=== PATIENT | female | born 1950 | race Caucasian/White ===

== ENCOUNTER → 2021-01-05 10:48 | Outpatient (CLI) | payer MEDICARE, OTHER, SELFPAY ==
--- NOTE | 2021-01-05 10:50 | CT_ITS ---
STUDY: LOW DOSE CT LUNG CANCER SCREENING REASON FOR EXAM: Female, 70 years old. LUNG CANCER SCREENING, NON-SMOKER X 10 YRS, 1PPD X 42 YRS RADIATION DOSAGE (If Supplied By Facility): CTDIvol = ( 4.02 ) mGy, DLP = ( 133.41 ) mGycm TECHNIQUE: No contrast was administered. Low dose technique was utilized (average mAS-38 and kVp 120). 1.25 mm axial source images with a slice interval of 1.25-mm were reconstructed in lung windows. 2.5 mm axial source images with a slice interval of 2.5-mm were reconstructed in lung windows. 5.0 mm axial source images with a slice interval of 5.0-mm were reconstructed in soft tissue windows. Nodule measured using lung windows on PACS and/or independent workstation with automated measurement of minimum and maximum diameter. Nodule measurement reported as average diameter rounded to the nearest whole number. Growth is defined as an increase ins size of greater than 1.5 mm. COMPARISON: None. NODULES: No suspicious nodules are seen. Emphysema: Minimal degree of increased markings in the posterior aspect of the left upper lobe adjacent to the left major fissure. This may represent focal area of scarring. Minimal scarring at the lung bases. Endobronchial lesion: None Aorta: Mild degree of atherosclerotic plaque formation of the aortic arch. Coronary arteries: Coronary artery calcification. Mediastinal nodes: Small benign appearing mediastinal lymph nodes. Other chest and abdominal findings: Degenerative changes of the thoracic spine. CT/Low Dose CT Lung Screening IMPRESSION: Lung-RADS category 2 - Continue annual screening with LDCT in 12 months. IMPORTANT NOTES FOR USE: ACR Lung-RADS Version 1.0 Assessment Categories Release Date: March 23, 2014 Category: Coded 0-4 bases on nodule(s) with highest degree of suspicion. Negative screen is defined as categories 1 and 2; a positive screen is defined as categories 3 and 4. Category 3 and 4A nodules that are unchanged on interval CT should be coded as category 2, and individuals returned to screening in 12 months. Category 4X: Category 3 or 4 nodules with additional imaging findings that increase the suspicion of lung cancer, such as spiculation, GGN that doubles in size in 1 year, enlarged lymph notes, etc. Category Modifiers: S (significant finding unrelated to lung cancer) and C (prior history of treated lung cancer) may be added to the 0-4 Lung-RADS Electronically Signed: Alec Moreira MD at 12:48 EST , Service support ,
== END ==
PROVIDERS: PCP Family Medicine; Referring Provider Family Medicine; Visit Provider Family Medicine
DX: Z00.00 Encounter for general adult medical examination without abnormal findings (principal); Z12.2 Encounter for screening for malignant neoplasm of respiratory organs; Z12.11 Encounter for screening for malignant neoplasm of colon; Z87.891 Personal history of nicotine dependence
CPT/HCPCS: 71271

== ENCOUNTER 2021-01-27 13:51 | Outpatient (RCR) | payer MEDICARE, OTHER, SELFPAY ==
[2021-01-27] MEDS: COVID-19 VACC, MRNA(PFIZER)/PF 30 MCG/0.3 ML SYRINGE IM (09:33)
[2021-02-17] MEDS: COVID-19 VACC, MRNA(PFIZER)/PF 30 MCG/0.3 ML SYRINGE IM (09:27)
== END 2021-01-27 23:59 ==
LOC: IMMUN 13:51
PROVIDERS: PCP Family Medicine; Referring Provider Family Medicine; Visit Provider Family Medicine
DX: Z23 Encounter for immunization (principal)
CPT/HCPCS: 0001A; 0002A

== ENCOUNTER 2024-04-25 03:10 | Inpatient (IN) | payer MEDICARE, OTHER, SELFPAY ==
[2024-04-25] VITALS (16 sets, daily range): BP systolic 107–165; BP diastolic 48–92; PULSE 59–89; RESP 13–16; TEMP 36.4–37.9; O2SAT 91–100; BMI 34.0
--- NOTE | 2024-04-25 03:45 | PCM.HP.STD ---
HPI - General General Date of Admission: 04/25/24 Date of Service: 04/25/24 Chief Complaint: Abdominal pain, N/V. HPI Narrative The patient is a 74 y/o F w/ PMHx: RLS, HTN, HLD, Anxiety and Depression, Allergic Rhinitis, Absences seizures, Hx Cholelithiasis with chronic cholecystitis status post previous cholecystectomy 2021, Former tobacco use, Ulcerative colitis who presents to the [facility] on 04/25/2024 as a direct admit from outside facility [facility] ED with history of presentation to their facility on 04/24/2024 with history of normal day of activity with no complaints until following dinner at 5 PM when she had sudden onset of epigastric and right upper quadrant pain which was noted to be severe and sharp 10 out of 10 in severity with nausea and bouts of emesis prompting EMS call and transition to the outside facility ED for evaluation. Following interventions in ED including pain medication she did note significant improvement. Upon [facility] arrival she notes pain is resolved at this time and reports that 0 out of 10. She does reports over the years she has had intermittent similar epigastric and right upper quadrant pain but is resolved. In the ED VS included HR 68, BP 132/69, HR 67, RR 13, T 36.9, 96% on RA, CBC with WBC 8.3, hemoglobin 13, platelet 189 with left shift, troponin 8, lipase 67, CMP with sodium 137, potassium 3.8, chloride 101, CO2 27, BUN/creatinine 16/0.91, total bilirubin 1.4, AST/ALT 308/189, alk phos 95, glucose 158, GFR 60, CT chest, abdomen, pelvis with IV contrast with choledocholithiasis with moderate biliary and pancreatic ductal dilatation, colonic diverticulosis without signs of diverticulitis, slight enlargement of cyst at the upper pole of the right kidney measuring 4.5 cm which was noted previously however has increased in size from 3.7 cm 10/25/2021 but appearance remains benign as well as small benign cyst in the left kidney, UA with positive gravity 1.020, nitrite positive, leukocyte estrace and trace with WBCs 5-10 and 3+ urine bacteria, UCx pending from outside facility. In the ED patient was administered IV zosyn, 1L NS, zofran 4 mg IV x 1, morphine 4 mg IV x 1. [facility] Medical History RLS (restless legs syndrome) History of chronic cholecystitis Absence seizure disorder Ulcerative colitis Allergic rhinitis Anxiety and depression Former tobacco use HLD (hyperlipidemia) HTN (hypertension) Home Medications ?Medication ?Instructions ?Recorded ?Last Taken ?Type Ca 600 mg-D3 20 mcg-mag oxide 50 1 ea PO DAILY 08/18/14 Unknown History op-Xo-pnqfku-manganese-boron tablet (Calcium 600-D3 Plus (mag-zinc)) Losartan/Hydrochlorothiazide 1 tab PO DAILY 08/18/14 Unknown History [Hyzaar 100-12.5 Tablet] ascorbate calcium (vitamin C) 500 500 mg PO DAILY 08/18/14 Unknown History mg tablet gabapentin 300 mg capsule 300 mg PO TID 08/18/14 Unknown History loperamide 2 mg capsule 2 mg PO DAILY 08/18/14 Unknown History multivitamin with folic acid 400 1 tab PO DAILY 08/18/14 Unknown History mcg tablet (Thera) omeprazole 20 mg capsule,delayed 20 mg PO DAILY 08/18/14 Unknown History release pravastatin 40 mg tablet 40 mg PO DAILY 08/18/14 Unknown History (Pravachol) gabapentin 100 mg capsule PO 04/25/24 Unknown History levetiracetam 500 mg tablet 500 mg PO BID 04/25/24 Unknown History losartan 100 1 tab PO DAILY 04/25/24 Unknown History mg-hydrochlorothiazide 12.5 mg tablet oxybutynin chloride 15 mg 15 mg PO DAILY 04/25/24 Unknown History tablet,extended release 24 hr ropinirole 0.5 mg tablet 0.5 mg PO DAILY 04/25/24 Unknown History Allergy/AdvReac Type Severity Reaction Status Date / Time acetaminophen (From Vicodin) AdvReac Nausea/Vom/ Verified 08/31/14 10:09 Diarrhea hydrocodone bitartrate (From AdvReac Nausea/Vom/ Verified 08/31/14 10:09 Vicodin) Diarrhea propoxyphene napsylate (From AdvReac Nausea/Vom/ Verified 08/31/14 10:09 Darvocet-N) Diarrhea Family History (Updated 04/25/24 @ 04:[address] Marianela Garcia MD) Mother Diabetes Bipolar disorder Father Liver cancer Prostate cancer Surgical History S/P cataract extraction History of knee replacement History of arthroscopic knee surgery History of section History of total hip replacement S/P cholecystectomy Social History (Updated 04/25/24 @ 04:[address] Marianela Garcia MD) household members: children Smoking Status: Former smoker how long ago did patient quit smoking: Smoked 40 yrs 1 ppd until quit age 50. alcohol intake: current alcohol intake frequency: holidays/special occasions only substance use type: does not use ROS ROS Narrative Admission Review of Systems: CONSTITUTIONAL: No weight loss, fever, chills, + weakness or fatigue. HEENT: Eyes: No visual loss, blurred vision, double vision or yellow sclerae. Ears, Nose, Throat: No hearing loss, sneezing, congestion, runny nose or sore throat. SKIN: No rash or itching, lesions, wounds. CARDIOVASCULAR: No chest pain, chest pressure or chest discomfort, palpitations, edema, orthopnea, syncopal events. RESPIRATORY: No shortness of breath, cough or sputum, wheezing, hemoptysis. GASTROINTESTINAL: + anorexia, nausea, vomiting, abdominal pain. No diarrhea, melena, BRBPR. GENITOURINARY: No dysuria, frequency, urgency or retention. NEUROLOGICAL: No headache, dizziness, syncope, paralysis, ataxia, numbness or tingling in the extremities, focal weakness, change in bowel or bladder control, seizure. MUSCULOSKELETAL: + muscle, back pain, joint pain or stiffness. HEMATOLOGIC: No anemia, bleeding or bruising. LYMPHATICS: No enlarged nodes. No history of splenectomy. PSYCHIATRIC: + History of anxiety and depression. ENDOCRINOLOGIC: No reports of sweating, cold or heat intolerance. No polyuria or polydipsia. ALLERGIES: No history of asthma, hives, eczema or rhinitis. Physical Exam Narrative Physical Examination: General: Awake, alert, oriented x 3 and cooperative, seated upright in the MS bed, fatigued appearing, notes pain currently resolved. Skin: Normal color, normal turgor, no icterus, no cyanosis. HEENT: AT/NC, EOMI, PERRLA, mildly dry MM, no carotid bruits or JVD noted. Lungs: CTA bilaterally, moderate effort, mild decrease BL bases, no rales, ronchi or wheezing. Heart: Regular rate and rhythm; no gallop, rub audible. Abdomen: Soft, obese, mild discomfort elicited with right upper quadrant epigastric palpation but no rebound or guarding, ND, mildly hyperactive BS, no appreciated HSM. Extremities: No cyanosis, clubbing, or edema. Neurological: Patient awake, alert, oriented as noted, cognitive function intact; pupils equally reactive to light and accommodation, cranial nerves grossly normal, moving all 4 extremities, no focal deficits, strength moderately globally decreased. Psychiatric: Affect appears fatigued otherwise normal, no acute evidence of depressive or anxiety feelings but does have underlying history. Assessment & Plan Assessment/Plan (1) Choledocholithiasis: PLAN: Plan The patient is a 74 y/o F w/ PMHx: RLS, HTN, HLD, Anxiety and Depression, Allergic Rhinitis, Absences seizures, Hx Cholelithiasis with chronic cholecystitis status post previous cholecystectomy 2021, Former tobacco use, Ulcerative colitis who presents to the [facility] on 04/25/2024 as a direct admit from outside facility [facility] ED with history of presentation to their facility on 04/24/2024 with history of normal day of activity with no complaints until following dinner at 5 PM when she had sudden onset of epigastric and right upper quadrant pain which was noted to be severe and sharp 10 out of 10 in severity with nausea and bouts of emesis prompting EMS call and transition to the outside facility ED for evaluation. #1. Acute abdominal pain, nausea and emesis secondary to choledocholithiasis with hyperbilirubinemia, elevated LFTs with previous history of cholelithiasis with chronic cholecystitis status post cholecystectomy 2021: Will admit to MS, maintain on IVFs, NPO status, PPI, IV/po pain control, trend lipase, CMP, CBC. Will continue IV Zosyn to be cautious given left shift although likely will be able to be de-escalated pending also evaluation of #2. Will consult gastroenterology for ERCP consideration. #2. Questionable Acute Urinary Tract Infection: UA upon ED evaluation remarkable, pending UCx, continue IVFs, monitor I/Os, continue IV Zosyn given number 1, de-escalate antibiotic therapy pending [facility] urine culture. #3. Hypertension: Continue home regimen including hydrochlorothiazide, losartan, PRN hydralazine. #4. Anxiety and depression: We will continue patient home escitalopram regimen. #5. Hyperlipidemia: Given mildly elevated LFTs in the setting of #1 will temporarily hold statin therapy But resume once clinically appropriate. #6. Allergic rhinitis: We will continue patient on Zyrtec regimen. #7. Chronic neuropathy: Will continue patient home gabapentin regimen. #8. Absence seizure: We will continue patient home Keppra regimen. Encourage continued outpatient follow-up with neurology as previously arranged. #9. Former tobacco use: Encourage continued tobacco cessation. #10. Chart reported history ulcerative colitis: Per current list not on any chronic type of medications, encourage continued outpatient follow-up with gastroenterology as previously arranged. #11. Restless leg syndrome: We will continue patient on Requip regimen. #12. DVT prophylaxis: SCDs, hold chemoprophylaxis given planned likely ERCP. #13. CODE status: Patient BHARAT is her daughter and living will is currently in place. Discussed CODE status at length including difference between FULL code, DNR-CCA and DNR-CC status. Following discussions about the differences in these status, requested Full Code status. Charges/Coding Visit Charges Inpatient E&M: 44889 Init Hosp L3
[2024-04-25] MEDS: 0.9% Normal Saline (1000mL) 1,000 ML 100 ML IV ×2 (04:54→21:23)
[2024-04-25] MEDS: Pantoprazole Sodium 40 MG in 0.9% Normal Saline (100mL MB+) 100 ML 330 MG IV ×2 (04:55→21:22)
[2024-04-25] MEDS: Piperacil/Tazobactam 3.375 GM in 0.9% Normal Saline (50mL MB+) 50 ML IV ×3 (04:56→21:20)
[2024-04-25 06:48] LABS: Absolute Lymphocyte Count 0.25 X10^3/uL (0.83-4.51); Absolute Neutrophil Count 8.2 X10^3/uL (2.0-7.7); Basophil# 0.01 X10^3/uL; Basophil% 0.1 % (0-1); Hematocrit 35.6 % (37-47); Hemoglobin 12.1 g/dL (12.0-15.0); Lymphocyte # 0.25 X10^3/ul (0.83-4.51); Lymphocyte % 2.8 % (19-41); Mean Corpuscular Hgb 30.6 pg (27.0-32.0); Mean Corpuscular Volume 89.9 fL (81-99); Mean Platelet Vol. 10.6 fl (6.2-12.0); Monocyte# 0.53 X10^3/uL; Monocyte% 5.9 % (0-10); NRBC Flagged by Analyzer 0 % (0-5); Neutrophil # 8.16 X10^3/uL (2.7-7.7); Neutrophil % 90.8 % (47-70); POSITIVE DIFFERENTIAL YES; Platelet Count 155 K/mm3 (150-450); RBC Distribution Width CV 12.8 % (11.6-14.6); RBC Distribution Width SD 42.1 fl (35.1-43.9); Red Blood Count 3.96 M/mm3 (4.2-5.4)
[2024-04-25 07:21] LABS: ALB/GLOB Ratio 0.8 RATIO (0.9-2.4); AST(SGOT) 591 U/L (15-37); Alanine Aminotransfer ALT/SGPT 460 U/L (13-56); Albumin, Serum 3.1 g/dL (3.2-5.0); Alkaline Phosphatase 87 U/L (45-117); Anion Gap 4 (5-15); BUN 14 mg/dL (7-18); Calcium,Total 8.5 mg/dL (8.5-10.1); Chloride 107 mmol/L (98-107); Creatinine, Serum 0.74 mg/dL (0.55-1.02); EST Glomerular Filtration Rate 82 mL/min (>60); Est Glom Filt Rate - Afr Amer 99 mL/min (>60); Estimated Creatinine Clearance 60.27 ml/min; Globulin 3.9 g/dL (2.2-4.2); Glucose 134 mg/dL (74-106); Potassium 3.7 mmol/L (3.5-5.1); Sodium Level 136 mmol/L (136-145)
--- NOTE | 2024-04-25 07:40 | PCM.HOSP.N ---
Hospitalist Note 74-year-old female who presented to the ED at [facility] on 04/25/2024 with abdominal pain, nausea, and vomiting. Symptoms started at about 5 PM following dinner when she had acute onset epigastric and right upper quadrant pain. She had several bouts of emesis with nausea. Vital signs were unremarkable but chemistry panel showed an elevated bilirubin at 1.4 AST of 308 and an ALT of 189. Alk phos was 95. CT of the chest abdomen pelvis was performed and she was found of choledocholithiasis with moderate biliary and pancreatic duct dilation. UA was suggestive of infection so urine culture was sent and in the emergency department she was given Zosyn, IV fluids, Zofran and morphine for pain. She was transferred here for further care. Gastroenterology was consulted and plan is for ERCP on 04/25/2024. Patient has had previous cholecystectomy. Plan is for ERCP later today.
[2024-04-25] MEDS: Gabapentin 100 MG Capsule PO ×2 (07:41→17:13)
[2024-04-25] MEDS: Ferrous Sulfate 325 MG Tablet PO (07:41)
[2024-04-25] MEDS: Escitalopram Oxalate 20 MG Tablet PO (07:41)
[2024-04-25] MEDS: Pramipexole Di-HCl 0.25 MG Tablet PO (07:42)
[2024-04-25] MEDS: Tolterodine Tartrate 4 MG CAP.SA PO (07:42)
[2024-04-25] MEDS: hydroCHLOROthiazide 12.5mg 12.5 MG PO (07:42)
[2024-04-25] MEDS: levETIRAcetam 500 MG Tablet PO ×2 (07:42→21:19)
[2024-04-25] MEDS: Losartan Potassium 100 MG Tablet PO (07:43)
--- NOTE | 2024-04-25 08:12 | CASEMGMT ---
Social Work- SW found that pt does have a HCPOA naming Kaylee Lobo in chart. WILFRIDO Foster
--- NOTE | 2024-04-25 08:51 | PCA ---
Patient has General Power of Simulation Tech on file here at [facility], no Health Care Power of Simulation Tech or Living will on file
--- NOTE | 2024-04-25 09:19 | CASEMGMT ---
Pt has HCPOA naming Kaylee Lobo in chart. WILFRIDO Foster
--- NOTE | 2024-04-25 09:55 | CASEMGMT ---
SEUN MYERS Assessment: Face to Face with pt for initial transition planning/care coordination assessment. RN LUCIA introduced self and role at [facility], pt voices understanding and consents to assessment. Pt lying in bed in no distress. Pt is A&O x4 and answers all questions appropriately at this time. Care providers, pharmacy, and demographics verified/updated. Admitting Dx: Choledocolithiasis PCP: Naa Specialists: Maynor - Neurologist; Franklin Villanueva - Urologist Preferred Pharmacy: [facility] Insurance: Medicare, [employer] Prescription Benefit: yes LNOK: Heather - daughter Living Arrangements: Pt lives alone in a 2 story home with 1 step to enter. Pt states I with ADLs and IADLs. Transportation: Pt drives self and denies concerns with transportation. DME: Walker, cane, crutches HHC/SNF: Denies Hx of. Pt states no concerns with going home at time of dc. Pt states no further concerns/needs. CM to follow. Advised pt to ask CM if any further question/concerns/needs arise, voices understanding. Pt Goal: Home Plan: Home no needs Antolin KOHLI CM
[2024-04-25] MEDS: Lactated Ringers 1,000 ML 15 ML IV (12:24)
--- NOTE | 2024-04-25 13:08 | NURSING ---
1150-pt off unit via bed for procedure
--- NOTE | 2024-04-25 13:23 | RAD_ITS ---
INDICATION: PAIN EXAMINATION/TECHNIQUE: ERCP Total Fluoroscopic Time: 148 seconds AND number of Fluoroscopic Images: 18 Radiation dosage index: 47.64 mGy COMPARISON: No relevant prior comparison study available FINDINGS: Endoscopy and cannulation were carried out by the referring physician. Images of ERCP were submitted. Common bile duct is dilated. Multiple filling defects are seen in the common bile duct which could represent retained stones. Air bubbles are possible. A balloon is seen distracted aorta appears to be stones The last image demonstrates common bile duct stent. Examination was performed for documentation and not for diagnostic purposes. RAD/ERCP Biliary/Pancreas IMPRESSION: ERCP as described above. Electronically Signed: Burak Milner MD at 9:36 EDT ,
--- NOTE | 2024-04-25 13:45 | CHAPLAIN ---
Type of Pastoral Visit _x__ Initial Visit ___ Follow-up Visit ___ On-call Visit ___ General Patient Visit ___ Spiritual Assessment ___ Family Conference ___ Bereavement ___ Rapid Response ___ Code Blue ___ Other (describe below) Pastoral Care Referral From _x__ Patient ___ Family ___ Nurse ___ Physician ___ Wrecking Mechanic ___ Gluer ___ Other (describe below) Sacrament/Intervention _x__ Active listening ___ Anointing ___ Restorationism ___ Bereavement ___ Communion ___ Roxanne exploration ___ ___ Life review _x__ Prayer ___ Reconciliation ___ Sacrament of Sick _x__ Supportive presence ___ Wedding ___ Other (describe below) Pastoral Comments patient is waiting for a surgery time; sat with patient as she was welcoming and talkative about herself and life journey; staff came to take pt to surgery and pt welcomed a prayer for support; pt expresses thanks for the time given
--- NOTE | 2024-04-25 14:06 | OP.ERCP_ITS ---
Patient Name: Pati Lobo Procedure Date: 04/25/2024 12:47 PM Date of : 1950 Age: 74 Procedure: ERCP Indications: Bile duct stone(s) Providers: Ric Lara DO Medicines: Monitored Anesthesia Care Patient Profile: This is a 74 year old female. Refer to note in patient chart for documentation of history and physical. Patient has symptoms of acute right upper quadrant abdominal pain and acute jaundice. Complications: No immediate complications. Procedure: Pre-Anesthesia Assessment: - Prior to the procedure, a History and Physical was performed, and patient medications and allergies were reviewed. The patient is competent. The risks and benefits of the procedure and the sedation options and risks were discussed with the patient. All questions were answered and informed consent was obtained. Patient identification and proposed procedure were verified by the physician. Mental Status Examination: normal. Respiratory Examination: clear to auscultation. Prophylactic Antibiotics: The patient does not require prophylactic antibiotics. Prior Anticoagulants: The patient has taken no anticoagulant or antiplatelet agents. ASA Grade Assessment: II - A patient with mild systemic disease. After reviewing the risks and benefits, the patient was deemed in satisfactory condition to undergo the procedure. The anesthesia plan was to use general anesthesia. Immediately prior to administration of medications, the patient was re-assessed for adequacy to receive sedatives. The heart rate, respiratory rate, oxygen saturations, blood pressure, adequacy of pulmonary ventilation, and response to care were monitored throughout the procedure. The physical status of the patient was re-assessed after the procedure. After obtaining informed consent, the scope was passed under direct vision. Throughout the procedure, the patient's blood pressure, pulse, and oxygen saturations were monitored continuously. The Duodenoscope was introduced through the mouth, and advanced to the duodenum and used to inject contrast into the bile duct and ventral pancreatic duct. The ERCP was accomplished without difficulty. The patient tolerated the procedure well. Scope In: 1:24:13 PM Scope Out: 1:54:21 PM Total Procedure Duration Time 0 hours 30 minutes 8 seconds Findings: The cloth printing inspector film was normal. The esophagus was successfully intubated under direct vision. The scope was advanced to a normal major papilla in the descending duodenum without detailed examination of the pharynx, larynx and associated structures, and upper GI tract. The upper GI tract was grossly normal. The bile duct was deeply cannulated with the short-nosed traction sphincterotome. Contrast was injected. I personally interpreted the bile duct and pancreatic duct images. There was brisk flow of contrast through the ducts. Image quality was excellent. Contrast extended to the entire biliary tree. Opacification of the entire biliary tree except for the cystic duct and gallbladder was successful. The maximum diameter of the ducts was 12 mm. The lower third of the main bile duct contained two stones, the largest of which was 6 mm in diameter. The main bile duct was diffusely dilated, with a stone causing an obstruction. The largest diameter was 13 mm. A cholecystectomy had been performed. A straight Roadrunner wire was passed into the biliary tree. A 5 mm biliary sphincterotomy was made with a traction (standard) sphincterotome using ERBE electrocautery. The sphincterotomy oozed blood. To discover objects, the biliary tree was swept with a 12 mm balloon starting at the bifurcation. Sludge was swept from the duct. All stones were removed. The ventral pancreatic duct was deeply cannulated with the short-nosed traction sphincterotome. Contrast was injected. Opacification of the entire pancreatic ductal system was successful. The maximum diameter of the ducts was 3 mm. The entire opacified area was normal. A long 0.025 inch Jagwire was passed into the ventral pancreatic duct. A 2 mm ventral pancreatic sphincterotomy was made with a traction (standard) sphincterotome using ERBE electrocautery. There was no post-sphincterotomy bleeding. To find object(s) the ventral pancreatic duct was swept with a 6 mm balloon starting at the pancreatic duct in the body of the pancreas. Nothing was found. Dilation of the left main hepatic duct with 5-7-10 Fr catheter dilator was successful. One 10 Fr by 7 cm temporary stent was placed 5 cm into the common bile duct. Bile flowed through the stent. The stent was in good position. Impression: - The entire main bile duct was dilated, with a stone causing an obstruction. - The patient has had a cholecystectomy. - Choledocholithiasis was found. Complete removal was accomplished by biliary sphincterotomy and balloon extraction. - A biliary sphincterotomy was performed. - The biliary tree was swept. - A pancreatic sphincterotomy was performed. - The ventral pancreatic duct was swept and nothing was found. - The left main hepatic duct was successfully dilated. - One temporary stent was placed into the common bile duct. Procedure Code(s): --- Professional --- 95795, Endoscopic retrograde cholangiopancreatography (ERCP); with placement of endoscopic stent into biliary or pancreatic duct, including pre- and post-dilation and guide wire passage, when performed, including sphincterotomy, when performed, each stent 62136, 51, Endoscopic retrograde cholangiopancreatography (ERCP); with removal of calculi/debris from biliary/pancreatic duct(s) 48359, 59, Endoscopic retrograde cholangiopancreatography (ERCP); with sphincterotomy/papillotomy 20014, 26, Combined endoscopic catheterization of the biliary and pancreatic ductal systems, radiological supervision and interpretation 41562, Unlisted procedure, biliary tract CPT copyright 2021 [employer]. All rights reserved. The codes documented in this report are preliminary and upon microfilm camera operator review may be revised to meet current compliance requirements. Ric Lara DO 04/25/2024 2:05:48 PM This report has been signed electronically. Number of Addenda: 0 Note Initiated On: 04/25/2024 12:47 PM
--- NOTE | 2024-04-25 14:06 | OP.CCLET_ITS ---
04/25/2024 Katja Hurtado Do Re : ERCP procedure for Pati Lobo Dear Genesis This procedure was performed on Thursday, April 25, 2024. My impressions and recommendations are as follows: Impressions : - The entire main bile duct was dilated, with a stone causing an obstruction. - The patient has had a cholecystectomy. - Choledocholithiasis was found. Complete removal was accomplished by biliary sphincterotomy and balloon extraction. - A biliary sphincterotomy was performed. - The biliary tree was swept. - A pancreatic sphincterotomy was performed. - The ventral pancreatic duct was swept and nothing was found. - The left main hepatic duct was successfully dilated. - One temporary stent was placed into the common bile duct. Recommendations : My findings are described in the full procedure note, which is enclosed. If I can be of further assistance, please feel free to contact me at . Sincerely, Ric Lara, 04/25/2024 2:05:48 PM This report has been signed electronically.
[2024-04-25] MEDS: 0.9% Saline Lock 10 ML Syringe IV (15:53)
[2024-04-25] MEDS: Acetaminophen 325 MG Tablet 650 MG PO (21:19)
[2024-04-25] MEDS: MELATONIN 10 MG TABLET PO (21:19)
[2024-04-26 04:28] VITALS: BMI 35.9
[2024-04-26 05:12] VITALS: BP 119/55; PULSE 72; RESP 16; TEMP 36.7; O2SAT 98
[2024-04-26] MEDS: Piperacil/Tazobactam 3.375 GM in 0.9% Normal Saline (50mL MB+) 50 ML IV (05:15)
[2024-04-26 05:41] LABS: Absolute Lymphocyte Count 0.55 X10^3/uL (0.83-4.51); Absolute Neutrophil Count 6.3 X10^3/uL (2.0-7.7); Basophil# 0.01 X10^3/uL; Basophil% 0.1 % (0-1); Hematocrit 31.4 % (37-47); Hemoglobin 10.7 g/dL (12.0-15.0); Lymphocyte # 0.55 X10^3/ul (0.83-4.51); Lymphocyte % 7.7 % (19-41); Mean Corp Hgb Conc 34.1 g/dL (32-36); Mean Corpuscular Hgb 30.7 pg (27.0-32.0); Mean Platelet Vol. 10.7 fl (6.2-12.0); Monocyte# 0.25 X10^3/uL; Monocyte% 3.5 % (0-10); NRBC Flagged by Analyzer 0 % (0-5); Neutrophil # 6.31 X10^3/uL (2.7-7.7); Neutrophil % 88.4 % (47-70); POSITIVE DIFFERENTIAL YES; Platelet Count 123 K/mm3 (150-450); RBC Distribution Width CV 13.1 % (11.6-14.6); RBC Distribution Width SD 43.1 fl (35.1-43.9); Red Blood Count 3.49 M/mm3 (4.2-5.4); White Blood Count 7.1 K/mm3 (4.4-11.0)
[2024-04-26 06:02] LABS: ALB/GLOB Ratio 0.7 RATIO (0.9-2.4); AST(SGOT) 176 U/L (15-37); Alanine Aminotransfer ALT/SGPT 299 U/L (13-56); Albumin, Serum 2.5 g/dL (3.2-5.0); Alkaline Phosphatase 75 U/L (45-117); Anion Gap 5 (5-15); BUN 12 mg/dL (7-18); BUN/Creat Ratio 17.7 RATIO (10-20); Calcium,Total 8.3 mg/dL (8.5-10.1); Chloride 108 mmol/L (98-107); Creatinine, Serum 0.68 mg/dL (0.55-1.02); EST Glomerular Filtration Rate 90 mL/min (>60); Est Glom Filt Rate - Afr Amer 108 mL/min (>60); Estimated Creatinine Clearance 62.01 ml/min; Globulin 3.6 g/dL (2.2-4.2); Glucose 127 mg/dL (74-106); Magnesium 1.9 mg/dL (1.6-2.6); Phosphorus 2.6 mg/dL (2.5-4.9); Potassium 3.6 mmol/L (3.5-5.1); Protein, Total 6.1 g/dL (6.4-8.2); Sodium Level 136 mmol/L (136-145)
[2024-04-26 08:08] VITALS: BP 151/76; PULSE 68; RESP 16; TEMP 36.9; O2SAT 98
[2024-04-26] MEDS: Ferrous Sulfate 325 MG Tablet PO (08:20)
[2024-04-26] MEDS: Gabapentin 100 MG Capsule PO (08:22)
[2024-04-26] MEDS: hydroCHLOROthiazide 12.5mg 12.5 MG PO (08:23)
[2024-04-26] MEDS: Tolterodine Tartrate 4 MG CAP.SA PO (08:23)
[2024-04-26] MEDS: Losartan Potassium 100 MG Tablet PO (08:23)
[2024-04-26] MEDS: Escitalopram Oxalate 20 MG Tablet PO (08:24)
[2024-04-26] MEDS: levETIRAcetam 500 MG Tablet PO (08:24)
[2024-04-26] MEDS: Pramipexole Di-HCl 0.25 MG Tablet PO (08:24)
--- NOTE | 2024-04-26 08:38 | PCM.DC ---
Discharge Instructions Diet Discharge Diet: No restrictions Activity Discharge Activity: Return to Normal Activity Dressing / Incision Call your doctor if you observe: Fever of 101 or Higher, Shortness of breath, Dizziness, Fainting spells, Swelling in the ankles, Chest pain and Increased palpitations (irregular heartbeat) Follow Up Care Test Results: Test results from this visit will be discussed in further detail at your follow-up appointment, if applicable. Discharge Plan Admission Admit Date/Time: 04/25/24 03:10 Attending Provider: Yao Hammer Primary Care Provider: Katja Jacome Consulting Providers: Marianela Garcia; Leena Cunningham Instructions Patient Instructions: Biliary Stent Dc, ED Gallstones with Biliary Colic Discharge Orders/Prescriptions Prescriptions: Continued loperamide 2 MG capsule 2 mg PO DAILY Patient Comments: DIARRHEA pravastatin [Pravachol] 40 MG tablet 40 mg PO DAILY Patient Comments: CHOLESTEROL ascorbate calcium (vitamin C) 500 MG tablet 500 mg PO DAILY Patient Comments: SUPPLEMET gabapentin 300 MG capsule 300 mg PO TID Patient Comments: NERVE PAIN omeprazole 20 MG capsule 20 mg PO DAILY Patient Comments: STOMACH multivitamin with folic acid [Thera] 1 TABLET tablet 1 tab PO DAILY Patient Comments: SUPPLEMET Ca-D3-mag ss-vauf-xzf-jose-bor [Calcium 600-D3 Plus (mag-zinc)] 1 EACH tablet 1 ea PO DAILY Patient Comments: SUPPLEMET Losartan/Hydrochlorothiazide [Hyzaar 100-12.5 Tablet] 1 TAB tablet 1 tab PO DAILY Patient Comments: BLOOD PRESSURE oxybutynin chloride 15 mg tablet extended release 24hr 15 mg PO DAILY levetiracetam 500 mg tablet 500 mg PO BID ropinirole 0.5 mg tablet 0.5 mg PO DAILY gabapentin 100 mg capsule 100 mg PO DAILY losartan-hydrochlorothiazide 100-12.5 mg tablet 1 tab PO DAILY alendronate 70 mg tablet 70 mg PO .sunday escitalopram oxalate 20 mg tablet 20 mg PO DAILY melatonin 10 mg capsule 10 mg PO QHS ferrous sulfate [iron] 325 mg (65 mg iron) tablet 325 mg PO DAILY cetirizine [Zyrtec] 10 mg tablet 10 mg PO DAILY PRN (Reason: allergy symptoms) omega 1-pat-nvw-fish oil 360-1,200 mg capsule,delayed release(DR/EC) 1 cap PO DAILY magnesium 250 mg tablet 250 mg PO BID vitamin B complex [B-Complex] Tablet 1 tab PO DAILY Referrals / Follow Up: Katja Jacome DO [Primary Care Provider] - Within 1 Week FriendRic DO [Med Staff - Active Staff] - Within 3 Months Disposition Disposition (needs filled in before D/C Order can be placed): Home, Self Care
[2024-04-26] MEDS: Pantoprazole Sodium 40 MG in 0.9% Normal Saline (100mL MB+) 100 ML 330 MG IV (10:01)
--- NOTE | 2024-04-26 12:25 | PCM.DC.SUM ---
Providers Date of Admission: 04/25/24 Primary Care Physician: Dr. Katja Jacome, DO Consultations 04/25/24 03:08 Consult: Gastroenterology Routine Consulting Provider: [facility] Reason for Consult: Choledocholithasis, ERCP evaluation EMERGENT Consult: No MD Notified: Yes Date Notified: 04/25/24 Time Notified: 03:09 Method of Notification: Text Reason For Visit: CHOLEDOCOLITHIASIS Diagnosis Discharge Diagnosis (1) Choledocholithiasis: Status: Acute Code(s): K80.50 - Calculus of bile duct without cholangitis or cholecystitis without obstruction Medications at Discharge Home Medications Ca 600 mg-D3 20 mcg-mag oxide 50 xq-Pt-qngxyi-manganese-boron tablet (Calcium 600-D3 Plus (mag-zinc)) 1 ea PO DAILY supplement 08/18/14 Losartan/Hydrochlorothiazide [Hyzaar 100-12.5 Tablet] 1 tab PO DAILY 08/18/14 ascorbate calcium (vitamin C) 500 mg tablet 500 mg PO DAILY supplement 08/18/14 gabapentin 300 mg capsule 300 mg PO TID restless legs 08/18/14 loperamide 2 mg capsule 2 mg PO DAILY diarrhea 08/18/14 multivitamin with folic acid 400 mcg tablet (Thera) 1 tab PO DAILY supplement 08/18/14 omeprazole 20 mg capsule,delayed release 20 mg PO DAILY Gerd 08/18/14 pravastatin 40 mg tablet (Pravachol) 40 mg PO DAILY cholesterol 08/18/14 alendronate 70 mg tablet 70 mg PO .sunday OA 04/25/24 cetirizine 10 mg tablet (Zyrtec) 10 mg PO DAILY PRN allergy symptoms 04/25/24 escitalopram oxalate 20 mg tablet 20 mg PO DAILY depression 04/25/24 ferrous sulfate 325 mg (65 mg iron) tablet (iron) 325 mg PO DAILY supplement 04/25/24 gabapentin 100 mg capsule 100 mg PO DAILY restless leg 04/25/24 levetiracetam 500 mg tablet 500 mg PO BID seizure 04/25/24 losartan 100 mg-hydrochlorothiazide 12.5 mg tablet 1 tab PO DAILY blood pressure 04/25/24 magnesium 250 mg tablet 250 mg PO BID supplement 04/25/24 melatonin 10 mg capsule 10 mg PO QHS sleep 04/25/24 omega-3 360 bs-pwi-xbc-fish oil 1,200 mg capsule,delayed release 1 cap PO DAILY supplement 04/25/24 oxybutynin chloride 15 mg tablet,extended release 24 hr 15 mg PO DAILY bladder 04/25/24 ropinirole 0.5 mg tablet 0.5 mg PO DAILY restless legs 04/25/24 vitamin B complex (B-Complex tablet) 1 tab PO DAILY supplement 04/25/24 Hospital Course Operations ERCP Procedures None Summary of Care Provided Minutes Spent on Discharge: 33 Hospital Course: Per HPI: The patient is a 74 y/o F w/ PMHx: RLS, HTN, HLD, Anxiety and Depression, Allergic Rhinitis, Absences seizures, Hx Cholelithiasis with chronic cholecystitis status post previous cholecystectomy 2021, Former tobacco use, Ulcerative colitis who presents to the [facility] on 04/25/2024 as a direct admit from outside facility [facility] ED with history of presentation to their facility on 04/24/2024 with history of normal day of activity with no complaints until following dinner at 5 PM when she had sudden onset of epigastric and right upper quadrant pain which was noted to be severe and sharp 10 out of 10 in severity with nausea and bouts of emesis prompting EMS call and transition to the outside facility ED for evaluation. Following interventions in ED including pain medication she did note significant improvement. Upon [facility] arrival she notes pain is resolved at this time and reports that 0 out of 10. She does reports over the years she has had intermittent similar epigastric and right upper quadrant pain but is resolved. In the ED VS included HR 68, BP 132/69, HR 67, RR 13, T 36.9, 96% on RA, CBC with WBC 8.3, hemoglobin 13, platelet 189 with left shift, troponin 8, lipase 67, CMP with sodium 137, potassium 3.8, chloride 101, CO2 27, BUN/creatinine 16/0.91, total bilirubin 1.4, AST/ALT 308/189, alk phos 95, glucose 158, GFR 60, CT chest, abdomen, pelvis with IV contrast with choledocholithiasis with moderate biliary and pancreatic ductal dilatation, colonic diverticulosis without signs of diverticulitis, slight enlargement of cyst at the upper pole of the right kidney measuring 4.5 cm which was noted previously however has increased in size from 3.7 cm 10/25/2021 but appearance remains benign as well as small benign cyst in the left kidney, UA with positive gravity 1.020, nitrite positive, leukocyte estrace and trace with WBCs 5-10 and 3+ urine bacteria, UCx pending from outside facility. In the ED patient was administered IV zosyn, 1L NS, zofran 4 mg IV x 1, morphine 4 mg IV x 1. Hospital Course: 1. Choledocholithiasis with hyperbilirubinemia?74-year-old female presented to the hospital with abdominal pain and nausea with emesis. It was found that she had choledocholithiasis, she had had a cholecystectomy about a year ago. Gastroenterology was consulted and was able to perform an ERCP on the day of admission. They were able to clear his stone and place a temporary stent and on the day of discharge her lab work was all improving. She did request to be discharged if possible as she was not having any abdominal pain anymore and was able to tolerate a diet, she did improve faster than anticipated secondary to being able to receive an ERCP on the same day of admission. I discussed with her the possibility of discharge today she expressed understanding of the risk benefits of going home and would still like to go home today. Of note there is some concern at the outside hospital for a urinary tract infection however urine cultures here have been negative and I do not have access to the outside hospital urine culture so I did do recommend that she call her PCP on Sunday to obtain any results from the culture and to be initiated on antibiotics at that time if necessary. Of note she has not had a leukocytosis or fevers since she has been admitted to the hospital 1-1/2 days antibiotics. At this time she not complaining of any dysuria or any signs of UTI so I do think it is safe to continue with a discharge home. She will need to follow-up with gastroenterology in 6 to 8 weeks for removal of her biliary stent. 2. Anxiety, depression, hyperlipidemia, essential hypertension, osteoporosis, iron deficiency anemia, seizure disorder, restless leg syndrome are all chronic medical conditions which complicate her care. Her home medications were continued where appropriate Physical Exam Narrative General: Alert, Oriented x3, Cooperative, No apparent distress HEENT: Atraumatic, PERRLA, EOMI, Normocephalic Oral: Moist Mucosa Neck: Supple, No JVD Lungs: Diminished, Normal air movement, No rhonchi, No wheeze, No rales Cardiovascular: Regular rate, Regular Rhythm, Normal S1, Normal S2, No murmurs Abdomen: Soft, Non Tender, Non-Distended, No Hepato-splenomegaly Extremities: No edema, Capillary Refill Less than 3 Seconds Skin: No rashes, No breakdown Musculoskeletal: No Tenderness to Palpation of Joints or Extremities Neurological: No focal neurological deficits, Motor Exam 5/5 strength throughout, Sensory exam intact to light touch and pain Psych/Mental Status: Normal Affect, Appropriate Weight / BMI Weight Weight: 196 lb 3.382 oz Body Mass Index (BMI) 35.9 ABG / Lab / Microbiology Data 04/26/24 04:56 04/26/24 04:56 Laboratory: Laboratory Results - last 24 hr 04/26/24 04:56: WBC 7.1, RBC 3.49 L, Hgb 10.7 L, Hct 31.4 L, MCV 90.0, MCH 30.7, MCHC 34.1, RDW Std Deviation 43.1, RDW Coeff of Ruth 13.1, Plt Count 123 L, MPV 10.7, Immature Gran % (Auto) 0.300, Neut % (Auto) 88.4 H, Lymph % (Auto) 7.7 L, [place] % (Auto) 3.5, Eos % (Auto) 0.0, Baso % (Auto) 0.1, Absolute Neuts (auto) 6.3, Absolute Lymphs (auto) 0.55 L, Nucleated RBC % 0, Sodium 136, Potassium 3.6, Chloride 108 H, Carbon Dioxide 23.0, Anion Gap 5, BUN 12, Creatinine 0.68, Estim Creat Clear Calc 62.01, Est GFR (MDRD) Af Amer 108, Est GFR (MDRD) Non-Af 90, BUN/Creatinine Ratio 17.7, Glucose 127 H, Calcium 8.3 L, Phosphorus 2.6, Magnesium 1.9, Total Bilirubin 2.50 H, AST 176 H, ALT 299 H, Alkaline Phosphatase 75, Total Protein 6.1 L, Albumin 2.5 L, Globulin 3.6, Albumin/Globulin Ratio 0.7 L Microbiology: Microbiology 04/25/24 06:25 Urine, Clean Catch Urine Culture - Preliminary Culture exhibits no growth. Radiography Diagnostic Testing: Radiology Impression Endo Retro Cholangiopancreatogram 04/25/24 13:23 IMPRESSION: ERCP as described above. Electronically Signed: Burak Milner MD at 9:36 EDT , D/C Instructions Discharge Diet: No restrictions Call your doctor if you observe: Fever of 101 or Higher, Shortness of breath, Dizziness, Fainting spells, Swelling in the ankles, Chest pain and Increased palpitations (irregular heartbeat) Meaningful Use Info Meaningful Use Meaningful Use Diagnoses (Choose all that apply): None applicable Ischemic Stroke Statin Dosing Therapy Reference: STATIN DOSE THERAPY REFERENCE: * Patients > 75 years receive moderate or high dose statin therapy. * Patients 75 years or YOUNGER should receive HIGH intensity statin dose unless contraindicated. You will be required to document reason for non-treatment if statin daily dose does not meet guidelines. HIGH DOSE STATIN THERAPY DAILY Atorvastatin > than or = to 40 mg Rosuvastatin > than or = to 20 mg Amlodipine + Atorvastatin > than or = to 2.5/40 mg Ezetimibe + Simvastatin 10/80 mg Simvastatin 80mg Discharge Plan Admission Admit Date/Time: 04/25/24 03:10 Attending Provider: Yao Hammer Primary Care Provider: Katja Jacome Consulting Providers: Marianela Garcia; Leena Cunningham Instructions Patient Instructions: Biliary Stent Dc, ED Gallstones with Biliary Colic Discharge Orders/Prescriptions Prescriptions: Continued loperamide 2 MG capsule 2 mg PO DAILY Patient Comments: DIARRHEA pravastatin [Pravachol] 40 MG tablet 40 mg PO DAILY Patient Comments: CHOLESTEROL ascorbate calcium (vitamin C) 500 MG tablet 500 mg PO DAILY Patient Comments: SUPPLEMET gabapentin 300 MG capsule 300 mg PO TID Patient Comments: NERVE PAIN omeprazole 20 MG capsule 20 mg PO DAILY Patient Comments: STOMACH multivitamin with folic acid [Thera] 1 TABLET tablet 1 tab PO DAILY Patient Comments: SUPPLEMET Ca-D3-mag fm-lkix-men-jose-bor [Calcium 600-D3 Plus (mag-zinc)] 1 EACH tablet 1 ea PO DAILY Patient Comments: SUPPLEMET Losartan/Hydrochlorothiazide [Hyzaar 100-12.5 Tablet] 1 TAB tablet 1 tab PO DAILY Patient Comments: BLOOD PRESSURE oxybutynin chloride 15 mg tablet extended release 24hr 15 mg PO DAILY levetiracetam 500 mg tablet 500 mg PO BID ropinirole 0.5 mg tablet 0.5 mg PO DAILY gabapentin 100 mg capsule 100 mg PO DAILY losartan-hydrochlorothiazide 100-12.5 mg tablet 1 tab PO DAILY alendronate 70 mg tablet 70 mg PO .sunday escitalopram oxalate 20 mg tablet 20 mg PO DAILY melatonin 10 mg capsule 10 mg PO QHS ferrous sulfate [iron] 325 mg (65 mg iron) tablet 325 mg PO DAILY cetirizine [Zyrtec] 10 mg tablet 10 mg PO DAILY PRN (Reason: allergy symptoms) omega 1-zif-rme-fish oil 360-1,200 mg capsule,delayed release(DR/EC) 1 cap PO DAILY magnesium 250 mg tablet 250 mg PO BID vitamin B complex [B-Complex] Tablet 1 tab PO DAILY Referrals / Follow Up: Katja Jacome DO [Primary Care Provider] - Within 1 Week FriendRic DO [Med Staff - Active Staff] - Within 3 Months Disposition Disposition (needs filled in before D/C Order can be placed): Home, Self Care Charges/Coding Visit Charges Inpatient E&M: 85762 Disch Hosp >30min
== END 2024-04-26 11:48 | disposition home or self-care (01) | DRG 446 ==
PROVIDERS: Internal Medicine; Internal Medicine Gastroenterology; Admitting Provider Family Medicine; PCP Family Medicine; Visit Provider Family Medicine
PROC: 0F768ZZ Dilation of Left Hepatic Duct, Via Natural or Artificial Opening Endoscopic (ICD-10-PCS; CPT 43260; principal; 2024-04-25 12:10)
DX: K80.51 Calculus of bile duct without cholangitis or cholecystitis with obstruction (principal); D50.9 Iron deficiency anemia, unspecified; G40.A09 Absence epileptic syndrome, not intractable, without status epilepticus; I10 Essential (primary) hypertension; G25.81 Restless legs syndrome; F32.A Depression, unspecified; E78.5 Hyperlipidemia, unspecified; F41.9 Anxiety disorder, unspecified; G62.9 Polyneuropathy, unspecified; J30.9 Allergic rhinitis, unspecified; M81.0 Age-related osteoporosis without current pathological fracture; Z90.49 Acquired absence of other specified parts of digestive tract; Z79.899 Other long term (current) drug therapy; Z87.891 Personal history of nicotine dependence
CPT/HCPCS: 36415; 74330; 76000; 80053; 83735; 84100; 85025; 87086; 93005; 94668; J7030; J7120; A4216; C1726; J2405

== ENCOUNTER 2024-07-01 13:24 | Day surgery (SDC) | payer MEDICARE, OTHER, SELFPAY ==
[2024-07-01] VITALS (8 sets, daily range): BP systolic 127–148; BP diastolic 69–78; PULSE 55–61; RESP 16–18; TEMP 36.2–36.6; O2SAT 96–99; BMI 33.2
[2024-07-01] MEDS: Lactated Ringers 1,000 ML 15 ML IV (13:57)
--- NOTE | 2024-07-01 14:26 | PRE.ANES_ITS ---
ASA Classification* ASA Classification ASA Classification: 3 Assessment & Plan Anesthesia* Anesthesia Assessment Anesthesia Assessment: Discussed sedation and/or anesthesia options, risks, benefits, and alternatives with patient/parents/legal guardian/POA. Questions invited. The patient/parents/legal guardian/POA seems to understand and agrees to proceed with anesthesia plan. Reviewed the physical assessment, medical history, allergy history and patient home medications list prior to surgery/procedure/anesthetic and documented any changes. Performed airway and anesthesia risk assessments. Anesthesia Type Anesthesia Type: General Anesthesia Focused Assessment* Temperature: 98 F Pulse Rate: 61 Blood Pressure: 139/69 Respiratory Rate: 18 Pulse Ox: 99 Oxygen Delivery Method: Room Air Airway Assessment Mouth opens: >3 cm Mallampati Score: II Teeth Condition: Dentures (Patient has a full upper denture. And a partial lower denture. Both are currently out. ) Neck Range of motion (ROM): Full ROM Focused Labs Anesthesia Preop lab: CBC WBC 7.1 K/mm3 (4.4-11.0) 04/26/24 04:56 RBC 3.49 M/mm3 (4.2-5.4) L 04/26/24 04:56 Hgb 10.7 g/dL (12.0-15.0) L 04/26/24 04:56 Hct 31.4 % (37-47) L 04/26/24 04:56 Plt Count 123 K/mm3 (150-450) L 04/26/24 04:56 CHEMISTRY Potassium 3.6 mmol/L (3.5-5.1) 04/26/24 04:56 Sodium 136 mmol/L (136-145) 04/26/24 04:56 Magnesium 1.9 mg/dL (1.6-2.6) 04/26/24 04:56 Phosphorus 2.6 mg/dL (2.5-4.9) 04/26/24 04:56 BUN 12 mg/dL (7-18) 04/26/24 04:56 Creatinine 0.68 mg/dL (0.55-1.02) 04/26/24 04:56 Glucose 127 mg/dL (74-106) H 04/26/24 04:56 COAG Pre-Assessment Diagnosis/Proposed Procedure Planned Operative Procedure(s): ERCP Anesthesia History 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 When Was Last Pacemaker Check QUESTION #4 FULL TEXT: You/Your Family Experience fever (hyperthermia) with Anesthesia Last Oral Intake Last Oral intake: Last Oral Intake NPO since 00:00 07/01/24 13:59 Meds taken in AM with sips of Yes 07/01/24 13:59 water? Meds patient instructed to ZYRTEC, LOSARTAN, KEPPRA, 07/01/24 13:59 take am of surgery OMEPRAZOLE Any additional information?: Yes NPO since: 12:00 (Patient had apple juice at noon.) PONV PONV - lock tender chief operator: PONV - lock tender chief operator Female Yes 06/26/24 08:40 HX of Motion Sickness No 06/26/24 08:40 HX of N/V After Surgery No 06/26/24 08:40 Non-Smoker Yes 06/26/24 08:40 Duration of Surgery greater No 06/26/24 08:40 than 60 minutes Number of Risk Factors 2 06/26/24 08:40 PONV Score Moderate Risk 06/26/24 08:40 Height & Weight Height & Weight: Anesthesia: Height & Weight Height 5 ft 2 in 07/01/24 13:59 Weight: 82.463 kg 07/01/24 13:59 Body Mass Index (BMI) 33.2 07/01/24 13:59 Respiratory Assessment Respiratory Assessment - lock tender chief operator: Respiratory Tract Infection Hx - lock tender chief operator Hx Respiratory Tract Infection No 06/26/24 08:40 STOP Sleep Apnea STOP Sleep Apnea - lock tender chief operator: STOP Sleep Apnea - lock tender chief operator Hx Hypertension Yes: CONTROLLED WITH MEDS 06/26/24 08:40 Hx Sleep Apnea No 06/26/24 08:40 CPAP BIPAP Do you snore loudly (louder No 06/26/24 08:40 than talking or can be heard Do you often feel tired/ No 06/26/24 08:40 fatigued/ sleepy during daytime? Has anyone observed you stop No 06/26/24 08:40 breathing during sleep? STOP Results Negative 06/26/24 08:40 QUESTION #5 FULL TEXT : Do you snore loudly (louder than talking or can be heard through closed doors)? Tobacco Use History Tobacco Use History - lock tender chief operator: Tobacco Use History - lock tender chief operator Tobacco Use Smoking Status Former smoker 06/26/24 08:40 Hx Tobacco Use No 06/26/24 08:40 Years Smoking Packs Smoked per Day Smoking Cessation Date was No - quit smoking greater 06/26/24 08:40 within the last 15 years than 15 years ago Hx Smoking Cessation Date Hx Smoking Cessation Counseling Hematologic Medial History Hematologic Hx - lock tender chief operator: Hematologic Medical Hx - tableau lead Hx of Blood Transfusion No 06/26/24 08:40 Hx of Transfusion in last 3 No 06/26/24 08:40 Months Date of Last Transfusion (if within last 3 months) Ever experience any problems No 06/26/24 08:40 with transfusion(s)? Specify any problems Hx of Preganancy in last 3 No 06/26/24 08:40 Months Nurse Filling Out Transfusion [email or web address] 06/26/24 08:40 & Questions: Date: 06/26/24 06/26/24 08:40 Time: 08:45 06/26/24 08:40 Patient unable to answer at this time (ie. confused, unrespo /Reproduction History /Reproductive History - lock tender chief operator: /Reproductive Hx- lock tender chief operator Hx Now Gestational Age (in weeks): EDC: Hx Hx Para Hx Section SAB Active Medications Active Medications: Current Medications Generic Name Dose Route Start Last Admin Trade Name Freq PRN Reason Stop Dose Admin Lactated Ringer's 1,000 mls @ 15 mls/hr 07/01/24 13:45 07/01/24 13:57 IV 15 mls/hr .Q48H PACHECO Administration PFSH Medical History Wears glasses Wears dentures Ambulates with cane Gastric reflux Former smoker History of biliary stent insertion RLS (restless legs syndrome) History of chronic cholecystitis Absence seizure disorder Ulcerative colitis Allergic rhinitis Anxiety and depression Former tobacco use HLD (hyperlipidemia) HTN (hypertension) Home Medications ?Medication ?Instructions ?Recorded ?Last Taken ?Type loperamide 2 mg capsule 2 mg PO DAILY diarrhea 08/18/14 06/30/24 History multivitamin with folic acid 400 1 tab PO DAILY supplement 08/18/14 06/27/24 History mcg tablet (Thera) omeprazole 20 mg capsule,delayed 20 mg PO DAILY Gerd 08/18/14 07/01/24 History release pravastatin 40 mg tablet 40 mg PO DAILY cholesterol 08/18/14 06/30/24 History (Pravachol) alendronate 70 mg tablet 70 mg PO PAYNE OA 04/25/24 06/29/24 History cetirizine 10 mg tablet (Zyrtec) 10 mg PO DAILY PRN allergy symptoms 04/25/24 06/30/24 History escitalopram oxalate 20 mg tablet 20 mg PO DAILY depression 04/25/24 06/30/24 History ferrous sulfate 325 mg (65 mg 325 mg PO DAILY supplement 04/25/24 06/27/24 History iron) tablet (iron) levetiracetam 500 mg tablet 500 mg PO BID seizure 04/25/24 07/01/24 History losartan 100 1 tab PO DAILY blood pressure 04/25/24 07/01/24 History mg-hydrochlorothiazide 12.5 mg tablet magnesium 250 mg tablet 250 mg PO DAILY supplement 04/25/24 06/30/24 History melatonin 10 mg capsule 10 mg PO QHS sleep 04/25/24 06/30/24 History omega-3 360 lx-sym-tzk-fish oil 1 cap PO DAILY supplement 04/25/24 06/27/24 History 1,200 mg capsule,delayed release ropinirole 0.5 mg tablet 0.5 mg PO DAILY restless legs 04/25/24 06/30/24 History vitamin B complex (B-Complex 1 tab PO DAILY supplement 04/25/24 06/27/24 History tablet) vibegron 75 mg tablet (Gemtesa) 75 mg PO DAILY 06/26/24 06/30/24 History Allergy/AdvReac Type Severity Reaction Status Date / Time codeine Allergy Intermediate Vomiting Verified 07/01/24 14:05 hydrocodone bitartrate (From AdvReac Nausea/Vom/ Verified 07/01/24 14:05 Vicodin) Diarrhea propoxyphene napsylate (From AdvReac Nausea/Vom/ Verified 07/01/24 14:05 Darvocet-N) Diarrhea Family History Mother Diabetes Bipolar disorder Father Liver cancer Prostate cancer Surgical History S/P cataract extraction History of knee replacement History of arthroscopic knee surgery History of section History of total hip replacement S/P cholecystectomy Social History household members: children Smoking Status: Former smoker how long ago did patient quit smoking: Smoked 40 yrs 1 ppd until quit age 50. alcohol intake: current alcohol intake frequency: holidays/special occasions only substance use type: does not use Review of Systems (Anesthesia) ROS Narrative System reviewed and no additional complaints, except as documented.
--- NOTE | 2024-07-01 14:45 | FLU_PTH ---
PATIENT: FANTA ARGUELLES LOC: EN U#:[id number] AGE/SX: 74/F ROOM: RE07/01/[address]: Dr. Ric Lara DO : 1950 BED: DIS: 07/01/2024 SPEC #: [id number] RECD: 07/01/24 16:13 STATUS: GALILEO ALVARADO #: [id number] COURTNEY: 07/01/24 14:[address]: Ric Lara DEPT: CYTOLOGY RECD BY: Debby Jules ENTERED: 07/02/24 09:11 SP TYPE: Fluid OTHR DR: MD Dr. Carolina Parker MD Dr. Kristin McClay, DO Tissues: Bile duct, NOS Procedures: Special Stain Group II Surgery Specimen Level IV Cytospin Fluid HEADER OPERATION: Stent removal PRE-OP DIAGNOSIS: Biliary stricture and stent removal TISSUE SUBMITTED: Biliary stent for cytology DIAGNOSIS CYTOLOGY Biliary stent fluid for cytology (cytospin and cellblock): Negative for malignant cells. AM/mr 07/03/2024 CYTOLOGY STUDY Slides are reviewed. CYTOLOGY GROSS Received is one black stent with 0.2 ml of yellow thick material labeled with the patient's name and and designated per the requisition as Biliary stent. Submitted for cytology preparation including cell block. Mr 07/02/2024 TC:5 CPT: 43015,37205
--- NOTE | 2024-07-01 15:00 | RAD_ITS ---
HISTORY: PAIN COMPARISON: April 25, 2024 ERCP TECHNIQUE: A total of 10 fluoroscopic images were saved without a radiologist present. FINDINGS: Images demonstrate fluoroscopic support for ERCP Total fluoroscopy time: 203.1 seconds Cumulative air kerma: 85.39 mGy RAD/ERCP Biliary/Pancreas IMPRESSION: Fluoroscopic assistance for ERCP. Please see operative report for additional information. Electronically Signed: Law Hendrix MD at 8:25 EDT ,
--- NOTE | 2024-07-01 15:05 | PCM.HP.STD ---
HPI - General General Date of Admission: 07/01/24 Date of Service: 07/01/24 Chief Complaint: Biliary stricture and stent removal HPI Narrative FANTA ARGUELLES, is a 74 F who presented to the ED worsening abdominal pain. She has a PMHx: RLS, HTN, HLD, Anxiety and Depression, Allergic Rhinitis, Absences seizures, Hx Cholelithiasis with chronic cholecystitis status post previous cholecystectomy 2021, Former tobacco use, Ulcerative colitis who presents to the [facility] on 04/25/2024 as a direct admit from outside facility [facility] ED with history of presentation to their facility on 04/24/2024 with history of normal day of activity with no complaints until following dinner at 5 PM when she had sudden onset of epigastric and right upper quadrant pain which was noted to be severe and sharp 10 out of 10 in severity with nausea and bouts of emesis prompting EMS call and transition to the outside facility ED for evaluation. Following interventions in ED including pain medication she did note significant improvement. Upon [facility] arrival she notes pain is resolved at this time and reports that 0 out of 10. She does reports over the years she has had intermittent similar epigastric and right upper quadrant pain but is resolved. In the ED VS included HR 68, BP 132/69, HR 67, RR 13, T 36.9, 96% on RA, CBC with WBC 8.3, hemoglobin 13, platelet 189 with left shift, troponin 8, lipase 67, CMP with sodium 137, potassium 3.8, chloride 101, CO2 27, BUN/creatinine 16/0.91, total bilirubin 1.4, AST/ALT 308/189, alk phos 95, glucose 158, GFR 60, CT chest, abdomen, pelvis with IV contrast with choledocholithiasis with moderate biliary and pancreatic ductal dilatation. She underwent ERCP by myself and was discovered to have choledocholithiasis and a biliary stricture of the distal common bile duct. She had a temporary stent placed that she comes back in today for stent removal. [facility] Medical History Wears glasses Wears dentures Ambulates with cane Gastric reflux Former smoker History of biliary stent insertion RLS (restless legs syndrome) History of chronic cholecystitis Absence seizure disorder Ulcerative colitis Allergic rhinitis Anxiety and depression Former tobacco use HLD (hyperlipidemia) HTN (hypertension) Home Medications ?Medication ?Instructions ?Recorded ?Last Taken ?Type loperamide 2 mg capsule 2 mg PO DAILY diarrhea 08/18/14 06/30/24 History multivitamin with folic acid 400 1 tab PO DAILY supplement 08/18/14 06/27/24 History mcg tablet (Thera) omeprazole 20 mg capsule,delayed 20 mg PO DAILY Gerd 08/18/14 07/01/24 History release pravastatin 40 mg tablet 40 mg PO DAILY cholesterol 08/18/14 06/30/24 History (Pravachol) alendronate 70 mg tablet 70 mg PO PAYNE OA 04/25/24 06/29/24 History cetirizine 10 mg tablet (Zyrtec) 10 mg PO DAILY PRN allergy symptoms 04/25/24 06/30/24 History escitalopram oxalate 20 mg tablet 20 mg PO DAILY depression 04/25/24 06/30/24 History ferrous sulfate 325 mg (65 mg 325 mg PO DAILY supplement 04/25/24 06/27/24 History iron) tablet (iron) levetiracetam 500 mg tablet 500 mg PO BID seizure 04/25/24 07/01/24 History losartan 100 1 tab PO DAILY blood pressure 04/25/24 07/01/24 History mg-hydrochlorothiazide 12.5 mg tablet magnesium 250 mg tablet 250 mg PO DAILY supplement 04/25/24 06/30/24 History melatonin 10 mg capsule 10 mg PO QHS sleep 04/25/24 06/30/24 History omega-3 360 ee-teq-klq-fish oil 1 cap PO DAILY supplement 04/25/24 06/27/24 History 1,200 mg capsule,delayed release ropinirole 0.5 mg tablet 0.5 mg PO DAILY restless legs 04/25/24 06/30/24 History vitamin B complex (B-Complex 1 tab PO DAILY supplement 04/25/24 06/27/24 History tablet) vibegron 75 mg tablet (Gemtesa) 75 mg PO DAILY 06/26/24 06/30/24 History Allergy/AdvReac Type Severity Reaction Status Date / Time codeine Allergy Intermediate Vomiting Verified 07/01/24 14:05 hydrocodone bitartrate (From AdvReac Nausea/Vom/ Verified 07/01/24 14:05 Vicodin) Diarrhea propoxyphene napsylate (From AdvReac Nausea/Vom/ Verified 07/01/24 14:05 Darvocet-N) Diarrhea Family History Mother Diabetes Bipolar disorder Father Liver cancer Prostate cancer Surgical History S/P cataract extraction History of knee replacement History of arthroscopic knee surgery History of section History of total hip replacement S/P cholecystectomy Social History household members: children Smoking Status: Former smoker how long ago did patient quit smoking: Smoked 40 yrs 1 ppd until quit age 50. alcohol intake: current alcohol intake frequency: holidays/special occasions only substance use type: does not use ROS Review of Systems ROS Unobtainable: other Constitutional Constitutional: Denies fatigue, fever(s), poor appetite, weight gain or weight loss ENT HEENT: Denies mouth lesions Cardiovascular Cardiovascular: Denies abdominal bloating, abdominal edema or abdominal pain Respiratory/Chest Respiratory/Chest: Denies change in mental status, change in phlegm color, chest congestion or chest tightness Gastrointestinal Gastrointestinal: Denies belching, bloating, change in bowel habits, change in stool character, chewing difficulty, coffee ground emesis, constipation, cramping, diarrhea, dyspepsia, dysphagia, early satiety, excessive flatus, fecal incontinence, heartburn, hematemesis, hematochezia, hemorrhoids, loose stools, melena, nausea, odynophagia, rectal bleeding, tenesmus, vomiting or weight changes Genitourinary Genitourinary: Denies abdominal discomfort, burning urination or itching Musculoskeletal Musculoskeletal: Reports as per HPI; Denies muscle weakness or myalgias Integumentary Integumentary: Denies jaundice Neurologic Neurologic: Denies lack of coordination or weakness Psychiatric Psychiatric: Denies confusion, depression, memory loss, mood swings, paranoia or suicidal ideation Endocrine Endocrinology: Denies systems reviewed and no addt'l complaints, except as documented Hematologic/Lymphatic Hematologic/Lymphatic: Denies anemia, easy bleeding, easy bruising or lymphadenopathy Allergic/Immunologic Allergic/Immunologic: Denies systems reviewed and no addt'l complaints, except as documented Vital Signs Vital Signs Vital Signs: 07/01/24 13:59 07/01/24 13:59 07/01/24 14:40 Temperature 98 F 98 F Temperature Source Temporal Pulse Rate 61 61 Respiratory Rate 18 18 Respiratory Pattern Normal Blood Pressure 139/69 H 139/69 H Blood Pressure Mean 92 Blood Pressure Source Monitor Blood Pressure Position Semi-Fowlers Blood Pressure Location Right Arm Pulse Ox 99 99 Oxygen Delivery Method Room Air Room Air Weight Weight: 181 lb 12.8 oz Body Mass Index (BMI) 33.2 Physical Exam Const alert, oriented x3, no apparent distress, healthy appearing and well nourished General Appearance: cooperative, comfortable, well kempt and well developed Orientation / Consciousness: awake and oriented to person HEENT Head and Scalp: normocephalic and atraumatic Face and Sinus: normal facial exam Mouth: oral and palatal mucosa normal Eyes General Eye: normal appearance of both eyes Neck full ROM Lymph Lymphatic: no lymphadenopathy noted Chest inspection of chest normal Resp normal respiratory effort and no use of accessory muscles Cardio regular rate and regular rhythm GI normal to inspection, nondistended, normoactive bowel sounds, soft to palpation, non-tender, non-distended and no masses Auscultation: normoactive bowel sounds Palpation: soft Percussion: normal to percussion Rectal Exam: visual inspection normal and normal sphincter tone no CVA tenderness Back/Spine no CVA tenderness and normal ROM Extremity normal to inspection Peripheral Pulses: Yes pulses 2+ throughout Skin no rashes or lesions noted General Skin Exam: no breakdown, elasticity normal and turgor normal Neuro oriented x3 Motor Exam: strength 5/5 throughout Psych mental status grossly normal Appearance: grossly normal Attitude: calm Activity / Motor Behavior: appropriate eye contact Speech: normal speech Thought Process: normal thought process Thought Content: normal thought content Attention / Concentration: attention grossly intact Memory / Cognition: memory grossly intact Insight: insight good Judgement: judgement good Assessment & Plan Assessment/Plan (1) History of biliary stent insertion: PLAN: She will undergo ERCP with stent removal. She was explained alternatives, risk, benefits including outstanding bleeding, infection, sepsis, perforation, need for emergent . She will have an ASA of 3.
--- NOTE | 2024-07-01 16:05 | OP.CCLET_ITS ---
07/01/2024 Katja Hurtado Do Re : ERCP procedure for Pati Lobo Dear Genesis This procedure was performed on Monday, July 01, 2024. My impressions and recommendations are as follows: Impressions : - A single localized biliary stricture was found in the lower third of the main bile duct. The stricture was benign appearing. - The biliary system were dilated, with a stone causing an obstruction. - The patient has had a cholecystectomy. - Choledocholithiasis was found. Complete removal was accomplished by biliary sphincterotomy and balloon extraction. - A pancreatic sphincterotomy was performed. - The ventral pancreatic duct was swept and debris was found. - One stent was removed from the biliary tree. - A biliary sphincterotomy was performed. - The biliary tree was swept. Recommendations : My findings are described in the full procedure note, which is enclosed. If I can be of further assistance, please feel free to contact me at . Sincerely, Ric Lara DO 07/01/2024 4:04:54 PM This report has been signed electronically.
--- NOTE | 2024-07-01 16:05 | OP.ERCP_ITS ---
Patient Name: Pati Lobo Procedure Date: 07/01/2024 2:58 PM Date of : 1950 Age: 74 Procedure: ERCP Indications: Bile duct stone(s), Stent removal Providers: Ric Lara DO Referring MD: Ric Lara DO Medicines: Monitored Anesthesia Care Patient Profile: This is a 74 year old female. Refer to note in patient chart for documentation of history and physical. Patient has symptoms. She is status post laparoscopic cholecystectomy. Complications: No immediate complications. Procedure: Pre-Anesthesia Assessment: - Prior to the procedure, a History and Physical was performed, and patient medications and allergies were reviewed. The patient is competent. The risks and benefits of the procedure and the sedation options and risks were discussed with the patient. All questions were answered and informed consent was obtained. Patient identification and proposed procedure were verified by the physician in the pre-procedure area. Mental Status Examination: alert and oriented. Airway Examination: normal oropharyngeal airway and neck mobility. Respiratory Examination: clear to auscultation. CV Examination: normal. Prophylactic Antibiotics: The patient does not require prophylactic antibiotics. Prior Anticoagulants: The patient has taken no anticoagulant or antiplatelet agents except for NSAID medication. ASA Grade Assessment: II - A patient with mild systemic disease. After reviewing the risks and benefits, the patient was deemed in satisfactory condition to undergo the procedure. The anesthesia plan was to use monitored anesthesia care (MAC). Immediately prior to administration of medications, the patient was re-assessed for adequacy to receive sedatives. The heart rate, respiratory rate, oxygen saturations, blood pressure, adequacy of pulmonary ventilation, and response to care were monitored throughout the procedure. The physical status of the patient was re-assessed after the procedure. After obtaining informed consent, the scope was passed under direct vision. Throughout the procedure, the patient's blood pressure, pulse, and oxygen saturations were monitored continuously. The was introduced through the mouth, and advanced to the duodenum and used to inject contrast into the bile duct and ventral pancreatic duct. The ERCP was accomplished without difficulty. The patient tolerated the procedure well. Scope In: 3:30:55 PM Scope Out: 3:52:37 PM Total Procedure Duration Time 0 hours 21 minutes 42 seconds Findings: The testing analyst film was normal. The esophagus was successfully intubated under direct vision. The scope was advanced to a normal major papilla in the descending duodenum without detailed examination of the pharynx, larynx and associated structures, and upper GI tract. The upper GI tract was grossly normal. The ventral pancreatic duct was deeply cannulated with the short-nosed traction sphincterotome. Contrast was injected. I personally interpreted the bile duct and pancreatic duct images. There was brisk flow of contrast through the ducts. Image quality was adequate. Contrast extended to the entire biliary tree. Opacification of the pancreatic duct in the body of the pancreas was successful. The maximum diameter of the ducts was 2 mm. The entire opacified area was normal. A long 0.025 inch Jagwire was passed into the ventral pancreatic duct. A 5 mm ventral pancreatic sphincterotomy was made with a monofilament traction (standard) sphincterotome using ERBE electrocautery. There was no post-sphincterotomy bleeding. To find object(s) the ventral pancreatic duct was swept with a 6 mm balloon starting at the pancreatic duct in the body of the pancreas. Debris was swept from the duct. One stent was removed from the biliary tree using a snare and sent for cytology. The stent was found to be partially occluded via the water column test. The bile duct was deeply cannulated with the short-nosed traction sphincterotome. Contrast was injected. Opacification of the entire opacified area was successful. The maximum diameter of the ducts was 14 mm. The lower third of the main bile duct contained a single localized stenosis 6 mm in length. The entire biliary tree except for the cystic duct and gallbladder were diffusely dilated, with a stone causing an obstruction. The largest diameter was 13 mm. A cholecystectomy had been performed. A long 0.025 inch Jagwire was passed into the biliary tree. A 5 mm biliary sphincterotomy was made with a traction (standard) sphincterotome using ERBE electrocautery. There was no post-sphincterotomy bleeding. The biliary tree was swept with a 12 mm balloon starting at the left intrahepatic duct(s) and right intrahepatic duct(s). Sludge was swept from the duct. All stones were removed. Impression: - A single localized biliary stricture was found in the lower third of the main bile duct. The stricture was benign appearing. - The biliary system were dilated, with a stone causing an obstruction. - The patient has had a cholecystectomy. - Choledocholithiasis was found. Complete removal was accomplished by biliary sphincterotomy and balloon extraction. - A pancreatic sphincterotomy was performed. - The ventral pancreatic duct was swept and debris was found. - One stent was removed from the biliary tree. - A biliary sphincterotomy was performed. - The biliary tree was swept. Procedure Code(s): --- Professional --- 80696, Endoscopic retrograde cholangiopancreatography (ERCP); with removal of foreign body(s) or stent(s) from biliary/pancreatic duct(s) 15597, Endoscopic retrograde cholangiopancreatography (ERCP); with removal of calculi/debris from biliary/pancreatic duct(s) 65126, Endoscopic retrograde cholangiopancreatography (ERCP); with sphincterotomy/papillotomy 26119, Endoscopic retrograde cholangiopancreatography (ERCP); with sphincterotomy/papillotomy 92319, 26, Combined endoscopic catheterization of the biliary and pancreatic ductal systems, radiological supervision and interpretation CPT copyright 2021 [employer]. All rights reserved. The codes documented in this report are preliminary and upon motors assembler review may be revised to meet current compliance requirements. Ric Lara DO 07/01/2024 4:04:54 PM This report has been signed electronically. Number of Addenda: 0 Note Initiated On: 07/01/2024 2:58 PM
--- NOTE | 2024-07-01 16:06 | PCM.POST.ANE ---
Anesthesia: Postop Eval I Current Vital Signs Temperature: 97.1 F Pulse Rate: 56 Blood Pressure: 138/78 Respiratory Rate: 16 Pulse Ox: 99 Oxygen Delivery Method: Room Air Assessment Airway patent: Yes Spontaneous unlabored respirations: Yes Mental status: Asleep nausea: No Vomiting: No Anesthesia Complication: No Fluid Hydration Crystalloid volume administer (ml): 600 Total IV fluid infused: 600 Progress Note Anesthesia document: Postop Eval 1 completed: Yes
--- NOTE | 2024-07-01 17:14 | PCM.POSTANE2 ---
Anesthesia Postop Eval I Sum Postop Eval Completion status Anesthesia document: Postop Eval 1 completed: Yes Anesthesia Postop Eval I Summary Anesthesia Postop Eval I Summary: Anesthesia Postop Eval I: Assessment Summary Airway patent Yes 07/01/24 16:19 [email or web address] Spontaneous unlabored Yes 07/01/24 16:19 [email or web address] respirations Mental status Asleep 07/01/24 16:19 [email or web address] nausea No 07/01/24 16:19 [email or web address] Vomiting No 07/01/24 16:19 [email or web address] Anesthesia Postop Eval I: Fluid Summary Crystalloid volume administer 600 07/01/24 16:19 [email or web address] (ml) Colloids volume administered ( ml) Blood Product volume administered (ml) Total IV fluid infused 600 07/01/24 16:19 [email or web address] Anesthesia Postop Eval I: Summary Notes Anesthesia Complication No 07/01/24 16:19 [email or web address] Anesthesia Complication Comment: Post-operative progress note Anesthesia: Postop Eval II Evaluation Mental status: Awake and Calm Pain Level: 0 nausea: No Vomiting: No Complications Anesthesia Complication: No
== END 2024-07-01 16:57 | disposition home or self-care (01) ==
LOC: EN 13:25 → AC 13:26
PROVIDERS: PCP Family Medicine; Referring Provider Internal Medicine Gastroenterology; Visit Provider Internal Medicine Gastroenterology
PROC: (CPT 43260; principal; 2024-07-01 14:25)
DX: K80.51 Calculus of bile duct without cholangitis or cholecystitis with obstruction (principal); E78.5 Hyperlipidemia, unspecified; Z87.891 Personal history of nicotine dependence; I10 Essential (primary) hypertension; Z90.49 Acquired absence of other specified parts of digestive tract; K21.9 Gastro-esophageal reflux disease without esophagitis; Z79.899 Other long term (current) drug therapy; G25.81 Restless legs syndrome; F41.8 Other specified anxiety disorders; Z98.49 Cataract extraction status, unspecified eye; Z96.659 Presence of unspecified artificial knee joint; Z96.649 Presence of unspecified artificial hip joint
CPT/HCPCS: 43275; 43264; 43262; 74330; 76000; 88108; 88305; 88313; J7120; J2405

== ENCOUNTER 2024-07-26 17:22 | Inpatient (IN) | payer MEDICARE, OTHER, SELFPAY ==
[2024-07-26 17:23] VITALS: BP 145/73; PULSE 70; RESP 16; TEMP 36.4; O2SAT 99; BMI 32.1
--- NOTE | 2024-07-26 17:53 | EX.ED.DYSGE1 ---
HPI History of Present Illness Chief Complaint: Abd Pain Informant: patient and family Narrative Narrative: 74-year-old female presenting to the emergency room with abdominal pain and vomiting. Patient states that 2 to 3 hours after eating she develops severe upper abdominal pain nausea and dry heaves. She states symptoms have been present for little more than a month. She states she was diagnosed with ulcerative colitis in the past. She states as a result of a past ERCP she was hospitalized with pancreatitis and this occurred at the time of the diagnosis of ulcerative colitis. She underwent cholecystectomy a few years ago was recently found to have choledocholithiasis and underwent biliary stent placement with removal earlier this month ([facility]-Dr. Lara). Since stent removal her symptoms have persisted. Family states that she is losing weight and that they saw their primary care doctor yesterday and they cannot wait for referral process to occur they need to get answers and treatment for this immediately. No reported fevers. She notes constipation. Last bowel movement earlier this afternoon. No rashes. Started stool softener yesterday. [facility] Medical History Wears glasses Wears dentures Ambulates with cane Gastric reflux Former smoker History of biliary stent insertion RLS (restless legs syndrome) History of chronic cholecystitis Absence seizure disorder Ulcerative colitis Allergic rhinitis Anxiety and depression Former tobacco use HLD (hyperlipidemia) HTN (hypertension) Home Medications ?Medication ?Instructions ?Recorded ?Last Taken ?Type loperamide 2 mg capsule 2 mg PO DAILY diarrhea 08/18/14 06/30/24 History multivitamin with folic acid 400 1 tab PO DAILY supplement 08/18/14 06/27/24 History mcg tablet (Thera) omeprazole 20 mg capsule,delayed 20 mg PO DAILY Gerd 08/18/14 07/01/24 History release pravastatin 40 mg tablet 40 mg PO DAILY cholesterol 08/18/14 06/30/24 History (Pravachol) alendronate 70 mg tablet 70 mg PO PAYNE OA 04/25/24 06/29/24 History cetirizine 10 mg tablet (Zyrtec) 10 mg PO DAILY PRN allergy symptoms 04/25/24 06/30/24 History escitalopram oxalate 20 mg tablet 20 mg PO DAILY depression 04/25/24 06/30/24 History ferrous sulfate 325 mg (65 mg 325 mg PO DAILY supplement 04/25/24 06/27/24 History iron) tablet (iron) levetiracetam 500 mg tablet 500 mg PO BID seizure 04/25/24 07/01/24 History losartan 100 1 tab PO DAILY blood pressure 04/25/24 07/01/24 History mg-hydrochlorothiazide 12.5 mg tablet magnesium 250 mg tablet 250 mg PO DAILY supplement 04/25/24 06/30/24 History melatonin 10 mg capsule 10 mg PO QHS sleep 04/25/24 06/30/24 History omega-3 360 ne-hjj-agj-fish oil 1 cap PO DAILY supplement 04/25/24 06/27/24 History 1,200 mg capsule,delayed release ropinirole 0.5 mg tablet 0.5 mg PO DAILY restless legs 04/25/24 06/30/24 History vitamin B complex (B-Complex 1 tab PO DAILY supplement 04/25/24 06/27/24 History tablet) vibegron 75 mg tablet (Gemtesa) 75 mg PO DAILY 06/26/24 06/30/24 History Allergy/AdvReac Type Severity Reaction Status Date / Time codeine Allergy Intermediate Vomiting Verified 07/26/24 17:23 hydrocodone bitartrate (From AdvReac Nausea/Vom/ Verified 07/26/24 17:23 Vicodin) Diarrhea propoxyphene napsylate (From AdvReac Nausea/Vom/ Verified 07/26/24 17:23 Darvocet-N) Diarrhea Family History Mother Diabetes Bipolar disorder Father Liver cancer Prostate cancer Surgical History S/P cataract extraction History of knee replacement History of arthroscopic knee surgery History of section History of total hip replacement S/P cholecystectomy Social History household members: children Smoking Status: Former smoker how long ago did patient quit smoking: Smoked 40 yrs 1 ppd until quit age 50. alcohol intake: current alcohol intake frequency: holidays/special occasions only substance use type: does not use ROS ROS ED Constitutional Constitutional ED: Reports sweats and weight loss; Denies chills or fever(s) Eyes Eyes: Denies change in vision or diplopia ENT ENT ED: Denies ear pain, rhinorrhea or sore throat Cardiovascular Cardiovascular: Denies chest pain, orthopnea, palpitations or racing heartbeat Respiratory/Chest Respiratory/Chest: Denies cough, dyspnea or orthopnea Gastrointestinal Gastrointestinal: Reports abdominal pain, constipation, nausea and vomiting; Denies diarrhea Genitourinary Genitourinary ED: Denies dysuria, hematuria or urinary frequency Musculoskeletal Musculoskeletal: Reports back pain; Denies arthralgias or myalgias Integumentary Denies abscess or rash Neurologic Neurologic: Denies headache(s) or weakness Psychiatric Psychiatric: Denies anxiety, depression, suicidal ideation or suicidal thoughts Endocrine Endocrinology: Denies polydipsia, polyphagia or polyuria Allergic/Immunologic Allergic/Immunologic ED: Denies mouth swelling, tongue swelling or urticaria EXAM Physical Exam Const Vital Signs: 07/26/24 17:23 07/26/24 19:45 Temperature 97.5 F L Temperature Source Temporal Pulse Rate 70 Respiratory Rate 16 Blood Pressure 145/73 H 147/70 H Blood Pressure Mean 97 95 Pulse Ox 99 Oxygen Delivery Method Room Air Positive well nourished and well developed General Appearance ED: well developed HEENT Reports normocephalic, head/scalp atraumatic and moist mucous membranes Eyes PERRL and EOMs intact bilaterally Neck no lymphadenopathy, supple and no JVD Resp normal respiratory effort and clear to auscultation bilaterally Cardio regular rate, regular rhythm and no murmurs GI Inspection: Negative for abdominal distention Auscultation: normoactive bowel sounds Palpation: soft and tender epigastric, LUQ and RUQ; Negative for guarding or rebound tenderness present Back/Spine no CVA tenderness and normal ROM Extremity normal to inspection General Extremety ED: Negative for edema General Extremity: Negative for edema Neuro oriented x3 and CN's II-XII intact bilaterally Sensorium / Orientation: alert Motor Exam: strength 5/5 throughout Psych mental status grossly normal Mood & Affect: Negative for depressed or tearful Skin no rashes or lesions noted and no wounds MDM MDM MDM Narrative Medical decision making narrative: Differential diagnosis includes but not limited to acute pancreatitis choledocholithiasis obstructive jaundice malignancy dehydration electrolyte abnormalities mesenteric ischemia gastritis gastric outlet obstruction small bowel obstruction White count 9.4 hemoglobin is 12 platelet count is 240. Lactic acid is normal at 1.1. Total bilirubin 3.4 direct bilirubin 2.73 AST 158 ALT of 200 alkaline phosphatase at 501. Lipase elevated at 2429. Patient's creatinine 0.76 BUN of 14 sodium 132 potassium 3.5. CTA of the abdomen pelvis was obtained. This demonstrates changes consistent with choledocholithiasis and biliary duct dilatation. Please see radiology read for full details including findings regarding the kidney. Patient received IV fluids and Zofran. Patient is resting comfortably. I reviewed the case with gastroenterology DrDevan Lara. Plan is admission into the hospital bowel rest/n.p.o. Continued IV fluids. Patient and her family were updated with results. History & Record Review Discussion w/independent historian: Patient and Family Additional record(s) reviewed:: Prior inpatient record, Prior ED visit and Prior labs Lab Data Attestation: I reviewed the patient's lab results. Labs: Laboratory Results - last 24 hr 07/26/24 18:10 WBC 9.4 RBC 3.93 L Hgb 12.0 Hct 35.7 L MCV 90.8 MCH 30.5 MCHC 33.6 RDW Std Deviation 44.2 H RDW Coeff of Ruth 13.2 Plt Count 240 MPV 9.9 Immature Gran % (Auto) 0.500 Neut % (Auto) 84.3 H Lymph % (Auto) 8.4 L Weber % (Auto) 6.1 Eos % (Auto) 0.5 Baso % (Auto) 0.2 Absolute Neuts (auto) 8.0 H Absolute Lymphs (auto) 0.79 L Nucleated RBC % 0 Sodium 132 L Potassium 3.5 Chloride 98 Carbon Dioxide 27.0 Anion Gap 7 BUN 14 Creatinine 0.76 Estim Creat Clear Calc 58.43 Est GFR (MDRD) Af Amer 95 Est GFR (MDRD) Non-Af 79 BUN/Creatinine Ratio 18.4 Glucose 117 H Lactic Acid 1.1 Calcium 9.6 Total Bilirubin 3.40 H Direct Bilirubin 2.73 H AST 158 H ALT 200 H Alkaline Phosphatase 501 H Total Protein 8.0 Albumin 3.1 L Globulin 4.9 H Lipase 2429 H Radiography Diagnostic Testing: Clinical Impression(s) from Imaging Studies Chest/Abdomen/Pelvis CTA 07/26/24 17:54 IMPRESSION: No aortic aneurysm or dissection. No specific findings to suggest mesenteric ischemia. Choledocholithiasis with at least one, probably 2 stones within the CBD. Biliary dilatation. Cholecystectomy. Dilated pancreatic duct. Colonic diverticulosis without evidence of acute diverticulitis. Right renal lesion 4.5 cm complex cyst vs cystic neoplasm. Further imaging needed for characterization, consider MRI. Electronically Signed: Lyly Elizabeth MD at 20:43 EDT , Management Discussion w/another healthcare provider: Hospitalist (Dr Blakely) and Sociology Teacher (Dr Lara) Discharge Plan Dx/Rx/DC Orders Clinical Impression: Choledocholithiasis, Abdominal pain, Vomiting, Acute pancreatitis Disposition Disposition: Acute Care Hospital [facility]
--- NOTE | 2024-07-26 17:54 | CT_ITS ---
INDICATION: mesenteric ischemia EXAMINATION: CTA CHEST, ABDOMEN AND PELVIS WITH CONTRAST - TECHNIQUE: CTA of the chest, abdomen, and pelvis is obtained with sagittal and coronal reconstructed MIP views. Three-dimensional surface rendered sequence of the thoracic and abdominal aorta was obtained. The protocol utilizes one or more of the following dose reduction techniques: automated exposure control, adjustment of mA and/or kV according to patient size,and/or use of iterative reconstruction technique. IV Contrast: IV 100mL Isovue-370 . Oral contrast: None. RADIATION DOSAGE (If Supplied By Facility): CTDIvol = ( 13.16 ) mGy, DLP = ( 897.24 ) mGycm COMPARISON: No relevant prior comparison study available FINDINGS: ---CTA CHEST: LUNGS: No consolidation. PLEURA: No pleural effusion. No pneumothorax. PULMONARY VESSELS: No pulmonary emboli identified. MEDIASTINUM: Unremarkable. HEART: Not enlarged. Coronary artery calcifications are noted. CORONARY ARTERIES: Coronary artery calcifications are not seen. AORTA/GREAT VESSELS: Thoracic aorta is normal caliber. No aneurysm or dissection. BONES/SOFT TISSUES: No acute findings. OTHER: None. ---CTA ABDOMEN AND PELVIS: AORTA: Normal caliber. No dissection. Atherosclerotic calcifications. CELIAC ARTERY: Unremarkable. SMA: Unremarkable. Mild calcifications at the origin. RENAL ARTERIES: Unremarkable. FLORY: Unremarkable. ILIAC ARTERIES: Unremarkable. RETROPERITONEUM: Unremarkable. LIVER: Unremarkable. GALLBLADDER/BILE DUCTS: Gallbladder not identified presumed surgically absent. Common bile duct is dilated 12 mm, intrahepatic ducts are dilated. There is a 9 mm rounded slightly hyperattenuating structure consistent with a stone within the common bile duct, with a similar object more distally in the CBD versus volume averaging with the duodenal wall. PANCREAS: Pancreatic duct is dilated. No adjacent stranding or collection.. SPLEEN: Unremarkable. ADRENAL GLANDS: Unremarkable. KIDNEYS/URETERS: 4.5 cm rounded hypoattenuating lesion at the upper pole right kidney, hyperdense cyst versus cystic mass. Smaller cyst in the left kidney. No hydronephrosis. BOWEL/MESENTERY: Diverticula throughout the colon. No bowel obstruction. APPENDIX: Not identified. PERITONEUM: No free air. No free fluid. REPRODUCTIVE ORGANS: Small calcified uterine fibroids. BLADDER: Minimally distended. Not well visualized due to the artifact. BONES/SOFT TISSUES: No acute abnormality. Surgical hardware in both hips. Degenerative changes lumbar spine and scoliosis OTHER: None. CT/CTA Chst, Abd, Pel W and/or WO IMPRESSION: No aortic aneurysm or dissection. No specific findings to suggest mesenteric ischemia. Choledocholithiasis with at least one, probably 2 stones within the CBD. Biliary dilatation. Cholecystectomy. Dilated pancreatic duct. Colonic diverticulosis without evidence of acute diverticulitis. Right renal lesion 4.5 cm complex cyst vs cystic neoplasm. Further imaging needed for characterization, consider MRI. Electronically Signed: Lyly Elizabeth MD at 20:43 EDT ,
[2024-07-26 18:23] LABS: Absolute Lymphocyte Count 0.79 X10^3/uL (0.83-4.51); Basophil# 0.02 X10^3/uL; Basophil% 0.2 % (0-1); Eosinophil# 0.05 X10^3/uL; Eosinophils% 0.5 % (0-5); Hematocrit 35.7 % (37-47); Lymphocyte # 0.79 X10^3/ul (0.83-4.51); Lymphocyte % 8.4 % (19-41); Mean Corp Hgb Conc 33.6 g/dL (32-36); Mean Corpuscular Hgb 30.5 pg (27.0-32.0); Mean Corpuscular Volume 90.8 fL (81-99); Mean Platelet Vol. 9.9 fl (6.2-12.0); Monocyte# 0.58 X10^3/uL; Monocyte% 6.1 % (0-10); NRBC Flagged by Analyzer 0 % (0-5); Neutrophil # 7.95 X10^3/uL (2.7-7.7); Neutrophil % 84.3 % (47-70); Platelet Count 240 K/mm3 (150-450); RBC Distribution Width CV 13.2 % (11.6-14.6); RBC Distribution Width SD 44.2 fl (35.1-43.9); Red Blood Count 3.93 M/mm3 (4.2-5.4); White Blood Count 9.4 K/mm3 (4.4-11.0)
[2024-07-26] MEDS: Ondansetron 4 MG/2 ML Vial IV (18:34)
[2024-07-26] MEDS: 0.9% Normal Saline (1000mL) 1,000 ML 1000 ML IV (18:35)
[2024-07-26 18:55] LABS: Lactic Acid 1.1 mmol/L (0.4-1.9)
[2024-07-26 19:38] LABS: AST(SGOT) 158 U/L (15-37); Alanine Aminotransfer ALT/SGPT 200 U/L (13-56); Albumin, Serum 3.1 g/dL (3.2-5.0); Alkaline Phosphatase 501 U/L (45-117); Anion Gap 7 (5-15); BUN 14 mg/dL (7-18); BUN/Creat Ratio 18.4 RATIO (10-20); Bilirubin, Direct 2.73 mg/dL (0.00-0.30); Calcium,Total 9.6 mg/dL (8.5-10.1); Chloride 98 mmol/L (98-107); Creatinine, Serum 0.76 mg/dL (0.55-1.02); EST Glomerular Filtration Rate 79 mL/min (>60); Est Glom Filt Rate - Afr Amer 95 mL/min (>60); Estimated Creatinine Clearance 58.43 ml/min; Globulin 4.9 g/dL (2.2-4.2); Glucose 117 mg/dL (74-106); Lipase 2429 U/L (13-75); Potassium 3.5 mmol/L (3.5-5.1); Sodium Level 132 mmol/L (136-145)
[2024-07-26] MEDS: 0.9% Normal Saline (1000mL) 1,000 ML 150 ML IV (19:42)
[2024-07-26 19:45] VITALS: BP 147/70
[2024-07-26 21:00] VITALS: BP 138/73; PULSE 83; RESP 18; TEMP 37.2; O2SAT 98
[2024-07-26 21:26] VITALS: BP 138/73; PULSE 83; RESP 18; TEMP 37.2; O2SAT 98
--- NOTE | 2024-07-26 21:30 | HP.PCM.HOS_ITS ---
[facility] - General General Date of Admission: 07/26/24 Date of Service: 07/26/24 Chief Complaint: Abdominal Pain, Nausea, Vomiting and Constipation. HPI Narrative FANTA LOBO, is a 74 F with a past medical history of essential hypertension, hyperlipidemia, obesity; with BMI of 32.1 this admission, history of tobacco abuse (quit ~2006), history of absence seizure disorder; on Keppra, RLS, depression with anxiety, GERD, history of ulcerative colitis, history of pancreatitis; s/p ERCP, history of cataract; s/p extraction, osteoporosis, OA; s/p bilateral THR's & Right TKR, history of chronic cholecystitis with choledocholithiasis; s/p laparoscopic cholecystectomy (~2021) with recent history of ERCP done by Dr. Lara of gastroenterology on July 01, 2024 to treat recurrent choledocholithiasis with biliary stent placement followed by subsequent biliary stent removal earlier this month who re-presents to [facility] ER complaining of abdominal pain, nausea, vomiting and constipation. Ms. Lobo reports her symptoms began ~2-3 hours after eating dinner with the abrupt-onset of severe abdominal pain focused in the upper abdomen with pain that was moderate to severe, nonradiating and was made better or worse by nothing. Her family also noticed she is losing weight involuntarily and they went to see her primary care physician yesterday resulting in them opting to come to the ER immediately because of anticipated delay and the referral process. She admits to constipation with her last bowel movement earlier this afternoon. She also admits to related back pain, involuntary weight loss with intermittent sweats and nausea with bilious emesis. She denies associated fever, chest pain or SOB and she also denies any history of knowing that she had any abnormal cyst or mass on her kidneys. In the ER she was noted to have CT evidence of choledocholithiasis with 2 stones suspected within the common bile duct with associated biliary dilatation, dilated pancreatic duct and evidence of previous cholecystectomy in addition to colonic diverticulosis and an incidentally noted Right renal lesion ~4.5 cm consistent with complex cyst versus cystic neoplasm with further imaging needed for characterization and MRI recommended by radiologist. She was then noted to have an elevated serum lipase of 2,249 U/L consistent with Acute Pancreatitis with hyperbilirubinemia of 3.4 mg/dL with direct bilirubin of 2.73 mg/dL, AST 158 U/L, ALT of 200 U/L and an alkaline phosphatase of 501 U/L due to suspected Acute Pancreatitis with Recurrent Choledocholithiasis in spite of recent ERCP with biliary stent placement and removal earlier this month complicated by Obstructive Jaundice and she was then admitted to the general medical floor for ongoing care for a stay that is expected to extend beyond 2 midnights. [facility] Medical History Wears glasses Wears dentures Ambulates with cane Gastric reflux Former smoker History of biliary stent insertion RLS (restless legs syndrome) History of chronic cholecystitis Absence seizure disorder Ulcerative colitis Allergic rhinitis Anxiety and depression Former tobacco use HLD (hyperlipidemia) HTN (hypertension) Home Medications ?Medication ?Instructions ?Recorded ?Last Taken ?Type multivitamin with folic acid 400 1 tab PO DAILY supplement 08/18/14 06/27/24 History mcg tablet (Thera) omeprazole 20 mg capsule,delayed 20 mg PO DAILY Gerd 08/18/14 07/01/24 History release pravastatin 40 mg tablet 40 mg PO DAILY cholesterol 08/18/14 06/30/24 History (Pravachol) alendronate 70 mg tablet 70 mg PO PAYNE OA 04/25/24 06/29/24 History cetirizine 10 mg tablet (Zyrtec) 10 mg PO DAILY PRN allergy symptoms 04/25/24 06/30/24 History escitalopram oxalate 20 mg tablet 20 mg PO DAILY depression 04/25/24 06/30/24 History ferrous sulfate 325 mg (65 mg 325 mg PO DAILY supplement 04/25/24 06/27/24 History iron) tablet (iron) levetiracetam 500 mg tablet 500 mg PO BID seizure 04/25/24 07/01/24 History losartan 100 1 tab PO DAILY blood pressure 04/25/24 07/01/24 History mg-hydrochlorothiazide 12.5 mg tablet magnesium 250 mg tablet 250 mg PO DAILY supplement 04/25/24 06/30/24 History melatonin 10 mg capsule 10 mg PO QHS sleep 04/25/24 06/30/24 History omega-3 360 go-azm-bfn-fish oil 1 cap PO DAILY supplement 04/25/24 06/27/24 History 1,200 mg capsule,delayed release ropinirole 0.5 mg tablet 0.5 mg PO QHS restless legs 04/25/24 06/30/24 History vitamin B complex (B-Complex 1 tab PO DAILY supplement 04/25/24 06/27/24 History tablet) vibegron 75 mg tablet (Gemtesa) 75 mg PO DAILY 06/26/24 06/30/24 History cholecalciferol (vitamin D3) 25 25 mcg PO DAILY supplement 07/26/24 Unknown History mcg (1,000 unit) capsule Allergy/AdvReac Type Severity Reaction Status Date / Time codeine Allergy Intermediate Vomiting Verified 07/26/24 17:23 hydrocodone bitartrate (From AdvReac Nausea/Vom/ Verified 07/26/24 17:23 Vicodin) Diarrhea propoxyphene napsylate (From AdvReac Nausea/Vom/ Verified 07/26/24 17:23 Darvocet-N) Diarrhea Family History Mother Diabetes Bipolar disorder Father Liver cancer Prostate cancer Surgical History S/P cataract extraction History of knee replacement History of arthroscopic knee surgery History of section History of total hip replacement S/P cholecystectomy Social History household members: children Smoking Status: Former smoker how long ago did patient quit smoking: Smoked 40 yrs 1 ppd until quit age 50. alcohol intake: current alcohol intake frequency: holidays/special occasions only substance use type: does not use ROS ROS Narrative Review of systems: Constitutional: Patient admits to unintentional ~7 pound weight loss over the past month with intermittent sweats. She denies fever or chills. Eyes: Patient denies changes in vision or discharge from eyes. ENT: Patient denies runny nose, sore throat or ear pain. CV: Patient denies chest pain, palpitations, heart racing or orthopnea. Resp: Patient denies shortness of breath or cough. GI: Patient admits to abdominal pain primarily focused in the epigastrium with corresponding nausea and bilious emesis and constipation. She denies diarrhea. : Patient denies dysuria, hematuria or urinary frequency/hesitancy. MSK. Patient admits to back pain but denies arthralgias or myalgias. Skin: Patient denies rash, abscess or jaundice. Psych: Patient denies symptoms of uncontrolled depression or anxiety. Neuro: Patient denies headache, paresthesias or focal neurologic deficits. Allergy: Patient denies lip swelling, tongue swelling or urticaria. Hematology: Patient denies easy bleeding or easy bruisability. Endocrinology: Patient denies polyuria, polydipsia or polyphagia. 14 point review of systems otherwise negative except for positives noted above in HPI. Vital Signs Vital Signs Vital Signs: 07/26/24 17:23 07/26/24 19:45 07/26/24 21:00 Temperature 97.5 F L 99 F Temperature Source Temporal Oral Pulse Rate 70 83 Respiratory Rate 16 18 Blood Pressure 145/73 H 147/70 H 138/73 H Blood Pressure Mean 97 95 94 Pulse Ox 99 98 Oxygen Delivery Method Room Air Room Air 07/26/24 21:26 Temperature 99 F Temperature Source Pulse Rate 83 Respiratory Rate 18 Blood Pressure 138/73 H Blood Pressure Mean 94 Pulse Ox 98 Oxygen Delivery Method Weight Weight: 175 lb 4.8 oz Body Mass Index (BMI) 32.1 Physical Exam Const alert, oriented x3 and average body habitus Constitutional Narrative: Mild discomfort noted. General Appearance: cooperative HEENT normocephalic, head/scalp atraumatic, hearing grossly normal bilaterally and moist oral mucous membranes Eyes PERRL and EOMs intact bilaterally Neck no lymphadenopathy and supple Resp normal respiratory effort, no retractions, no use of accessory muscles and clear to auscultation bilaterally Cardio regular rate and regular rhythm GI normal to inspection, nondistended, normoactive bowel sounds and soft to palpation GI Narrative: Positive TTP over the epigastrium and lower quadrants. Extremity normal to inspection, full ROM and no clubbing, cyanosis or edema Skin Skin Narrative: Patient has no evidence of jaundice, abscess or rash. Neuro oriented x3, CN's II-XII intact bilaterally, moves all extremities and no focal motor deficits Sensorium / Orientation: awake, alert, oriented to person, oriented to place and oriented to time Speech: speech normal Psych affect normal Results Medical Records Data Attestation: I reviewed the patient's medical records Lab / Micro Data Attestation: I reviewed the patient's lab results. 07/26/24 18:10 07/26/24 18:10 Labs: Laboratory Results - last 24 hr 07/26/24 18:10: WBC 9.4, RBC 3.93 L, Hgb 12.0, Hct 35.7 L, MCV 90.8, MCH 30.5, MCHC 33.6, RDW Std Deviation 44.2 H, RDW Coeff of Ruth 13.2, Plt Count 240, MPV 9.9, Immature Gran % (Auto) 0.500, Neut % (Auto) 84.3 H, Lymph % (Auto) 8.4 L, [place] % (Auto) 6.1, Eos % (Auto) 0.5, Baso % (Auto) 0.2, Absolute Neuts (auto) 8.0 H, Absolute Lymphs (auto) 0.79 L, Nucleated RBC % 0, Sodium 132 L, Potassium 3.5, Chloride 98, Carbon Dioxide 27.0, Anion Gap 7, BUN 14, Creatinine 0.76, Estim Creat Clear Calc 58.43, Est GFR (MDRD) Af Amer 95, Est GFR (MDRD) Non-Af 79, BUN/Creatinine Ratio 18.4, Glucose 117 H, Lactic Acid 1.1, Calcium 9.6, T otal Bilirubin 3.40 H, Direct Bilirubin 2.73 H, AST 158 H, ALT 200 H, Alkaline Phosphatase 501 H, Total Protein 8.0, Albumin 3.1 L, Globulin 4.9 H, Lipase 2429 H Imaging Radiology Impression Chest/Abdomen/Pelvis CTA 07/26/24 17:54 IMPRESSION: No aortic aneurysm or dissection. No specific findings to suggest mesenteric ischemia. Choledocholithiasis with at least one, probably 2 stones within the CBD. Biliary dilatation. Cholecystectomy. Dilated pancreatic duct. Colonic diverticulosis without evidence of acute diverticulitis. Right renal lesion 4.5 cm complex cyst vs cystic neoplasm. Further imaging needed for characterization, consider MRI. Electronically Signed: Lyly Elizabeth MD at 20:43 EDT , Assessment & Plan Assessment/Plan (1) Acute pancreatitis: QUALIFIERS: Pancreatitis type: biliary Acute pancreatitis complication: no infection or necrosis Qualified Code(s): K85.10 - Biliary acute pancreatitis without necrosis or infection (2) Choledocholithiasis: (3) Abdominal pain: QUALIFIERS: Abdominal location: epigastric Qualified Code(s): R 10.13 - Epigastric pain (4) Vomiting: QUALIFIERS: Vomiting type: unspecified Nausea presence: with nausea Qualified Code(s): R11.2 - Nausea with vomiting, unspecified (5) Weight loss: (6) History of biliary stent insertion: (7) History of laparoscopic cholecystectomy: (8) Right renal mass: PLAN: Plan 1. Elevated serum lipase of 2,249 U/L consistent with Acute Pancreatitis - Admit to general medical floor. Maintain strict NPO status. Aggressively volume resuscitate and serialize lipase to follow trend. Give Protonix 40 mg IV daily. Give Zofran IV prn to control nausea and vomiting. Give Morphine IV prn for severe (level 6-10/10) pain. Finally, we will consult Dr. Lara of gastroenterology to see this patient on-rounds in the AM for further recommendations regarding repeat ERCP with help appreciated in advance. 2. Recurrent Choledocholithiasis with 2 stones suspected to be in the CBD in spite of recent ERCP on July 01, 2024 with biliary stent placement and removal earlier this month done by Dr. Lara of gastroenterology complicating #1 - Start empiric IV Zosyn to minimize risk of potential infection. 3. Hyperbilirubinemia of 3.4 mg/dL with direct bili of 2.73 mg/dL, AST 158 U/L, ALT of 200 U/L and an alkaline phosphatase of 501 U/L with Obstructive Jaundice compounding #1 & #2 - Check CMP daily to follow trend. Minimize potentially hepatotoxic agents. 4. Incidentally noted Right renal lesion ~4.5 cm consistent with complex cyst versus cystic neoplasm with further imaging needed for characterization and MRI recommended by radiologist adding to the complexity of #1 - #3 - Check MRI as recommended and consider biopsy this admission if lesion looks suspicious for potential malignancy. 5. Involuntary ~7 pound weight loss over the past month deriving from #1 - #4 - Check TSH and consult clinical dietitian to screen for possible malnutrition. The patient's daughter is very concerned about this issue. 6. History of chronic cholecystitis with choledocholithiasis; s/p laparoscopic cholecystectomy (~2021) - Noted. 7. History of Ulcerative Colitis - Noted with no clinical or radiographic evidence of acute flare at this time. 8. Colonic Diverticulosis - Stable. 9. GERD - Patient on IV Protonix for #1. 10. Obesity; with BMI of 32.1 this admission - Weight loss will be recommended. This complicates her case and may hamper recovery. 11. Essential hypertension - Give Hydralazine IV prn for systolic blood pressure > 160 mmHg. 12. Hyperlipidemia - Resume statin when patient is safely able to tolerate oral intake. 13. History of tobacco abuse (quit ~2006) - Noted. 14. History of absence seizure disorder; on Keppra - Convert Keppra to IV dosing while she is NPO. 15. RLS - Stable. Restart Ropinirole when GI approves. 16. Depression with anxiety - Stable. 17. Osteoporosis - Stable. 18. OA; s/p bilateral THR's & Right TKR - Noted. 19. DVT prophylaxis - SCD's only with impending ERCP. Total time: Approximately 75 minutes. Charges/Coding Visit Charges Inpatient E&M: 32517 Init Hosp L3
[2024-07-26 23:11] VITALS: BMI 32.0
[2024-07-26 23:22] VITALS: BP 94/59; PULSE 77; RESP 17; TEMP 37.6; O2SAT 98
[2024-07-26] MEDS: levETIRAcetam IV 500 MG in 0.9% Normal Saline (100mL Bag) 100 ML 420 MG IV (23:33)
[2024-07-27] VITALS (12 sets, daily range): BP systolic 94–148; BP diastolic 47–80; PULSE 52–79; RESP 15–18; TEMP 36.4–37.4; O2SAT 93–100; BMI 32.0
[2024-07-27] MEDS: Piperacil/Tazobactam 3.375 GM in 0.9% Normal Saline (50mL MB+) 50 ML IV ×4 (00:16→22:11)
[2024-07-27] MEDS: Morphine 2 MG/ML Syringe IV (02:14)
[2024-07-27] MEDS: Ondansetron 4 MG/2 ML Vial IV (02:14)
[2024-07-27] MEDS: 0.9% Normal Saline (1000mL) 1,000 ML 150 ML IV ×4 (05:10→23:48)
--- NOTE | 2024-07-27 06:00 | EKG12_ITS ---
Test Reason : PRE OP Blood Pressure : / mmHG Vent. Rate : 069 BPM Atrial Rate : 069 BPM P-R Int : 190 ms QRS Dur : 090 ms QT Int : 418 ms P-R-T Axes : 025 -02 003 degrees QTc Int : 447 ms Normal sinus rhythm Normal ECG When compared with ECG of 25-APR-2024 12:52, Aberrant conduction is no longer Present Confirmed by LAKEISHA FLOOD, YZA ([id number]), online content editor GISELLE LEE ([id number]) on 07/29/2024 10:33:05 AM Referred By: Juanita Confirmed By:YAZ SUAZO MD
[2024-07-27 06:10] LABS: Absolute Lymphocyte Count 0.99 X10^3/uL (0.83-4.51); Absolute Neutrophil Count 4.8 X10^3/uL (2.0-7.7); Basophil# 0.04 X10^3/uL; Basophil% 0.6 % (0-1); Eosinophil# 0.04 X10^3/uL; Eosinophils% 0.6 % (0-5); Hemoglobin 11.5 g/dL (12.0-15.0); Lymphocyte # 0.99 X10^3/ul (0.83-4.51); Lymphocyte % 15.1 % (19-41); Mean Corp Hgb Conc 33.8 g/dL (32-36); Mean Corpuscular Hgb 30.3 pg (27.0-32.0); Mean Corpuscular Volume 89.7 fL (81-99); Mean Platelet Vol. 10.3 fl (6.2-12.0); Monocyte# 0.63 X10^3/uL; Monocyte% 9.6 % (0-10); NRBC Flagged by Analyzer 0 % (0-5); Neutrophil # 4.84 X10^3/uL (2.7-7.7); Neutrophil % 73.8 % (47-70); Platelet Count 256 K/mm3 (150-450); RBC Distribution Width CV 13.2 % (11.6-14.6); RBC Distribution Width SD 43.6 fl (35.1-43.9); Red Blood Count 3.79 M/mm3 (4.2-5.4); White Blood Count 6.6 K/mm3 (4.4-11.0)
[2024-07-27 07:05] LABS: ALB/GLOB Ratio 0.6 RATIO (0.9-2.4); AST(SGOT) 177 U/L (15-37); Alanine Aminotransfer ALT/SGPT 202 U/L (13-56); Albumin, Serum 2.7 g/dL (3.2-5.0); Alkaline Phosphatase 468 U/L (45-117); Anion Gap 6 (5-15); BUN 11 mg/dL (7-18); BUN/Creat Ratio 16.3 RATIO (10-20); Chloride 105 mmol/L (98-107); Creatinine, Serum 0.67 mg/dL (0.55-1.02); EST Glomerular Filtration Rate 90 mL/min (>60); Est Glom Filt Rate - Afr Amer 109 mL/min (>60); Estimated Creatinine Clearance 58.42 ml/min; Globulin 4.5 g/dL (2.2-4.2); Glucose 94 mg/dL (74-106); Phosphorus 2.5 mg/dL (2.5-4.9); Potassium 3.7 mmol/L (3.5-5.1); Protein, Total 7.2 g/dL (6.4-8.2); Sodium Level 135 mmol/L (136-145)
--- NOTE | 2024-07-27 07:45 | PCM.PN.HOSP ---
Reason for Visit Reason for Visit: Diagnoses Calculus of bile duct without cholangitis or cholecystitis without obstruction (07/26/24) Biliary acute pancreatitis without necrosis or infection (07/26/24) Acute pancreatitis without necrosis or infection, unspecified (07/26/24) Other specified disorders of kidney and ureter (07/26/24) Epigastric pain (07/26/24) Unspecified abdominal pain (07/26/24) Vomiting, unspecified (07/26/24) Nausea with vomiting, unspecified (07/26/24) Abnormal weight loss (07/26/24) Acquired absence of other specified parts of digestive tract (07/26/24) Other specified postprocedural states (07/26/24) Subjective Subjective Feeling better. No abdominal pain. Objective Data Objective Data Vital Signs: Vital Signs Temp Pulse Resp BP Pulse Ox O2 Del Method 37.4 C H 79 18 107/47 L 95 Room Air 07/27/24 05:17 07/27/24 05:17 07/27/24 05:17 07/27/24 05:17 07/27/24 05:17 07/27/24 05:17 Oxygen Delivery Method Room Air Weight: 79.5 kg Body Mass Index (BMI) 32.0 Intake & Output: Intake and Output for Last 24 Hours 07/25/24 07/26/24 07/27/24 23:59 23:59 23:59 Intake Total 1105 / 1105 1050 / 1050 Balance 1105 / 1105 1050 / 1050 Lab / Micro Data 07/27/24 05:02 07/27/24 05:02 Labs: Laboratory Results - last 24 hr 07/26/24 18:10: WBC 9.4, RBC 3.93 L, Hgb 12.0, Hct 35.7 L, MCV 90.8, MCH 30.5, MCHC 33.6, RDW Std Deviation 44.2 H, RDW Coeff of Ruth 13.2, Plt Count 240, MPV 9.9, Immature Gran % (Auto) 0.500, Neut % (Auto) 84.3 H, Lymph % (Auto) 8.4 L, [place] % (Auto) 6.1, Eos % (Auto) 0.5, Baso % (Auto) 0.2, Absolute Neuts (auto) 8.0 H, Absolute Lymphs (auto) 0.79 L, Nucleated RBC % 0, Sodium 132 L, Potassium 3.5, Chloride 98, Carbon Dioxide 27.0, Anion Gap 7, BUN 14, Creatinine 0.76, Estim Creat Clear Calc 58.43, Est GFR (MDRD) Af Amer 95, Est GFR (MDRD) Non-Af 79, BUN/Creatinine Ratio 18.4, Glucose 117 H, Lactic Acid 1.1, Calcium 9.6, Total Bilirubin 3.40 H, Direct Bilirubin 2.73 H, AST 158 H, ALT 200 H, Alkaline Phosphatase 501 H, Total Protein 8.0, Albumin 3.1 L, Globulin 4.9 H, Lipase 2429 H, Folate 41.00, TSH 3.200 07/27/24 05:02: WBC 6.6, RBC 3.79 L, Hgb 11.5 L, Hct 34.0 L, MCV 89.7, MCH 30.3, MCHC 33.8, RDW Std Deviation 43.6, RDW Coeff of Ruth 13.2, Plt Count 256, MPV 10.3, Immature Gran % (Auto) 0.300, Neut % (Auto) 73.8 H, Lymph % (Auto) 15.1 L, [place] % (Auto) 9.6, Eos % (Auto) 0.6, Baso % (Auto) 0.6, Absolute Neuts (auto) 4.8, Absolute Lymphs (auto) 0.99, Nucleated RBC % 0, Sodium 135 L, Potassium 3.7, Chloride 105, Carbon Dioxide 24.0, Anion Gap 6, BUN 11, Creatinine 0.67, Estim Creat Clear Calc 58.42, Est GFR (MDRD) Af Amer 109, Est GFR (MDRD) Non-Af 90, BUN/Creatinine Ratio 16.3, Glucose 94, Calcium 9.0, Phosphorus 2.5, Magnesium 2.0, Total Bilirubin 4.70 H, AST 177 H, ALT 202 H, Alkaline Phosphatase 468 H, Total Protein 7.2, Albumin 2.7 L, Globulin 4.5 H, Albumin/Globulin Ratio 0.6 L Radiography Diagnostic Testing: Radiology Impression Chest/Abdomen/Pelvis CTA 07/26/24 17:54 IMPRESSION: No aortic aneurysm or dissection. No specific findings to suggest mesenteric ischemia. Choledocholithiasis with at least one, probably 2 stones within the CBD. Biliary dilatation. Cholecystectomy. Dilated pancreatic duct. Colonic diverticulosis without evidence of acute diverticulitis. Right renal lesion 4.5 cm complex cyst vs cystic neoplasm. Further imaging needed for characterization, consider MRI. Electronically Signed: Lyly Elizabeth MD at 20:43 EDT , Physical Exam Const alert and no apparent distress HEENT head/scalp atraumatic Resp normal respiratory effort, no retractions, no use of accessory muscles and clear to auscultation bilaterally Cardio regular rate, regular rhythm, S1 normal heart sound and S2 normal heart sound GI normal to inspection, nondistended, normoactive bowel sounds, soft to palpation, non-tender and non-distended Extremity normal to inspection and full ROM Neuro Sensorium / Orientation: awake Assessment & Plan Assessment/Plan (1) Acute pancreatitis: QUALIFIERS: Acute pancreatitis complication: no infection or necrosis Pancreatitis type: biliary Qualified Code(s): K85.10 - Biliary acute pancreatitis without necrosis or infection (2) Choledocholithiasis: (3) Abdominal pain: QUALIFIERS: Abdominal location: epigastric Qualified Code(s): R10.13 - Epigastric pain (4) Vomiting: QUALIFIERS: Nausea presence: with nausea Vomiting type: unspecified Qualified Code(s): R11.2 - Nausea with vomiting, unspecified (5) Weight loss: (6) History of biliary stent insertion: (7) History of laparoscopic cholecystectomy: (8) Right renal mass: PLAN: Plan Acute pancreatitis, gallstone associated. Recurrent choledocholithiasis in patient status post cholecystectomy. CT confirms choledocholithiasis with 1 to 2 stones in the common bile duct. On 01 July, patient underwent a an ERCP where patient was noted to have a biliary stricture, choledocholithiasis causing obstruction that was removed, sphincterotomy, and a stent removed GI consult. ERCP performed and showed choledocholithiasis. Partial removal was accomplished with biliary sphincterotomy. Stent inserted. Sphincterotomy performed. Incidental right renal lesion 4.5cm on CT cyst v cystic neoplasm MRI ordered to further characterize this. No prior imaging available in [facility] to compare. However, in [facility] patient had a CT on 04/25/24 that showed a 4.5cm hemorrhagic or proteinaceous cyst Weight loss lost 7 pounds recently. TSH WNL nutrition consult Chronic conditions: Ulcerative Colitis: stable. No flare-up at this time. Colonic Diverticulosis - Stable. GERD: PPI. Change from IV to PO when able to take oral Szr d/o: continue levetiracetam. Change from IV to PO when able to take oral. Obesity class I: complicates care and recovery. VTE prophylaxis: SCD's Disposition: Will monitor the patient overnight. If patient tolerates diet and MRI is fairly unremarkable would anticipate the patient being able to be discharged on the second. Charges/Coding Visit Charges Inpatient E&M: 24299 Subs Hosp L2
--- NOTE | 2024-07-27 08:11 | RAD_ITS ---
EXAM: FL FLUOROSCOPY < 1 HOUR CLINICAL INDICATION: ABD PAIN TECHNIQUE: Fluoroscopic images performed in multiple projections. Fluoroscopic guidance was provided by a physician. 7 spot images. Total dose is 67.67 mGy with a fluoroscopic time of 4 minutes and 14 seconds. COMPARISON: No relevant prior studies available. FINDINGS AND RAD/ERCP Biliary/Pancreas IMPRESSION: 7 fluoroscopic images obtained intraprocedurally. Refer to the procedure note for complete details. Electronically Signed: Paul Yu DO at 10:22 EDT ,
--- NOTE | 2024-07-27 09:02 | PCM.PRE.AN2 ---
ASA Classification* ASA Classification ASA Classification: 2 and E Assessment & Plan Anesthesia* Anesthesia Assessment Anesthesia Assessment: Discussed sedation and/or anesthesia options, risks, benefits, and alternatives with patient/parents/legal guardian/POA. Questions invited. The patient/parents/legal guardian/POA seems to understand and agrees to proceed with anesthesia plan. Reviewed the physical assessment, medical history, allergy history and patient home medications list prior to surgery/procedure/anesthetic and documented any changes. Performed airway and anesthesia risk assessments. Anesthesia Type Anesthesia Type: General History Source History Obtained from:: Patient and Chart Anesthesia Focused Assessment* Temperature: 99.3 F Pulse Rate: 79 Blood Pressure: 107/47 Respiratory Rate: 18 Pulse Ox: 96 Oxygen Delivery Method: Room Air Airway Assessment Mouth opens: >3 cm Mallampati Score: III Teeth Condition: Full (Full upper denture is out) and Partial (Partial lower denture is out) Neck Range of motion (ROM): Full ROM Focused Labs Anesthesia Preop lab: CBC WBC 6.6 K/mm3 (4.4-11.0) 07/27/24 05:02 RBC 3.79 M/mm3 (4.2-5.4) L 07/27/24 05:02 Hgb 11.5 g/dL (12.0-15.0) L 07/27/24 05:02 Hct 34.0 % (37-47) L 07/27/24 05:02 Plt Count 256 K/mm3 (150-450) 07/27/24 05:02 CHEMISTRY Potassium 3.7 mmol/L (3.5-5.1) 07/27/24 05:02 Sodium 135 mmol/L (136-145) L 07/27/24 05:02 Magnesium 2.0 mg/dL (1.6-2.6) 07/27/24 05:02 Phosphorus 2.5 mg/dL (2.5-4.9) 07/27/24 05:02 BUN 11 mg/dL (7-18) 07/27/24 05:02 Creatinine 0.67 mg/dL (0.55-1.02) 07/27/24 05:02 Glucose 94 mg/dL (74-106) 07/27/24 05:02 TSH 3.200 uIU/mL (0.358-3.740) 07/26/24 18:10 COAG Pre-Assessment Diagnosis/Proposed Procedure Planned Operative Procedure(s): ERCP Anesthesia History 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 When Was Last Pacemaker Check QUESTION #4 FULL TEXT: You/Your Family Experience fever (hyperthermia) with Anesthesia Last Oral Intake Last Oral intake: Last Oral Intake NPO since Meds taken in AM with sips of water? Meds patient instructed to take am of surgery Any additional information?: Yes NPO since: 00:00 PONV PONV - painter foreman: PONV - painter foreman Female HX of Motion Sickness HX of N/V After Surgery Non-Smoker Duration of Surgery greater than 60 minutes Number of Risk Factors PONV Score Height & Weight Height & Weight: Anesthesia: Height & Weight Height 5 ft 2 in 07/26/24 23:11 Weight: 79.5 kg 07/27/24 03:30 Body Mass Index (BMI) 32.0 07/27/24 03:30 Respiratory Assessment Respiratory Assessment - painter foreman: Respiratory Tract Infection Hx - painter foreman Hx Respiratory Tract Infection No 07/26/24 23:25 STOP Sleep Apnea STOP Sleep Apnea - painter foreman: STOP Sleep Apnea - painter foreman Hx Hypertension Yes: CONTROLLED WITH MEDS 07/26/24 23:16 Hx Sleep Apnea No 07/26/24 23:16 CPAP No 07/26/24 23:16 BIPAP No 07/26/24 23:16 Do you snore loudly (louder Yes 07/26/24 23:16 than talking or can be heard Do you often feel tired/ No 07/26/24 23:16 fatigued/ sleepy during daytime? Has anyone observed you stop No 07/26/24 23:16 breathing during sleep? STOP Results Positive 07/26/24 23:16 QUESTION #5 FULL TEXT : Do you snore loudly (louder than talking or can be heard through closed doors)? 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 Specify any problems Hx of Preganancy in last 3 No 07/26/24 23:16 Months Nurse Filling Out Transfusion DREDICK 07/26/24 23:16 & Questions: Date: 07/26/24 07/26/24 23:16 Time: 23:17 07/26/24 23:16 Patient unable to answer at this time (ie. confused, unrespo /Reproduction History /Reproductive History - painter foreman: /Reproductive Hx- painter foreman Hx Now No 07/26/24 23:25 Gestational Age (in weeks): EDC: Hx Hx Para Hx Section SAB No 07/26/24 23:25 Active Medications Active Medications: Current Medications Generic Name Dose Route Start Last Admin Trade Name Freq PRN Reason Stop Dose Admin Hydralazine HCl 10 mg 07/26/24 23:08 Hydralazine 20 Mg/Ml Vial IV Q6H PRN PRN SBP GREATER THAN 160 Protocol Sodium Chloride 1,000 mls @ 150 mls/hr 07/26/24 17:55 07/27/24 05:10 IV 150 mls/hr .[id number] PACHECO Administration Pantoprazole Sodium 40 mg/ 110 mls @ 330 mls/hr 07/27/24 10:00 Sodium Chloride IV Q24 PACHECO Piperacillin Sod/Tazobactam 50 mls @ 12.5 mls/hr 07/26/24 22:31 07/27/24 05:11 Sod 3.375 gm/ Sodium Chloride IV 12.5 mls/hr Q8 PACHECO Administration Levetiracetam 500 mg/ Sodium 105 mls @ 420 mls/hr 07/26/24 23:08 07/26/24 23:48 Chloride IV Infused Q12 PACHECO Infusion Sodium Chloride 250 mls @ 15 mls/hr 07/26/24 23:09 IV .[id number] PRN Additional IVPB Infusion Sodium Chloride 250 mls @ 15 mls/hr 07/26/24 23:09 IV .[id number] PRN Saline Flush Morphine Sulfate 2 mg 07/26/24 23:08 07/27/24 02:14 Morphine 2 Mg/Ml Syringe IV 2 mg Q4H PRN PRN Administration Pain Score 6-10 Ondansetron HCl 4 mg 07/26/24 23:08 07/27/24 02:14 Ondansetron 4 Mg/2 Ml Vial IV 4 mg Q6H PRN PRN Administration NAUSEA/VOMITING Promethazine HCl 25 mg 07/26/24 23:08 Promethazine 25 Mg/Ml Syringe IM Q6H PRN PRN Breakthrough nausea/vomiting Sodium Chloride 10 - 40 ml 07/26/24 23:09 0.9% Saline Lock 10 Ml Syringe IV UD PRN SALINE FLUSH PFSH Medical History Wears glasses Wears dentures Ambulates with cane Gastric reflux Former smoker History of biliary stent insertion RLS (restless legs syndrome) History of chronic cholecystitis Absence seizure disorder Ulcerative colitis Allergic rhinitis Anxiety and depression Former tobacco use HLD (hyperlipidemia) HTN (hypertension) Home Medications ?Medication ?Instructions ?Recorded ?Last Taken ?Type multivitamin with folic acid 400 1 tab PO DAILY supplement 08/18/14 06/27/24 History mcg tablet (Thera) omeprazole 20 mg capsule,delayed 20 mg PO DAILY Gerd 08/18/14 07/01/24 History release pravastatin 40 mg tablet 40 mg PO DAILY cholesterol 08/18/14 06/30/24 History (Pravachol) alendronate 70 mg tablet 70 mg PO PAYNE OA 04/25/24 06/29/24 History cetirizine 10 mg tablet (Zyrtec) 10 mg PO DAILY PRN allergy symptoms 04/25/24 06/30/24 History escitalopram oxalate 20 mg tablet 20 mg PO DAILY depression 04/25/24 06/30/24 History ferrous sulfate 325 mg (65 mg 325 mg PO DAILY supplement 04/25/24 06/27/24 History iron) tablet (iron) levetiracetam 500 mg tablet 500 mg PO BID seizure 04/25/24 07/01/24 History losartan 100 1 tab PO DAILY blood pressure 04/25/24 07/01/24 History mg-hydrochlorothiazide 12.5 mg tablet magnesium 250 mg tablet 250 mg PO DAILY supplement 04/25/24 06/30/24 History melatonin 10 mg capsule 10 mg PO QHS sleep 04/25/24 06/30/24 History omega-3 360 me-vyn-fnl-fish oil 1 cap PO DAILY supplement 04/25/24 06/27/24 History 1,200 mg capsule,delayed release ropinirole 0.5 mg tablet 0.5 mg PO QHS restless legs 04/25/24 06/30/24 History vitamin B complex (B-Complex 1 tab PO DAILY supplement 04/25/24 06/27/24 History tablet) vibegron 75 mg tablet (Gemtesa) 75 mg PO DAILY 06/26/24 06/30/24 History cholecalciferol (vitamin D3) 25 25 mcg PO DAILY supplement 07/26/24 Unknown History mcg (1,000 unit) capsule Allergy/AdvReac Type Severity Reaction Status Date / Time codeine Allergy Intermediate Vomiting Verified 07/26/24 17:23 hydrocodone bitartrate (From AdvReac Nausea/Vom/ Verified 07/26/24 17:23 Vicodin) Diarrhea propoxyphene napsylate (From AdvReac Nausea/Vom/ Verified 07/26/24 17:23 Darvocet-N) Diarrhea Family History Mother Diabetes Bipolar disorder Father Liver cancer Prostate cancer Surgical History S/P cataract extraction History of knee replacement History of arthroscopic knee surgery History of section History of total hip replacement S/P cholecystectomy Social History household members: children Smoking Status: Former smoker how long ago did patient quit smoking: Smoked 40 yrs 1 ppd until quit age 50. alcohol intake: current alcohol intake frequency: holidays/special occasions only substance use type: does not use Review of Systems (Anesthesia) ROS Narrative System reviewed and no additional complaints, except as documented.
--- NOTE | 2024-07-27 10:10 | EX.PCM.CON.G ---
HPI Consult Data Date of Consult: 07/27/24 HPI Narrative Reason for Consultation: Choledocholithiasis HPI Narrative: FANTA LOBO, is a 74 F who presents worsening abdominal pain. She has a history of chronic cholecystitis with choledocholithiasis; s/p laparoscopic cholecystectomy (~2021) with recent history of ERCP on July 01, 2024 to treat recurrent choledocholithiasis with biliary stent placement followed by subsequent biliary stent removal earlier this month. She presents back a month later after getting her stent removed with ]abdominal pain, nausea, vomiting and constipation. Ms. Lobo reports her symptoms began ~2-3 hours after eating dinner with the abrupt-onset of severe abdominal pain focused in the upper abdomen with pain that was moderate to severe, nonradiating and was made better or worse by nothing. She denies associated fever, chest pain or SOB and she also denies any history of knowing that she had any abnormal cyst or mass on her kidneys. In the ER she was noted to have CT evidence. She was then noted to have an elevated serum lipase of 2,249 U/L consistent with Acute Pancreatitis with hyperbilirubinemia of 3.4 mg/dL with direct bilirubin of 2.73 mg/dL, AST 158 U/L, ALT of 200 U/L and an alkaline phosphatase of 501 U/L. At this time she is not any abdominal pain. She denies any nausea, vomiting or diarrhea since being in the hospital. She was started on Zosyn by hospitalist for possible ascending cholangitis. [facility] Medical History Wears glasses Wears dentures Ambulates with cane Gastric reflux Former smoker History of biliary stent insertion RLS (restless legs syndrome) History of chronic cholecystitis Absence seizure disorder Ulcerative colitis Allergic rhinitis Anxiety and depression Former tobacco use HLD (hyperlipidemia) HTN (hypertension) Home Medications ?Medication ?Instructions ?Recorded ?Last Taken ?Type multivitamin with folic acid 400 1 tab PO DAILY supplement 08/18/14 06/27/24 History mcg tablet (Thera) omeprazole 20 mg capsule,delayed 20 mg PO DAILY Gerd 08/18/14 07/01/24 History release pravastatin 40 mg tablet 40 mg PO DAILY cholesterol 08/18/14 06/30/24 History (Pravachol) alendronate 70 mg tablet 70 mg PO PAYNE OA 04/25/24 06/29/24 History cetirizine 10 mg tablet (Zyrtec) 10 mg PO DAILY PRN allergy symptoms 04/25/24 06/30/24 History escitalopram oxalate 20 mg tablet 20 mg PO DAILY depression 04/25/24 06/30/24 History ferrous sulfate 325 mg (65 mg 325 mg PO DAILY supplement 04/25/24 06/27/24 History iron) tablet (iron) levetiracetam 500 mg tablet 500 mg PO BID seizure 04/25/24 07/01/24 History losartan 100 1 tab PO DAILY blood pressure 04/25/24 07/01/24 History mg-hydrochlorothiazide 12.5 mg tablet magnesium 250 mg tablet 250 mg PO DAILY supplement 04/25/24 06/30/24 History melatonin 10 mg capsule 10 mg PO QHS sleep 04/25/24 06/30/24 History omega-3 360 ku-awj-wlw-fish oil 1 cap PO DAILY supplement 04/25/24 06/27/24 History 1,200 mg capsule,delayed release ropinirole 0.5 mg tablet 0.5 mg PO QHS restless legs 04/25/24 06/30/24 History vitamin B complex (B-Complex 1 tab PO DAILY supplement 04/25/24 06/27/24 History tablet) vibegron 75 mg tablet (Gemtesa) 75 mg PO DAILY 06/26/24 06/30/24 History cholecalciferol (vitamin D3) 25 25 mcg PO DAILY supplement 07/26/24 Unknown History mcg (1,000 unit) capsule Allergy/AdvReac Type Severity Reaction Status Date / Time codeine Allergy Intermediate Vomiting Verified 07/26/24 17:23 hydrocodone bitartrate (From AdvReac Nausea/Vom/ Verified 07/26/24 17:23 Vicodin) Diarrhea propoxyphene napsylate (From AdvReac Nausea/Vom/ Verified 07/26/24 17:23 Darvocet-N) Diarrhea Family History Mother Diabetes Bipolar disorder Father Liver cancer Prostate cancer Surgical History S/P cataract extraction History of knee replacement History of arthroscopic knee surgery History of section History of total hip replacement S/P cholecystectomy Social History household members: children Smoking Status: Former smoker how long ago did patient quit smoking: Smoked 40 yrs 1 ppd until quit age 50. alcohol intake: current alcohol intake frequency: holidays/special occasions only substance use type: does not use ROS ROS Narrative Review of systems: Constitutional: Patient admits to unintentional ~7 pound weight loss over the past month with intermittent sweats. She denies fever or chills. Eyes: Patient denies changes in vision or discharge from eyes. ENT: Patient denies runny nose, sore throat or ear pain. CV: Patient denies chest pain, palpitations, heart racing or orthopnea. Resp: Patient denies shortness of breath or cough. GI: Patient admits to abdominal pain primarily focused in the epigastrium with corresponding nausea and bilious emesis and constipation. She denies diarrhea. : Patient denies dysuria, hematuria or urinary frequency/hesitancy. MSK. Patient admits to back pain but denies arthralgias or myalgias. Skin: Patient denies rash, abscess or jaundice. Psych: Patient denies symptoms of uncontrolled depression or anxiety. Neuro: Patient denies headache, paresthesias or focal neurologic deficits. Allergy: Patient denies lip swelling, tongue swelling or urticaria. Hematology: Patient denies easy bleeding or easy bruisability. Endocrinology: Patient denies polyuria, polydipsia or polyphagia. 14 point review of systems otherwise negative except for positives noted above in HPI. Physical Exam Const alert, oriented x3 and average body habitus Constitutional Narrative: Mild discomfort noted. General Appearance: cooperative HEENT normocephalic, head/scalp atraumatic, hearing grossly normal bilaterally and moist oral mucous membranes Eyes PERRL and EOMs intact bilaterally Neck no lymphadenopathy and supple Resp normal respiratory effort, no retractions, no use of accessory muscles and clear to auscultation bilaterally Cardio regular rate and regular rhythm GI normal to inspection, nondistended, normoactive bowel sounds and soft to palpation GI Narrative: Positive TTP over the epigastrium and lower quadrants. Extremity normal to inspection, full ROM and no clubbing, cyanosis or edema Skin Skin Narrative: Patient has no evidence of jaundice, abscess or rash. Neuro oriented x3, CN's II-XII intact bilaterally, moves all extremities and no focal motor deficits Sensorium / Orientation: awake, alert, oriented to person, oriented to place and oriented to time Speech: speech normal Psych affect normal Lab / Micro Data 07/27/24 05:02 07/27/24 05:02 Labs: Laboratory Results - last 24 hr 07/26/24 18:10: WBC 9.4, RBC 3.93 L, Hgb 12.0, Hct 35.7 L, MCV 90.8, MCH 30.5, MCHC 33.6, RDW Std Deviation 44.2 H, RDW Coeff of Ruth 13.2, Plt Count 240, MPV 9.9, Immature Gran % (Auto) 0.500, Neut % (Auto) 84.3 H, Lymph % (Auto) 8.4 L, [place] % (Auto) 6.1, Eos % (Auto) 0.5, Baso % (Auto) 0.2, Absolute Neuts (auto) 8.0 H, Absolute Lymphs (auto) 0.79 L, Nucleated RBC % 0, Sodium 132 L, Potassium 3.5, Chloride 98, Carbon Dioxide 27.0, Anion Gap 7, BUN 14, Creatinine 0.76, Estim Creat Clear Calc 58.43, Est GFR (MDRD) Af Amer 95, Est GFR (MDRD) Non-Af 79, BUN/Creatinine Ratio 18.4, Glucose 117 H, Lactic Acid 1.1, Calcium 9.6, Total Bilirubin 3.40 H, Direct Bilirubin 2.73 H, AST 158 H, ALT 200 H, Alkaline Phosphatase 501 H, Total Protein 8.0, Albumin 3.1 L, Globulin 4.9 H, Lipase 2429 H, Folate 41.00, TSH 3.200 07/27/24 05:02: WBC 6.6, RBC 3.79 L, Hgb 11.5 L, Hct 34.0 L, MCV 89.7, MCH 30.3, MCHC 33.8, RDW Std Deviation 43.6, RDW Coeff of Ruth 13.2, Plt Count 256, MPV 10.3, Immature Gran % (Auto) 0.300, Neut % (Auto) 73.8 H, Lymph % (Auto) 15.1 L, [place] % (Auto) 9.6, Eos % (Auto) 0.6, Baso % (Auto) 0.6, Absolute Neuts (auto) 4.8, Absolute Lymphs (auto) 0.99, Nucleated RBC % 0, Sodium 135 L, Potassium 3.7, Chloride 105, Carbon Dioxide 24.0, Anion Gap 6, BUN 11, Creatinine 0.67, Estim Creat Clear Calc 58.42, Est GFR (MDRD) Af Amer 109, Est GFR (MDRD) Non-Af 90, BUN/Creatinine Ratio 16.3, Glucose 94, Calcium 9.0, Phosphorus 2.5, Magnesium 2.0, Total Bilirubin 4.70 H, AST 177 H, ALT 202 H, Alkaline Phosphatase 468 H, Total Protein 7.2, Albumin 2.7 L, Globulin 4.5 H, Albumin/Globulin Ratio 0.6 L Imaging Radiology Impression Chest/Abdomen/Pelvis CTA 07/26/24 17:54 IMPRESSION: No aortic aneurysm or dissection. No specific findings to suggest mesenteric ischemia. Choledocholithiasis with at least one, probably 2 stones within the CBD. Biliary dilatation. Cholecystectomy. Dilated pancreatic duct. Colonic diverticulosis without evidence of acute diverticulitis. Right renal lesion 4.5 cm complex cyst vs cystic neoplasm. Further imaging needed for characterization, consider MRI. Electronically Signed: Lyly Elizabeth MD at 20:43 EDT , Assessment & Plan Assessment/Plan (1) Acute pancreatitis: QUALIFIERS: Pancreatitis type: biliary Acute pancreatitis complication: no infection or necrosis Qualified Code(s): K85.10 - Biliary acute pancreatitis without necrosis or infection (2) Choledocholithiasis: (3) Abdominal pain: QUALIFIERS: Abdominal location: epigastric Qualified Code(s): R10.13 - Epigastric pain (4) Vomiting: QUALIFIERS: Vomiting type: unspecified Nausea presence: with nausea Qualified Code(s): R11.2 - Nausea with vomiting, unspecified (5) Weight loss: (6) History of biliary stent insertion: (7) History of laparoscopic cholecystectomy: (8) Right renal mass: PLAN: Plan 74-year-old with history of recurrent acute pancreatitis and recurrent acute choledocholithiasis secondary to very lithogenic bile presents with obstructive jaundice likely secondary to recurrent choledocholithiasis. With recurrent choledocholithiasis and to touch sure. He have to wonder if there is underlying stricture or malignancy contributing to poor flow along with lithogenic bile. She will likely need a CA 19-9 drawn along with CEA and spyglass to look inside the duct for diseases such as cholangiocarcinoma. Being that she does have a history of ulcerative colitis she would be higher risk of developing bile duct cancer that might be missed on imaging. Recurrent choledocholithiasis in patient status post cholecystectomy. CT confirms choledocholithiasis with 1 to 2 stones in the common bile duct. On 01 July, patient underwent a an ERCP where patient was noted to have a biliary stricture, choledocholithiasis causing obstruction that was removed, sphincterotomy, and a stent removed ERCP planned. She was explained alternatives, risk, benefits including not withstanding bleeding, infection, sepsis, perforation, need for emergent surgery . She will have an ASA of 3. Charges/Coding Visit Charges Inpatient E&M: 33615 Init Hosp L3
--- NOTE | 2024-07-27 10:24 | OP.ERCP_ITS ---
Patient Name: Pati Lobo Procedure Date: 07/27/2024 7:47 AM Date of : 1950 Age: 74 Procedure: ERCP Indications: Bile duct stone(s), Jaundice, Elevated liver enzymes, Acute recurrent pancreatitis Providers: Ric Lara DO Medicines: Monitored Anesthesia Care Patient Profile: This is a 74 year old female. Refer to note in patient chart for documentation of history and physical. Patient has symptoms of acute right upper quadrant abdominal pain, acute epigastric abdominal pain, acute jaundice and acute vomiting. Complications: No immediate complications. Procedure: Pre-Anesthesia Assessment: - Prior to the procedure, a History and Physical was performed, and patient medications and allergies were reviewed. The patient is competent. The risks and benefits of the procedure and the sedation options and risks were discussed with the patient. All questions were answered and informed consent was obtained. Patient identification and proposed procedure were verified by the physician in the pre-procedure area. Mental Status Examination: alert and oriented. Airway Examination: normal oropharyngeal airway and neck mobility. Respiratory Examination: clear to auscultation. CV Examination: normal. Prophylactic Antibiotics: The patient does not require prophylactic antibiotics. Prior Anticoagulants: The patient has taken no anticoagulant or antiplatelet agents. ASA Grade Assessment: II - A patient with mild systemic disease. After reviewing the risks and benefits, the patient was deemed in satisfactory condition to undergo the procedure. The anesthesia plan was to use general anesthesia. Immediately prior to administration of medications, the patient was re-assessed for adequacy to receive sedatives. The heart rate, respiratory rate, oxygen saturations, blood pressure, adequacy of pulmonary ventilation, and response to care were monitored throughout the procedure. The physical status of the patient was re-assessed after the procedure. After obtaining informed consent, the scope was passed under direct vision. Throughout the procedure, the patient's blood pressure, pulse, and oxygen saturations were monitored continuously. The Duodenoscope was introduced through the mouth, and advanced to the duodenum and used to inject contrast into the bile duct and ventral pancreatic duct. The ERCP was accomplished without difficulty. The patient tolerated the procedure well. Scope In: 9:41:51 AM Scope Out: 10:06:54 AM Total Procedure Duration Time 0 hours 25 minutes 3 seconds Findings: The waste cotton cleaner film was normal. The esophagus was successfully intubated under direct vision. The scope was advanced to a normal major papilla in the descending duodenum without detailed examination of the pharynx, larynx and associated structures, and upper GI tract. The upper GI tract was grossly normal. The bile duct was deeply cannulated with the short-nosed traction sphincterotome. Contrast was injected. I personally interpreted the bile duct and pancreatic duct images. There was brisk flow of contrast through the ducts. Image quality was adequate. Contrast extended to the entire biliary tree. Opacification of the entire opacified area and entire biliary tree was successful. The maximum diameter of the ducts was 14 mm. The main bile duct and left main hepatic duct contained multiple stones, the largest of which was 6 mm in diameter. A long 0.025 inch Jagwire was passed into the biliary tree. A 5 mm biliary sphincterotomy was made with a braided traction (standard) sphincterotome using ERBE electrocautery. The sphincterotomy oozed blood. To discover objects, the biliary tree was swept with a 12 mm balloon starting at the left main hepatic duct. Sludge was swept from the duct. Many stones were removed. One stone remained. Dilation of the lower third of the main bile duct and the left main hepatic duct with a 10-11-12 mm balloon (to a maximum balloon size of 12 mm) dilator was successful. The ventral pancreatic duct was deeply cannulated with the short-nosed traction sphincterotome. Contrast was injected. Opacification of the entire pancreatic ductal system was successful. The maximum diameter of the ducts was 5 mm. The entire opacified area was normal. A long 0.025 inch Jagwire was passed into the ventral pancreatic duct. A 1 mm ventral pancreatic sphincterotomy was made with a monofilament traction (standard) sphincterotome using ERBE electrocautery. There was no post-sphincterotomy bleeding. To find object(s) the ventral pancreatic duct was swept with a 6 mm balloon starting at the pancreatic duct in the body of the pancreas. Debris was swept from the duct. One 10 Fr by 9 cm temporary stent with two external flaps and a single internal flap was placed 5 cm into the common bile duct. Bile flowed through the stent. The stent was in good position. Impression: - Choledocholithiasis was found. Partial removal was accomplished with biliary sphincterotomy; a stent was inserted. - A biliary sphincterotomy was performed. - The biliary tree was swept. - The lower third of the main bile duct and the left main hepatic duct were successfully dilated. - A pancreatic sphincterotomy was performed. - The ventral pancreatic duct was swept and debris was found. - One temporary stent was placed into the common bile duct. Procedure Code(s): --- Professional --- 41145, Endoscopic retrograde cholangiopancreatography (ERCP); with placement of endoscopic stent into biliary or pancreatic duct, including pre- and post-dilation and guide wire passage, when performed, including sphincterotomy, when performed, each stent 44741, 59, Endoscopic retrograde cholangiopancreatography (ERCP); with trans-endoscopic balloon dilation of biliary/pancreatic duct(s) or of ampulla (sphincteroplasty), including sphincterotomy, when performed, each duct 55034, 51, Endoscopic retrograde cholangiopancreatography (ERCP); with removal of calculi/debris from biliary/pancreatic duct(s) 90339, 59, Endoscopic retrograde cholangiopancreatography (ERCP); with sphincterotomy/papillotomy 69894, 26, Combined endoscopic catheterization of the biliary and pancreatic ductal systems, radiological supervision and interpretation CPT copyright 2021 [employer]. All rights reserved. The codes documented in this report are preliminary and upon physician coder review may be revised to meet current compliance requirements. Ric Lara DO 07/27/2024 10:23:40 AM This report has been signed electronically. Number of Addenda: 0 Note Initiated On: 07/27/2024 7:47 AM
--- NOTE | 2024-07-27 10:25 | OP.CCLET_ITS ---
07/27/2024 Katja Hurtado Do Re : ERCP procedure for Pati Lobo Dear Genesis This procedure was performed on Saturday, July 27, 2024. My impressions and recommendations are as follows: Impressions : - Choledocholithiasis was found. Partial removal was accomplished with biliary sphincterotomy; a stent was inserted. - A biliary sphincterotomy was performed. - The biliary tree was swept. - The lower third of the main bile duct and the left main hepatic duct were successfully dilated. - A pancreatic sphincterotomy was performed. - The ventral pancreatic duct was swept and debris was found. - One temporary stent was placed into the common bile duct. Recommendations : My findings are described in the full procedure note, which is enclosed. If I can be of further assistance, please feel free to contact me at . Sincerely, Ric Lara DO 07/27/2024 10:23:40 AM This report has been signed electronically.
--- NOTE | 2024-07-27 10:28 | PCM.POST.ANE ---
Anesthesia: Postop Eval I Current Vital Signs Temperature: 98.6 F Pulse Rate: 60 Blood Pressure: 148/80 Respiratory Rate: 16 Pulse Ox: 95 Oxygen Delivery Method: Room Air Assessment Airway patent: Yes Spontaneous unlabored respirations: Yes Mental status: Asleep nausea: No Vomiting: No Anesthesia Complication: No Fluid Hydration Crystalloid volume administer (ml): 500 Total IV fluid infused: 500 Progress Note Anesthesia document: Postop Eval 1 completed: Yes
--- NOTE | 2024-07-27 10:51 | PCM.POSTANE2 ---
Anesthesia Postop Eval I Sum Postop Eval Completion status Anesthesia document: Postop Eval 1 completed: Yes Anesthesia Postop Eval I Summary Anesthesia Postop Eval I Summary: Anesthesia Postop Eval I: Assessment Summary Airway patent Yes 07/27/24 10:29 Spontaneous unlabored Yes 07/27/24 10:29 respirations Mental status Asleep 07/27/24 10:29 nausea No 07/27/24 10:29 Vomiting No 07/27/24 10:29 Anesthesia Postop Eval I: Fluid Summary Crystalloid volume administer 500 07/27/24 10:29 (ml) Colloids volume administered ( ml) Blood Product volume administered (ml) Total IV fluid infused 500 07/27/24 10:29 Anesthesia Postop Eval I: Summary Notes Anesthesia Complication No 07/27/24 10:29 Anesthesia Complication Comment: Post-operative progress note Anesthesia: Postop Eval II Evaluation Mental status: Awake and Calm Pain Level: 0 nausea: No Vomiting: No Progress Note Post-operative progress note: Sleepy Complications Anesthesia Complication: No
[2024-07-27] MEDS: Pantoprazole Sodium 40 MG in 0.9% Normal Saline (100mL MB+) 100 ML 330 MG IV (11:43)
[2024-07-27] MEDS: levETIRAcetam IV 500 MG in 0.9% Normal Saline (100mL Bag) 100 ML 420 MG IV ×2 (12:28→21:28)
[2024-07-28] MEDS: Ondansetron 4 MG/2 ML Vial IV ×2 (01:59→20:32)
[2024-07-28 02:00] VITALS: BP 215/89; PULSE 75; RESP 15; TEMP 37.1; O2SAT 98
[2024-07-28] MEDS: Morphine 2 MG/ML Syringe IV (02:06)
[2024-07-28 03:25] VITALS: BMI 32.2
[2024-07-28 05:00] VITALS: RESP 15
[2024-07-28 06:00] VITALS: BMI 35.7
[2024-07-28 06:07] LABS: Absolute Lymphocyte Count 0.99 X10^3/uL (0.83-4.51); Absolute Neutrophil Count 2.9 X10^3/uL (2.0-7.7); Basophil# 0.04 X10^3/uL; Basophil% 0.9 % (0-1); Eosinophil# 0.12 X10^3/uL; Eosinophils% 2.7 % (0-5); Hematocrit 30.9 % (37-47); Hemoglobin 10.3 g/dL (12.0-15.0); Lymphocyte # 0.99 X10^3/ul (0.83-4.51); Lymphocyte % 22.6 % (19-41); Mean Corp Hgb Conc 33.3 g/dL (32-36); Mean Corpuscular Volume 93.1 fL (81-99); Mean Platelet Vol. 9.8 fl (6.2-12.0); Monocyte# 0.34 X10^3/uL; Monocyte% 7.7 % (0-10); NRBC Flagged by Analyzer 0 % (0-5); Neutrophil # 2.88 X10^3/uL (2.7-7.7); Neutrophil % 65.6 % (47-70); Platelet Count 206 K/mm3 (150-450); RBC Distribution Width CV 13.4 % (11.6-14.6); RBC Distribution Width SD 45.5 fl (35.1-43.9); Red Blood Count 3.32 M/mm3 (4.2-5.4); White Blood Count 4.4 K/mm3 (4.4-11.0)
[2024-07-28] MEDS: 0.9% Normal Saline (1000mL) 1,000 ML 150 ML IV (06:35)
[2024-07-28] MEDS: Piperacil/Tazobactam 3.375 GM in 0.9% Normal Saline (50mL MB+) 50 ML IV ×2 (06:35→13:52)
[2024-07-28 06:36] LABS: ALB/GLOB Ratio 0.6 RATIO (0.9-2.4); AST(SGOT) 91 U/L (15-37); Alanine Aminotransfer ALT/SGPT 151 U/L (13-56); Albumin, Serum 2.5 g/dL (3.2-5.0); Alkaline Phosphatase 376 U/L (45-117); Anion Gap 5 (5-15); BUN 8 mg/dL (7-18); BUN/Creat Ratio 12.9 RATIO (10-20); Calcium,Total 8.5 mg/dL (8.5-10.1); Chloride 111 mmol/L (98-107); Creatinine, Serum 0.62 mg/dL (0.55-1.02); EST Glomerular Filtration Rate 100 mL/min (>60); Est Glom Filt Rate - Afr Amer 120 mL/min (>60); Estimated Creatinine Clearance 61.71 ml/min; Globulin 4.1 g/dL (2.2-4.2); Glucose 100 mg/dL (74-106); Magnesium 1.8 mg/dL (1.6-2.6); Phosphorus 2.5 mg/dL (2.5-4.9); Protein, Total 6.6 g/dL (6.4-8.2); Sodium Level 138 mmol/L (136-145)
[2024-07-28 07:55] VITALS: BP 143/79; PULSE 64; RESP 18; TEMP 36.9; O2SAT 99
[2024-07-28] MEDS: levETIRAcetam IV 500 MG in 0.9% Normal Saline (100mL Bag) 100 ML 420 MG IV (10:23)
[2024-07-28] MEDS: Pantoprazole Sodium 40 MG in 0.9% Normal Saline (100mL MB+) 100 ML 330 MG IV (10:48)
[2024-07-28] MEDS: 0.9% Normal Saline (250mL Bag) 250 ML 15 ML IV (13:53)
[2024-07-28 13:57] VITALS: BP 146/59; PULSE 61; RESP 18; TEMP 36.5; O2SAT 100
--- NOTE | 2024-07-28 14:54 | PN.HOSP_ITS ---
Reason for Visit Reason for Visit: Abdominal pain/nausea/vomiting Subjective Subjective Mrs. Lobo is a 74-year-old white female who presented to the emergency department at [facility] on 07/26/2024 with a chief complaint of abdominal pain, nausea, and vomiting. Patient has a history of gallstone induced pancreatitis status post ERCP on 04/25/2024. At that time ERCP revealed dilation of the entire main bile duct with a stone causing obstruction and previous cholecystectomy with removal of choledocholithiasis via biliary sphincterotomy and balloon extraction. Nothing was found in the ventral pancreatic duct and 1 temporary stent was placed in the common bile duct. She was able to be discharged home on 04/26/2024. 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 Stone with obstruction was noted and complete removal via biliary sphincterotomy and balloon extraction was performed with previous stent placement being removed. Subsequently, she developed epigastric pain, nausea and vomiting about 2 to 3 hours after eating dinner with the abrupt onset of severe abdominal pain in the right to mid upper abdomen that had no more leading or relieving factors. Her family also noted that she had been losing weight involuntarily. Vital signs on presentation showed temperature of 97.5, heart rate 70, respiratory rate 16, blood pressure 145/73 and pulse ox 99% on room air. Her CBC was overtly unremarkable. Chemistry panel showed mild hyponatremia that has since resolved. Renal function was normal. Total bilirubin however was found to be elevated to 3.4 with a direct bilirubin of 2.73, AST of 158, ALT of 200 and an alk phos of 500. Lipase was elevated at 2429. CT of the chest abdomen and pelvis showed no aortic aneurysm or dissection, no signs of mesenteric ischemia, choledocholithiasis with at least 1 but probably 2 stones in the CBD, biliary dilation, previous cholecystectomy, dilated pancreatic duct, colonic diverticulosis without evidence of diverticulitis and a right renal lesion that was 4.5 cm noted to be a complex cyst versus cystic neoplasm. CT [facility] and she was noted to have the same lesion there at that time which was characterized as a hemorrhagic versus proteinaceous cyst with no size change since that point in time. She was taken for ERCP on 07/27/2024 at which time she was found to have choledocholithiasis with partial removal accomplished via biliary sphincterotomy and a stent was inserted, stenosis of the common bile duct was noted and a bile duct stent was placed. Pancreatic sphincterotomy was performed in the ventral pancreatic duct was swept and only debris was found. Her bilirubin has subsequently dropped and liver enzymes are normalizing. Per discussion with Dr. Lara, he is concerned about potential malignancy and needs to perform spyglass but we will plan on doing this as an outpatient. CEA and CA 19-9 are both pending. His plan is to discharge with outpatient follow-up in the next month for follow-up on her testing and repeat ERCP with spyglass at that time. Patient reports she had an episode of intense pain in the epigastrium last night. This subsequently resolved and she has had no further issues. She is eating some orally but not taking in a whole lot. She denied any increased pain with oral intake today. She states she just does not have much of an appetite as she is only been on clear liquids lately. Objective Data Objective Data Vital Signs: Vital Signs Temp Pulse Resp BP Pulse Ox O2 Del Method 97.7 F L 61 18 146/59 H 100 Room Air 07/28/24 13:57 07/28/24 13:57 07/28/24 13:57 07/28/24 13:57 07/28/24 13:57 07/28/24 13:57 Oxygen Delivery Method Room Air Weight: 88.2 kg Body Mass Index (BMI) 35.7 Intake & Output: Intake and Output for Last 24 Hours 07/26/24 07/27/24 07/28/24 23:59 23:59 23:59 Intake Total 1105 / 1105 4447.5 / 4447.5 2435.25 / 2435.25 Balance 1105 / 1105 4447.5 / 4447.5 2435.25 / 2435.25 Lab / Micro Data 07/28/24 05:42 07/28/24 05:42 Labs: Laboratory Results - last 24 hr 07/28/24 05:42: WBC 4.4, RBC 3.32 L, Hgb 10.3 L, Hct 30.9 L, MCV 93.1, MCH 31.0, MCHC 33.3, RDW Std Deviation 45.5 H, RDW Coeff of Ruth 13.4, Plt Count 206, MPV 9.8, Immature Gran % (Auto) 0.500, Neut % (Auto) 65.6, Lymph % (Auto) 22.6, Bucks % (Auto) 7.7, Eos % (Auto) 2.7, Baso % (Auto) 0.9, Absolute Neuts (auto) 2.9, Absolute Lymphs (auto) 0.99, Nucleated RBC % 0, Sodium 138, Potassium 4.0, C hloride 111 H, Carbon Dioxide 22.0, Anion Gap 5, BUN 8, Creatinine 0.62, Estim Creat Clear Calc 61.71, Est GFR (MDRD) Af Amer 120, Est GFR (MDRD) Non-Af 100, BUN/Creatinine Ratio 12.9, Glucose 100, Calcium 8.5, Phosphorus 2.5, Magnesium 1.8, Total Bilirubin 2.10 H, AST 91 H, ALT 151 H, Alkaline Phosphatase 376 H, Total Protein 6.6, Albumin 2.5 L, Globulin 4.1, Albumin/Globulin Ratio 0.6 L Physical Exam Const alert, oriented x3, no apparent distress and well nourished; Negative for average body habitus Constitutional Narrative: Obese, older, white female, sitting up in bed, appears comfortable, nontoxic HEENT head/scalp atraumatic, moist oral mucous membranes and oropharynx normal Head and Scalp: normocephalic Eyes PERRL, EOMs intact bilaterally and conjunctivae normal Eyes Narrative: No scleral icterus Neck no lymphadenopathy and supple Neck Narrative: Trachea midline, no thyroid enlargement Resp normal respiratory effort, no retractions, no use of accessory muscles and clear to auscultation bilaterally Auscultation: Negative for rales, rhonchi or wheezes Cardio regular rate, regular rhythm, S1 normal heart sound, S2 normal heart sound, no murmurs, no rub, no gallops and no clicks GI normal to inspection, nondistended, normoactive bowel sounds and soft to palpation GI Narrative: Mild tenderness to the epigastric region Extremity no clubbing, cyanosis or edema Extremity Narrative: Pedal and radial pulses are 2+ Skin no rashes or lesions noted, no wounds, skin turgor normal, no jaundice, no petechiae and no mottling Neuro oriented x3, moves all extremities and no focal motor deficits Speech: speech normal Psych Psych Narrative: Affect is slightly flattened patient seems mildly anxious Assessment & Plan Assessment/Plan (1) Weight loss: (2) Right renal mass: (3) Acute pancreatitis: QUALIFIERS: Pancreatitis type: biliary Acute pancreatitis complication: no infection or necrosis Qualified Code(s): K85.10 - Biliary acute pancreatitis without necrosis or infection (4) Choledocholithiasis: PLAN: Plan Abdominal pain/nausea/vomiting secondary to choledocholithiasis-recurrent -Patient with recurrent disease and per discussion with Dr. Lara he is unclear the etiology of this currently as she no longer has a gallbladder -Workup is in progress and patient will need to undergo spyglass per discussion with GI as an outpatient -ERCP performed on 07/27/2024 at which time she had biliary sphincterotomy and stone removal with stent placement, narrowing was noted and dilated -CEA and CA 19-9 are pending -Spyglass will need to be performed -LFTs are trending down and normalizing -Repeat in a.m. -Discussed with Dr. Lara and he states there is no reason to repeat ERCP as long as her liver functions continue to improve -If remains stable we will plan on discharge tomorrow with outpatient follow-up in Dr. Lara's office in the next month Acute pancreatitis -Resolving -Patient is tolerating p.o. liquids and food without any increased pain however diet is not great at this point -Add supplements -As needed pain medication Constipation -Start scheduled MiraLAX Right renal cyst -4.5 cm and appears to be complex -Stable in size when compared to imaging on 04/25/2024--> at that time was reported to be a hemorrhagic versus proteinaceous cyst -Discussed with Dr. Villanueva and she will follow-up as an outpatient with MRI as there are no acute issues related to this and her hospitalization Weight loss -Etiology unclear but workup in progress per discussion with Dr. Lara -Supplements added -TSH within normal limit -Dietitian is consulted History of UC -Stable with no acute flare at this time Urinary incontinence -Continue home Gemtesa -Follows as an outpatient with Dr. Villanueva GERD -Continue PPI and transition to oral Colonic diverticulosis -No acute diverticulitis -Stable Seizure disorder -Transition Keppra to oral from IV Restless leg syndrome -Restart home ropinirole Osteoporosis -Restart alendronate at discharge -Restart home vitamin D at discharge Essential hypertension/hyperlipidemia -Continue home antihypertensives -Restart home pravastatin Seasonal allergies -Restart Zyrtec at discharge Obesity -BMI 31.6 -Complicates treatment, prognosis, outcomes DVT prophylaxis -Start subcu Lovenox Charges/Coding Visit Charges Inpatient E&M: 92473 Subs Hosp L3
[2024-07-28] MEDS: Dicyclomine 10 MG Capsule PO (16:33)
[2024-07-28] MEDS: Polyethylene Glycol 3350 17 GM PACKET PO (16:34)
[2024-07-28] MEDS: Ensure Plus High Protein 120 ML LIQUID PO ×2 (18:08→20:30)
[2024-07-28 20:11] VITALS: BP 110/87; PULSE 62; RESP 16; TEMP 36.6; O2SAT 99
[2024-07-28] MEDS: Enoxaparin 40 MG/0.4 ML Syringe SC (20:31)
[2024-07-28] MEDS: levETIRAcetam 500 MG Tablet PO (20:32)
[2024-07-28] MEDS: Pravastatin 40 MG Tablet PO (20:32)
[2024-07-28] MEDS: MELATONIN 10 MG TABLET PO (20:32)
[2024-07-28] MEDS: Pramipexole Di-HCl 0.25 MG Tablet PO (20:32)
[2024-07-29] MEDS: proMETHazine 25 MG/ML Syringe IM (00:40)
[2024-07-29 02:11] VITALS: BP 133/81; PULSE 62; RESP 14; TEMP 36.6; O2SAT 97
[2024-07-29] MEDS: Dicyclomine 10 MG Capsule PO ×2 (04:10→13:24)
[2024-07-29 06:40] LABS: Hematocrit 31.2 % (37-47); Hemoglobin 10.2 g/dL (12.0-15.0); Mean Corp Hgb Conc 32.7 g/dL (32-36); Mean Corpuscular Hgb 30.4 pg (27.0-32.0); Mean Corpuscular Volume 92.9 fL (81-99); Mean Platelet Vol. 10.2 fl (6.2-12.0); Platelet Count 214 K/mm3 (150-450); RBC Distribution Width CV 13.3 % (11.6-14.6); RBC Distribution Width SD 45.8 fl (35.1-43.9); Red Blood Count 3.36 M/mm3 (4.2-5.4); White Blood Count 4.5 K/mm3 (4.4-11.0)
[2024-07-29 06:59] LABS: ALB/GLOB Ratio 0.6 RATIO (0.9-2.4); AST(SGOT) 49 U/L (15-37); Alanine Aminotransfer ALT/SGPT 113 U/L (13-56); Albumin, Serum 2.4 g/dL (3.2-5.0); Alkaline Phosphatase 349 U/L (45-117); Anion Gap 4 (5-15); BUN 8 mg/dL (7-18); BUN/Creat Ratio 14.6 RATIO (10-20); Calcium,Total 8.7 mg/dL (8.5-10.1); Chloride 110 mmol/L (98-107); Creatinine, Serum 0.55 mg/dL (0.55-1.02); EST Glomerular Filtration Rate 115 mL/min (>60); Est Glom Filt Rate - Afr Amer 139 mL/min (>60); Estimated Creatinine Clearance 61.71 ml/min; Globulin 4.1 g/dL (2.2-4.2); Glucose 94 mg/dL (74-106); Phosphorus 2.8 mg/dL (2.5-4.9); Potassium 3.9 mmol/L (3.5-5.1); Protein, Total 6.5 g/dL (6.4-8.2); Sodium Level 140 mmol/L (136-145)
[2024-07-29 07:20] VITALS: O2SAT 96
[2024-07-29 08:02] LABS: Vitamin B12 765 pg/mL (211-911)
[2024-07-29 08:15] VITALS: BP 145/83; PULSE 76; RESP 14; TEMP 36.6; O2SAT 96
[2024-07-29] MEDS: Losartan Potassium 100 MG Tablet PO (09:41)
[2024-07-29] MEDS: Pantoprazole Sodium 20 MG Tablet PO (09:41)
[2024-07-29] MEDS: hydroCHLOROthiazide 12.5mg 12.5 MG PO (09:41)
[2024-07-29] MEDS: Ensure Plus High Protein 120 ML LIQUID PO ×2 (09:41→13:24)
[2024-07-29] MEDS: levETIRAcetam 500 MG Tablet PO (09:41)
[2024-07-29] MEDS: Vibegron 75 MG TABLET PO (09:42)
[2024-07-29] MEDS: Escitalopram Oxalate 20 MG Tablet PO (09:42)
[2024-07-29] MEDS: Polyethylene Glycol 3350 17 GM PACKET PO (09:43)
--- NOTE | 2024-07-29 10:00 | CASEMGMT ---
SEUN MYERS Assessment: Face to Face with pt for initial transition planning/care coordination assessment. SEUN MYERS introduced self and role at [facility], pt voices understanding and consents to assessment. Pt is A&O x4 and answers all questions appropriately at this time. Pt sitting up in bed in no distress. Care providers, pharmacy, and demographics verified/updated. Strata: 2 Admitting Dx: Acute pancreatitis recurrent choledocholithiasis PCP: Naa Specialists: Marco, gastrologist; Kay, Urologist; Maynor, neurologist. Preferred Pharmacy: [facility] Insurance: [email or web address] Prescription Benefit: yes LNOK: DaughterHeather Living Arrangements: Pt lives with daughter in a 2 story home with 1 step to enter. ADLs: Pt reports I with ADLs and IADLs. Transportation: Pt drives self and denies concerns with transportation. DME: Cane, walker, grab bars. HHC/SNF: Denies Hx of. Pt states no concerns with going home at time of dc. Pt states no further concerns/needs. CM to follow. Advised pt to ask CM if any further question/concerns/needs arise, voices understanding. Pt Goal: Home Plan: Home with family support and follow up with Dr. Lara for OP procedure. Antolin KOHLI CM
--- NOTE | 2024-07-29 11:11 | DS.PCM_ITS ---
Providers Date of Admission: 07/26/24 Primary Care Physician: Dr. Katja Jacome, DO Consultations 07/26/24 23:08 Consult: Gastroenterology Routine Consulting Provider: [facility] Reason for Consult: Acute pancreatitis with recurrent choledocholithiasis hyperbilirubinemia. EMERGENT Consult: No MD Notified: Yes Date Notified: 07/26/24 Time Notified: 23:28 Method of Notification: ED Physician Initiated Reason For Visit: ACUTE PANCREATITIS RECURRENT CHOLEDOCHOLITHIASIS Diagnosis Discharge Diagnosis (1) Weight loss: Status: Acute Code(s): R63.4 - Abnormal weight loss (2) Right renal mass: Status: Acute Code(s): N28.89 - Other specified disorders of kidney and ureter (3) Acute pancreatitis: Status: Acute Code(s): K85.90 - Acute pancreatitis without necrosis or infection, unspecified Qualifiers: Pancreatitis type: biliary Acute pancreatitis complication: no infection or necrosis Qualified Code(s): K85.10 - Biliary acute pancreatitis without necrosis or infection (4) Choledocholithiasis: Status: Acute Code(s): K80.50 - Calculus of bile duct without cholangitis or cholecystitis without obstruction Medications at Discharge Home Medications multivitamin with folic acid 400 mcg tablet (Thera) 1 tab PO DAILY supplement 08/18/14 omeprazole 20 mg capsule,delayed release 20 mg PO DAILY Gerd 08/18/14 pravastatin 40 mg tablet (Pravachol) 40 mg PO DAILY cholesterol 08/18/14 alendronate 70 mg tablet 70 mg PO PAYNE OA 04/25/24 cetirizine 10 mg tablet (Zyrtec) 10 mg PO DAILY PRN allergy symptoms 04/25/24 escitalopram oxalate 20 mg tablet 20 mg PO DAILY depression 04/25/24 ferrous sulfate 325 mg (65 mg iron) tablet (iron) 325 mg PO DAILY supplement 04/25/24 levetiracetam 500 mg tablet 500 mg PO BID seizure 04/25/24 losartan 100 mg-hydrochlorothiazide 12.5 mg tablet 1 tab PO DAILY blood pressure 04/25/24 magnesium 250 mg tablet 250 mg PO DAILY supplement 04/25/24 melatonin 10 mg capsule 10 mg PO QHS sleep 04/25/24 omega-3 360 la-plc-kbq-fish oil 1,200 mg capsule,delayed release 1 cap PO DAILY supplement 05/31/24 ropinirole 0.5 mg tablet 0.5 mg PO QHS restless legs 04/25/24 vitamin B complex (B-Complex tablet) 1 tab PO DAILY supplement 04/25/24 vibegron 75 mg tablet (Gemtesa) 75 mg PO DAILY 06/26/24 cholecalciferol (vitamin D3) 25 mcg (1,000 unit) capsule 25 mcg PO DAILY supplement 07/26/24 dicyclomine 10 mg capsule 10 mg PO TIDAC #90 caps 07/29/24 ondansetron 4 mg disintegrating tablet 4 mg PO Q8H PRN nausea and vomiting #30 tabs 07/29/24 tramadol 50 mg tablet 50 mg PO Q8H PRN pain #10 tabs 07/29/24 Hospital Course Operations ERCP (Biliary stent placement) Procedures - (CT chest/abdomen and pelvis) Summary of Care Provided Minutes Spent on Discharge: 38 Hospital Course: Mrs. Lobo is a 74-year-old white female who presented to the emergency department at [facility] on 07/26/2024 with a chief complaint of abdominal pain, nausea, and vomiting. Patient has a history of gallstone induced pancreatitis status post ERCP on 04/25/2024. At that time ERCP revealed dilation of the entire main bile duct with a stone causing obstruction and previous cholecystectomy with removal of choledocholithiasis via biliary sphincterotomy and balloon extraction. Nothing was found in the ventral pancreatic duct and 1 temporary stent was placed in the common bile duct. She was able to be discharged home on 04/26/2024. 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 Stone with obstruction was noted and complete removal via biliary sphincterotomy and balloon extraction was performed with previous stent placement being removed. Subsequently, she developed epigastric pain, nausea and vomiting about 2 to 3 hours after eating dinner with the abrupt onset of severe abdominal pain in the right to mid upper abdomen that had no more leading or relieving factors. Her family also noted that she had been losing weight involuntarily. Vital signs on presentation showed temperature of 97.5, heart rate 70, respiratory rate 16, blood pressure 145/73 and pulse ox 99% on room air. Her CBC was overtly unremarkable. Chemistry panel showed mild hyponatremia that has since resolved. Renal function was normal. Total bilirubin however was found to be elevated to 3.4 with a direct bilirubin of 2.73, AST of 158, ALT of 200 and an alk phos of 500. Lipase was elevated at 2429. CT of the chest abdomen and pelvis showed no aortic aneurysm or dissection, no signs of mesenteric ischemia, choledocholithiasis with at least 1 but probably 2 stones in the CBD, biliary dilation, previous cholecystectomy, dilated pancreatic duct, colonic diverticulosis without evidence of diverticulitis and a right renal lesion that was 4.5 cm noted to be a complex cyst versus cystic neoplasm. CT from March was reviewed in [facility] upper abdomen pelvis and she was noted to have the same lesion there at that time which was characterized as a hemorrhagic versus proteinaceous cyst with no size change since that point in time. She was taken for ERCP on 07/27/2024 at which time she was found to have choledocholithiasis with partial removal accomplished via biliary sphincterotomy and a stent was inserted, stenosis of the common bile duct was noted and a bile duct stent was placed. Pancreatic sphincterotomy was performed in the ventral pancreatic duct was swept and only debris was found. Her bilirubin has subsequently dropped and liver enzymes are normalizing. Per discussion with Dr. Lara, he is concerned about potential malignancy and needs to perform spyglass but he will plan on doing this as an outpatient. CEA and CA 19-9 are both pending at the time of discharge. His plan is to discharge with outpatient follow-up in the next month for follow-up on her testing and repeat ERCP with spyglass at that time. At the time of discharge she was tolerating a p.o. diet without any difficulty. Her pain had subsided in the epigastrium and her liver functions have almost normalized. She was having some intermittent abdominal cramping so we did schedule Bentyl which seemed to help. We did send her home with some as needed Zofran and Ultram if need be for any recurrent pain. With regards to the 4.5 cm renal lesion noted on the right kidney I have discussed the case with Dr. Villanueva, with whom the patient already follows, and she will follow-up as an outpatient. I have asked the patient to call the office tomorrow to set up appointment to be seen within the next week. With regards to her follow-up appoint with Dr. Friend, we did try to set up an appointment however the office is moving today and was unable to be contacted. I did let Dr. Lara know and he indicated he would have his office staff call. I did tell the patient if she did not hear from the office staff by Sunday she should call early next week to set up an appointment for follow-up to be seen within the next month. I have also asked her to follow-up with her primary care physician within the next week. Prescriptions were sent to her local pharmacy and patient was able to be discharged in stable condition on 07/29/2024. Discharge diagnoses: Choledocholithiasis Nausea/vomiting-resolved Abdominal pain-resolved Acute pancreatitis-resolved Constipation-resolved Right renal cyst-4.5 cm Weight loss History of UC Urinary incontinence GERD Colonic diverticulosis Seizure disorder Restless leg syndrome Osteoporosis Essential hypertension Hyperlipidemia Seasonal allergies Obesity Physical Exam Narrative Patient denies any abdominal pain. P.o. intake was better today. She does states she paces herself and seems to do better. She did complain she was up all night because of the noise in the lin Const alert, oriented x3, no apparent distress, no limitations and well nourished; Negative for average body habitus Constitutional Narrative: Obese, older, white female, sitting up in bed, appears comfortable, nontoxic General Appearance: cooperative, comfortable, well kempt and well developed Orientation / Consciousness: awake, oriented to person, oriented to place and oriented to time Exam Limitations: no limitations Nutritional Appearance: obese HEENT normocephalic, head/scalp atraumatic, hearing grossly normal bilaterally, moist oral mucous membranes and oropharynx normal HEENT Narrative: Mallampati 3, no thrush Eyes PERRL, EOMs intact bilaterally and conjunctivae normal Eyes Narrative: No scleral icterus Neck no lymphadenopathy and supple Neck Narrative: Trachea midline, no thyroid enlargement Resp normal respiratory effort, no retractions, no use of accessory muscles and clear to auscultation bilaterally Auscultation: Negative for rales, rhonchi or wheezes Cardio regular rate, regular rhythm, S1 normal heart sound, S2 normal heart sound, no murmurs, no rub, no gallops and no clicks GI normal to inspection, nondistended, normoactive bowel sounds, soft to palpation and non-tender GI Narrative: Epigastric area is no longer tender Extremity no clubbing, cyanosis or edema Extremity Narrative: Pedal and radial pulses are 2+ Skin no rashes or lesions noted, no wounds, skin turgor normal, no jaundice, no petechiae and no mottling Neuro oriented x3, moves all extremities and no focal motor deficits Speech: speech normal Psych affect normal Psych Narrative: Very pleasant, interacts appropriately, eye contact is good Weight / BMI Weight Weight: 88.2 kg Body Mass Index (BMI) 35.7 ABG / Lab / Microbiology Data 07/29/24 06:09 07/29/24 06:09 Laboratory: Laboratory Results - last 24 hr 07/27/24 05:02: Vitamin B12 765 07/29/24 06:09: WBC 4.5, RBC 3.36 L, Hgb 10.2 L, Hct 31.2 L, MCV 92.9, MCH 30.4, MCHC 32.7, RDW Std Deviation 45.8 H, RDW Coeff of Ruth 13.3, Plt Count 214, MPV 10.2, Sodium 140, Potassium 3.9, Chloride 110 H, Carbon Dioxide 26.0, Anion Gap 4 L, BUN 8, Creatinine 0.55, Estim Creat Clear Calc 61.71, Est GFR (MDRD) Af Amer 139, Est GFR (MDRD) Non-Af 115, BUN/Creatinine Ratio 14.6, Glucose 94, Calcium 8.7, Phosphorus 2.8, Magnesium 2.0, Total Bilirubin 1.10 H, AST 49 H, A LT 113 H, Alkaline Phosphatase 349 H, Total Protein 6.5, Albumin 2.4 L, Globulin 4.1, Albumin/Globulin Ratio 0.6 L D/C Instructions Discharge Diet: Light diet - advance as tolerated and Low fat / Low cholesterol Discharge Activity: Return to Normal Activity Meaningful Use Info Meaningful Use Meaningful Use Diagnoses (Choose all that apply): None applicable Ischemic Stroke Statin Dosing Therapy Reference: STATIN DOSE THERAPY REFERENCE: * Patients > 75 years receive moderate or high dose statin therapy. * Patients 75 years or YOUNGER should receive HIGH intensity statin dose unless contraindicated. You will be required to document reason for non-treatment if statin daily dose does not meet guidelines. HIGH DOSE STATIN THERAPY DAILY Atorvastatin > than or = to 40 mg Rosuvastatin > than or = to 20 mg Amlodipine + Atorvastatin > than or = to 2.5/40 mg Ezetimibe + Simvastatin 10/80 mg Simvastatin 80mg Discharge Plan Admission Admit Date/Time: 07/26/24 22:22 Primary Reason for Your Visit: Abdominal pain/nausea/vomiting Attending Provider: Leena Cunningham Primary Care Provider: Katja Jacome Consulting Providers: Adrien Florentino; Ham Sepulveda Discharge Orders/Prescriptions Prescriptions: New dicyclomine 10 mg Capsule 10 mg PO TIDAC Qty: 90 0RF ondansetron 4 mg tablet,disintegrating 4 mg PO Q8H PRN (Reason: nausea and vomiting) Qty: 30 0RF tramadol 50 mg tablet 50 mg PO Q8H PRN (Reason: pain) Qty: 10 0RF Continued pravastatin [Pravachol] 40 MG tablet 40 mg PO DAILY Patient Comments: CHOLESTEROL omeprazole 20 MG capsule 20 mg PO DAILY Patient Comments: STOMACH multivitamin with folic acid [Thera] 1 TABLET tablet 1 tab PO DAILY Patient Comments: stopping 06/28 for procedure 07/01/24 levetiracetam 500 mg tablet 500 mg PO BID ropinirole 0.5 mg tablet 0.5 mg PO QHS losartan-hydrochlorothiazide 100-12.5 mg tablet 1 tab PO DAILY alendronate 70 mg tablet 70 mg PO PAYNE escitalopram oxalate 20 mg tablet 20 mg PO DAILY melatonin 10 mg capsule 10 mg PO QHS ferrous sulfate [iron] 325 mg (65 mg iron) tablet 325 mg PO DAILY Patient Comments: stopping 06/28 for procedure 07/01/24 cetirizine [Zyrtec] 10 mg tablet 10 mg PO DAILY PRN (Reason: allergy symptoms) omega 5-lcu-iin-fish oil 360-1,200 mg capsule,delayed release(DR/EC) 1 cap PO DAILY Patient Comments: stopping 06/28 for procedure 07/01/24 magnesium 250 mg tablet 250 mg PO DAILY vitamin B complex [B-Complex] Tablet 1 tab PO DAILY Gemtesa 75 mg tablet 75 mg PO DAILY cholecalciferol (vitamin D3) 25 mcg (1,000 unit) capsule 25 mcg PO DAILY Referrals / Follow Up: Carolina Villanueva MD [Med Staff - Active Staff] - Within 1 Week (Need MRI for kidney) Katja Jacome DO [Primary Care Provider] - In 1 Week Ric Lara DO [Med Staff - Active Staff] - Within 1 Month (Dr. Lara's office should call you to set up an appointment however if you do not hear from them by the end of the week please call Sunday and asked to be seen within the next month) Disposition Disposition (needs filled in before D/C Order can be placed): Home, Self Care Charges/Coding Visit Charges Inpatient E&M: 88073 Disch Hosp >30min
[2024-07-29 11:18] VITALS: BP 159/78; PULSE 67; RESP 14; TEMP 36.9; O2SAT 96
[2024-07-29 13:33] VITALS: BP 159/78; PULSE 67; RESP 14; TEMP 36.9; O2SAT 100
--- NOTE | 2024-07-29 15:18 | PN.GI_ITS ---
Subjective Subjective Patient's abdominal pain is resolved. She is able to tolerate a diet. Her LFTs are improving. Objective Data Objective Data Vital Signs: Vital Signs Temp Pulse Resp BP Pulse Ox O2 Del Method 98.4 F 67 14 159/78 H 100 Room Air 07/29/24 13:33 07/29/24 13:33 07/29/24 13:33 07/29/24 13:33 07/29/24 13:33 07/29/24 13:33 Oxygen Delivery Method Room Air Weight: 194 lb 7.163 oz Body Mass Index (BMI) 35.7 Intake & Output: Intake and Output for Last 24 Hours 07/27/24 07/28/24 07/29/24 23:59 23:59 23:59 Intake Total 4447.5 / 4447.5 2582.13 / 2582.13 743.5 / 743.5 Balance 4447.5 / 4447.5 2582.13 / 2582.13 743.5 / 743.5 Lab / Micro Data 07/29/24 06:09 07/29/24 06:09 Labs: Laboratory Results - last 24 hr 07/27/24 05:02: Vitamin B12 765 07/29/24 06:09: WBC 4.5, RBC 3.36 L, Hgb 10.2 L, Hct 31.2 L, MCV 92.9, MCH 30.4, MCHC 32.7, RDW Std Deviation 45.8 H, RDW Coeff of Ruth 13.3, Plt Count 214, MPV 10.2, Sodium 140, Potassium 3.9, Chloride 110 H, Carbon Dioxide 26.0, Anion Gap 4 L, BUN 8, Creatinine 0.55, Estim Creat Clear Calc 61.71, Est GFR (MDRD) Af Amer 139, Est GFR (MDRD) Non-Af 115, BUN/Creatinine Ratio 14.6, Glucose 94, Calcium 8.7, Phosphorus 2.8, Magnesium 2.0, Total Bilirubin 1.10 H, AST 49 H, A LT 113 H, Alkaline Phosphatase 349 H, Total Protein 6.5, Albumin 2.4 L, Globulin 4.1, Albumin/Globulin Ratio 0.6 L Physical Exam Narrative Patient denies any abdominal pain. P.o. intake was better today. She does states she paces herself and seems to do better. She did complain she was up all night because of the noise in the lin Const alert, oriented x3, no apparent distress, no limitations and well nourished; Negative for average body habitus Constitutional Narrative: Obese, older, white female, sitting up in bed, appears comfortable, nontoxic General Appearance: cooperative, comfortable, well kempt and well developed Orientation / Consciousness: awake, oriented to person, oriented to place and oriented to time Exam Limitations: no limitations Nutritional Appearance: obese HEENT normocephalic, head/scalp atraumatic, hearing grossly normal bilaterally, moist oral mucous membranes and oropharynx normal HEENT Narrative: Mallampati 3, no thrush Eyes PERRL, EOMs intact bilaterally and conjunctivae normal Eyes Narrative: No scleral icterus Neck no lymphadenopathy and supple Neck Narrative: Trachea midline, no thyroid enlargement Resp normal respiratory effort, no retractions, no use of accessory muscles and clear to auscultation bilaterally Auscultation: Negative for rales, rhonchi or wheezes Cardio regular rate, regular rhythm, S1 normal heart sound, S2 normal heart sound, no murmurs, no rub, no gallops and no clicks GI normal to inspection, nondistended, normoactive bowel sounds, soft to palpation and non-tender GI Narrative: Epigastric area is no longer tender Extremity no clubbing, cyanosis or edema Extremity Narrative: Pedal and radial pulses are 2+ Skin no rashes or lesions noted, no wounds, skin turgor normal, no jaundice, no petechiae and no mottling Neuro oriented x3, moves all extremities and no focal motor deficits Speech: speech normal Psych affect normal Psych Narrative: Very pleasant, interacts appropriately, eye contact is good Assessment & Plan Assessment/Plan (1) Weight loss: (2) Right renal mass: (3) Acute pancreatitis: QUALIFIERS: Pancreatitis type: biliary Acute pancreatitis complication: no infection or necrosis Qualified Code(s): K85.10 - Biliary acute pancreatitis without necrosis or infection (4) Choledocholithiasis: PLAN: Plan Abdominal pain/nausea/vomiting secondary to choledocholithiasis-recurrent -Workup is in progress and patient will need to undergo spyglass -ERCP performed on 07/27/2024 at which time she had biliary sphincterotomy and stone removal with stent placement, narrowing was noted and dilated -CEA and CA 19-9 are pending -Spyglass will need to be performed -LFTs are trending down and normalizing Acute pancreatitis -Resolving -Patient is tolerating p.o. liquids and food without any increased pain however diet is not great at this point -Add supplements -As needed pain medication Charges/Coding Visit Charges Inpatient E&M: 51456 Subs Hosp L3
[2024-07-30 04:08] LABS: Carbohydrate AG 19-9 70 U/mL (0-35); Carcinoembryonic Antigen 2.1 ng/mL (0.0-4.7)
== END 2024-07-29 14:05 | disposition home or self-care (01) | DRG 444 ==
LOC: ED 21:57 → MS3 22:06
PROVIDERS: Internal Medicine Gastroenterology; Admitting Provider Internal Medicine; Emergency Provider Emergency Medicine; PCP Family Medicine; Visit Provider Internal Medicine
PROC: 0FC98ZZ Extirpation of Matter from Common Bile Duct, Via Natural or Artificial Opening Endoscopic (ICD-10-PCS; CPT 43260; principal; 2024-07-27 08:00)
DX: K80.51 Calculus of bile duct without cholangitis or cholecystitis with obstruction (principal); K85.91 Acute pancreatitis with uninfected necrosis, unspecified; K51.90 Ulcerative colitis, unspecified, without complications; E87.1 Hypo-osmolality and hyponatremia; G40.909 Epilepsy, unspecified, not intractable, without status epilepticus; I10 Essential (primary) hypertension; G25.81 Restless legs syndrome; F32.A Depression, unspecified; E66.9 Obesity, unspecified; E78.5 Hyperlipidemia, unspecified; F41.9 Anxiety disorder, unspecified; K21.9 Gastro-esophageal reflux disease without esophagitis; J30.2 Other seasonal allergic rhinitis; K59.00 Constipation, unspecified; M81.0 Age-related osteoporosis without current pathological fracture; N28.1 Cyst of kidney, acquired; R32 Unspecified urinary incontinence; Z68.32 Body mass index [BMI] 32.0-32.9, adult; Z79.83 Long term (current) use of bisphosphonates; Z87.891 Personal history of nicotine dependence; Z90.49 Acquired absence of other specified parts of digestive tract
CPT/HCPCS: 36415; 71275; 74174; 74330; 76000; 80048; 80053; 80076; 82378; 82607; 82746; 83605; 83690; 83735; 84100; 84443; 85025; 85027; 86301; 93005; 94668; 97161; 97165; 99283; J7030; J7050; J7120; Q9967; A4216; J2405

== ENCOUNTER → 2024-08-11 | Outpatient (CLI) | payer MEDICARE, OTHER, SELFPAY ==
--- NOTE | 2024-08-11 12:46 | US_ITS ---
STUDY: RENAL ULTRASOUND - COMPLETE REASON FOR EXAM: Female, 74 years old. RIGHT RENAL CYST TECHNIQUE: Ultrasound evaluation of the kidneys was performed with real-time and static luna-scale imaging. COMPARISON: None. FINDINGS: RIGHT KIDNEY: Normal location of the right kidney, which is normal in size. The right kidney measures 12.9 cm. There is a normal cortex of the right kidney. The renal cortex measures 1.3 cm. 4.4 cm cyst in the upper pole right kidney. Another subcentimeter cyst in the upper pole right kidney. There are no right renal calculi. There is no right hydronephrosis. DISTAL RIGHT URETER: There is non-visualization of the distal right ureter. There is no demonstrated right ureterovesical junction calculus. There is a visualized right ureteral jet. LEFT KIDNEY: Normal location of the left kidney, which is normal in size. The left kidney measures 10.5 cm. There is a normal cortex of the left kidney. The renal cortex measures 1.5 cm. 1.5 cm cyst midsection of left kidney. There are no left renal calculi. There is no left hydronephrosis. DISTAL LEFT URETER: There is non-visualization of the distal left ureter. There is no demonstrated left ureterovesical junction calculus. There is a visualized left ureteral jet. BLADDER: The distended urinary bladder has a volume of 134 ml. The empty urinary bladder has a volume of ml. There is a normal wall thickness of the distended urinary bladder. There is no demonstrated mass within the urinary bladder. There are no demonstrated bladder calculi. US/Kidney and Bladder IMPRESSION: Bilateral renal cysts including a 4.4 cm cyst in the upper pole right kidney. Electronically Signed: Marin Aponte MD at 13:00 EDT ,
== END | disposition home or self-care (01) ==
LOC: US 12:35
PROVIDERS: PCP Family Medicine; Referring Provider Urology; Visit Provider Urology
DX: N28.1 Cyst of kidney, acquired (principal)
CPT/HCPCS: 76770

== ENCOUNTER 2024-08-22 13:06 | Day surgery (SDC) | payer MEDICARE, OTHER, SELFPAY ==
[2024-08-22] VITALS (9 sets, daily range): BP systolic 122–145; BP diastolic 66–78; PULSE 61–72; RESP 16; TEMP 36.3–36.4; O2SAT 92–98; BMI 32.5
--- NOTE | 2024-08-22 13:27 | PCM.HP.BLA ---
History and Physical Date of Admission: 08/22/24 FANTA ARGUELLES, is a 74 F who presents to the office today for hospital f/u. Patient has been in and out of the hospital since March 2024 with CBD stones causing obstruction. She is s/p cholecystectomy about 1 year ago and has hx of UC and pancreatitis. In March 2024 she underwent ERCP with stone removal and stent placement. She had stent removed in June 2024 and then a week later had another CBD stone. She underwent another ERCP for stone removal and stent placement. During her hospitalism in June she had pancreatitis with elevated lipase in the . 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 She is scheduled for Spyglass on 08.22.24 and is here today for discussion about the recurrent stones. Today she denies abdominal pain, n/v, heartburn, constipation or diarrhea. Biochemical work up; 07.29.24; Hgb 10.2, bilirubin 1.10, AST 49, ALT 113, ALP 349, CA 19-9 70, CEA wnl Biopsy with fluid from stent; 07.01.24; no malignant cells ROS Const Constitutional: Positive for frequent falls; No fatigue, fever(s) or weight change ENT ENT: No difficulty swallowing Gastro GI: No abdominal pain, belching, bloating, change in bowel habits, change in stool character, coffee ground emesis, constipation, cramping, diarrhea, heartburn, difficulty swallowing, feeling full early, excessive flatus, incontinent of stools, Vomiting blood/hematemesis, Blood in stool, loose stools, Black,tarry stools, nausea/dyspepsia, pain with swallowing, vomiting or other Musc Musculoskeletal: Positive for joint swelling and restless legs; No joint pain Skin Skin: No yellowing of the eye or itchy eyes Neuro Neurology: Positive for frequent falls, restless legs and seizures Psych Psychiatric: No anxiety, Positive for depression and Positive for inattentiveness Endo Endocrine: No fatigue or weight change Aller/Imm Allergy/Immunologic: No itchy eyes Huseyin/Lymp Hematologic/Lymphatic: No easy bleeding or easy bruising Exam Const General: cooperative and comfortable Nutritional Appearance: average body habitus and well nourished HENMS Head: normal to inspection Ears: hearing grossly normal bilaterally Nose: external nose normal Face and sinus: normal facial exam Mouth: oral mucosae normal Throat: posterior oropharynx normal Eyes General: appearance normal, both eyes and all related structures Neck Neck: normal visual inspection Chest Chest palpation & inspection: normal inspection of the chest Resp Effort & Inspection: normal respiratory effort and able to speak in complete sentences GI Inspection: normal to inspection Skin General: no rashes or lesions noted Neuro General: patient alert Extrem General: normal to inspection Psych Affect: normal affect Assessment and Plan Assessment and Plan (1) Choledocholithiasis: Status: Resolved Plan: Pt is a 74 yo female with PMHx of renal mass, UC, s/p cholecystectomy, pancreatitis and choledocholithiasis. Since March 2024 she has been having recurrent CBD stones requiring ERCP with removal and stent placement. Dr. Lara has some concern for malignancy as she continues to have recurrences. He also believes she has lithogenic bile. I discussed this with patient as her and her daughter are confused why she is making so many stones. We will have more information once Dr. Lara does spyglass. CEA was wnl, CA19-9 70, liver enzymes and bilirubin is down trending. Pt is not having any issues currently she is just looking for answers as she does not want continue having these procedures so often. -Sabi scheduled for 08.22.24 -F/u after procedure I have examined the patient and the H&P has been reviewed. There are no clinical changes since date of exam.
[2024-08-22] MEDS: Lactated Ringers 1,000 ML 15 ML IV (13:49)
--- NOTE | 2024-08-22 14:15 | FLU_PTH ---
PATIENT: FANTA ARGUELLES LOC: EN U#:[id number] AGE/SX: 74/F ROOM: RE08/22/[address]: Dr. Ric Lara DO : 1950 BED: DIS: 08/22/2024 SPEC #: [id number] RECD: 08/22/24 17:11 STATUS: GALILEO ALVARADO #: [id number] COURTNEY: 08/22/24 14:[address]: Ric Lara DEPT: CYTOLOGY RECD BY: Debby Jules ENTERED: 08/25/24 10:33 SP TYPE: Fluid OTHR DR: Dr. Katja Jacome DO Tissues: Bile duct, NOS Procedures: Special Stain Group II Surgery Specimen Level III Surgery Specimen Level IV Cytospin Fluid HEADER OPERATION: Stent removal, balloon dilation, biopsies PRE-OP DIAGNOSIS: Choledocholithiasis TISSUE SUBMITTED: Biliary stent for cytology DIAGNOSIS CYTOLOGY Biliary stent fluid for cytology (cytospin and cellblock): Negative for malignant cells. See comment. 08/26/2024 COMMENT Please also make reference to additional surgical specimen [id number]. Clinical correlation and appropriate follow up are necessary. CYTOLOGY STUDY Slides are reviewed. CYTOLOGY GROSS Received is 12cm black/blue stent with 0.3 ml of yellow mucoidy material labeled with the patient's name and and designated per the requisition as Biliary stent. Submitted for cytology preparation including cell block. Mr 08/25/2024 TC:5 CPT: 06542,33359
--- NOTE | 2024-08-22 14:15 | TISS_PTH ---
PATIENT: FANTA ARGUELLES LOC: EN U#:[id number] AGE/SX: 74/F ROOM: RE08/22/[address]: Dr. Ric Lara DO : 1950 BED: DIS: 08/22/2024 SPEC #: [id number] RECD: 08/22/24 17:11 STATUS: GALILEO ALVARADO #: [id number] COURTNEY: 08/22/24 14:[address]: Ric Lara DEPT: SURGICAL PATHOLOGY RECD BY: Debby Jules ENTERED: 08/25/24 10:46 SP TYPE: Tissue Bx FRANCES DR: Dr. Katja Jacome DO Tissues: A - Bile duct, NOS B - Bile duct, NOS Procedures: Surgery Specimen Level IV HEADER OPERATION: Stent removal, balloon dilation, biopsies PRE-OP DIAGNOSIS: Choledocholithiasis TISSUE SUBMITTED: A- Biliary stricture (right hepatic lobe, spyglass), B- Hilar stricture (spyglass) MICROSCOPIC DIAGNOSIS A. Biliary stricture (right hepatic lobe), spyglass biopsy: Acute and chronic inflammation and granulation tissue reaction. Reactive epithelial atypia. Negative for malignancy. B. Hilar stricture, spyglass biopsy: A minute fragment of glandular tissue, negative for malignancy. DAKOTAH. 08/26/2024 MICROSCOPIC DESCRIPTION Slides are reviewed. GROSS DESCRIPTION A. Received in fixative is one container labeled with the patient's name and designated Biliary stricture right hepatic lobe. The specimen consists of multiple irregular fragments of light encarnacion soft tissue that in aggregate measure 0.5 x 0.1 x 0.1 cm. The specimen is totally submitted in one cassette. B. Received in fixative is one container labeled with the patient's name and designated Hilar stricture. The specimen consists of one irregular fragment of light encarnacion soft tissue that measures 0.1 x 0.1 x <0.1 cm. The specimen is totally submitted in one cassette. DAKOTAH. 08/25/2024 TC:2 CPT:21472a7
--- NOTE | 2024-08-22 14:27 | PCM.PRE.AN2 ---
ASA Classification* ASA Classification ASA Classification: 2 Assessment & Plan Anesthesia* Anesthesia Assessment Anesthesia Assessment: Discussed sedation and/or anesthesia options, risks, benefits, and alternatives with patient/parents/legal guardian/POA. Questions invited. The patient/parents/legal guardian/POA seems to understand and agrees to proceed with anesthesia plan. Reviewed the physical assessment, medical history, allergy history and patient home medications list prior to surgery/procedure/anesthetic and documented any changes. Performed airway and anesthesia risk assessments. Anesthesia Type Anesthesia Type: General History Source History Obtained from:: Patient and Chart Anesthesia Focused Assessment* Temperature: 97.5 F Pulse Rate: 66 Blood Pressure: 122/72 Respiratory Rate: 16 Pulse Ox: 98 Oxygen Delivery Method: Room Air Airway Assessment Mouth opens: >3 cm Mallampati Score: III Teeth Condition: Dentures (Patient has a full upper plate.) and Partial (Patient has a partial lower denture.) Neck Range of motion (ROM): Limited ROM (Slight decrease in extension) Focused Labs Anesthesia Preop lab: CBC WBC 4.5 K/mm3 (4.4-11.0) 07/29/24 06:09 RBC 3.36 M/mm3 (4.2-5.4) L 07/29/24 06:09 Hgb 10.2 g/dL (12.0-15.0) L 07/29/24 06:09 Hct 31.2 % (37-47) L 07/29/24 06:09 Plt Count 214 K/mm3 (150-450) 07/29/24 06:09 CHEMISTRY Potassium 3.9 mmol/L (3.5-5.1) 07/29/24 06:09 Sodium 140 mmol/L (136-145) 07/29/24 06:09 Magnesium 2.0 mg/dL (1.6-2.6) 07/29/24 06:09 Phosphorus 2.8 mg/dL (2.5-4.9) 07/29/24 06:09 BUN 8 mg/dL (7-18) 07/29/24 06:09 Creatinine 0.55 mg/dL (0.55-1.02) 07/29/24 06:09 Glucose 94 mg/dL (74-106) 07/29/24 06:09 TSH 3.200 uIU/mL (0.358-3.740) 07/26/24 18:10 COAG Pre-Assessment Diagnosis/Proposed Procedure Planned Operative Procedure(s): ERCP Anesthesia History 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 When Was Last Pacemaker Check QUESTION #4 FULL TEXT: You/Your Family Experience fever (hyperthermia) with Anesthesia Last Oral Intake Last Oral intake: Last Oral Intake NPO since 00:00 08/22/24 13:39 Meds taken in AM with sips of Yes 08/22/24 13:39 water? Meds patient instructed to see mar 08/22/24 13:39 take am of surgery Any additional information?: Yes NPO since: 12:00 (Patient has sips of water up till 12 noon.) Meds taken in AM with sips of water?: Yes PONV PONV - event promotions coordinator: PONV - event promotions coordinator Female Yes 08/21/24 08:52 HX of Motion Sickness No 08/21/24 08:52 HX of N/V After Surgery No 08/21/24 08:52 Non-Smoker Yes 08/21/24 08:52 Duration of Surgery greater Yes 08/21/24 08:52 than 60 minutes Number of Risk Factors 3 08/21/24 08:52 PONV Score Moderate Risk 08/21/24 08:52 Height & Weight Height & Weight: Anesthesia: Height & Weight Height 5 ft 2 in 08/22/24 13:39 Weight: 80.739 kg 08/22/24 13:39 Body Mass Index (BMI) 32.5 08/22/24 13:39 Respiratory Assessment Respiratory Assessment - event promotions coordinator: Respiratory Tract Infection Hx - event promotions coordinator Hx Respiratory Tract Infection No 08/21/24 08:52 STOP Sleep Apnea STOP Sleep Apnea - event promotions coordinator: STOP Sleep Apnea - event promotions coordinator Hx Hypertension Yes: controlled with meds 08/21/24 08:52 Hx Sleep Apnea No 08/21/24 08:52 CPAP No 07/27/24 10:25 BIPAP No 07/26/24 23:16 Do you snore loudly (louder No 08/21/24 08:52 than talking or can be heard Do you often feel tired/ No 08/21/24 08:52 fatigued/ sleepy during daytime? Has anyone observed you stop No 08/21/24 08:52 breathing during sleep? STOP Results Negative 08/21/24 08:52 QUESTION #5 FULL TEXT : Do you snore loudly (louder than talking or can be heard through closed doors)? 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 Specify any problems Hx of Preganancy in last 3 No 08/21/24 08:52 Months Nurse Filling Out Transfusion [email or web address] 08/21/24 08:52 & Questions: Date: 08/21/24 08/21/24 08:52 Time: 08:57 08/21/24 08:52 Patient unable to answer at this time (ie. confused, unrespo /Reproduction History /Reproductive History - event promotions coordinator: /Reproductive Hx- event promotions coordinator Hx Now Gestational Age (in weeks): EDC: Hx Hx Para Hx Section SAB No 08/21/24 08:52 Active Medications Active Medications: Current Medications Generic Name Dose Route Start Last Admin Trade Name Freq PRN Reason Stop Dose Admin Lactated Ringer's 1,000 mls @ 15 mls/hr 08/22/24 13:15 08/22/24 13:49 IV 15 mls/hr .Q48H PACHECO Administration PFSH Medical History Balance problem Wears glasses Wears dentures Ambulates with cane Gastric reflux Former smoker History of biliary stent insertion RLS (restless legs syndrome) History of chronic cholecystitis Absence seizure disorder Ulcerative colitis Allergic rhinitis Anxiety and depression Former tobacco use HLD (hyperlipidemia) HTN (hypertension) Home Medications ?Medication ?Instructions ?Recorded ?Last Taken ?Type multivitamin with folic acid 400 1 tab PO DAILY supplement 08/18/14 06/27/24 History mcg tablet (Thera) omeprazole 20 mg capsule,delayed 20 mg PO DAILY Gerd 08/18/14 08/22/24 History release pravastatin 40 mg tablet 40 mg PO DAILY cholesterol 08/18/14 06/30/24 History (Pravachol) alendronate 70 mg tablet 70 mg PO PAYNE OA 04/25/24 06/29/24 History cetirizine 10 mg tablet (Zyrtec) 10 mg PO DAILY PRN allergy symptoms 04/25/24 06/30/24 History escitalopram oxalate 20 mg tablet 20 mg PO DAILY depression 04/25/24 06/30/24 History ferrous sulfate 325 mg (65 mg 325 mg PO DAILY supplement 04/25/24 06/27/24 History iron) tablet (iron) magnesium 250 mg tablet 250 mg PO DAILY supplement 04/25/24 06/30/24 History melatonin 10 mg capsule 10 mg PO QHS sleep 04/25/24 06/30/24 History omega-3 360 bh-laf-bzf-fish oil 1 cap PO DAILY supplement 04/25/24 06/27/24 History 1,200 mg capsule,delayed release ropinirole 0.5 mg tablet 0.5 mg PO QHS restless legs 04/25/24 06/30/24 History vitamin B complex (B-Complex 1 tab PO DAILY supplement 04/25/24 06/27/24 History tablet) vibegron 75 mg tablet (Gemtesa) 75 mg PO DAILY 06/26/24 06/30/24 History cholecalciferol (vitamin D3) 25 25 mcg PO DAILY supplement 07/26/24 Unknown History mcg (1,000 unit) capsule dicyclomine 10 mg capsule 10 mg PO TIDAC #90 caps 07/29/24 Unknown Rx tramadol 50 mg tablet 50 mg PO Q8H PRN pain #10 tabs 07/29/24 Unknown Rx losartan 50 mg-hydrochlorothiazide 1 tab PO DAILY 08/21/24 Unknown History 12.5 mg tablet zonisamide 100 mg capsule 100 mg PO QHS 08/21/24 Unknown History Allergy/AdvReac Type Severity Reaction Status Date / Time codeine Allergy Intermediate Vomiting Verified 08/22/24 13:38 hydrocodone bitartrate (From AdvReac Nausea/Vom/ Verified 08/22/24 13:38 Vicodin) Diarrhea propoxyphene napsylate (From AdvReac Nausea/Vom/ Verified 08/22/24 13:38 Darvocet-N) Diarrhea Family History Mother Diabetes Bipolar disorder Father Liver cancer Prostate cancer Surgical History History of laparoscopic cholecystectomy S/P cataract extraction History of knee replacement History of arthroscopic knee surgery History of section History of total hip replacement S/P cholecystectomy Social History household members: children Smoking Status: Former smoker how long ago did patient quit smoking: Smoked 40 yrs 1 ppd until quit age 50. alcohol intake: current alcohol intake frequency: holidays/special occasions only substance use type: does not use Review of Systems (Anesthesia) ROS Narrative System reviewed and no additional complaints, except as documented.
--- NOTE | 2024-08-22 15:20 | RAD_ITS ---
Exam: [place] ERCP Biliary and Pancreatic Ductal Systems Comparison: CT July 26, 2024 showing biliary distention and presumed choledocholithiasis, mildly hyperdense 1.1 cm round structure in the pancreatic segment of the distal common duct. Also noted mild pancreas duct dilatation, 7 mm. Also compared to prior ERCP July 27, 2024. History: PAIN FINDINGS: IMAGES: 22 labeled images are provided. There appears to be biliary stent initially. Catheter placed, similar distention of intrahepatic and extrahepatic bile ducts with the initial suboptimal filling of right branches. Balloon deployed in the distal duct, followed by stent placed. RAD/ERCP Biliary/Pancreas IMPRESSION: Real-time fluoroscopic exam. See the procedure note. Electronically Signed: Melina Acuna MD at 2:36 EDT ,
--- NOTE | 2024-08-22 17:16 | OP.ERCP_ITS ---
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 Refer to note in patient chart for documentation of history and physical. Patient has symptoms of acute right upper quadrant abdominal pain and chronic right upper quadrant abdominal pain. She is status post laparoscopic cholecystectomy within the past several years. Complications: No immediate complications. Procedure: Pre-Anesthesia Assessment: - Prior to the procedure, a History and Physical was performed, and patient medications and allergies were reviewed. The patient is competent. The risks and benefits of the procedure and the sedation options and risks were discussed with the patient. All questions were answered and informed consent was obtained. Patient identification and proposed procedure were verified by the physician in the pre-procedure area. Mental Status Examination: alert and oriented. Airway Examination: normal oropharyngeal airway and neck mobility. Respiratory Examination: clear to auscultation. CV Examination: normal. Prophylactic Antibiotics: The patient does not require prophylactic antibiotics. Prior Anticoagulants: The patient has taken no anticoagulant or antiplatelet agents. ASA Grade Assessment: II - A patient with mild systemic disease. After reviewing the risks and benefits, the patient was deemed in satisfactory condition to undergo the procedure. The anesthesia plan was to use monitored anesthesia care (MAC). Immediately prior to administration of medications, the patient was re-assessed for adequacy to receive sedatives. The heart rate, respiratory rate, oxygen saturations, blood pressure, adequacy of pulmonary ventilation, and response to care were monitored throughout the procedure. The physical status of the patient was re-assessed after the procedure. After obtaining informed consent, the scope was passed under direct vision. Throughout the procedure, the patient's blood pressure, pulse, and oxygen saturations were monitored continuously. The Duodenoscope was introduced through the mouth, and advanced to the duodenum and used to inject contrast into the bile duct. The ERCP was accomplished without difficulty. The patient tolerated the procedure well. Scope In: 3:22:12 PM Scope Out: 4:57:25 PM Total Procedure Duration Time 1 hour 35 minutes 13 seconds Findings: The cloud consultant film was normal. The esophagus was successfully intubated under direct vision. The scope was advanced to a normal major papilla in the descending duodenum without detailed examination of the pharynx, larynx and associated structures, and upper GI tract. The upper GI tract was grossly normal. The bile duct was deeply cannulated with the short-nosed traction sphincterotome. Contrast was injected. I personally interpreted the bile duct images. There was brisk flow of contrast through the ducts. Image quality was excellent. Contrast extended to the entire biliary tree. The lower third of the main bile duct contained one stone, which was 21 mm in diameter. The entire biliary tree was diffusely dilated, with a stone causing an obstruction. The largest diameter was 17 mm. A cholecystectomy had been performed. A long 0.025 inch Jagwire was passed into the biliary tree. A 5 mm biliary sphincterotomy was made with a traction (standard) sphincterotome using ERBE electrocautery. There was no post-sphincterotomy bleeding. The biliary tree was swept with a 15 mm balloon starting at the bifurcation, left intrahepatic duct(s) and right intrahepatic duct(s). Sludge was swept from the duct. All stones were removed. The lower third of the main bile duct and the right main hepatic duct were successfully dilated with an 8-9-10 mm balloon (to a maximum balloon size of 10 mm) dilator. One stent was removed from the biliary tree using a snare and sent for cytology. The stent was found to be partially occluded via the water column test. The bile duct was explored endoscopically using the [employer] direct visualization system. The SpyScope was advanced to the right intrahepatic duct(s). Visibility with the scope was excellent. The hepatic duct bifurcation and common hepatic duct with patent communication between right & left hepatic ducts (Bismuth I) contained a localized irregularity. The in the biliary system contained a localized irregularity. The hepatic duct bifurcation and the right main hepatic duct were biopsied with a [employer] miniature biopsy forceps for histology. Electrohydraulic lithotripsy was successful. The biliary tree was swept with a 15 mm balloon starting at the bifurcation. All stones were removed. One 10 Fr by 9 cm temporary stent was placed 5 cm into the common bile duct. Bile flowed through the stent. The stent was in good position. Impression: - The entire biliary tree was dilated, with a stone causing an obstruction. - An irregularity was found in the bifurcation of the right and left hepatic ducts. - An irregularity was found in the biliary tract. - The patient has had a cholecystectomy. - Choledocholithiasis was found. Complete removal was accomplished by biliary sphincterotomy and balloon extraction. - A biliary sphincterotomy was performed. - The biliary tree was swept. - The lower third of the main bile duct and the right main hepatic duct were successfully dilated. - One stent was removed from the biliary tree. - Biopsies were performed at the hepatic duct bifurcation and in the right main hepatic duct. - Lithotripsy was successful. - The biliary tree was swept. - One temporary stent was placed into the common bile duct. Procedure Code(s): --- Professional --- 48006, Endoscopic retrograde cholangiopancreatography (ERCP); with removal and exchange of stent(s), biliary or pancreatic duct, including pre- and post-dilation and guide wire passage, when performed, including sphincterotomy, when performed, each stent exchanged 29359, Endoscopic retrograde cholangiopancreatography (ERCP); with destruction of calculi, any method (eg, mechanical, electrohydraulic, lithotripsy) 02983, 59,51, Endoscopic retrograde cholangiopancreatography (ERCP); with trans-endoscopic balloon dilation of biliary/pancreatic duct(s) or of ampulla (sphincteroplasty), including sphincterotomy, when performed, each duct 98095, 59, Endoscopic retrograde cholangiopancreatography (ERCP); with biopsy, single or multiple 71887, Endoscopic cannulation of papilla with direct visualization of pancreatic/common bile duct(s) (List separately in addition to code(s) for primary procedure) 36175, 26, Endoscopic catheterization of the biliary ductal system, radiological supervision and interpretation CPT copyright 2021 [employer] [place] [employer]. All rights reserved. The codes documented in this report are preliminary and upon child guidance counselor review may be revised to meet current compliance requirements. Ric Lara DO 08/22/2024 5:16:18 PM This report has been signed electronically. Number of Addenda: 0 Note Initiated On: 08/22/2024 2:47 PM
--- NOTE | 2024-08-22 17:16 | OP.CCLET_ITS ---
08/22/2024 Katja Hurtado Do Re : ERCP procedure for Pati Lobo Dear [facility] This procedure was performed on Thursday, August 22, 2024. My impressions and recommendations are as follows: Impressions : - The entire biliary tree was dilated, with a stone causing an obstruction. - An irregularity was found in the bifurcation of the right and left hepatic ducts. - An irregularity was found in the biliary tract. - The patient has had a cholecystectomy. - Choledocholithiasis was found. Complete removal was accomplished by biliary sphincterotomy and balloon extraction. - A biliary sphincterotomy was performed. - The biliary tree was swept. - The lower third of the main bile duct and the right main hepatic duct were successfully dilated. - One stent was removed from the biliary tree. - Biopsies were performed at the hepatic duct bifurcation and in the right main hepatic duct. - Lithotripsy was successful. - The biliary tree was swept. - One temporary stent was placed into the common bile duct. Recommendations : My findings are described in the full procedure note, which is enclosed. If I can be of further assistance, please feel free to contact me at . Sincerely, Ric Lara DO 08/22/2024 5:16:18 PM This report has been signed electronically.
--- NOTE | 2024-08-22 17:25 | PCM.POST.ANE ---
Anesthesia: Postop Eval I Current Vital Signs Temperature: 97.5 F Pulse Rate: 72 Blood Pressure: 139/73 Respiratory Rate: 16 Pulse Ox: 93 Oxygen Delivery Method: Room Air Assessment Airway patent: Yes Spontaneous unlabored respirations: Yes Mental status: Awake and Calm nausea: No Vomiting: No Anesthesia Complication: No Fluid Hydration Crystalloid volume administer (ml): 1,600 Total IV fluid infused: 1,600 Progress Note Anesthesia document: Postop Eval 1 completed: Yes
--- NOTE | 2024-08-23 10:03 | PCM.POSTANE2 ---
Anesthesia Postop Eval I Sum Postop Eval Completion status Anesthesia document: Postop Eval 1 completed: Yes Anesthesia Postop Eval I Summary Anesthesia Postop Eval I Summary: Anesthesia Postop Eval I: Assessment Summary Airway patent Yes 08/22/24 17:26 [email or web address] Spontaneous unlabored Yes 08/22/24 17:26 [email or web address] respirations Mental status Awake,Calm 08/22/24 17:26 [email or web address] nausea No 08/22/24 17:26 [email or web address] Vomiting No 08/22/24 17:26 [email or web address] Anesthesia Postop Eval I: Fluid Summary Crystalloid volume administer 1,600 08/22/24 17:26 [email or web address] (ml) Colloids volume administered ( ml) Blood Product volume administered (ml) Total IV fluid infused 1,600 08/22/24 17:26 [email or web address] Anesthesia Postop Eval I: Summary Notes Anesthesia Complication No 08/22/24 17:26 [email or web address] Anesthesia Complication Comment: Post-operative progress note Anesthesia: Postop Eval II Evaluation Mental status: Awake Pain Level: 0 nausea: No Vomiting: No
== END 2024-08-22 18:36 | disposition home or self-care (01) ==
LOC: EN 13:07 → AC 13:09
PROVIDERS: PCP Family Medicine; Referring Provider Family Medicine; Visit Provider Internal Medicine Gastroenterology
PROC: (CPT 43260; principal; 2024-08-22 13:55)
DX: K80.37 Calculus of bile duct with acute and chronic cholangitis with obstruction (principal); Z90.49 Acquired absence of other specified parts of digestive tract; Z87.19 Personal history of other diseases of the digestive system; Z79.899 Other long term (current) drug therapy; I10 Essential (primary) hypertension
CPT/HCPCS: 43265; 43276; 43261; 00732; 74330; 76000; 88108; 88304; 88305; 88313; J7120; C1726; J2405

== ENCOUNTER 2024-12-08 09:14 | Day surgery (SDC) | payer MEDICARE, SELFPAY ==
[2024-12-08] VITALS (7 sets, daily range): BP systolic 115–153; BP diastolic 59–78; PULSE 46–69; RESP 14–18; TEMP 36.1–36.6; O2SAT 97–100; BMI 32.3
--- NOTE | 2024-12-08 09:59 | PRE.ANES_ITS ---
ASA Classification* ASA Classification ASA Classification: 3 Assessment & Plan Anesthesia* Anesthesia Assessment Anesthesia Assessment: Discussed sedation and/or anesthesia options, risks, benefits, and alternatives with patient/parents/legal guardian/POA. Questions invited. The patient/parents/legal guardian/POA seems to understand and agrees to proceed with anesthesia plan. Reviewed the physical assessment, medical history, allergy history and patient home medications list prior to surgery/procedure/anesthetic and documented any changes. Performed airway and anesthesia risk assessments. Anesthesia Type Anesthesia Type: MAC Anesthesia Focused Assessment* Airway Assessment Mouth opens: >3 cm Mallampati Score: II Focused Labs Anesthesia Preop lab: CBC WBC 4.5 K/mm3 (4.4-11.0) 07/29/24 06:09 RBC 3.36 M/mm3 (4.2-5.4) L 07/29/24 06:09 Hgb 10.2 g/dL (12.0-15.0) L 07/29/24 06:09 Hct 31.2 % (37-47) L 07/29/24 06:09 Plt Count 214 K/mm3 (150-450) 07/29/24 06:09 CHEMISTRY Potassium 3.9 mmol/L (3.5-5.1) 07/29/24 06:09 Sodium 140 mmol/L (136-145) 07/29/24 06:09 Magnesium 2.0 mg/dL (1.6-2.6) 07/29/24 06:09 Phosphorus 2.8 mg/dL (2.5-4.9) 07/29/24 06:09 BUN 8 mg/dL (7-18) 07/29/24 06:09 Creatinine 0.55 mg/dL (0.55-1.02) 07/29/24 06:09 Glucose 94 mg/dL (74-106) 07/29/24 06:09 TSH 3.200 uIU/mL (0.358-3.740) 07/26/24 18:10 COAG Pre-Assessment Diagnosis/Proposed Procedure Planned Operative Procedure(s): ERCP stent removal Anesthesia History Anesthesia History - community service representative: Anesthesia History - community service representative Hx Hospitalization Yes: [facility], ERCP 12/05/24 09:28 Any Problems With Anesthesia Yes: pt STATES woke up 12/05/24 09:28 during procedure Cholinesterase deficiency No 12/05/24 09:28 You/Your Family Experience No 12/05/24 09:28 fever (hyperthermia) with Relationship Recent Exposure to Contagious No 08/22/24 13:39 Disease Does patient have nerve No 12/05/24 09:28 stimulator Patient instructed to have device shut off --Does patient have Pacemaker or ICD? When Was Last Pacemaker Check QUESTION #4 FULL TEXT: You/Your Family Experience fever (hyperthermia) with Anesthesia Last Oral Intake Last Oral intake: Last Oral Intake NPO since Meds taken in AM with sips of water? Meds patient instructed to take am of surgery PONV PONV - community service representative: PONV - community service representative Female Yes 12/05/24 09:28 HX of Motion Sickness No 12/05/24 09:28 HX of N/V After Surgery No 12/05/24 09:28 Non-Smoker Yes 12/05/24 09:28 Duration of Surgery greater No 12/05/24 09:28 than 60 minutes Number of Risk Factors 2 12/05/24 09:28 PONV Score Moderate Risk 12/05/24 09:28 Height & Weight Height & Weight: Anesthesia: Height & Weight Height 5 ft 2 in 08/22/24 13:39 Respiratory Assessment Respiratory Assessment - community service representative: Respiratory Tract Infection Hx - community service representative Hx Respiratory Tract Infection No 12/05/24 09:28 STOP Sleep Apnea STOP Sleep Apnea - community service representative: STOP Sleep Apnea - community service representative Hx Hypertension Yes: controlled with meds 12/05/24 09:28 Hx Sleep Apnea No 12/05/24 09:28 CPAP No 12/05/24 09:28 BIPAP No 12/05/24 09:28 Do you snore loudly (louder No 12/05/24 09:28 than talking or can be heard Do you often feel tired/ No 12/05/24 09:28 fatigued/ sleepy during daytime? Has anyone observed you stop No 12/05/24 09:28 breathing during sleep? STOP Results Negative 12/05/24 09:28 QUESTION #5 FULL TEXT : Do you snore loudly (louder than talking or can be heard through closed doors)? 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 Specify any problems Hx of Preganancy in last 3 No 12/05/24 09:28 Months Nurse Filling Out Transfusion VCHRISTIN 12/05/24 09:28 & Questions: Date: 12/05/24 12/05/24 09:28 Time: 09:30 12/05/24 09:28 Patient unable to answer at this time (ie. confused, unrespo /Reproduction History /Reproductive History - community service representative: /Reproductive Hx- community service representative Hx Now No 12/05/24 09:28 Gestational Age (in weeks): EDC: Hx Hx Para Hx Section SAB No 12/05/24 09:28 [facility]LY [facility] Medical History Balance problem Wears glasses Wears dentures Ambulates with cane Gastric reflux Former smoker History of biliary stent insertion RLS (restless legs syndrome) History of chronic cholecystitis Absence seizure disorder Ulcerative colitis Allergic rhinitis Anxiety and depression Former tobacco use HLD (hyperlipidemia) HTN (hypertension) Home Medications ?Medication ?Instructions ?Recorded ?Last Taken ?Type multivitamin with folic acid 400 1 tab PO DAILY supplement 08/18/14 06/27/24 History mcg tablet (Thera) omeprazole 20 mg capsule,delayed 20 mg PO DAILY Gerd 08/18/14 12/08/24 History release pravastatin 40 mg tablet 40 mg PO DAILY cholesterol 08/18/14 06/30/24 History (Pravachol) alendronate 70 mg tablet 70 mg PO PAYNE OA 04/25/24 06/29/24 History cetirizine 10 mg tablet (Zyrtec) 10 mg PO DAILY PRN allergy symptoms 04/25/24 06/30/24 History escitalopram oxalate 20 mg tablet 20 mg PO DAILY depression 04/25/24 06/30/24 History ferrous sulfate 325 mg (65 mg 325 mg PO DAILY supplement 04/25/24 06/27/24 History iron) tablet (iron) omega-[address]-rao-wxh-fish oil 1 cap PO DAILY supplement 04/25/24 06/27/24 History 1,200 mg capsule,delayed release ropinirole 0.5 mg tablet 0.5 mg PO QHS restless legs 04/25/24 06/30/24 History vitamin B complex (B-Complex 1 tab PO DAILY supplement 04/25/24 06/27/24 History tablet) cholecalciferol (vitamin D3) 25 25 mcg PO DAILY supplement 07/26/24 Unknown History mcg (1,000 unit) capsule tramadol 50 mg tablet 50 mg PO Q8H PRN pain #10 tabs 07/29/24 Unknown Rx losartan 50 mg-hydrochlorothiazide 1 tab PO DAILY 08/21/24 Unknown History 12.5 mg tablet zonisamide 100 mg capsule 100 mg PO QHS 08/21/24 Unknown History fesoterodine 4 mg tablet,extended 4 mg PO DAILY 12/05/24 Unknown History release 24 hr memantine 5 mg tablet 5 mg PO BID 12/05/24 Unknown History Allergy/AdvReac Type Severity Reaction Status Date / Time codeine Allergy Intermediate Vomiting Verified 12/08/24 09:57 hydrocodone bitartrate (From AdvReac Nausea/Vom/ Verified 12/08/24 09:57 Vicodin) Diarrhea propoxyphene napsylate (From AdvReac Nausea/Vom/ Verified 12/08/24 09:57 Darvocet-N) Diarrhea Family History Mother Diabetes Bipolar disorder Father Liver cancer Prostate cancer Surgical History History of ERCP History of laparoscopic cholecystectomy S/P cataract extraction History of knee replacement History of arthroscopic knee surgery History of section History of total hip replacement S/P cholecystectomy Social History household members: children Smoking Status: Former smoker how long ago did patient quit smoking: Smoked 40 yrs 1 ppd until quit age 50. alcohol intake: current alcohol intake frequency: holidays/special occasions only substance use type: does not use Review of Systems (Anesthesia) ROS Narrative System reviewed and no additional complaints, except as documented.
--- NOTE | 2024-12-08 10:32 | PCM.HP.STD ---
HPI - General General Date of Admission: 12/08/24 Date of Service: 12/08/24 Chief Complaint: Stent removal HPI Narrative FANTA ARGUELLES, is a 74 F who presents today for ERCP with stent removal or exchange. ERCP 07.01.24 A single localized biliary stricture was found in the lower third of the main bile duct. The stricture was benign appearing. The biliary system were dilated, with a stone causing an obstruction. The patient has had a cholecystectomy. Choledocholithiasis was found. Complete removal was accomplished by biliary sphincterotomy and balloon extraction. A pancreatic sphincterotomy was performed. The ventral pancreatic duct was swept and debris was found. One stent was removed from the biliary tree. A biliary sphincterotomy was performed. The biliary tree was swept. ERCP 07.27.24 Choledocholithiasis was found. Partial removal was accomplished with biliary sphincterotomy; a stent was inserted. A biliary sphincterotomy was performed. The biliary tree was swept. The lower third of the main bile duct and the left main hepatic duct were successfully dilated. A pancreatic sphincterotomy was performed. The ventral pancreatic duct was swept and debris was found. One temporary stent was placed into the common bile duct. *[facility] established 08.19.24 Patient has been in and out of the hospital since March 2024 with CBD stones causing obstruction. She is s/p cholecystectomy about 1 year ago and has hx of UC and pancreatitis. In March 2024 she underwent ERCP with stone removal and stent placement. She had stent removed in June 2024 and then a week later had another CBD stone. She underwent another ERCP for stone removal and stent placement. During her hospitalism in June she had pancreatitis with elevated lipase in the . 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 She is scheduled for Spyglass on 08.22.24 and is here today for discussion about the recurrent stones. Today she denies abdominal pain, n/v, heartburn, constipation or diarrhea. Biochemical work up; 07.29.24; Hgb 10.2, bilirubin 1.10, AST 49, ALT 113, ALP 349, CA 19-9 70, CEA wnl Biopsy with fluid from stent; 07.01.24; no malignant cells [facility] Medical History Balance problem Wears glasses Wears dentures Ambulates with cane Gastric reflux Former smoker History of biliary stent insertion RLS (restless legs syndrome) History of chronic cholecystitis Absence seizure disorder Ulcerative colitis Allergic rhinitis Anxiety and depression Former tobacco use HLD (hyperlipidemia) HTN (hypertension) Home Medications ?Medication ?Instructions ?Recorded ?Last Taken ?Type multivitamin with folic acid 400 1 tab PO DAILY supplement 08/18/14 06/27/24 History mcg tablet (Thera) omeprazole 20 mg capsule,delayed 20 mg PO DAILY Gerd 08/18/14 12/08/24 History release pravastatin 40 mg tablet 40 mg PO DAILY cholesterol 08/18/14 06/30/24 History (Pravachol) alendronate 70 mg tablet 70 mg PO PAYNE OA 04/25/24 06/29/24 History cetirizine 10 mg tablet (Zyrtec) 10 mg PO DAILY PRN allergy symptoms 04/25/24 06/30/24 History escitalopram oxalate 20 mg tablet 20 mg PO DAILY depression 04/25/24 06/30/24 History ferrous sulfate 325 mg (65 mg 325 mg PO DAILY supplement 04/25/24 06/27/24 History iron) tablet (iron) omega-3 360 my-eab-ymz-fish oil 1 cap PO DAILY supplement 04/25/24 06/27/24 History 1,200 mg capsule,delayed release ropinirole 0.5 mg tablet 0.5 mg PO QHS restless legs 04/25/24 06/30/24 History vitamin B complex (B-Complex 1 tab PO DAILY supplement 04/25/24 06/27/24 History tablet) cholecalciferol (vitamin D3) 25 25 mcg PO DAILY supplement 07/26/24 Unknown History mcg (1,000 unit) capsule tramadol 50 mg tablet 50 mg PO Q8H PRN pain #10 tabs 07/29/24 Unknown Rx losartan 50 mg-hydrochlorothiazide 1 tab PO DAILY 08/21/24 Unknown History 12.5 mg tablet zonisamide 100 mg capsule 100 mg PO QHS 08/21/24 Unknown History fesoterodine 4 mg tablet,extended 4 mg PO DAILY 12/05/24 Unknown History release 24 hr memantine 5 mg tablet 5 mg PO BID 12/05/24 Unknown History Allergy/AdvReac Type Severity Reaction Status Date / Time codeine Allergy Intermediate Vomiting Verified 12/08/24 09:57 hydrocodone bitartrate (From AdvReac Nausea/Vom/ Verified 12/08/24 09:57 Vicodin) Diarrhea propoxyphene napsylate (From AdvReac Nausea/Vom/ Verified 12/08/24 09:57 Darvocet-N) Diarrhea Family History Mother Diabetes Bipolar disorder Father Liver cancer Prostate cancer Surgical History History of ERCP History of laparoscopic cholecystectomy S/P cataract extraction History of knee replacement History of arthroscopic knee surgery History of section History of total hip replacement S/P cholecystectomy Social History household members: children Smoking Status: Former smoker how long ago did patient quit smoking: Smoked 40 yrs 1 ppd until quit age 50. alcohol intake: current alcohol intake frequency: holidays/special occasions only substance use type: does not use ROS ROS Narrative Review of systems: Constitutional: Patient admits to unintentional ~7 pound weight loss over the past month with intermittent sweats. She denies fever or chills. Eyes: Patient denies changes in vision or discharge from eyes. ENT: Patient denies runny nose, sore throat or ear pain. CV: Patient denies chest pain, palpitations, heart racing or orthopnea. Resp: Patient denies shortness of breath or cough. GI: Patient admits to abdominal pain primarily focused in the epigastrium with corresponding nausea and bilious emesis and constipation. She denies diarrhea. : Patient denies dysuria, hematuria or urinary frequency/hesitancy. MSK. Patient admits to back pain but denies arthralgias or myalgias. Skin: Patient denies rash, abscess or jaundice. Psych: Patient denies symptoms of uncontrolled depression or anxiety. Neuro: Patient denies headache, paresthesias or focal neurologic deficits. Allergy: Patient denies lip swelling, tongue swelling or urticaria. Hematology: Patient denies easy bleeding or easy bruisability. Endocrinology: Patient denies polyuria, polydipsia or polyphagia. 14 point review of systems otherwise negative except for positives noted above in HPI. Vital Signs Vital Signs Vital Signs: 12/08/24 09:59 12/08/24 09:59 Temperature 98 F Temperature Source Temporal Pulse Rate 63 Respiratory Rate 16 Respiratory Pattern Normal Blood Pressure 128/78 H Blood Pressure Mean 94 Blood Pressure Source Monitor Blood Pressure Position Semi-Fowlers Blood Pressure Location Left Arm Pulse Ox 100 Oxygen Delivery Method Room Air Weight Weight: 177 lb Body Mass Index (BMI) 32.3 Physical Exam Const alert, oriented x3, no apparent distress and healthy appearing General Appearance: cooperative GI normal to inspection, nondistended, normoactive bowel sounds, soft to palpation, non-tender and non-distended Percussion: normal to percussion Rectal Exam: deferred Assessment & Plan Assessment/Plan (1) Biliary stent obstruction: PLAN: She will undergo ERCP with stent removal or exchange. She was explained alternatives, benefits, risk of scarring understanding bleeding, infection, sepsis, perforation, need emergent and . She will have an ASA of 3.
--- NOTE | 2024-12-08 10:45 | FLU_PTH ---
PATIENT: FANTA ARGUELLES LOC: EN U#:[id number] AGE/SX: 74/F ROOM: RE12/08/[address]: Dr. Ric Lara DO : 1950 BED: DIS: 12/08/2024 SPEC #: [id number] RECD: 12/08/24 13:36 STATUS: GALILEO ALVARADO #: [id number] COURTNEY: 12/08/24 10:[address]: Ric Lara DEPT: CYTOLOGY RECD BY: Debby Jules ENTERED: 12/08/24 13:59 SP TYPE: Fluid OTHR DR: Dr. Katja Jacome DO Tissues: Biliary tract, NOS Procedures: Special Stain Group II Surgery Specimen Level IV Cytospin Fluid HEADER OPERATION: Ampulla dilation, spy glass, stent removal PRE-OP DIAGNOSIS: Biliary stent obstruction TISSUE SUBMITTED: Biliary stent for cytology DIAGNOSIS CYTOLOGY Biliary stent fluid for cytology (cytospins and cellblock): Negative for malignant cells. See comment. [email or web address] 12/09/2024 COMMENT Clinical correlation and appropriate follow up are necessary. CYTOLOGY STUDY Slides are reviewed. CYTOLOGY GROSS Received is 1-12 ml black-blue stent with 0.5ml of yellowish-orange thick material labeled with the patient's name and and designated per the requisition as Biliary stent. Submitted for cytology preparation including cell block. Mr 12/08/2024 TC:5 CPT: 14536,19651
--- NOTE | 2024-12-08 11:40 | RAD_ITS ---
STUDY: ERCP REASON FOR EXAM: Female, 74 years old. ERCP STENT REMOVAL FLUOROSCOPY TIME (if supplied): ( 8 minutes and 28 seconds ) minutes/seconds. TECHNIQUE: Fluoroscopic services provided for ERCP. COMPARISON: None. FINDINGS: Stent removal. RAD/ERCP Biliary/Pancreas IMPRESSION: Stent removal. Electronically Signed: Alec Moreira MD at 12:36 EST ,
--- NOTE | 2024-12-08 13:34 | PCM.POST.ANE ---
Anesthesia: Postop Eval I Current Vital Signs Temperature: 97 F Pulse Rate: 68 Blood Pressure: 115/59 Respiratory Rate: 16 Pulse Ox: 97 Oxygen Delivery Method: Room Air Assessment Airway patent: Yes Spontaneous unlabored respirations: Yes Mental status: Asleep nausea: No Vomiting: No Anesthesia Complication: No Fluid Hydration Crystalloid volume administer (ml): 90 Total IV fluid infused: 90 Progress Note Anesthesia document: Postop Eval 1 completed: Yes
--- NOTE | 2024-12-08 13:36 | PCM.POSTANE2 ---
Anesthesia Postop Eval I Sum Postop Eval Completion status Anesthesia document: Postop Eval 1 completed: Yes Anesthesia Postop Eval I Summary Anesthesia Postop Eval I Summary: Anesthesia Postop Eval I: Assessment Summary Airway patent Yes 12/08/24 13:35 [email or web address] Spontaneous unlabored Yes 12/08/24 13:35 [email or web address] respirations Mental status Asleep 12/08/24 13:35 [email or web address] nausea No 12/08/24 13:35 [email or web address] Vomiting No 12/08/24 13:35 [email or web address] Anesthesia Postop Eval I: Fluid Summary Crystalloid volume administer 90 12/08/24 13:35 [email or web address] (ml) Colloids volume administered ( ml) Blood Product volume administered (ml) Total IV fluid infused 90 12/08/24 13:35 [email or web address] Anesthesia Postop Eval I: Summary Notes Anesthesia Complication No 12/08/24 13:35 [email or web address] Anesthesia Complication Comment: Post-operative progress note Anesthesia: Postop Eval II Evaluation Mental status: Awake Pain Level: 0 nausea: No Vomiting: No
--- NOTE | 2024-12-08 13:41 | OP.ERCP_ITS ---
Patient Name: Pati Lobo Procedure Date: 12/08/2024 11:19 AM Date of : 1950 Age: 74 Procedure: ERCP Indications: For therapy of bile duct stone(s), Biliary stent removal Providers: Ric Lara DO Referring MD: Ric Lara DO Medicines: Monitored Anesthesia Care Patient Profile: This is a 74 year old female. Refer to note in patient chart for documentation of history and physical. Complications: No immediate complications. Procedure: Pre-Anesthesia Assessment: - Prior to the procedure, a History and Physical was performed, and patient medications and allergies were reviewed. The patient is competent. The risks and benefits of the procedure and the sedation options and risks were discussed with the patient. All questions were answered and informed consent was obtained. Patient identification and proposed procedure were verified by the physician in the pre-procedure area. Mental Status Examination: alert and oriented. Airway Examination: normal oropharyngeal airway and neck mobility. Respiratory Examination: clear to auscultation. CV Examination: normal. Prophylactic Antibiotics: The patient does not require prophylactic antibiotics. Prior Anticoagulants: The patient has taken no anticoagulant or antiplatelet agents except for NSAID medication. ASA Grade Assessment: II - A patient with mild systemic disease. After reviewing the risks and benefits, the patient was deemed in satisfactory condition to undergo the procedure. The anesthesia plan was to use monitored anesthesia care (MAC). Immediately prior to administration of medications, the patient was re-assessed for adequacy to receive sedatives. The heart rate, respiratory rate, oxygen saturations, blood pressure, adequacy of pulmonary ventilation, and response to care were monitored throughout the procedure. The physical status of the patient was re-assessed after the procedure. After obtaining informed consent, the scope was passed under direct vision. Throughout the procedure, the patient's blood pressure, pulse, and oxygen saturations were monitored continuously. The Duodenoscope was introduced through the mouth, and advanced to the duodenum and used for direct visualization of the bile duct. The ERCP was accomplished without difficulty. The patient tolerated the procedure well. Scope In: 11:43:06 AM Scope Out: 1:16:34 PM Total Procedure Duration Time 1 hour 33 minutes 28 seconds Findings: The director of [facility] film was normal. The esophagus was successfully intubated under direct vision. The scope was advanced to a normal major papilla in the descending duodenum without detailed examination of the pharynx, larynx and associated structures, and upper GI tract. The upper GI tract was grossly normal. The bile duct was deeply cannulated with the short-nosed traction sphincterotome. Contrast was injected. I personally interpreted the bile duct images. Ductal flow of contrast was adequate. Image quality was adequate. Contrast extended to the main bile duct. Contrast extended to the bifurcation. Contrast extended to the hepatic ducts. Contrast extended to the entire biliary tree. Opacification of the lower third of the main bile duct, middle third of the main bile duct, upper third of the main bile duct, main bile duct, common bile duct, common hepatic duct, left main hepatic duct, right main hepatic duct, left and right hepatic ducts and all intrahepatic branches and entire biliary tree was successful. The maximum diameter of the ducts was 15 mm. The lower third of the main bile duct and upper third of the main bile duct contained a single segmental stenosis 10 mm in length. A cholecystectomy had been performed. A long 0.025 inch Jagwire was passed into the biliary tree. A 5 mm biliary sphincterotomy was made with a traction (standard) sphincterotome using ERBE electrocautery. There was no post-sphincterotomy bleeding. The biliary tree was swept with a 15 mm balloon starting at the upper third of the main bile duct, middle third of the main bile duct, lower third of the main duct, bifurcation, left intrahepatic duct(s), left main hepatic duct, right intrahepatic duct(s) and right main hepatic duct. Sludge was swept from the duct. All stones were removed. To discover objects, the biliary tree was swept with a 12 mm balloon starting at the right intrahepatic duct(s) and right main hepatic duct. Sludge was swept from the duct. All stones were removed. One stent was removed from the right hepatic duct using a snare and sent for cytology. The stent was found to be partially occluded via the water column test. The bile duct was explored endoscopically using the [employer] direct visualization system. The SpyScope was advanced to the right intrahepatic duct(s). Visibility with the scope was good. The entire biliary tree except for the cystic duct and gallbladder, entire biliary tree except for the gallbladder, common bile duct, common hepatic duct, left main hepatic duct, right main hepatic duct and left and right hepatic ducts and all intrahepatic branches were normal. The in the biliary system were normal. The in the biliary system were normal. The main bile duct was normal. Dilation of the lower third of the main bile duct, common bile duct and the left main hepatic duct with 10 Fr catheter dilator was successful. Impression: - A single segmental biliary stricture was found in the lower third of the main bile duct and upper third of the main bile duct. The stricture was benign appearing. - The patient has had a cholecystectomy. - Choledocholithiasis was found. Complete removal was accomplished by biliary sphincterotomy and balloon extraction. - A biliary sphincterotomy was performed. - The biliary tree was swept. - The biliary tree was swept. - One stent was removed from the right hepatic duct. Procedure Code(s): --- Professional --- 37249, Endoscopic retrograde cholangiopancreatography (ERCP); with removal of foreign body(s) or stent(s) from biliary/pancreatic duct(s) 84507, Endoscopic retrograde cholangiopancreatography (ERCP); with removal of calculi/debris from biliary/pancreatic duct(s) 81340, Endoscopic retrograde cholangiopancreatography (ERCP); with sphincterotomy/papillotomy 11994, Endoscopic cannulation of papilla with direct visualization of pancreatic/common bile duct(s) (List separately in addition to code(s) for primary procedure) 91220, 26, Endoscopic catheterization of the biliary ductal system, radiological supervision and interpretation 38995, Unlisted procedure, biliary tract CPT copyright 2021 [employer]. All rights reserved. The codes documented in this report are preliminary and upon drawing kiln supervisor review may be revised to meet current compliance requirements. Ric Lara DO 12/08/2024 1:40:27 PM This report has been signed electronically. Number of Addenda: 0 Note Initiated On: 12/08/2024 11:19 AM
--- NOTE | 2024-12-08 13:41 | OP.CCLET_ITS ---
12/08/2024 Katja Hurtado Do Re : ERCP procedure for Pati Lobo Dear [facility] This procedure was performed on Sunday, December 08, 2024. My impressions and recommendations are as follows: Impressions : - A single segmental biliary stricture was found in the lower third of the main bile duct and upper third of the main bile duct. The stricture was benign appearing. - The patient has had a cholecystectomy. - Choledocholithiasis was found. Complete removal was accomplished by biliary sphincterotomy and balloon extraction. - A biliary sphincterotomy was performed. - The biliary tree was swept. - The biliary tree was swept. - One stent was removed from the right hepatic duct. Recommendations : My findings are described in the full procedure note, which is enclosed. If I can be of further assistance, please feel free to contact me at . Sincerely, Ric Lara DO 12/08/2024 1:40:27 PM This report has been signed electronically.
== END 2024-12-08 15:29 | disposition home or self-care (01) ==
LOC: EN 09:15 → AC 09:19
PROVIDERS: PCP Family Medicine; Referring Provider Internal Medicine Gastroenterology; Visit Provider Internal Medicine Gastroenterology
PROC: (CPT 43260; principal; 2024-12-08 10:25)
DX: K80.51 Calculus of bile duct without cholangitis or cholecystitis with obstruction (principal); K21.9 Gastro-esophageal reflux disease without esophagitis; E78.5 Hyperlipidemia, unspecified; I10 Essential (primary) hypertension; Z90.49 Acquired absence of other specified parts of digestive tract; Z79.899 Other long term (current) drug therapy; Z87.891 Personal history of nicotine dependence
CPT/HCPCS: 43262; 43264; 43275

== ENCOUNTER → 2025-05-16 | Outpatient (CLI) | payer MEDICARE, SELFPAY ==
--- OUTSIDE RECORDS SUMMARY | 2025-05-16 07:41 | XMS RPT_ITS | CCD ---
Author Organization [facility] Care Team Providers Care Dentist Private Practice Name Role Phone BRITTANI, SHAI Unavailable Unavailable BRITTANI, SHAI Unavailable Unavailable BRITTANI, SHAI Unavailable Unavailable BRITTANI, SHAI Unavailable Unavailable BRITTANI, SHAI Unavailable Unavailable BRITTANI, SHAI Unavailable Unavailable AUDREY, MELIA Unavailable Unavailable AUDREY, MELIA Unavailable Unavailable BRITTANI, SHAI Unavailable Unavailable AUDREY, MELIA Unavailable Unavailable AUDREY, MELIA Unavailable Unavailable BRITTANI, SHAI Unavailable Unavailable NAA DO, ESTELLA M Primary Care Physician Gena Linton PT Unavailable Unavailable NAA DO, ESTELLA Primary Care Physician [phone] NAA DO, ESTELLA Attending Unavailable NAA DO, ESTELLA Primary Care Unavailable NAA DO, ESTELLA Attending Unavailable NAA DO, ESTELLA Primary Care Unavailable NAA DO, ESTELLA Attending Unavailable NAA DO, ESTELLA Primary Care Unavailable JORDAN RYDER Attending Unavailable NAA DO, ESTELLA Primary Care Unavailable JACQUELINE CHRISTIANSON, DR GRISELDA Dias Attending Unavailabl e NAA DO, ESTELLA Primary Care Unavailable NAA DO, ESTELLA Attending Unavailable NAA DO, ESTELLA Primary Care Unavailable KELIN PARSONS MD Attending Unavailable NAA DO, ESTELLA Primary Care Unavailable KELIN PARSONS MD Attending Unavailable NAA DO, ESTELLA Primary Care Unavailable NAA DO, ESTELLA Attending Unavailable NAA DO, ESTELLA Primary Care Unavailable KELIN PARSONS MD Attending Unavailable NAA DO, ESTELLA Primary Care Unavailable KELIN PARSONS MD Attending Unavailable NAA DO, ESTELAL Primary Care Unavailable NAA DO, ESTELLA Primary Care Unavailable FRIEND LINDA CHRISTIANSON Attending Unavailable Naa, Estella Referring Unavailable FriendStewn Attending Unavailable Naa, Estella Primary Care Unavailable Vijaya Salas Attending Unavailable Naa, Estella Referring Unavailable Naa, Estella Primary Care Unavailable Adrien Florentino Admitting Unavailable Leena Cunningham Attending Unavailable Adrien Florentino Consulting Unavailable Naa, Estella Primary Care Unavailable Ham Sepulveda Consulting Unavailable Leena Cunningham Consulting Unavailable Mario Alberto Grant Referring Unavailable Juan Hardy Attending Unavailable Naa, Estella Primary Care Unavailable Friend, Linda Attending Unavailable Adrien Florentino Referring Unavailable Ham Sepulveda Attending Unavailable Adrien Florentino Attending Unavailable Leena Cunningham Referring Unavailable Naa, Estella Primary Care Unavailable Friend, Linda Consulting Unavailable Friend, Linda Referring Unavailable Friend, Linda Attending Unavailable Friend, Linda Attending Unavailable Friend, Linda Consulting Unavailable Naa, Estella Referring Unavailable Naa, Estella Primary Care Unavailable Friend, Linda Attending Unavailable Friend, Linda Referring Unavailable Maynor, Kelin Consulting Unavailable Naa, Estella Primary Care Unavailable Carolina Villanueva Consulting Unavailable Friend, Linda Consulting Unavailable Friend, Linda Attending Unavailable Naa, Estella Referring Unavailable Naa, Estella Primary Care Unavailable Friend, Linda Referring Unavailable Friend, Linda Attending Unavailable Maynor, Kelin Consulting Unavailable Naa, Estella Primary Care Unavailable Carolina Villanueva Consulting Unavailable Carolina Villanueva Attending Unavailable Carolina Villanueva Referring Unavailable Naa, Estella Primary Care Unavailable Naa, Estella Primary Care Unavailable DevinTatyana valdes Referring Unavailable Tatyana Beltran Attending Unavailable Adrien Florentino Consulting Unavailable Leena Cunningham Attending Unavailable Adrien Florentino Admitting Unavailable Naa, Estella Primary Care Unavailable Jopperi, Ham Consulting Unavailable Naa, Estella Primary Care Unavailable Friend, Linda Referring Unavailable Friend, Linda Attending Unavailable Allergies Allergy Classification Reported Allergen(s) Allergy Type Date of Onset Reaction(s) Facility Acetaminophen / HYDROcodone (1 source) Acetaminophen / HYDROcodone; Translations: [acetaminophen-hy drocodone] Drug Allergy Nausea and vomiting [facility] Anti-Epileptic Agents (1 source) gabapentin; Translations: [gabapentin] Drug Allergy Disorientated (finding), Amnesia (finding) [facility] Opioid Agonists (1 source) Codeine; Translations: [codeine] Drug Allergy Nausea and vomiting (disorder) [facility] (20 sources) Acetaminophen / HYDROcodone; Translations: [acetaminophen-hy drocodone] Drug Allergy Nausea and vomiting [facility] (20 sources) Codeine; Translations: [codeine] Drug Allergy Nausea and vomiting (disorder) [facility] (6 sources) gabapentin; Translations: [gabapentin] Drug Allergy Disorientated (finding), Amnesia (finding) [facility] (1 source) Codeine Drug Allergy 5 [facility] (1 source) HYDROcodone Drug Allergy 5 [facility] (1 source) Propoxyphene Drug Allergy 5 [facility] Medications Current Medications Medication Drug Class(es) Dates Sig (Normalized) Sig (Original) acetaminophen 1000 mg oral tablet (16 sources) Start: 03-22-2022 take 1 tablet by mouth once daily Tylenol Dose : 1,000 mg = 2 tab(s), Oral, TID, not to exceed 3000 mg/day, 0 Refill(s) Start Date: 03/22/22 Status: Ordered alendronic acid 70 mg oral tablet (13 sources) Bisphosphonate Start: 12-05-2023 Fosamax 70 mg oral tablet Dose : 70 mg = 1 tab(s), Oral, qWeek, # 13 tab(s), 3 Refill(s), Pharmacy: [facility], Osteoporosis, 161, cm, 12/05/23 10:33:00 EST, Height, kg, 12/05/23 10:33:00 EST, Dosing Weight Start Date: 12/05/23 Status: Ordered Start: 01-03-2023 Fosamax 70 mg oral tablet Dose : 70 mg = 1 tab(s), Oral, qWeek, # 13 tab(s), 3 Refill(s), Pharmacy: [facility], Osteoporosis, 162.5, cm, 01/03/23 11:27:00 EST, Height, kg, 01/03/23 11:27:00 EST, Dosing Weight Start Date: 01/03/23 Status: Ordered Start: 05-24-2022 Fosamax 70 mg oral tablet Dose : 70 mg = 1 tab(s), Oral, qWeek, # 13 tab(s), 3 Refill(s), Pharmacy: [facility], Osteoporosis, 161, cm, 05/03/22 15:17:00 EDT, Height Start Date: 05/24/22 Status: Ordered aspirin 81 mg oral tablet (9 sources) Platelet Aggregation Inhibitor, Nonsteroidal Anti-inflammatory Drug Start: 03-22-2022 take 1 tablet by mouth twice daily at mealtime aspirin Dose : 81 mg = 1 tab(s), Oral, BIDM, Take 81 mg aspirin twice daily with food for 4 weeks postoperatively for DVT prophylaxis, 0 Refill(s) Start Date: 03/22/22 Status: Ordered Start: 11-10-2021 aspirin 81 mg oral delayed release tablet Dose : 81 mg = 1 tab(s), Oral, qDay, # 30 tab(s), 0 Refill(s) Start Date: 11/10/21 Status: Ordered Start: 11-10-2021 aspirin 81 mg oral delayed release tablet Dose : 81 mg = 1 tab(s), Oral, qDay, # 30 tab(s), 0 Refill(s) Start Date: 11/10/21 Status: Ordered Start: 12-22-2020 baby aspirin b aftab aspirin, 0 Refill(s), 94.9 Start Date: 12/22/20 Status: Ordered Calcium (17 sources) Phosphate Binder, Calcium Start: 01-03-2023 calc ium (as carbonate) 500 mg oral tablet 0 Refill(s) Start Date: 01/03/23 Status: Ordered Start: 06-30-2020 calcium (as ca rbonate) 600 mg oral tablet Dose : 600 mg = 1 tab(s), Oral, qDay, 0 Refill(s) Start Date: 06/30/20 Status: Ordered cetirizine hydrochloride 10 mg oral tablet (20 sources) Histamine-1 Receptor Antagonist Start: 03-26-2016 Zyrtec 10 mg oral tablet (NF) Dose : 10 mg = 1 tab(s), Oral, Daily Start Date: 03/26/16 Status: Ordered dicyclomine hydrochloride 10 mg oral capsule (8 sources) Anticholinergic Start: 08-01-2024 take 1 capsule by mouth three times daily before mealtime dicyclomine 10 mg oral capsule TAKE 1 CAPSULE BY MOUTH THREE TIMES A DAY BEFORE MEALS Start Date: 08/01/24 Status: Ordered Start: 11-10-2021 dicyclomine 20 mg oral tablet Dose : 20 mg = 1 tab(s), Oral, QID, # 360 tab(s), 1 Refill(s), Pharmacy: [facility], Abdominal pain in female RUQ pain, 161, cm, 11/10/21 11:03:00 EST, Height, kg, 11/10/21 11:03:00 EST, Dosing Weight Start Date: 11/10/21 Status: Ordered Start: 06-22-2021 End: 10-11-2021 take 1 tablet by mouth four times daily dicyclomine 20 mg oral tablet TAKE 1 TABLET BY MOUTH FOUR TIMES A DAY Start Date: 06/22/21 Status: Ordered docusate sodium 50 mg / sennosides, retirement 8.6 mg oral tablet (1 source) Start: 03-22-2022 End: 03-24-2022 take 1 tablet by mouth twice daily Senokot S 50 mg-8.6 mg oral tablet Dose = 2 tab(s), Oral, BID, Take until first bowel movement, then as needed, # 20 tab(s), 0 Refill(s), Pharmacy: [facility]/pharmacy #[id number], 162.6, cm, 03/21/22 10:20:00 EDT, Height Start Date: 03/22/22 Stop Date: 03/24/22 Status: Ordered escitalopram 20 mg oral tablet (20 sources) Serotonin Reuptake Inhibitor Start: 06-25-2024 escitalopram 20 mg oral tablet Dose : 20 mg = 1 tab(s), Oral, qDay, # 90 tab(s), 1 Refill(s), Pharmacy: [facility], Depression Anxiety, 162, cm, 06/25/24 10:02:00 EDT, Height, kg, 06/25/24 10:02:00 EDT, Dosing Weight Start Date: 06/25/24 Status: Ordered Start: 12-05-2023 escitalopram 2 0 mg oral tablet Dose : 20 mg = 1 tab(s), Oral, qDay, # 90 tab(s), 1 Refill(s), Pharmacy: [facility], Depression Anxiety, 161, cm, 12/05/23 10:33:00 EST, Height, kg, 12/05/23 10:33:00 EST, Dosing Weight Start Date: 12/05/23 Status: Ordered Start: 01-03-2023 escitalopram 2 0 mg oral tablet Dose : 20 mg = 1 tab(s), Oral, qDay, # 90 tab(s), 3 Refill(s), Pharmacy: [facility], Depression Anxiety, 162.5, cm, 01/03/23 11:27:00 EST, Height, kg, 01/03/23 11:27:00 EST, Dosing Weight Start Date: 01/03/23 Status: Ordered Start: 03-24-2022 escitalopram 2 0 mg oral tablet Dose : 20 mg = 1 tab(s), Oral, qDay, # 90 tab(s), 3 Refill(s), Pharmacy: [facility], Depression Anxiety, 162.6, cm, 03/21/22 10:20:00 EDT, Height, kg, 03/21/22 10:20:00 EDT, Dosing Weight Start Date: 03/24/22 Status: Ordered Start: 01-10-2022 escitalopram 2 0 mg oral tablet Dose : 20 mg = 1 tab(s), Oral, qDay, # 90 tab(s), 0 Refill(s), Pharmacy: [facility], Depression Anxiety, 163, cm, 01/05/22 8:16:00 EST, Height, kg, 01/05/22 8:16:00 EST, Dosing Weight Start Date: 01/10/22 Status: Ordered Start: 12-24-2020 escitalopram 2 0 mg oral tablet Dose : 20 mg = 1 tab(s), Oral, qDay, # 90 tab(s), 3 Refill(s), Pharmacy: [facility], Depression Anxiety, 162, cm, 12/22/20 13:21:00 EST, Height, kg, 12/22/20 13:21:00 EST, Dosing Weight Start Date: 12/24/20 Status: Ordered ferrous sulfate 325 mg oral tablet (6 sources) Start: 12-05-2023 IRON (ferrous sulfate 325 mg) 65 mg oral tablet Dose : 325 mg = 1 tab(s), Oral, qDay, Take with food., # 60 tab(s), 3 Refill(s) Start Date: 12/05/23 Status: Ordered Fish Oils (20 sources) Start: 03-26-2016 take 1000 mg by mouth once daily Fish Oil 1,000 mg, Oral, Daily Start Date: 03/26/16 Status: Ordered Start: 03-26-2016 Fish Oil Oral, Daily Start Date: 03/26/16 Status: Ordered hydroCHLOROthiazide 12.5 mg / losartan potassium 50 mg oral tablet (20 sources) Thiazide Diuretic, Angiotensin 2 Receptor Neema Start: 07-25-2024 take 1 tablet by mouth once daily hydrochlorothiazide-losartan 12.5-50 mg oral tablet Dose = 1 tab(s), Oral, qDay, Decreased dose, please send immediately, # 90 tab(s), 1 Refill(s), Pharmacy: [facility], Frequent falls, 162, cm, 07/25/24 9:54:00 EDT, Height, kg, 07/25/24 9:54:00 EDT, Dosing Weight Start Date: 07/25/24 Status: Ordered Start: 12-05-2023 take 1 tablet by marcela th once daily hydrochlorothiazide-losartan 12.5-100 mg oral tablet Dose = 1 tab(s), Oral, qDay, # 90 tab(s), 3 Refill(s), Pharmacy: [facility], HTN (hypertension), 161, cm, 12/05/23 10:33:00 EST, Height, kg, 12/05/23 10:33:00 EST, Dosing Weight Start Date: 12/05/23 Status: Ordered Start: 01-03-2023 take 1 tablet by marcela th once daily hydrochlorothiazide-losartan 12.5-100 mg oral tablet Dose = 1 tab(s), Oral, qDay, # 90 tab(s), 3 Refill(s), Pharmacy: [facility], HTN (hypertension), 162.5, cm, 01/03/23 11:27:00 EST, Height, kg, 01/03/23 11:27:00 EST, Dosing Weight Start Date: 01/03/23 Status: Ordered Start: 01-25-2022 take 1 tablet by marcela th once daily hydrochlorothiazide-losartan 12.5-100 mg oral tablet Dose = 1 tab(s), Oral, qDay, # 90 tab(s), 3 Refill(s), Pharmacy: [facility], HTN (hypertension), 161, cm, 01/25/22 9:22:00 EST, Height, kg, 01/25/22 9:22:00 EST, Dosing Weight Start Date: 01/25/22 Status: Ordered Start: 12-24-2020 take 1 tablet by marcela th once daily hydrochlorothiazide-losartan 12.5-100 mg oral tablet Dose = 1 tab(s), Oral, qDay, # 90 tab(s), 3 Refill(s), Pharmacy: [facility], Hypertension, 162, cm, 12/22/20 13:21:00 EST, Height, kg, 12/22/20 13:21:00 EST, Dosing Weight Start Date: 12/24/20 Status: Ordered levETIRAcetam 500 mg oral tablet (20 sources) Start: 06-22-2021 take 1 tablet by mouth twice daily levETIRAcetam 500 mg oral tablet TAKE 1 TABLET BY MOUTH TWICE A DAY Start Date: 06/22/21 Status: Ordered M.V.I. Adult (20 sources) Start: 03-26-2016 take 1 tablet by mouth once daily M.V.I. Adult 1 tablet, Oral, Daily Start Date: 03/26/16 Status: Ordered magnesium oxide 250 mg oral tablet (7 sources) Start: 10-02-2023 take 1 mg by mouth once daily melatonin 5 mg oral tablet (6 sources) Start: 12-05-2023 Melatonin 5 mg oral tablet Dose : 5 mg = 1 tab(s), Oral, qHS, PRN as needed for insomnia, # 60 tab(s), 0 Refill(s) Start Date: 12/05/23 Status: Ordered omeprazole 20 mg delayed release oral capsule (20 sources) Proton Pump Inhibitor Start: 12-05-2023 omeprazole 20 mg oral delayed release capsule Dose : 20 mg = 1 cap(s), Oral, qDay, # 90 cap(s), 3 Refill(s), Pharmacy: [facility], GERD (gastroesophageal reflux disease), 161, cm, 12/05/23 10:33:00 EST, Height, kg, 12/05/23 10:33:00 EST, Dosing Weight Start Date: 12/05/23 Status: Ordered Start: 01-03-2023 omeprazole 20 mg oral delayed release capsule Dose : 20 mg = 1 cap(s), Oral, qDay, # 90 cap(s), 3 Refill(s), Pharmacy: [facility], GERD (gastroesophageal reflux disease), 162.5, cm, 01/03/23 11:27:00 EST, Height, kg, 01/03/23 11:27:00 EST, Dosing Weight Start Date: 01/03/23 Status: Ordered Start: 01-25-2022 omeprazole 20 mg oral delayed release capsule Dose : 20 mg = 1 cap(s), Oral, qDay, # 90 cap(s), 3 Refill(s), Pharmacy: [facility], GERD (gastroesophageal reflux disease), 161, cm, 01/25/22 9:22:00 EST, Height, kg, 01/25/22 9:22:00 EST, Dosing Weight Start Date: 01/25/22 Status: Ordered Start: 12-24-2020 omeprazole 20 mg oral delayed release capsule Dose : 20 mg = 1 cap(s), Oral, qDay, # 90 cap(s), 3 Refill(s), Pharmacy: [facility], GERD (gastroesophageal reflux disease), 162, cm, 12/22/20 13:21:00 EST, Height, kg, 12/22/20 13:21:00 EST, Dosing Weight Start Date: 12/24/20 Status: Ordered ondansetron 4 mg disintegrating oral tablet (1 source) Serotonin-3 Receptor Antagonist Start: 08-01-2024 take 1 tablet by mouth every eight hours as needed for nausea ondansetron 4 mg oral tablet, disintegrating TAKE 1 TABLET BY MOUTH EVERY 8 HOURS NEEDED FOR NAUSEA/VOMITING Start Date: 08/01/24 Status: Ordered 24 hr oxybutynin chloride 15 mg extended release oral tablet (19 sources) Cholinergic Muscarinic Antagonist Start: 03-05-2024 take 1 tablet by mouth every hour, then take 1 tablet by mouth once daily oxybutynin 15 mg/24 hr oral tablet, extended release Dose : 15 mg = 1 tab(s), Oral, qDay, # 90 tab(s), 0 Refill(s), Pharmacy: [facility], Urge incontinence Urinary incontinence in female, 162, cm, 03/05/24 9:54:00 EDT, Height, kg, 03/05/24 9:54:00 EDT, Dosing Weight Start Date: 03/05/24 Status: Ordered Start: 05-09-2023 take 1 tablet by marcela th every hour, then take 1 tablet by mouth once daily oxybutynin 15 mg/24 hr oral tablet, extended release Dose : 15 mg = 1 tab(s), Oral, qDay, # 90 tab(s), 3 Refill(s), Pharmacy: [facility], Urge incontinence Urinary incontinence in female, 159, cm, 05/09/23 10:07:00 EDT, Height, kg, 05/09/23 10:07:00 EDT, Dosing Weight Start Date: 05/09/23 Status: Ordered Start: 05-03-2022 take 1 tablet by marcela th every hour, then take 1 tablet by mouth once daily oxybutynin 15 mg/24 hr oral tablet, extended release Dose : 15 mg = 1 tab(s), Oral, qDay, # 90 tab(s), 3 Refill(s), Pharmacy: [facility], Urge incontinence Urinary incontinence in female, 161, cm, 05/03/22 15:17:00 EDT, Height, kg, 05/03/22 15:17:00 EDT, Dosing Weight Start Date: 05/03/22 Status: Ordered Start: 04-29-2021 End: 05-13-2021 take 1 tablet by mouth every hour, then take 1 tablet by mouth once daily oxybutynin 15 mg/24 hr oral tablet, extended release Dose : 15 mg = 1 tab(s), Oral, qDay, Discontinue Myrbetriq prescription, # 90 tab(s), 3 Refill(s), Pharmacy: [facility], Urge incontinence Urinary incontinence in female, 163.4, cm, 03/16/21 9:41:00 EDT, Height, kg, 03/16/21 9:41:... Start Date: 04/29/21 Status: Ordered pravastatin sodium 40 mg oral tablet (20 sources) HMG-CoA Reductase Inhibitor Start: 12-05-2023 pravastatin 40 mg or al tablet Dose : 40 mg = 1 tab(s), Oral, qDay, # 90 tab(s), 3 Refill(s), Pharmacy: [facility], Hypercholesterolemia, 161, cm, 12/05/23 10:33:00 EST, Height, kg, 12/05/23 10:33:00 EST, Dosing Weight Start Date: 12/05/23 Status: Ordered Start: 01-03-2023 pravastatin 40 mg oral tablet Dose : 40 mg = 1 tab(s), Oral, qDay, # 90 tab(s), 3 Refill(s), Pharmacy: [facility], Hypercholesterolemia, 162.5, cm, 01/03/23 11:27:00 EST, Height, kg, 01/03/23 11:27:00 EST, Dosing Weight Start Date: 01/03/23 Status: Ordered Start: 01-25-2022 pravastatin 40 mg oral tablet Dose : 40 mg = 1 tab(s), Oral, qDay, # 90 tab(s), 3 Refill(s), Pharmacy: [facility], Hypercholesterolemia, 161, cm, 01/25/22 9:22:00 EST, Height, kg, 01/25/22 9:22:00 EST, Dosing Weight Start Date: 01/25/22 Status: Ordered Start: 12-24-2020 pravastatin 40 mg oral tablet Dose : 40 mg = 1 tab(s), Oral, qDay, # 90 tab(s), 3 Refill(s), Pharmacy: [facility], Hypercholesterolemia, 162, cm, 12/22/20 13:21:00 EST, Height, kg, 12/22/20 13:21:00 EST, Dosing Weight Start Date: 12/24/20 Status: Ordered Prevagen 50 mcg (2000 intl units) oral capsule (11 sources) Start: 01-03-2023 Prevagen 50 mc g (2000 intl units) oral capsule Dose : 50 mcg = 1 cap(s), Oral, qDay, # 60 cap(s), 0 Refill(s) Start Date: 01/03/23 Status: Ordered rOPINIRole 0.5 mg oral tablet (6 sources) Nonergot Dopamine Agonist Start: 12-05-2023 rOPINIRole 0.5 mg oral tablet Dose : 0.5 mg = 1 tab(s), Oral, qHS, 0 Refill(s) Start Date: 12/05/23 Status: Ordered traMADol hydrochloride 50 mg oral tablet (2 sources) Opioid Agonist Start: 08-01-2024 take 1 tablet by mouth every eight hours as needed for pain traMADol 50 mg oral tablet TAKE 1 TABLET BY MOUTH EVERY 8 HOURS NEEDED FOR PAIN Start Date: 08/01/24 Status: Ordered Start: 03-22-2022 End: 03-29-2022 take 1-2 tablets by mouth every six hours as needed for pain Ultram 50 mg oral tablet See Instructions, PRN as needed for pain, 1-2 tab(s) Oral q6h, # 56 tab(s), 0 Refill(s), 03/29/22 7:22:00 EDT, Pharmacy: [facility]/pharmacy #[id number], S/P total right hip arthroplasty, 162.6, cm, 03/21/22 10:20:00 EDT, Height, 89.5 Start Date: 03/22/22 Stop Date: 03/29/22 Status: Ordered vibegron 75 MG Oral Tablet [Gemtesa] (4 sources) Start: 05-14-2024 Gemtesa 75 mg oral tablet Dose : 75 mg = 1 tab(s), Oral, qDay, # 30 tab(s), 0 Refill(s) Start Date: 05/14/24 Status: Ordered Vitamin B Complex oral capsule (16 sources) Start: 10-08-2019 take 1 capsule by mouth once daily Vitamin B Complex oral capsule Dose = 1 cap(s), Oral, Daily, 0 Refill(s) Start Date: 10/08/19 Status: Ordered Vitamin B Complex oral tablet (8 sources) Start: 09-04-2023 take 1 tablet by mouth once daily Vitamin B Complex oral tablet Dose = 1 tab(s), Oral, Daily, 0 Refill(s) Start Date: 09/04/23 Status: Ordered Vitamin D3 1000 intl units (25 mcg) oral capsule (20 sources) Start: 06-30-2020 Vitamin D3 100 0 intl units (25 mcg) oral capsule Dose : 1,000 unit(s) = 1 cap(s), Oral, Daily, 0 Refill(s) Start Date: 06/30/20 Status: Ordered Completed/Discontinued Medications Medication Drug Class(es) Dates Sig (Normalized) Sig (Original) [id number] 200 actuat albuterol 0.09 mg/actuat metered dose inhaler (20 sources) beta2-Adrenergic Agonist Start: 05-09-2023 End: 03-02-2024 take 2 puff(s) by inhalation every six hours as needed for wheezing ProAir HFA MDI (90 mcg/inh) inhalation aerosol 2 puff(s), Inhalation, q6hr, PRN as needed for wheezing, Okay to change to formulary preferred if needed, # 3 EA, 1 Refill(s), Pharmacy: [facility], Seasonal allergies, 161, cm, 09/04/23 11:15:00 EDT, Height, kg, 09/04/23 11:15:00 EDT, Dosing Weight Start Date: 09/04/23 Stop Date: 03/02/24 Status: Ordered Start: 12-13-2021 take 2 puff(s) by in halation every four hours as needed for wheezing ProAir HFA MDI (90 mcg/inh) inhalation aerosol 2 puff(s), Inhalation, q4h, PRN as needed for wheezing, # 8.5 gram(s), 1 Refill(s), Pharmacy: [facility]/pharmacy #[id number], 161.2, cm, 12/12/21 13:43:00 EST, Height, kg, 12/12/21 13:43:00 EST, Dosing Weight Start Date: 12/13/21 Status: Ordered Start: 12-13-2021 take 2 puff(s) by in halation every four hours as needed for wheezing ProAir HFA MDI (90 mcg/inh) inhalation aerosol 2 puff(s), Inhalation, q4h, PRN as needed for wheezing, # 8.5 gram(s), 1 Refill(s), Pharmacy: [facility]/pharmacy #[id number], 161.2, cm, 12/12/21 13:43:00 EST, Height, kg, 12/12/21 13:43:00 EST, Dosing Weight Start Date: 12/13/21 Status: Ordered Start: 07-23-2020 Ventolin HFA M DI (90 mcg/inh) inhalation aerosol 2 puff(s), Inhalation, q4h, PRN as needed for wheezing, 1 EA = 1 inhaler. May substitute to formulary preferred, # 1 EA, 2 Refill(s), Pharmacy: [facility]/pharmacy #[id number], Seasonal allergies Cough, 162.6, cm, 07/23/20 8:12:00 EDT, Height, kg, 07/23/20 8:12... Start Date: 07/23/20 Status: Ordered fluticasone propionate 0.05 mg/actuat metered dose nasal spray (12 sources) Corticosteroid Start: 09-04-2023 End: 08-29-2024 take 1 dose nasal route once daily in the morning Flonase 50 mcg/inh nasal spray Dose = 1 spray(s), Nostril, each, qAM, # 3 EA, 3 Refill(s), Pharmacy: [facility], Hearing loss on left Seasonal allergies, 161, cm, 09/04/23 11:15:00 EDT, Height, kg, 09/04/23 11:15:00 EDT, Dosing Weight Start Date: 09/04/23 Stop Date: 08/29/24 Status: Ordered Start: 01-03-2023 End: 07-02-2023 take 1 dose nasal route once daily in the morning Flonase 50 mcg/inh nasal spray Dose = 1 spray(s), Nostril, each, qAM, # 3 EA, 1 Refill(s), Pharmacy: [facility], Hearing loss on left Seasonal allergies, 162.5, cm, 01/03/23 11:27:00 EST, Height, kg, 01/03/23 11:27:00 EST, Dosing Weight Start Date: 01/03/23 Stop Date: 07/02/23 Status: Ordered gabapentin 100 mg oral capsule (17 sources) Anti-epileptic Agent Start: 06-30-2020 gabapenti n 100 mg oral capsule See Instructions, 1-2 caps 30-60 min. before bedtime, 0 Refill(s), 93.6 Start Date: 06/30/20 Status: Ordered promethazine hydrochloride 25 mg oral tablet (1 source) Phenothiazine Start: 08-01-2024 End: 08-06-2024 promethazine 25 mg oral tablet Dose : 25 mg = 1 tab(s), Oral, q6hr, PRN for nausea/vomiting, # 20 tab(s), 0 Refill(s), Pharmacy: [facility]/pharmacy #[id number], Acute pancreatitis Choledocholithiasis, 162, cm, 08/01/24 14:13:00 EDT, Height, kg, 08/01/24 14:01:00 EDT, Dosing Weight Start Date: 08/01/24 Stop Date: 08/06/24 Status: Ordered zonisamide 100 mg oral capsule (1 source) Anti-epileptic Agent Start: 08-20-2024 zonisamid e 100 mg oral capsule 30 EA, 0 Refill(s), TAKE 1 CAPSULE BY MOUTH EVERY DAY, 0 Refill(s) Start Date: 08/20/24 Status: Ordered Problems Active Problems Problem Classification Problem Date Documented Date Episodic/Chronic Anxiety disorders (20 sources) Anxiety; Translations: [Anxiety disorder] Onset: 2 03-26-2016 Chronic Biliary tract disease (1 source) Obstruction of bile duct; 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 Chronic Coma; stupor; and brain damage (20 sources) Daytime somnolence 01-01-2020 Episodic Conditions associated with dizziness or vertigo (1 source) Dizziness and giddiness; Translations: [Dizziness and giddiness] Episodic Delirium, dementia, and amnestic and other cognitive disorders (1 source) Alzheimer's disease, unspecified; Translations: [Alzheimer's disease, unspecified] Onset: 5 Chronic Diseases of white blood cells (20 sources) Leukopenia 12-23-2021 Chronic Disorders of lipid metabolism (20 sources) Hypercholesterolemia; Translations: [Pure hypercholesterolemia] Onset: 2 06-30-2020 Chronic Diverticulosis and diverticulitis (20 sources) Diverticulitis 12-09-2021 Chronic E Codes: Fall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 Procedure: ERCP Indications: For therapy of bile duct stone(s), Biliary stent removal Providers: Linda Shafer DO Referring MD: Linda Shafer DO Medicines: Monitored Anesthesia Care Patient Profile: This is a 74 year old female. Refer to note in patient chart for documentation of history and physical. Complications: No immediate complications. Procedure: Pre-Anesthesia Assessment: - Prior to the procedure, a History and Physical was performed, and patient medications and allergies were reviewed. The patient is competent. The risks and benefits of the procedure and the sedation options and risks were discussed with the patient. All questions were answered and informed consent was obtained. Patient identification and proposed procedure were verified by the physician in the pre-procedure area. Mental Status Examination: alert and oriented. Airway Examination: normal oropharyngeal airway and neck mobility. Respiratory Examination: clear to auscultation. CV Examination: normal. Prophylactic Antibiotics: The patient does not require prophylactic antibiotics. Prior Anticoagulants: The patient has taken no anticoagulant or antiplatelet agents except for NSAID medication. ASA Grade Assessment: II - A patient with mild systemic disease. After reviewing the risks and benefits, the patient was deemed in satisfactory condition to undergo the procedure. The anesthesia plan was to use monitored anesthesia care (MAC). Immediately prior to administration of medications, the patient was re-assessed for adequacy to receive sedatives. The heart rate, respiratory rate, oxygen saturations, blood pressure, adequacy of pulmonary ventilation, and response to care were monitored throughout the procedure. The physical status of the patient was re-assessed after the procedure. After obtaining informed consent, the scope was passed under direct vision. Throughout the procedure, the patient's blood pressure, pulse, and oxygen saturations were monitored continuously. The Duodenoscope was introduced through the mouth, and advanced to the duodenum and used for direct visualization of the bile duct. The ERCP was accomplished without difficulty. The patient tolerated the procedure well. Scope In: 11:43:06 AM Scope Out: 1:16:34 PM Total Procedure Duration Time 1 hour 33 minutes 28 seconds Findings: The incendiaries supervisor film was normal. The esophagus was successfully intubated under direct vision. The scope was advanced to a normal major papilla in the descending duodenum without detailed examination of the pharynx, larynx and associated structures, and upper GI tract. The upper GI tract was grossly normal. The bile duct was deeply cannulated with the short-nosed traction sphincterotome. Contrast was injected. I personally interpreted the bile duct images. Ductal flow of contrast was adequate. Image quality was adequate. Contrast extended to the main bile duct. Contrast extended to the bifurcation. Contrast extended to the hepatic ducts. Contrast extended to the entire biliary tree. Opacification of the lower third of the main bile duct, middle third of the main bile duct, upper third of the main bile duct, main bile duct, common bile duct, common hepatic duct, left main hepatic duct, right main hepatic duct, left and right hepatic ducts and all intrahepatic branches and entire biliary tree was successful. The maximum diameter of the ducts was 15 mm. The lower third of the main bile duct and upper third of the main bile duct contained a single segmental stenosis 10 mm in length. A cholecystectomy had been performed. A long 0.025 inch Jagwire was passed into the biliary tree. A 5 mm biliary sphincterotomy was made with a traction (standard) sphincterotome using ERBE electrocautery. There was no post-sphincterotomy bleeding. The biliary tree was swept with a 15 mm balloon starting at the upper third of the main bile duct, middle third of the main bile duct, lower third of the main duct, bifurcation, left intrahepatic duct(s), left main hepatic duct, right intrahepatic duct(s) and right main hepatic duct. Sludge was swept from the duct. All stones were removed. To discover objects, the biliary tree was swept with a 12 mm balloon starting at the right intrahepatic duct(s) and right main hepatic duct. Sludge was swept from the duct. All stones were removed. One stent was removed from the right hepatic duct using a snare and sent for cytology. The stent (more content not included)... [facility] MR/POSTOP.[facility] 12-08-2024 MR/POSTOP.[facility] Medical Records Department [address] [place] [address] Anesthesia Postop Eval I 12/08/24 1334 MR#: [id number] Acct: [id number] Name: FANTA LOBO Rep #: [id number] : 1950 74 From: Jcarlos Jiang PCP: Dr. Estella Jacome, DO Status:REG SDC Y Race: C Location: [place] [address] Anesthesia: Postop Eval I Current Vital Signs Temperature: 97 F Pulse Rate: 68 Blood Pressure: 115/59 Respiratory Rate: 16 Pulse Ox: 97 Oxygen Delivery Method: Room Air Assessment Airway patent: Yes Spontaneous unlabored respirations: Yes Mental status: Asleep nausea: No Vomiting: No Anesthesia Complication: No Fluid Hydration Crystalloid volume administer (ml): 90 Total IV fluid infused: 90 Progress Note Anesthesia document: Postop Eval 1 completed: Yes 12/08/24 1335 Date Jcarlos Ovalleignsaturnino Signature: Date CC: Signed Normal [facility] MR/[id number] 12-08-2024 MR/POSTOPAN2 [facility] Medical Records Department [address] [place] [address] Anesthesia Postop Eval II 12/08/24 1336 MR#: [id number] Acct: [id number] Name: FANTA LOBO Rep #: [id number] : 1950 74 From: Mario Alberto Grant MD PCP: Dr. Estella Jacome, DO Status:REG SDC Y Race: C Location: [place] [address]- Anesthesia Postop Eval I Sum Postop Eval Completion status Anesthesia document: Postop Eval 1 completed: Yes Anesthesia Postop Eval I Summary Anesthesia Postop Eval I Summary: Anesthesia Postop Eval I: Assessment Summary Airway patent Yes 12/08/24 13:35 [email or web address] Spontaneous unlabored Yes 12/08/24 13:35 [email or web address] respirations Mental status Asleep 12/08/24 13:35 [email or web address] nausea No 12/08/24 13:35 [email or web address] Vomiting No 12/08/24 13:35 [email or web address] Anesthesia Postop Eval I: Fluid Summary Crystalloid volume administer 90 12/08/24 13:35 [email or web address] (ml) Colloids volume administered ( ml) Blood Product volume administered (ml) Total IV fluid infused 90 12/08/24 13:35 [email or web address] Anesthesia Postop Eval I: Summary Notes Anesthesia Complication No 12/08/24 13:35 [email or web address] Anesthesia Complication Comment: Post-operative progress note Anesthesia: Postop Eval II Evaluation Mental status: Awake Pain Level: 0 nausea: No Vomiting: No 12/08/241335 Date Mario Alberto Grant MD Cosigner Signature: Date CC: Signed Normal [facility] Special Stain Group IIon Special Stain Group II Patient Age/Sex Location Account Attending Physician FANTA LOBO 74/F TARI [id number] Linda Shafer DO Specimen: [id number] Received: 12/08/24 Status: GALILEO Hardwick Num: [id number] Spec Type: Fluid Subm Dr: Linda Shafer DO HEADSATURNINO OPERATION: Ampulla dilation, codey hope, stent removal PRE-OP DIAGNOSIS: Biliary stent obstruction TISSUE SUBMITTED: Biliary stent for cytology DIAGNOSIS CYTOLOGY Biliary stent fluid for cytology (cytospins and cellblock): Negative for malignant cells. See comment. SJ.mr 12/09/2024 COMMENT Clinical correlation and appropriate follow up are necessary. CYTOLOGY STUDY Slides are reviewed. CYTOLOGY GROSS Received is 1-12 ml black-blue stent with 0.5ml of yellowish-orange thick material labeled with the patient's name and and designated per the requisition as Biliary stent. Submitted for cytology preparation including cell block. Mr 12/08/2024 TC:5 CPT: 28581,89238 Signed (signature on file) Dr. Rickey Borden MD 12/09/24 1054 Normal [facility] Comment on above: Performed By: #### L 100.0500, L501.2300, L501.5200, L500.4050 #### [facility] Laboratory [address] [place], [address] Gastroenterology Visit Repor ton 09-04-2024 Gastroenterology Visit Report [facility] Gastroenterology [address] [place] [address] OFFICE VISIT Date of Service: 09/04/24 MR#: [id number] Acct: [id number] Name: FANTA LOBO Roby Rep #: [id number] : 1950 Provider: Linda Shafer DO Age/Sex: 74/F Location: [facility] Status: Signed Intake Vital Signs 08/22/24 13:39 Height 5 ft 2 in Intake Visit Reasons: Hospital FU Allergies codeine Allergy (Intermediate, Verified 08/22/24 13:38) Vomiting hydrocodone bitartrate (From Vicodin) Adverse Reaction (Verified 08/22/24 13:38) Nausea/Vom/Diarrhea propoxyphene napsylate (From Darvocet-N) Adverse Reaction (Verified 08/22/24 13:38) Nausea/Vom/Diarrhea Medications ???Medication ???Instructions ???Recorded ???Confirmed ???Type multivitamin with folic acid 400 1 tab PO DAILY supplement 08/18/14 09/04/24 History mcg tablet (Thera) omeprazole 20 mg capsule,delayed 20 mg PO DAILY Gerd 08/18/14 09/04/24 History release pravastatin 40 mg tablet 40 mg PO DAILY cholesterol 08/18/14 09/04/24 History (Pravachol) alendronate 70 mg tablet 70 mg PO PAYNE OA 04/25/24 09/04/24 History cetirizine 10 mg tablet (Zyrtec) 10 mg PO DAILY PRN allergy symptoms 04/25/24 09/04/24 History escitalopram oxalate 20 mg tablet 20 mg PO DAILY depression 04/25/24 09/04/24 History ferrous sulfate 325 mg (65 mg 325 mg PO DAILY supplement 04/25/24 09/04/24 History iron) tablet (iron) magnesium 250 mg tablet 250 mg PO DAILY supplement 04/25/24 09/04/24 History melatonin 10 mg capsule 10 mg PO QHS sleep 04/25/24 09/04/24 History omega-3 360 wo-ijt-vmb-fish oil 1 cap PO DAILY supplement 04/25/24 09/04/24 History 1,200 mg capsule,delayed release ropinirole 0.5 mg tablet 0.5 mg PO QHS restless legs 04/25/24 09/04/24 History vitamin B complex (B-Complex 1 tab PO DAILY supplement 04/25/24 09/04/24 History tablet) vibegron 75 mg tablet (Gemtesa) 75 mg PO DAILY 06/26/24 09/04/24 History cholecalciferol (vitamin D3) 25 25 mcg PO DAILY supplement 07/26/24 09/04/24 History mcg (1,000 unit) capsule dicyclomine 10 mg capsule 10 mg PO TIDAC #90 caps 07/29/24 09/04/24 Rx tramadol 50 mg tablet 50 mg PO Q8H PRN pain #10 tabs 07/29/24 09/04/24 Rx losartan 50 mg-hydrochlorothiazide 1 tab PO DAILY 08/21/24 09/04/24 History 12.5 mg tablet zonisamide 100 mg capsule 100 mg PO QHS 08/21/24 09/04/24 History Have you fallen in the past year?: No PFSH Medical History Balance problem Wears glasses Wears dentures Ambulates with cane Gastric reflux Former smoker History of biliary stent insertion RLS (restless legs syndrome) History of chronic cholecystitis Absence seizure disorder Ulcerative colitis Allergic rhinitis Anxiety and depression Former tobacco use HLD (hyperlipidemia) HTN (hypertension) Surgical History History of laparoscopic cholecystectomy S/P cataract extraction History of knee replacement History of arthroscopic knee surgery History of section History of total hip replacement S/P cholecystectomy Family History Mother Diabetes Bipolar disorder Father Liver cancer Prostate cancer Social History household members: children Smoking Status: Former smoker how long ago did patient quit smoking: Smoked 40 yrs 1 ppd until quit age 50. alcohol intake: current alcohol intake frequency: holidays/special occasions only substance use type: does not use HPI HPI Details: FANTA LOBO, is a 74 F who presents to the office today for follow up. ERCP 07.01.24 A single localized biliary stricture was found in the lower third of the main bile duct. The stricture was benign appearing. The biliary system were dilated, with a stone causing an obstruction. The patient has had a cholecystectomy. Choledocholithiasis was found. Complete removal was accomplished by biliary sphincterotomy and balloon extraction. A pancreatic sphincterotomy was performed. The ventral pancreatic duct was swept and debris was found. One stent was removed from the biliary tree. A biliary sphincterotomy was performed. The biliary tree was swept. ERCP 07.27.24 Choledocholithiasis was found. Partial removal was accomplished with biliary sphincterotomy; a stent was inserted. A biliary sphincterotomy was performed. The biliary tree was swept. The lower third of the main bile duct and the left main hepatic duct were successfully dilated. A pancreatic sphincterotomy was performed. The ventral pancreatic duct was swept and debris was found. One temporary stent was placed into the common bile duct. *BGI established 08.19.24 Patient has been in and ou (more content not included)... Normal [facility] MR/[id number] 08-23-2024 MR/POSTOPAN2 [facility] Medical Records Department [address] [place] [address] Anesthesia Postop Eval II 08/23/24 1003 MR#: [id number] Acct: [id number] Name: FANTA LOBO Rep #: [id number] : 1950 74 From: Mario Alberto Grant MD PCP: Dr. Estella Jacome, DO Status:DEP [facility] Y Race: C Location: [place] Anesthesia Postop Eval I Sum Postop Eval Completion status Anesthesia document: Postop Eval 1 completed: Yes Anesthesia Postop Eval I Summary Anesthesia Postop Eval I Summary: Anesthesia Postop Eval I: Assessment Summary Airway patent Yes 08/22/24 17:26 [email or web address] Spontaneous unlabored Yes 08/22/24 17:26 [email or web address] respirations Mental status Awake,Calm 08/22/24 17:26 [email or web address] nausea No 08/22/24 17:26 [email or web address] Vomiting No 08/22/24 17:26 [email or web address] Anesthesia Postop Eval I: Fluid Summary Crystalloid volume administer 1,600 08/22/24 17:26 [email or web address] (ml) Colloids volume administered ( ml) Blood Product volume administered (ml) Total IV fluid infused 1,600 08/22/24 17:26 [email or web address] Anesthesia Postop Eval I: Summary Notes Anesthesia Complication No 08/22/24 17:26 [email or web address] Anesthesia Complication Comment: Post-operative progress note Anesthesia: Postop Eval II Evaluation Mental status: Awake Pain Level: 0 nausea: No Vomiting: No 08/23/24 1003 Date Mario Alberto Grant MD Cosigner Signature: Date CC: Signed Normal [facility] ERCP Biliary/Pancreason 07-28 ERCP Biliary/Pancreas [facility] Imaging Services [address] [place] [address] ERCP Biliary/Pancreas MR#: [id number] Acct: [id number] Name: FANTA LOBO R Rep #: [id number] : 1950 F 74 From: Melina Acuna MD PCP: Dr. Estella Jacome DO Status: [facility] Study: ERCP Biliary/Pancreas Date of Exam: 08/22/24 Exam# [id number] Ordering Dr: Linda Shafer DO [id number] Exam: [place] ERCP Biliary and Pancreatic Ductal Systems Comparison: CT July 26, 2024 showing biliary distention and presumed choledocholithiasis, mildly hyperdense 1.1 cm round structure in the pancreatic segment of the distal common duct. Also noted mild pancreas duct dilatation, 7 mm. Also compared to prior ERCP July 27, 2024. History: PAIN FINDINGS: IMAGES: 22 labeled images are provided. There appears to be biliary stent initially. Catheter placed, similar distention of intrahepatic and extrahepatic bile ducts with the initial suboptimal filling of right branches. Balloon deployed in the distal duct, followed by stent placed. RAD/ERCP Biliary/Pancreas IMPRESSION: Real-time fluoroscopic exam. See the procedure note. Electronically Signed: Melina Acuna MD at 2:36 EDT , CC: Dr. Estella Jacome DO; Linda Shafer DO Electrical Continuity Inspector: Signed Normal [facility] ERCP Reporton 08-22-2024 ERCP Report [facility] Medical Records Department [address] [place] [address] ERCP Report MR#: [id number] Acct: [id number] Name: FANTA LOBO R Rep #: [id number] : 1950 74 From: Linda Shafer DO PCP: Dr. 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 Refer to note in patient chart for documentation of history and physical. Patient has symptoms of acute right upper quadrant abdominal pain and chronic right upper quadrant abdominal pain. She is status post laparoscopic cholecystectomy within the past several years. Complications: No immediate complications. Procedure: Pre-Anesthesia Assessment: - Prior to the procedure, a History and Physical was performed, and patient medications and allergies were reviewed. The patient is competent. The risks and benefits of the procedure and the sedation options and risks were discussed with the patient. All questions were answered and informed consent was obtained. Patient identification and proposed procedure were verified by the physician in the pre-procedure area. Mental Status Examination: alert and oriented. Airway Examination: normal oropharyngeal airway and neck mobility. Respiratory Examination: clear to auscultation. CV Examination: normal. Prophylactic Antibiotics: The patient does not require prophylactic antibiotics. Prior Anticoagulants: The patient has taken no anticoagulant or antiplatelet agents. ASA Grade Assessment: II - A patient with mild systemic disease. After reviewing the risks and benefits, the patient was deemed in satisfactory condition to undergo the procedure. The anesthesia plan was to use monitored anesthesia care (MAC). Immediately prior to administration of medications, the patient was re-assessed for adequacy to receive sedatives. The heart rate, respiratory rate, oxygen saturations, blood pressure, adequacy of pulmonary ventilation, and response to care were monitored throughout the procedure. The physical status of the patient was re-assessed after the procedure. After obtaining informed consent, the scope was passed under direct vision. Throughout the procedure, the patient's blood pressure, pulse, and oxygen saturations were monitored continuously. The Duodenoscope was introduced through the mouth, and advanced to the duodenum and used to inject contrast into the bile duct. The ERCP was accomplished without difficulty. The patient tolerated the procedure well. Scope In: 3:22:12 PM Scope Out: 4:57:25 PM Total Procedure Duration Time 1 hour 35 minutes 13 seconds Findings: The incendiaries supervisor film was normal. The esophagus was successfully intubated under direct vision. The scope was advanced to a normal major papilla in the descending duodenum without detailed examination of the pharynx, larynx and associated structures, and upper GI tract. The upper GI tract was grossly normal. The bile duct was deeply cannulated with the short-nosed traction sphincterotome. Contrast was injected. I personally interpreted the bile duct images. There was brisk flow of contrast through the ducts. Image quality was excellent. Contrast extended to the entire biliary tree. The lower third of the main bile duct contained one stone, which was 21 mm in diameter. The entire biliary tree was diffusely dilated, with a stone causing an obstruction. The largest diameter was 17 mm. A cholecystectomy had been performed. A long 0.025 inch Jagwire was passed into the biliary tree. A 5 mm biliary sphincterotomy was made with a traction (standard) sphincterotome using ERBE electrocautery. There was no post-sphincterotomy bleeding. The biliary tree was swept with a 15 mm balloon starting at the bifurcation, left intrahepatic duct(s) and right intrahepatic duct(s). Sludge was swept from the duct. All stones were removed. The lower third of the main bile duct and the right main hepatic duct were successfully dilated with an 8-9-10 mm balloon (to a maximum balloon size of 10 mm) dilator. One stent was removed from the biliary tree using a snare and sent for cytology. The stent was found to be partially occluded via the water column test. The bile duct was explored endoscopically using the SpTwirl TVlass direct visualization system. The SpyScope was advanced to the right intrahepatic duct(s). Visibility with the scope was excellent. The hepatic duct bifurcation and common hepatic duct with patent communication between ri (more content not included)... Normal [facility] MR/POSTOP.ANE 08-22-2024 MR/POSTOP.[facility] Medical Records Department [address] [place] [address] Anesthesia Postop Eval I 08/22/24 5659 MR#: [id number] Acct: [id number] Name: JIMENEZ LOBOWILBERTO aC Rep #: [id number] : 1950 74 From: Jcarlos Jiang PCP: Dr. Estella Jacome, DO Status:REG SDC Y Race: C Location: [place] [address] Anesthesia: Postop Eval I Current Vital Signs Temperature: 97.5 F Pulse Rate: 72 Blood Pressure: 139/73 Respiratory Rate: 16 Pulse Ox: 93 Oxygen Delivery Method: Room Air Assessment Airway patent: Yes Spontaneous unlabored respirations: Yes Mental status: Awake and Calm nausea: No Vomiting: No Anesthesia Complication: No Fluid Hydration Crystalloid volume administer (ml): 1,600 Total IV fluid infused: 1,600 Progress Note Anesthesia document: Postop Eval 1 completed: Yes 08/22/241725 Date Jcarlos Ovalleignsaturnino Signature: Date CC: Signed Normal [facility] Special Stain Group IIon Special Stain Group II Patient Age/Sex Location Account Attending Physician FANTA LOBO 74/F EN [id number] Linda Shafer DO Specimen: [id number] Received: 08/22/24 Status: GALILEO Hardwick Num: [id number] Spec Type: Fluid Subm Dr: Linda Shafer DO HEADER OPERATION: Stent removal, balloon dilation, biopsies PRE-OP DIAGNOSIS: Choledocholithiasis TISSUE SUBMITTED: Biliary stent for cytology DIAGNOSIS CYTOLOGY Biliary stent fluid for cytology (cytospin and cellblock): Negative for malignant cells. See comment. 08/26/2024 COMMENT Please also make reference to additional surgical specimen [id number]. Clinical correlation and appropriate follow up are necessary. CYTOLOGY STUDY Slides are reviewed. CYTOLOGY GROSS Received is 12cm black/blue stent with 0.3 ml of yellow mucoidy material labeled with the patient's name and and designated per the requisition as Biliary stent. Submitted for cytology preparation including cell block. Mr 08/25/2024 TC:5 CPT: 82066,31214 Signed (signature on file) Dr. Rickey Borden MD 08/26/24 1230 Normal [facility] Comment on above: Performed By: #### P SSII ####[facility] [id number] [place], [address] Surgery Specimen Level Ritchie 08-22-2024 Surgery Specimen Level IV Patient Age/Sex Location Account Attending Physician FANTA LOBO 74/F EN [id number] Linda Shafer DO Specimen: [id number] Received: 08/22/24 Status: GALILEO Hardwick Num: [id number] Spec Type: Tissue Bx Tonya Dr: DO RONALDO Marcus OPERATION: Stent removal, balloon dilation, biopsies PRE-OP DIAGNOSIS: Choledocholithiasis TISSUE SUBMITTED: A- Biliary stricture (right hepatic lobe, spygmariah), B- Hilar stricture (spygmariah) MICROSCOPIC DIAGNOSIS A. Biliary stricture (right hepatic lobe), spyglass biopsy: Acute and chronic inflammation and granulation tissue reaction. Reactive epithelial atypia. Negative for malignancy. B. Hilar stricture, spyglass biopsy: A minute fragment of glandular tissue, negative for malignancy. 08/26/2024 MICROSCOPIC DESCRIPTION Slides are reviewed. GROSS DESCRIPTION A. Received in fixative is one container labeled with the patient's name and designated Biliary stricture right hepatic lobe. The specimen consists of multiple irregular fragments of light encarnacion soft tissue that in aggregate measure 0.5 x 0.1 x 0.1 cm. The specimen is totally submitted in one cassette. B. Received in fixative is one container labeled with the patient's name and designated Hilar stricture. The specimen consists of one irregular fragment of light encarnacion soft tissue that measures 0.1 x 0.1 x <0.1 cm. The specimen is totally submitted in one cassette. 08/25/2024 TC:2 CPT:39232e4 Patient Age/Sex Location Account Attending Physician FANTA LOBO/Henrietta MARC [id number] Linda Friend, DO Signed (signature on file) Dr. Rickey Borden MD 08/26/24 1230 Normal [facility] Comment on above: Performed By: #### L 100.0500, L501.2300, L501.5200, L500.4050 #### [facility] Laboratory [address] [place], [address] Gastroenterology Visit Repor ton 08-19-2024 Gastroenterology Visit Report [facility] Gastroenterology [address] [facility] [place] [address] OFFICE VISIT Date of Service: 08/19/24 MR#: [id number] Acct: [id number] Name: JIMENEZ LOBOWILBERTO Ca Rep #: [id number] : 1950 Provider: HUDSON Kevin Age/Sex: 74/F Location: [facility] Status: Signed Intake Vital Signs 07/27/24 13:13 Height 5 ft 2 in Intake Visit Reasons: Hospital FU Chief Complaint: s/p ERCP Allergies codeine Allergy (Intermediate, Verified 07/26/24 17:23) Vomiting hydrocodone bitartrate (From Vicodin) Adverse Reaction (Verified 07/26/24 17:23) Nausea/Vom/Diarrhea propoxyphene napsylate (From Darvocet-N) Adverse Reaction (Verified 07/26/24 17:23) Nausea/Vom/Diarrhea Medications ???Medication ???Instructions ???Recorded ???Confirmed ???Type multivitamin with folic acid 400 1 tab PO DAILY supplement 08/18/14 08/19/24 History mcg tablet (Thera) omeprazole 20 mg capsule,delayed 20 mg PO DAILY Gerd 08/18/14 08/19/24 History release pravastatin 40 mg tablet 40 mg PO DAILY cholesterol 08/18/14 08/19/24 History (Pravachol) alendronate 70 mg tablet 70 mg PO PAYNE OA 04/25/24 08/19/24 History cetirizine 10 mg tablet (Zyrtec) 10 mg PO DAILY PRN allergy symptoms 04/25/24 08/19/24 History escitalopram oxalate 20 mg tablet 20 mg PO DAILY depression 04/25/24 08/19/24 History ferrous sulfate 325 mg (65 mg 325 mg PO DAILY supplement 04/25/24 08/19/24 History iron) tablet (iron) losartan 100 1 tab PO DAILY blood pressure 04/25/24 08/19/24 History mg-hydrochlorothiazide 12.5 mg tablet magnesium 250 mg tablet 250 mg PO DAILY supplement 04/25/24 08/19/24 History melatonin 10 mg capsule 10 mg PO QHS sleep 04/25/24 08/19/24 History omega-3 360 db-rrh-oyc-fish oil 1 cap PO DAILY supplement 04/25/24 08/19/24 History 1,200 mg capsule,delayed release ropinirole 0.5 mg tablet 0.5 mg PO QHS restless legs 04/25/24 08/19/24 History vitamin B complex (B-Complex 1 tab PO DAILY supplement 04/25/24 08/19/24 History tablet) vibegron 75 mg tablet (Gemtesa) 75 mg PO DAILY 06/26/24 08/19/24 History cholecalciferol (vitamin D3) 25 25 mcg PO DAILY supplement 07/26/24 08/19/24 History mcg (1,000 unit) capsule dicyclomine 10 mg capsule 10 mg PO TIDAC #90 caps 07/29/24 08/19/24 Rx ondansetron 4 mg disintegrating 4 mg PO Q8H PRN nausea and 07/29/24 08/19/24 Rx tablet vomiting #30 tabs tramadol 50 mg tablet 50 mg PO Q8H PRN pain #10 tabs 07/29/24 08/19/24 Rx Have you fallen in the past year?: Yes PFSH Medical History (Updated 08/19/24 @ 11:43 by HUDSON Kevin) Wears glasses Wears dentures Ambulates with cane Gastric reflux Former smoker History of biliary stent insertion RLS (restless legs syndrome) History of chronic cholecystitis Absence seizure disorder Ulcerative colitis Allergic rhinitis Anxiety and depression Former tobacco use HLD (hyperlipidemia) HTN (hypertension) Surgical History (Updated 08/06/24 @ 00:02 by Reza Villarreal) History of laparoscopic cholecystectomy S/P cataract extraction History of knee replacement History of arthroscopic knee surgery History of section History of total hip replacement S/P cholecystectomy Family History Mother Diabetes Bipolar disorder Father Liver cancer Prostate cancer Social History household members: children Smoking Status: Former smoker how long ago did patient quit smoking: Smoked 40 yrs 1 ppd until quit age 50. alcohol intake: current alcohol intake frequency: holidays/special occasions only substance use type: does not use HPI HPI Chief Complaint: s/p ERCP Details: FANTA LOBO, is a 74 F who presents to the office today for hospital f/u. Patient has been in and out of the hospital since March 2024 with CBD stones causing obstruction. She is s/p cholecystectomy about 1 year ago and has hx of UC and pancreatitis. In March 2024 she underwent ERCP with stone removal and stent placement. She had stent removed in June 2024 and then a week later had another CBD stone. She underwent another ERCP for stone removal and stent placement. During her hospitalism in June she had pancreatitis with elevated lipase in the . Dr. 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 She is scheduled for Spyglass on 08.22.24 and is here today for discussion about the recurrent stones. Today she denies abdominal pain, n/v, heartburn, constipation or diarrhea. Biochemical work up; 07.29.24; Hgb 10.2, bilirubin 1.10, AST 49, ALT 113, ALP 349, CA 19-9 70, CEA wnl Biopsy with fluid from stent; 8.6.24; no malignant cells ROS Const Constitutional: Positive for frequent fal (more content not included)... Normal [facility] Kidney and Bladderon 024 Kidney and Bladder [facility] Imaging Services [address] [place] [address] Kidney and Bladder MR#: [id number] Acct: [id number] Name: FANTA LOBO Rep #: [id number] : 1950 F 74 From: Marin Aponte MD PCP: Dr. Estella Jacome, DO Status: REG CLI Study: Kidney and Bladder Date of Exam: 08/11/24 Exam# [id number] Ordering Dr: Carolina Villanueva MD [id number] STUDY: RENAL ULTRASOUND - COMPLETE REASON FOR EXAM: Female, 74 years old. RIGHT RENAL CYST TECHNIQUE: Ultrasound evaluation of the kidneys was performed with real-time and static luna-scale imaging. COMPARISON: None. FINDINGS: RIGHT KIDNEY: Normal location of the right kidney, which is normal in size. The right kidney measures 12.9 cm. There is a normal cortex of the right kidney. The renal cortex measures 1.3 cm. 4.4 cm cyst in the upper pole right kidney. Another subcentimeter cyst in the upper pole right kidney. There are no right renal calculi. There is no right hydronephrosis. DISTAL RIGHT URETER: There is non-visualization of the distal right ureter. There is no demonstrated right ureterovesical junction calculus. There is a visualized right ureteral jet. LEFT KIDNEY: Normal location of the left kidney, which is normal in size. The left kidney measures 10.5 cm. There is a normal cortex of the left kidney. The renal cortex measures 1.5 cm. 1.5 cm cyst midsection of left kidney. There are no left renal calculi. There is no left hydronephrosis. DISTAL LEFT URETER: There is non-visualization of the distal left ureter. There is no demonstrated left ureterovesical junction calculus. There is a visualized left ureteral jet. BLADDER: The distended urinary bladder has a volume of 134 ml. The empty urinary bladder has a volume of ml. There is a normal wall thickness of the distended urinary bladder. There is no demonstrated mass within the urinary bladder. There are no demonstrated bladder calculi. US/Kidney and Bladder IMPRESSION: Bilateral renal cysts including a 4.4 cm cyst in the upper pole right kidney. Electronically Signed: Marin Aponte MD at 13:00 EDT , CC: Dr. Carolina Villanueva MD; Dr. Estella Jacome DO Electrical Continuity Inspector: Signed Normal [facility] Carbohydrate AG 19-9on 07-30 CA 19-9 70 U/mL High 0-35 [facility] Comment on above: Order Comment: MONDA Y OR TUES SINCE [facility] DOES NOT GO TIL TUES. NURSE WASDOING SOMETHING ELSE. CALL BACK IN A LITTLE BIT. PATIENT AGUSTINA SMITH RIGHT NOW, COULD NOT DRAW BLOOD AT EXACT TIMEORDERED.CHARGE NURSE PRIYANKA MARR MOVING DRAW TO T+1 Result Comment: [facility] Electrochemiluminescence Immunoassay (ECLIA) Values obtained with different assay methods or kits cannot be used interchangeably. Results cannot be interpreted as absolute evidence of the presence or absence of malignant disease. Performed at: [address] [id number] Orthodontist: Jaziel Zamora PhD, Phone: [phone] Performed By: #### L 4744.8967, W8731.7576 ####[facility] [id number] [place], [address] Carcinoembryonic Antigenon 0 07-30-2024 CEA 2.1 ng/mL Normal 0.0-4.7 [facility] Comment on above: Order Comment: MONDA Y OR TUES SINCE [facility] DOES NOT GO TIL TUES. NURSE WASDOING SOMETHING ELSE. CALL BACK IN A LITTLE BIT. PATIENT AGUSTINA SMITH RIGHT NOW, COULD NOT DRAW BLOOD AT EXACT TIMEORDERED.CHARGE NURSE PRIYANKA MARR MOVING DRAW TO T+1 Result Comment: Nons mokers <3.9 Smokers <5.6 [facility] Electrochemiluminescence Immunoassay (ECLIA) Values obtained with different assay methods or kits cannot be used interchangeably. Results cannot be interpreted as absolute evidence of the presence or absence of malignant disease. Performed By: #### L 3100.5020, L3100.2300 ####[facility] [address] [place], [address] CBC-Complete Blood Cnt No Di ffon 07-29-2024 Erythrocyte distribution width (RBC) [Ratio] 13.3 % Normal 11.6-14.6 [facility] Comment on above: Performed By: #### L 100.0500, L501.2300, L501.5200, L500.4050 #### [facility] Laboratory [address] [place], [address] Hematocrit (Bld) [Volume fraction] 31.2 % Low 37-47 [facility] Comment on above: Performed By: #### L 100.0500, L501.2300, L501.5200, L500.4050 #### [facility] Laboratory [address] [place], [address] Hemoglobin (Bld) [Mass/Vol] 10.2 g/dL Low 12.0-15.0 [facility] Comment on above: Performed By: #### L 100.0500, L501.2300, L501.5200, L500.4050 #### [facility] Laboratory [address] [place], [address] MCH (RBC) [Entitic mass] 30.4 pg Normal 27.0-32.0 [facility] Comment on above: Performed By: #### L 100.0500, L501.2300, L501.5200, L500.4050 #### [facility] Laboratory [address] [place], [address] MCHC (RBC) [Mass/Vol] 32.7 g/dL Normal 32-36 [facility] Comment on above: Performed By: #### L 100.0500, L501.2300, L501.5200, L500.4050 #### [facility] Laboratory [address] [place], [address] MCV (RBC) [Entitic vol] 92.9 fL Normal 81-99 [facility] Comment on above: Performed By: #### L 100.0500, L501.2300, L501.5200, L500.4050 #### [facility] Laboratory [address] [place], [address] Platelet mean volume (Bld) [Entitic vol] 10.2 fL Normal 6.2-12.0 [facility] Comment on above: Performed By: #### L 100.0500, L501.2300, L501.5200, L500.4050 #### [facility] Laboratory [address] [place], [address] Platelets (Bld) [#/Vol] 214 10*3/uL Normal 150-450 [facility] Comment on above: Performed By: #### L 100.0500, L501.2300, L501.5200, L500.4050 #### [facility] Laboratory [address] [place], [address] RBC (Bld) [#/Vol] 3.36 10*6/uL Low 4.2-5.4 [facility] Comment on above: Performed By: #### L 100.0500, L501.2300, L501.5200, L500.4050 #### [facility] Laboratory [address] [place], [address] RDW SD 45.8 fl High 35.1-43.9 [facility] Comment on above: Performed By: #### L 100.0500, L501.2300, L501.5200, L500.4050 #### [facility] Laboratory [address] [place], [address] WBC (Bld) [#/Vol] 4.5 10*3/uL Normal 4.4-11.0 [facility] Comment on above: Performed By: #### L 100.0500, L501.2300, L501.5200, L500.4050 #### [facility] Laboratory [address] [place], [address] Comprehensive Metabolic Prof [facility] 07-29-2024 Albumin [Mass/Vol] 2.4 g/dL Low 3.2-5.0 [facility] Comment on above: Performed By: #### L 100.0500, L501.2300, L501.5200, L500.4050 #### [facility] Laboratory [address] [place], [address] Albumin/Globulin [Mass ratio] 0.6 {ratio} Low 0.9-2.4 [facility] Comment on above: Performed By: #### L 100.0500, L501.2300, L501.5200, L500.4050 #### [facility] Laboratory [address] [place], [address] ALK P 349 U/L High 45-117 [facility] Comment on above: Performed By: #### L 100.0500, L501.2300, L501.5200, L500.4050 #### [facility] Laboratory [address] [place], [address] ALT [Catalytic activity/Vol] 113 U/L High 13-56 [facility] Comment on above: Performed By: #### L 100.0500, L501.2300, L501.5200, L500.4050 #### [facility] Laboratory [address] [place], [address] AST [Catalytic activity/Vol] 49 U/L High 15-37 [facility] Comment on above: Performed By: #### L 100.0500, L501.2300, L501.5200, L500.4050 #### [facility] Laboratory [address] [place], [address] Bilirubin [Mass/Vol] 1.10 mg/dL High 0.20-1.00 [facility] Comment on above: Result Comment: For patients on eltrombopag therapy, use of Dimension [place] TBIL is not recommended. Performed By: #### L 100.0500, L501.2300, L501.5200, L500.4050 #### [facility] Laboratory [address] [place], [address] BUN/CRE 14.6 RATIO Normal 10-20 [facility] Comment on above: Performed By: #### L 100.0500, L501.2300, L501.5200, L500.4050 #### [facility] Laboratory [address] [place], [address] CA,Total 8.7 mg/dL Normal 8.5-10.1 [facility] Comment on above: Performed By: #### L 100.0500, L501.2300, L501.5200, L500.4050 #### [facility] Laboratory [address] [place], [address] Chloride [Moles/Vol] 110 mmol/L High 98-107 [facility] Comment on above: Performed By: #### L 100.0500, L501.2300, L501.5200, L500.4050 #### [facility] Laboratory [address] [place], [address] CO2 [Moles/Vol] 26.0 mmol/L Normal 21.0-32.0 [facility] Comment on above: Performed By: #### L 100.0500, L501.2300, L501.5200, L500.4050 #### [facility] Laboratory [address] [place], [address] Creatinine [Mass/Vol] 0.55 mg/dL Normal 0.55-1.02 [facility] Comment on above: Result Comment: The validity of the calculated GFR GFRAA in patients over 70 years has not been determined. Clinical correlation is essential. Performed By: #### L 100.0500, L501.2300, L501.5200, L500.4050 #### [facility] Laboratory [address] [place], [address] ECRCL 61.71 ml/min Normal [facility] Comment on above: Performed By: #### L 100.0500, L501.2300, L501.5200, L500.4050 #### [facility] Laboratory [address] [place], [address] EST GFR - AA 139 mL/min Normal >60 [facility] Comment on above: Result Comment: Afri can Malaysian GFR Calc Performed By: #### L 100.0500, L501.2300, L501.5200, L500.4050 #### [facility] Laboratory [address] [place], [address] GAP 4 Low 5-15 [facility] Comment on above: Performed By: #### L 100.0500, L501.2300, L501.5200, L500.4050 #### [facility] Laboratory [address] [place], [address] GFR/1.73 sq M.predicted among non-blacks MDRD (S/P/Bld) [Vol rate/Area] 115 mL/min/{1.73_m2} Normal >60 [facility] Comment on above: Result Comment: Non- GFR Calc Performed By: #### L 100.0500, L501.2300, L501.5200, L500.4050 #### [facility] Laboratory [address] [place], [address] Globulin (S) [Mass/Vol] 4.1 g/dL Normal 2.2-4.2 [facility] Comment on above: Performed By: #### L 100.0500, L501.2300, L501.5200, L500.4050 #### [facility] Laboratory [address] [place], [address] Glucose [Mass/Vol] 94 mg/dL Normal 74-106 [facility] Comment on above: Performed By: #### L 100.0500, L501.2300, L501.5200, L500.4050 #### [facility] Laboratory [address] [place], [address] Potassium [Moles/Vol] 3.9 mmol/L Normal 3.5-5.1 [facility] Comment on above: Performed By: #### L 100.0500, L501.2300, L501.5200, L500.4050 #### [facility] Laboratory [address] [place], [address] Sodium [Moles/Vol] 140 mmol/L Normal 136-145 [facility] Comment on above: Performed By: #### L 100.0500, L501.2300, L501.5200, L500.4050 #### [facility] Laboratory [address] [place], [address] T PROT 6.5 g/dL Normal 6.4-8.2 [facility] Comment on above: Performed By: #### L 100.0500, L501.2300, L501.5200, L500.4050 #### [facility] Laboratory [address] [place], [address] Urea nitrogen [Mass/Vol] 8 mg/dL Normal 7-18 [facility] Comment on above: Performed By: #### L 100.0500, L501.2300, L501.5200, L500.4050 #### [facility] Laboratory [address] [place], [address] MR/PN.GIon 07-29-2024 MR/PN.KIMANI [facility] Medical Records Department [address] [place] [address] Progress Note - 07/29/24 1518 MR#: [id number] Acct: [id number] Name: FANTA LOBO Rep #: [id number] : 1950 74 From: Linda Friend DO PCP: Dr. Estella Jacome, DO Status:DIS IN Location: [address] Subjective Subjective Patient's abdominal pain is resolved. She is able to tolerate a diet. Her LFTs are improving. Objective Data Objective Data Vital Signs: Vital Signs Temp Pulse Resp BP Pulse Ox O2 Del Method 98.4 F 67 14 159/78 H 100 Room Air 07/29/24 13:33 07/29/24 13:33 07/29/24 13:33 07/29/24 13:33 07/29/24 13:33 07/29/24 13:33 Oxygen Delivery Method Room Air Weight: 194 lb 7.163 oz Body Mass Index (BMI) 35.7 Intake Output: Intake and Output for Last 24 Hours 07/27/24 07/28/24 07/29/24 23:59 23:59 23:59 Intake Total 4447.5 / 4447.5 2582.13 / 2582.13 743.5 / 743.5 Balance 4447.5 / 4447.5 2582.13 / 2582.13 743.5 / 743.5 Lab / Micro Data 07/29/24 06:09 07/29/24 06:09 Labs: Laboratory Results - last 24 hr 07/27/24 05:02: Vitamin B12 765 07/29/24 06:09: WBC 4.5, RBC 3.36 L, Hgb 10.2 L, Hct 31.2 L, MCV 92.9, MCH 30.4, MCHC 32.7, RDW Std Deviation 45.8 H, RDW Coeff of Ruth 13.3, Plt Count 214, MPV 10.2, Sodium 140, Potassium 3.9, C hloride 110 H, Carbon Dioxide 26.0, Anion Gap 4 L, BUN 8, Creatinine 0.55, Estim Creat Clear Calc 61.71, Est GFR (MDRD) Af Amer 139, Est GFR (MDRD) Non-Af 115, BUN/Creatinine Ratio 14.6, Glucose 94, Calcium 8.7, Phosphorus 2.8, Magnesium 2.0, Total Bilirubin 1.10 H, AST 49 H, ALT 113 H, Alkaline Phosphatase 349 H, Total Protein 6.5, Albumin 2.4 L, Globulin 4.1, Albumin/Globulin Ratio 0.6 L Physical Exam Narrative Patient denies any abdominal pain. P.o. intake was better today. She does states she paces herself and seems to do better. She did complain she was up all night because of the noise in the lin Const alert, oriented x3, no apparent distress, no limitations and well nourished; Negative for average body habitus Constitutional Narrative: Obese, older, white female, sitting up in bed, appears comfortable, nontoxic General Appearance: cooperative, comfortable, well kempt and well developed Orientation / Consciousness: awake, oriented to person, oriented to place and oriented to time Exam Limitations: no limitations Nutritional Appearance: obese HEENT normocephalic, head/scalp atraumatic, hearing grossly normal bilaterally, moist oral mucous membranes and oropharynx normal HEENT Narrative: Mallampati 3, no thrush Eyes PERRL, EOMs intact bilaterally and conjunctivae normal Eyes Narrative: No scleral icterus Neck no lymphadenopathy and supple Neck Narrative: Trachea midline, no thyroid enlargement Resp normal respiratory effort, no retractions, no use of accessory muscles and clear to auscultation bilaterally Auscultation: Negative for rales, rhonchi or wheezes Cardio regular rate, regular rhythm, S1 normal heart sound, S2 normal heart sound, no murmurs, no rub, no gallops and no clicks GI normal to inspection, nondistended, normoactive bowel sounds, soft to palpation and non-tender GI Narrative: Epigastric area is no longer tender Extremity no clubbing, cyanosis or edema Extremity Narrative: Pedal and radial pulses are 2+ Skin no rashes or lesions noted, no wounds, skin turgor normal, no jaundice, no petechiae and no mottling Neuro oriented x3, moves all extremities and no focal motor deficits Speech: speech normal Psych affect normal Psych Narrative: Very pleasant, interacts appropriately, eye contact is good Assessment Plan Assessment/Plan (1) Weight loss: (2) Right renal mass: (3) Acute pancreatitis: QUALIFIERS: Pancreatitis type: biliary Acute pancreatitis complication: no infection or necrosis Qualified Code(s): K85.10 - Biliary acute pancreatitis without necrosis or infection (4) Choledocholithiasis: PLAN: Plan Abdominal pain/nausea/vomiting secondary to choledocholithiasis-recurr ent -Workup is in progress and patient will need to undergo spyglass -ERCP performed on 07/27/2024 at which time she had biliary sphincterotomy and stone removal with stent placement, narrowing was noted and dilated -CEA and CA 19-9 are pending -Spyglass will need to be performed -LFTs are trending down and normalizing Acute pancreatitis -Resolving -Patient is tolerating p.o. liquids and food without any increased pain however diet is not great at this point -Add supplements -As needed pain medication Charges/Coding Visit Charges Inpatient E M: 00146 Subs Hosp L3 07/29/24 1513 Cosigner Signature (if applicable): CC: Signed Normal [facility] Magnesiumon 07-29-2024 Magnesium [Mass/Vol] 2.0 mg/dL Normal 1.6-2.6 [facility] Comment on above: Performed By: #### L 100.0500, L501.2300, L501.5200, L500.4050 #### [facility] Laboratory [address] [place], [address] Phosphoruson 07-29-2024 Phosphate [Mass/Vol] 2.8 mg/dL Normal 2.5-4.9 [facility] Comment on above: Performed By: #### L 100.0500, L501.2300, L501.5200, L500.4050 #### [facility] Laboratory [address] [place], [address] Vitamin B12on 07-29-2024 Cobalamin (Vitamin B12) [Mass/Vol] 765 pg/mL Normal 211-911 [facility] Comment on above: Performed By: #### L 503.0105 ####[facility] [address] [place], [address] CBC W/Diff, Automatedon 09 Absolute Lymph 0.99 X10 3/uL Normal 0.83-4.51 [facility] Comment on above: Performed By: #### L 100.0100 ####[facility] [address] [place], [address] Absolute Neut 2.9 X10 3/uL Normal 2.0-7.7 [facility] Comment on above: Performed By: #### L 100.0100 ####[facility] [address] [place], [address] Basophils/100 WBC (Bld) 0.9 % Normal 0-1 [facility] Comment on above: Performed By: #### L 100.0100 ####[facility] [address] [place], [address] Eosinophils/100 WBC (Bld) 2.7 % Normal 0-5 [facility] Comment on above: Performed By: #### L 100.0100 ####[facility] [address] [place], [address] Erythrocyte distribution width (RBC) [Ratio] 13.4 % Normal 11.6-14.6 [facility] Comment on above: Performed By: #### L 100.0100 ####[facility] [address] [place], [address] Hematocrit (Bld) [Volume fraction] 30.9 % Low 37-47 [facility] Comment on above: Performed By: #### L 100.0100 ####[facility] [address] [place], [address] Hemoglobin (Bld) [Mass/Vol] 10.3 g/dL Low 12.0-15.0 [facility] Comment on above: Performed By: #### L 100.0100 ####[facility] [address] [place], [address] IG% 0.500 Normal 0.0-0.9 [facility] Comment on above: Result Comment: IG% - Immature Granulocytes (promyelocytes, myelocytes and metamyelocytes) > 1% indicates that a LEFT SHIFT is Present. Performed By: #### L 100.0100 ####[facility] [address] [place], [address] Lymphocytes/100 WBC (Bld) 22.6 % Normal 19-41 [facility] Comment on above: Performed By: #### L 100.0100 ####[facility] [address] [place], [address] MCH (RBC) [Entitic mass] 31.0 pg Normal 27.0-32.0 [facility] Comment on above: Performed By: #### L 100.0100 ####[facility] [address] [place], [address] MCHC (RBC) [Mass/Vol] 33.3 g/dL Normal 32-36 [facility] Comment on above: Performed By: #### L 100.0100 ####[facility] [address] [place], [address] MCV (RBC) [Entitic vol] 93.1 fL Normal 81-99 [facility] Comment on above: Performed By: #### L 100.0100 ####[facility] [address] [place], [address] Monocytes/100 WBC (Bld) 7.7 % Normal 0-10 [facility] Comment on above: Performed By: #### L 100.0100 ####[facility] [address] [place], [address] Neutrophils/100 WBC (Bld) 65.6 % Normal 47-70 [facility] Comment on above: Performed By: #### L 100.0100 ####[facility] [address] [place], [address] Nucleated RBC (Bld) [#/Vol] 0 10*3/uL Normal 0-5 [facility] Comment on above: Performed By: #### L 100.0100 ####[facility] [address] [place], [address] Platelet mean volume (Bld) [Entitic vol] 9.8 fL Normal 6.2-12.0 [facility] Comment on above: Performed By: #### L 100.0100 ####[facility] [address] [place], [address] Platelets (Bld) [#/Vol] 206 10*3/uL Normal 150-450 [facility] Comment on above: Performed By: #### L 100.0100 ####[facility] [address] [place], [address] RBC (Bld) [#/Vol] 3.32 10*6/uL Low 4.2-5.4 [facility] Comment on above: Performed By: #### L 100.0100 ####[facility] [address] [place], [address] RDW SD 45.5 fl High 35.1-43.9 [facility] Comment on above: Performed By: #### L 100.0100 ####[facility] [address] [place], [address] WBC (Bld) [#/Vol] 4.4 10*3/uL Normal 4.4-11.0 [facility] Comment on above: Performed By: #### L 100.0100 ####[facility] [address] [place], [address] Comprehensive Metabolic Prof ilon 07-28-2024 Albumin [Mass/Vol] 2.5 g/dL Low 3.2-5.0 [facility] Comment on above: Performed By: #### L 500.4050, L501.2300, L501.5200 #### [facility] Laboratory [address] [place], [address] Albumin/Globulin [Mass ratio] 0.6 {ratio} Low 0.9-2.4 [facility] Comment on above: Performed By: #### L 500.4050, L501.2300, L501.5200 #### [facility] Laboratory [address] [place], [address] ALK P 376 U/L High 45-117 [facility] Comment on above: Performed By: #### L 500.4050, L501.2300, L501.5200 #### [facility] Laboratory [address] [place], [address] ALT [Catalytic activity/Vol] 151 U/L High 13-56 [facility] Comment on above: Performed By: #### L 500.4050, L501.2300, L501.5200 #### [facility] Laboratory [address] [place], [address] AST [Catalytic activity/Vol] 91 U/L High 15-37 [facility] Comment on above: Performed By: #### L 500.4050, L501.2300, L501.5200 #### [facility] Laboratory [address] [place], [address] Bilirubin [Mass/Vol] 2.10 mg/dL High 0.20-1.00 [facility] Comment on above: Result Comment: For patients on eltrombopag therapy, use of Dimension [place] TBIL is not recommended. Performed By: #### L 500.4050, L501.2300, L501.5200 #### [facility] Laboratory [address] [place], [address] BUN/CRE 12.9 RATIO Normal 10-20 [facility] Comment on above: Performed By: #### L 500.4050, L501.2300, L501.5200 #### [facility] Laboratory [address] [place], [address] CA,Total 8.5 mg/dL Normal 8.5-10.1 [facility] Comment on above: Performed By: #### L 500.4050, L501.2300, L501.5200 #### [facility] Laboratory [address] [place], [address] Chloride [Moles/Vol] 111 mmol/L High 98-107 [facility] Comment on above: Performed By: #### L 500.4050, L501.2300, L501.5200 #### [facility] Laboratory [address] [place], [address] CO2 [Moles/Vol] 22.0 mmol/L Normal 21.0-32.0 [facility] Comment on above: Performed By: #### L 500.4050, L501.2300, L501.5200 #### [facility] Laboratory [address] [place], [address] Creatinine [Mass/Vol] 0.62 mg/dL Normal 0.55-1.02 [facility] Comment on above: Result Comment: The validity of the calculated GFR GFRAA in patients over 70 years has not been determined. Clinical correlation is essential. Performed By: #### L 500.4050, L501.2300, L501.5200 #### [facility] Laboratory [address] [place], [address] ECRCL 61.71 ml/min Normal [facility] Comment on above: Performed By: #### L 500.4050, L501.2300, L501.5200 #### [facility] Laboratory [address] [place], [address] EST GFR - AA 120 mL/min Normal >60 [facility] Comment on above: Result Comment: Afri can Malaysian GFR Calc Performed By: #### L 500.4050, L501.2300, L501.5200 #### [facility] Laboratory [address] [place], [address] GAP 5 Normal 5-15 [facility] Comment on above: Performed By: #### L 500.4050, L501.2300, L501.5200 #### [facility] Laboratory [address] [place], [address] GFR/1.73 sq M.predicted among non-blacks MDRD (S/P/Bld) [Vol rate/Area] 100 mL/min/{1.73_m2} Normal >60 [facility] Comment on above: Result Comment: Non- GFR Calc Performed By: #### L 500.4050, L501.2300, L501.5200 #### [facility] Laboratory [address] [place], [address] Globulin (S) [Mass/Vol] 4.1 g/dL Normal 2.2-4.2 [facility] Comment on above: Performed By: #### L 500.4050, L501.2300, L501.5200 #### [facility] Laboratory [address] [place], [address] Glucose [Mass/Vol] 100 mg/dL Normal 74-106 [facility] Comment on above: Result Comment: Fast ing Glucose result from 100 to 125 mg/dL suggests IMPAIRED HOMEOSTASIS per A.D.A. criteria. Performed By: #### L 500.4050, L501.2300, L501.5200 #### [facility] Laboratory [address] [place], [address] Potassium [Moles/Vol] 4.0 mmol/L Normal 3.5-5.1 [facility] Comment on above: Performed By: #### L 500.4050, L501.2300, L501.5200 #### [facility] Laboratory [address] [place], [address] Sodium [Moles/Vol] 138 mmol/L Normal 136-145 [facility] Comment on above: Performed By: #### L 500.4050, L501.2300, L501.5200 #### [facility] Laboratory [address] [place], [address] T PROT 6.6 g/dL Normal 6.4-8.2 [facility] Comment on above: Performed By: #### L 500.4050, L501.2300, L501.5200 #### [facility] Laboratory [address] [place], [address] Urea nitrogen [Mass/Vol] 8 mg/dL Normal 7-18 [facility] Comment on above: Performed By: #### L 500.4050, L501.2300, L501.5200 #### [facility] Laboratory [address] [place], [address] Magnesiumon 07-28-2024 Magnesium [Mass/Vol] 1.8 mg/dL Normal 1.6-2.6 [facility] Comment on above: Performed By: #### L 500.4050, L501.2300, L501.5200 #### [facility] Laboratory [address] [place], [address] Phosphoruson 07-28-2024 Phosphate [Mass/Vol] 2.5 mg/dL Normal 2.5-4.9 [facility] Comment on above: Performed By: #### L 500.4050, L501.2300, L501.5200 #### [facility] Laboratory [address] [place], [address] 12 Lead EKGon 07-27-2024 12 Lead EKG [facility] Cardiovascular Services [address] [place] [address] 12 Lead EKG 07/27/24 0541 MR#: [id number] Acct: [id number] Name: FANTA LOBO Rep #: [id number] : 1950 74 From: Juan Hardy MD Attending Dr: Dr. Leena Cunningham DO Status: ADM I N Ordering Dr: Mario Alberto Grant MD Date: 07/27/24 Location: [facility] [place] Sex: F C Admitted: 07/26/24 Test Reason : PRE OP Blood Pressure : / mmHG Vent. Rate : 069 BPM Atrial Rate : 069 BPM P-R Int : 190 ms QRS Dur : 090 ms QT Int : 418 ms P-R-T Axes : 025 -02 003 degrees QTc Int : 447 ms Normal sinus rhythm Normal ECG When compared with ECG of 25-APR-2024 12:52, Aberrant conduction is no longer Present Confirmed by LAKEISHA FLOOD, JUAN ([id number]), video effects editor GISELLE LEE ([id number]) on 07/29/2024 10:33:05 AM Referred By: Juanita Confirmed By:JUAN HARDY MD 07/29/24 1033 Date Juan Hardy MD CC: Dr. Mario Alberto Grant MD; Dr. Leena Cunningham DO; Dr. Estella Jacome, Signed Normal [facility] CBC W/Diff, Automatedon -0 Absolute Lymph 0.99 X10 3/uL Normal 0.83-4.51 [facility] Comment on above: Performed By: #### L 100.0100 ####[facility] [address] [place], [address] Absolute Neut 4.8 X10 3/uL Normal 2.0-7.7 [facility] Comment on above: Performed By: #### L 100.0100 ####[facility] [address] [place], [address] Basophils/100 WBC (Bld) 0.6 % Normal 0-1 [facility] Comment on above: Performed By: #### L 100.0100 ####[facility] [address] [place], [address] Eosinophils/100 WBC (Bld) 0.6 % Normal 0-5 [facility] Comment on above: Performed By: #### L 100.0100 ####[facility] [address] [place], [address] Erythrocyte distribution width (RBC) [Ratio] 13.2 % Normal 11.6-14.6 [facility] Comment on above: Performed By: #### L 100.0100 ####[facility] [address] [place], [address] Hematocrit (Bld) [Volume fraction] 34.0 % Low 37-47 [facility] Comment on above: Performed By: #### L 100.0100 ####[facility] [address] [place], [address] Hemoglobin (Bld) [Mass/Vol] 11.5 g/dL Low 12.0-15.0 [facility] Comment on above: Performed By: #### L 100.0100 ####[facility] [address] [place], [address] IG% 0.300 Normal 0.0-0.9 [facility] Comment on above: Result Comment: IG% - Immature Granulocytes (promyelocytes, myelocytes and metamyelocytes) > 1% indicates that a LEFT SHIFT is Present. Performed By: #### L 100.0100 ####[facility] [address] [place], [address] Lymphocytes/100 WBC (Bld) 15.1 % Low 19-41 [facility] Comment on above: Performed By: #### L 100.0100 ####[facility] [address] [place], [address] MCH (RBC) [Entitic mass] 30.3 pg Normal 27.0-32.0 [facility] Comment on above: Performed By: #### L 100.0100 ####[facility] [address] [place], [address] MCHC (RBC) [Mass/Vol] 33.8 g/dL Normal 32-36 [facility] Comment on above: Performed By: #### L 100.0100 ####[facility] [address] [place], [address] MCV (RBC) [Entitic vol] 89.7 fL Normal 81-99 [facility] Comment on above: Performed By: #### L 100.0100 ####[facility] [address] [place], [address] Monocytes/100 WBC (Bld) 9.6 % Normal 0-10 [facility] Comment on above: Performed By: #### L 100.0100 ####[facility] [address] [place], [address] Neutrophils/100 WBC (Bld) 73.8 % High 47-70 [facility] Comment on above: Performed By: #### L 100.0100 ####[facility] [address] [place], [address] Nucleated RBC (Bld) [#/Vol] 0 10*3/uL Normal 0-5 [facility] Comment on above: Performed By: #### L 100.0100 ####[facility] [address] [place], [address] Platelet mean volume (Bld) [Entitic vol] 10.3 fL Normal 6.2-12.0 [facility] Comment on above: Performed By: #### L 100.0100 ####[facility] [address] [place], [address] Platelets (Bld) [#/Vol] 256 10*3/uL Normal 150-450 [facility] Comment on above: Performed By: #### L 100.0100 ####[facility] [address] [place], [address] RBC (Bld) [#/Vol] 3.79 10*6/uL Low 4.2-5.4 [facility] Comment on above: Performed By: #### L 100.0100 ####[facility] [address] [place], [address] RDW SD 43.6 fl Normal 35.1-43.9 [facility] Comment on above: Performed By: #### L 100.0100 ####[facility] [address] [place], [address] WBC (Bld) [#/Vol] 6.6 10*3/uL Normal 4.4-11.0 [facility] Comment on above: Performed By: #### L 100.0100 ####[facility] [address] [place], [address] Comprehensive Metabolic Prof ilon 07-27-2024 Albumin [Mass/Vol] 2.7 g/dL Low 3.2-5.0 [facility] Comment on above: Performed By: #### L 501.2300, L500.4050, L501.5200 ####[facility] [address] [place], [address] Albumin/Globulin [Mass ratio] 0.6 {ratio} Low 0.9-2.4 [facility] Comment on above: Performed By: #### L 501.2300, L500.4050, L501.5200 ####[facility] [address] [place], [address] ALK P 468 U/L High 45-117 [facility] Comment on above: Performed By: #### L 501.2300, L500.4050, L501.5200 ####[facility] [address] [place], [address] ALT [Catalytic activity/Vol] 202 U/L High 13-56 [facility] Comment on above: Performed By: #### L 501.2300, L500.4050, L501.5200 ####[facility] [address] [place], [address] AST [Catalytic activity/Vol] 177 U/L High 15-37 [facility] Comment on above: Performed By: #### L 501.2300, L500.4050, L501.5200 ####[facility] [address] [place], [address] Bilirubin [Mass/Vol] 4.70 mg/dL High 0.20-1.00 [facility] Comment on above: Result Comment: For patients on eltrombopag therapy, use of Dimension [place] TBIL is not recommended. Performed By: #### L 501.2300, L500.4050, L501.5200 ####[facility] [address] [place], [address] BUN/CRE 16.3 RATIO Normal 10-20 [facility] Comment on above: Performed By: #### L 501.2300, L500.4050, L501.5200 ####[facility] [address] [place], [address] CA,Total 9.0 mg/dL Normal 8.5-10.1 [facility] Comment on above: Performed By: #### L 501.2300, L500.4050, L501.5200 ####[facility] [address] [place], [address] Chloride [Moles/Vol] 105 mmol/L Normal 98-107 [facility] Comment on above: Performed By: #### L 501.2300, L500.4050, L501.5200 ####[facility] [address] [place], [address] CO2 [Moles/Vol] 24.0 mmol/L Normal 21.0-32.0 [facility] Comment on above: Performed By: #### L 501.2300, L500.4050, L501.5200 ####[facility] [address] [place], [address] Creatinine [Mass/Vol] 0.67 mg/dL Normal 0.55-1.02 [facility] Comment on above: Result Comment: The validity of the calculated GFR GFRAA in patients over 70 years has not been determined. Clinical correlation is essential. Performed By: #### L 501.2300, L500.4050, L501.5200 ####[facility] [address] [place], [address] ECRCL 58.42 ml/min Normal [facility] Comment on above: Performed By: #### L 501.2300, L500.4050, L501.5200 ####[facility] [address] [place], [address] EST GFR - AA 109 mL/min Normal >60 [facility] Comment on above: Result Comment: Afri can Malaysian GFR Calc Performed By: #### L 501.2300, L500.4050, L501.5200 ####[facility] [address] [place], [address] GAP 6 Normal 5-15 [facility] Comment on above: Performed By: #### L 501.2300, L500.4050, L501.5200 ####[facility] [address] [place], [address] GFR/1.73 sq M.predicted among non-blacks MDRD (S/P/Bld) [Vol rate/Area] 90 mL/min/{1.73_m2} Normal >60 [facility] Comment on above: Result Comment: Non- GFR Calc Performed By: #### L 501.2300, L500.4050, L501.5200 ####[facility] [address] [place], [address] Globulin (S) [Mass/Vol] 4.5 g/dL High 2.2-4.2 [facility] Comment on above: Performed By: #### L 501.2300, L500.4050, L501.5200 ####[facility] [address] [place], [address] Glucose [Mass/Vol] 94 mg/dL Normal 74-106 [facility] Comment on above: Performed By: #### L 501.2300, L500.4050, L501.5200 ####[facility] [address] [place], [address] Potassium [Moles/Vol] 3.7 mmol/L Normal 3.5-5.1 [facility] Comment on above: Performed By: #### L 501.2300, L500.4050, L501.5200 ####[facility] [address] [place], [address] Sodium [Moles/Vol] 135 mmol/L Low 136-145 [facility] Comment on above: Performed By: #### L 501.2300, L500.4050, L501.5200 ####[facility] [address] [place], [address] T PROT 7.2 g/dL Normal 6.4-8.2 [facility] Comment on above: Performed By: #### L 501.2300, L500.4050, L501.5200 ####[facility] [address] [place], [address] Urea nitrogen [Mass/Vol] 11 mg/dL Normal 7-18 [facility] Comment on above: Performed By: #### L 501.2300, L500.4050, L501.5200 ####[facility] [address] [place], [address] ERCP Biliary/Pancreason ERCP Biliary/Pancreas [facility] Imaging Services [address] [place] [address] ERCP Biliary/Pancreas MR#: [id number] Acct: [id number] Name: FANTA LOBO Rep #: [id number] : 1950 F 74 From: [place] dixon DO PCP: Dr. Estella Jacome DO Status: ADM IN Study: ERCP Biliary/Pancreas Date of Exam: 07/27/24 Exam# [id number] Ordering Dr: Linda Shafer DO [id number] EXAM: FL FLUOROSCOPY < 1 HOUR CLINICAL INDICATION: ABD PAIN TECHNIQUE: Fluoroscopic images performed in multiple projections. Fluoroscopic guidance was provided by a physician. 7 spot images. Total dose is 67.67 mGy with a fluoroscopic time of 4 minutes and 14 seconds. COMPARISON: No relevant prior studies available. FINDINGS AND RAD/ERCP Biliary/Pancreas IMPRESSION: 7 fluoroscopic images obtained intraprocedurally. Refer to the procedure note for complete details. Electronically Signed: aPul Yu DO at 10:22 EDT , CC: Dr. Estella Jacome DO; Linda Shafer DO Electrical Continuity Inspector: Signed Normal [facility] ERCP Reporton 07-27-2024 ERCP Report [facility] Medical Records Department [address] [place] [address] ERCP Report MR#: [id number] Acct: [id number] Name: FANTA LOBO Rep #: [id number] : 1950 74 From: Linda Shafer DO PCP: Dr. Estella Jacome DO Status:ADM IN Patient Name: Fanta Lobo Procedure Date: 07/27/2024 7:47 AM Date of : 1950 Age: 74 Procedure: ERCP Indications: Bile duct stone(s), Jaundice, Elevated liver enzymes, Acute recurrent pancreatitis Providers: Linda Shafer DO Medicines: Monitored Anesthesia Care Patient Profile: This is a 74 year old female. Refer to note in patient chart for documentation of history and physical. Patient has symptoms of acute right upper quadrant abdominal pain, acute epigastric abdominal pain, acute jaundice and acute vomiting. Complications: No immediate complications. Procedure: Pre-Anesthesia Assessment: - Prior to the procedure, a History and Physical was performed, and patient medications and allergies were reviewed. The patient is competent. The risks and benefits of the procedure and the sedation options and risks were discussed with the patient. All questions were answered and informed consent was obtained. Patient identification and proposed procedure were verified by the physician in the pre-procedure area. Mental Status Examination: alert and oriented. Airway Examination: normal oropharyngeal airway and neck mobility. Respiratory Examination: clear to auscultation. CV Examination: normal. Prophylactic Antibiotics: The patient does not require prophylactic antibiotics. Prior Anticoagulants: The patient has taken no anticoagulant or antiplatelet agents. ASA Grade Assessment: II - A patient with mild systemic disease. After reviewing the risks and benefits, the patient was deemed in satisfactory condition to undergo the procedure. The anesthesia plan was to use general anesthesia. Immediately prior to administration of medications, the patient was re-assessed for adequacy to receive sedatives. The heart rate, respiratory rate, oxygen saturations, blood pressure, adequacy of pulmonary ventilation, and response to care were monitored throughout the procedure. The physical status of the patient was re-assessed after the procedure. After obtaining informed consent, the scope was passed under direct vision. Throughout the procedure, the patient's blood pressure, pulse, and oxygen saturations were monitored continuously. The Duodenoscope was introduced through the mouth, and advanced to the duodenum and used to inject contrast into the bile duct and ventral pancreatic duct. The ERCP was accomplished without difficulty. The patient tolerated the procedure well. Scope In: 9:41:51 AM Scope Out: 10:06:54 AM Total Procedure Duration Time 0 hours 25 minutes 3 seconds Findings: The incendiaries supervisor film was normal. The esophagus was successfully intubated under direct vision. The scope was advanced to a normal major papilla in the descending duodenum without detailed examination of the pharynx, larynx and associated structures, and upper GI tract. The upper GI tract was grossly normal. The bile duct was deeply cannulated with the short-nosed traction sphincterotome. Contrast was injected. I personally interpreted the bile duct and pancreatic duct images. There was brisk flow of contrast through the ducts. Image quality was adequate. Contrast extended to the entire biliary tree. Opacification of the entire opacified area and entire biliary tree was successful. The maximum diameter of the ducts was 14 mm. The main bile duct and left main hepatic duct contained multiple stones, the largest of which was 6 mm in diameter. A long 0.025 inch Jagwire was passed into the biliary tree. A 5 mm biliary sphincterotomy was made with a braided traction (standard) sphincterotome using ERBE electrocautery. The sphincterotomy oozed blood. To discover objects, the biliary tree was swept with a 12 mm balloon starting at the left main hepatic duct. Sludge was swept from the duct. Many stones were removed. One stone remained. Dilation of the lower third of the main bile duct and the left main hepatic duct with a 10-11-12 mm balloon (to a maximum balloon size of 12 mm) dilator was successful. The ventral pancreatic duct was deeply cannulated with the short-nosed traction sphincterotome. Contrast was injected. Opacification of the entire pancreatic ductal system was successful. The maximum diameter of the ducts was 5 mm. The entire opacified area was normal. A long 0.025 inch Jagwire was passed into the ventral pancreatic duct. A 1 mm ventral pancreatic sphincterotomy was made with a monofilament traction (standard) sphincterotome using ERBE electrocautery. There was no post-sphincterotomy bleeding. To find object(s) the ventral pancreatic petra (more content not included)... Normal [facility] Folates, (Folic Acid)on FOLATES 41.00 ng/mL Normal 3.1-55.4 [facility] Comment on above: Order Comment: Has Nate moore had X-rays with Contrast this admission? NN Performed By: #### L 100.0500, L501.2300, L501.5200, L500.4050 #### [facility] Laboratory [address] [place], [address] MR/CON.PCM.GIon 07-27-2024 MR/CON.PCM.GI [facility] Medical Records Department [address] [place] [address] Consultation - GI 07/27/24 1010 MR#: [id number] Acct: [id number] Name: FANTA LOBO Rep #: [id number] : 1950 74 From: Linda Shafer DO PCP: Dr. Estella Jacome DO Status:ADM IN Location: [place] [address] HPI Consult Data Date of Consult: 07/27/24 HPI Narrative Reason for Consultation: Choledocholithiasis HPI Narrative: FANTA LOBO, is a 74 F who presents worsening abdominal pain. She has a history of chronic cholecystitis with choledocholithiasis; s/p laparoscopic cholecystectomy ( 2021) with recent history of ERCP on July 01, 2024 to treat recurrent choledocholithiasis with biliary stent placement followed by subsequent biliary stent removal earlier this month. She presents back a month later after getting her stent removed with ]abdominal pain, nausea, vomiting and constipation. Ms. Lobo reports her symptoms began 2-3 hours after eating dinner with the abrupt-onset of severe abdominal pain focused in the upper abdomen with pain that was moderate to severe, nonradiating and was made better or worse by nothing. She denies associated fever, chest pain or SOB and she also denies any history of knowing that she had any abnormal cyst or mass on her kidneys. In the ER she was noted to have CT evidence. She was then noted to have an elevated serum lipase of 2,249 U/L consistent with Acute Pancreatitis with hyperbilirubinemia of 3.4 mg/dL with direct bilirubin of 2.73 mg/dL, AST 158 U/L, ALT of 200 U/L and an alkaline phosphatase of 501 U/L. At this time she is not any abdominal pain. She denies any nausea, vomiting or diarrhea since being in the hospital. She was started on Zosyn by hospitalist for possible ascending cholangitis. [facility] Medical History Wears glasses Wears dentures Ambulates with cane Gastric reflux Former smoker History of biliary stent insertion RLS (restless legs syndrome) History of chronic cholecystitis Absence seizure disorder Ulcerative colitis Allergic rhinitis Anxiety and depression Former tobacco use HLD (hyperlipidemia) HTN (hypertension) Home Medications ???Medication ???Instructions ???Recorded ???Last Taken ???Type multivitamin with folic acid 400 1 tab PO DAILY supplement 08/18/14 06/27/24 History mcg tablet (Thera) omeprazole 20 mg capsule,delayed 20 mg PO DAILY Gerd 08/18/14 07/01/24 History release pravastatin 40 mg tablet 40 mg PO DAILY cholesterol 08/18/14 06/30/24 History (Pravachol) alendronate 70 mg tablet 70 mg PO PAYNE OA 04/25/24 06/29/24 History cetirizine 10 mg tablet (Zyrtec) 10 mg PO DAILY PRN allergy symptoms 04/25/24 06/30/24 History escitalopram oxalate 20 mg tablet 20 mg PO DAILY depression 04/25/24 06/30/24 History ferrous sulfate 325 mg (65 mg 325 mg PO DAILY supplement 04/25/24 06/27/24 History iron) tablet (iron) levetiracetam 500 mg tablet 500 mg PO BID seizure 04/25/24 07/01/24 History losartan 100 1 tab PO DAILY blood pressure 04/25/24 07/01/24 History mg-hydrochlorothiazide 12.5 mg tablet magnesium 250 mg tablet 250 mg PO DAILY supplement 04/25/24 06/30/24 History melatonin 10 mg capsule 10 mg PO QHS sleep 04/25/24 06/30/24 History omega-3 360 fu-ubo-mnz-fish oil 1 cap PO DAILY supplement 04/25/24 06/27/24 History 1,200 mg capsule,delayed release ropinirole 0.5 mg tablet 0.5 mg PO QHS restless legs 04/25/24 06/30/24 History vitamin B complex (B-Complex 1 tab PO DAILY supplement 04/25/24 06/27/24 History tablet) vibegron 75 mg tablet (Gemtesa) 75 mg PO DAILY 06/26/24 06/30/24 History cholecalciferol (vitamin D3) 25 25 mcg PO DAILY supplement 07/26/24 Unknown History mcg (1,000 unit) capsule Allergy/AdvReac Type Severity Reaction Status Date / Time codeine Allergy Intermediate Vomiting Verified 07/26/24 17:23 hydrocodone bitartrate (From AdvReac Nausea/Vom/ Verified 07/26/24 17:23 Vicodin) Diarrhea propoxyphene napsylate (From AdvReac Nausea/Vom/ Verified 07/26/24 17:23 Darvocet-N) Diarrhea Family History Mother Diabetes Bipolar disorder Father Liver cancer Prostate cancer Surgical History S/P cataract extraction History of knee replacement History of arthroscopic knee surgery History of section History of total hip replacement S/P cholecystectomy Social History household members: children Smoking Status: Former smoker how long ago did patient quit smoking: Smoked 40 yrs 1 ppd until quit age 50. alcohol intake: current alcohol intake frequency: holidays/special occasions only substance use type: does not use (more content not included)... [facility] MR/POSTOP.[facility] 07-27-2024 MR/POSTOP.[facility] Medical Records Department [address] [place] [address] Anesthesia Postop Eval I 07/27/24 1028 MR#: [id number] Acct: [id number] Name: FANTA LOBO Rep #: [id number] : 1950 74 From: García Alberto MD PCP: Dr. Estella Jacome, DO Status:ADM IN Y Race: C [facility]esthesia: Postop Eval I Current Vital Signs Temperature: 98.6 F Pulse Rate: 60 Blood Pressure: 148/80 Respiratory Rate: 16 Pulse Ox: 95 Oxygen Delivery Method: Room Air Assessment Airway patent: Yes Spontaneous unlabored respirations: Yes Mental status: Asleep nausea: No Vomiting: No Anesthesia Complication: No Fluid Hydration Crystalloid volume administer (ml): 500 Total IV fluid infused: 500 Progress Note Anesthesia document: Postop Eval 1 completed: Yes 07/27/24 1029 Date García Alberto MD Cosigner Signature: Date CC: Signed Normal [facility] MR/BQFJSEBW4ge 07-27-2024 MR/POSTOPAN2 [facility] Medical Records Department [address] [place] [address] Anesthesia Postop Eval II 07/27/24 1051 MR#: [id number] Acct: [id number] Name: FANTA LOBO Roby Rep #: [id number] : 1950 74 From: García Alberto MD PCP: Dr. Estella Jacome, DO Status:ADM IN Y Race: C Location: [place] [address] Anesthesia Postop Eval I Sum Postop Eval Completion status Anesthesia document: Postop Eval 1 completed: Yes Anesthesia Postop Eval I Summary Anesthesia Postop Eval I Summary: Anesthesia Postop Eval I: Assessment Summary Airway patent Yes 07/27/24 10:29 Spontaneous unlabored Yes 07/27/24 10:29 respirations Mental status Asleep 07/27/24 10:29 nausea No 07/27/24 10:29 Vomiting No 07/27/24 10:29 Anesthesia Postop Eval I: Fluid Summary Crystalloid volume administer 500 07/27/24 10:29 (ml) Colloids volume administered ( ml) Blood Product volume administered (ml) Total IV fluid infused 500 07/27/24 10:29 Anesthesia Postop Eval I: Summary Notes Anesthesia Complication No 07/27/24 10:29 Anesthesia Complication Comment: Post-operative progress note Anesthesia: Postop Eval II Evaluation Mental status: Awake and Calm Pain Level: 0 nausea: No Vomiting: No Progress Note Post-operative progress note: Sleepy Complications Anesthesia Complication: No 07/27/24 1051 Date García Ovalleignsaturnino Signature: Date CC: Signed Normal [facility] Magnesiumon 07-27-2024 Magnesium [Mass/Vol] 2.0 mg/dL Normal 1.6-2.6 [facility] Comment on above: Performed By: #### L 501.2300, L500.4050, L501.5200 ####[facility] [address] [place], [address] Phosphoruson 07-27-2024 Phosphate [Mass/Vol] 2.5 mg/dL Normal 2.5-4.9 [facility] Comment on above: Performed By: #### L 501.2300, L500.4050, L501.5200 ####[facility] [address] [place], [address] Thyroid Stim Hormone (TSH)on 07-27-2024 TSH 3.200 uIU/mL Normal 0.358-3.740 [facility] Comment on above: Order Comment: Has P atient had X-rays with Contrast this admission? NN Performed By: #### L 100.0500, L501.2300, L501.5200, L500.4050 #### [facility] Laboratory [address] [place], [address] Basic Metabolic Profile (BMP )on 07-26-2024 BUN/CRE 18.4 RATIO Normal 10-20 [facility] Comment on above: Performed By: #### L 500.3400, L100.0100, L500.2500, L501.2450 ####[facility] [address] [place], [address] CA,Total 9.6 mg/dL Normal 8.5-10.1 [facility] Comment on above: Performed By: #### L 500.3400, L100.0100, L500.2500, L501.2450 ####[facility] [address] [place], [address] Chloride [Moles/Vol] 98 mmol/L Normal 98-107 [facility] Comment on above: Performed By: #### L 500.3400, L100.0100, L500.2500, L501.2450 ####[facility] [address] [place], [address] CO2 [Moles/Vol] 27.0 mmol/L Normal 21.0-32.0 [facility] Comment on above: Performed By: #### L 500.3400, L100.0100, L500.2500, L501.2450 ####[facility] [address] [place], [address] Creatinine [Mass/Vol] 0.76 mg/dL Normal 0.55-1.02 [facility] Comment on above: Result Comment: The validity of the calculated GFR GFRAA in patients over 70 years has not been determined. Clinical correlation is essential. Performed By: #### L 500.3400, L100.0100, L500.2500, L501.2450 ####[facility] [address] [place], [address] ECRCL 58.43 ml/min Normal [facility] Comment on above: Performed By: #### L 500.3400, L100.0100, L500.2500, L501.2450 ####[facility] [address] [place], [address] EST GFR - AA 95 mL/min Normal >60 [facility] Comment on above: Result Comment: Afri can Malaysian GFR Calc Performed By: #### L 500.3400, L100.0100, L500.2500, L501.2450 ####[facility] [address] [place], [address] GAP 7 Normal 5-15 [facility] Comment on above: Performed By: #### L 500.3400, L100.0100, L500.2500, L501.2450 ####[facility] [address] [place], [address] GFR/1.73 sq M.predicted among non-blacks MDRD (S/P/Bld) [Vol rate/Area] 79 mL/min/{1.73_m2} Normal >60 [facility] Comment on above: Result Comment: Non- GFR Calc Performed By: #### L 500.3400, L100.0100, L500.2500, L501.2450 ####[facility] [address] [place], [address] Glucose [Mass/Vol] 117 mg/dL High 74-106 [facility] Comment on above: Result Comment: Fast ing Glucose result from 100 to 125 mg/dL suggests IMPAIRED HOMEOSTASIS per A.D.A. criteria. Performed By: #### L 500.3400, L100.0100, L500.2500, L501.2450 ####[facility] [address] [place], [address] Potassium [Moles/Vol] 3.5 mmol/L Normal 3.5-5.1 [facility] Comment on above: Performed By: #### L 500.3400, L100.0100, L500.2500, L501.2450 ####[facility] [address] [place], [address] Sodium [Moles/Vol] 132 mmol/L Low 136-145 [facility] Comment on above: Performed By: #### L 500.3400, L100.0100, L500.2500, L501.2450 ####[facility] [address] [place], [address] Urea nitrogen [Mass/Vol] 14 mg/dL Normal 7-18 [facility] Comment on above: Performed By: #### L 500.3400, L100.0100, L500.2500, L501.2450 ####[facility] [address] [place], [address] CBC W/Diff, Automatedon 08-3 -2023 Absolute Lymph 0.79 X10 3/uL Low 0.83-4.51 [facility] Comment on above: Performed By: #### L 500.3400, L100.0100, L500.2500, L501.2450 ####[facility] [address] [place], [address] Absolute Neut 8.0 X10 3/uL High 2.0-7.7 [facility] Comment on above: Performed By: #### L 500.3400, L100.0100, L500.2500, L501.2450 ####[facility] [address] [place], [address] Basophils/100 WBC (Bld) 0.2 % Normal 0-1 [facility] Comment on above: Performed By: #### L 500.3400, L100.0100, L500.2500, L501.2450 ####[facility] [address] [place], [address] Eosinophils/100 WBC (Bld) 0.5 % Normal 0-5 [facility] Comment on above: Performed By: #### L 500.3400, L100.0100, L500.2500, L501.2450 ####[facility] [address] [place], [address] Erythrocyte distribution width (RBC) [Ratio] 13.2 % Normal 11.6-14.6 [facility] Comment on above: Performed By: #### L 500.3400, L100.0100, L500.2500, L501.2450 ####[facility] [address] [place], [address] Hematocrit (Bld) [Volume fraction] 35.7 % Low 37-47 [facility] Comment on above: Performed By: #### L 500.3400, L100.0100, L500.2500, L501.2450 ####[facility] [address] [place], [address] Hemoglobin (Bld) [Mass/Vol] 12.0 g/dL Normal 12.0-15.0 [facility] Comment on above: Performed By: #### L 500.3400, L100.0100, L500.2500, L501.2450 ####[facility] [address] [place], [address] IG% 0.500 Normal 0.0-0.9 [facility] Comment on above: Result Comment: IG% - Immature Granulocytes (promyelocytes, myelocytes and metamyelocytes) > 1% indicates that a LEFT SHIFT is Present. Performed By: #### L 500.3400, L100.0100, L500.2500, L501.2450 ####[facility] [address] [place], [address] Lymphocytes/100 WBC (Bld) 8.4 % Low 19-41 [facility] Comment on above: Performed By: #### L 500.3400, L100.0100, L500.2500, L501.2450 ####[facility] [address] [place], [address] MCH (RBC) [Entitic mass] 30.5 pg Normal 27.0-32.0 [facility] Comment on above: Performed By: #### L 500.3400, L100.0100, L500.2500, L501.2450 ####[facility] [address] [place], [address] MCHC (RBC) [Mass/Vol] 33.6 g/dL Normal 32-36 [facility] Comment on above: Performed By: #### L 500.3400, L100.0100, L500.2500, L501.2450 ####[facility] [address] [place], [address] MCV (RBC) [Entitic vol] 90.8 fL Normal 81-99 [facility] Comment on above: Performed By: #### L 500.3400, L100.0100, L500.2500, L501.2450 ####[facility] [address] [place], [address] Monocytes/100 WBC (Bld) 6.1 % Normal 0-10 [facility] Comment on above: Performed By: #### L 500.3400, L100.0100, L500.2500, L501.2450 ####[facility] [address] [place], [address] Neutrophils/100 WBC (Bld) 84.3 % High 47-70 [facility] Comment on above: Performed By: #### L 500.3400, L100.0100, L500.2500, L501.2450 ####[facility] [address] [place], [address] Nucleated RBC (Bld) [#/Vol] 0 10*3/uL Normal 0-5 [facility] Comment on above: Performed By: #### L 500.3400, L100.0100, L500.2500, L501.2450 ####[facility] [address] [place], [address] Platelet mean volume (Bld) [Entitic vol] 9.9 fL Normal 6.2-12.0 [facility] Comment on above: Performed By: #### L 500.3400, L100.0100, L500.2500, L501.2450 ####[facility] [address] [place], [address] Platelets (Bld) [#/Vol] 240 10*3/uL Normal 150-450 [facility] Comment on above: Performed By: #### L 500.3400, L100.0100, L500.2500, L501.2450 ####[facility] [address] [place], [address] RBC (Bld) [#/Vol] 3.93 10*6/uL Low 4.2-5.4 [facility] Comment on above: Performed By: #### L 500.3400, L100.0100, L500.2500, L501.2450 ####[facility] [address] [place], [address] RDW SD 44.2 fl High 35.1-43.9 [facility] Comment on above: Performed By: #### L 500.3400, L100.0100, L500.2500, L501.2450 ####[facility] [address] [place], [address] WBC (Bld) [#/Vol] 9.4 10*3/uL Normal 4.4-11.0 [facility] Comment on above: Performed By: #### L 500.3400, L100.0100, L500.2500, L501.2450 ####[facility] [address] [place], [address] CTA Chst, Abd, Pel W and/or WOon 07-26-2024 CTA Chst, Abd, Pel W and/or WO [facility] Imaging Services [address] [place] [address] CTA Chst, Abd, Pel W and/or WO MR#: [id number] Acct: [id number] Name: FANTA LOBO Rep #: [id number] : 1950 F 74 From: Lyly Oconnell PCP: Dr. Estella Jacome DO Status: REG ER Study: CTA Chst, Abd, Pel W and/or WO Date of Exam: 0 07/26/24 Exam# [id number] Ordering Dr: Crow Morrison DO [id number] INDICATION: mesenteric ischemia EXAMINATION: CTA CHEST, ABDOMEN AND PELVIS WITH CONTRAST - TECHNIQUE: CTA of the chest, abdomen, and pelvis is obtained with sagittal and coronal reconstructed MIP views. Three-dimensional surface rendered sequence of the thoracic and abdominal aorta was obtained. The protocol utilizes one or more of the following dose reduction techniques: automated exposure control, adjustment of mA and/or kV according to patient size,and/or use of iterative reconstruction technique. IV Contrast: IV 100mL Isovue-370 . Oral contrast: None. RADIATION DOSAGE (If Supplied By Facility): CTDIvol = ( 13.16 ) mGy, DLP = ( 897.24 ) mGycm COMPARISON: No relevant prior comparison study available FINDINGS: ---CTA CHEST: LUNGS: No consolidation. PLEURA: No pleural effusion. No pneumothorax. PULMONARY VESSELS: No pulmonary emboli identified. MEDIASTINUM: Unremarkable. HEART: Not enlarged. Coronary artery calcifications are noted. CORONARY ARTERIES: Coronary artery calcifications are not seen. AORTA/GREAT VESSELS: Thoracic aorta is normal caliber. No aneurysm or dissection. BONES/SOFT TISSUES: No acute findings. OTHER: None. ---CTA ABDOMEN AND PELVIS: AORTA: Normal caliber. No dissection. Atherosclerotic calcifications. CELIAC ARTERY: Unremarkable. SMA: Unremarkable. Mild calcifications at the origin. RENAL ARTERIES: Unremarkable. FLORY: Unremarkable. ILIAC ARTERIES: Unremarkable. RETROPERITONEUM: Unremarkable. LIVER: Unremarkable. GALLBLADDER/BILE DUCTS: Gallbladder not identified presumed surgically absent. Common bile duct is dilated 12 mm, intrahepatic ducts are dilated. There is a 9 mm rounded slightly hyperattenuating structure consistent with a stone within the common bile duct, with a similar object more distally in the CBD versus volume averaging with the duodenal wall. PANCREAS: Pancreatic duct is dilated. No adjacent stranding or collection.. SPLEEN: Unremarkable. ADRENAL GLANDS: Unremarkable. KIDNEYS/URETERS: 4.5 cm rounded hypoattenuating lesion at the upper pole right kidney, hyperdense cyst versus cystic mass. Smaller cyst in the left kidney. No hydronephrosis. BOWEL/MESENTERY: Diverticula throughout the colon. No bowel obstruction. APPENDIX: Not identified. PERITONEUM: No free air. No free fluid. REPRODUCTIVE ORGANS: Small calcified uterine fibroids. BLADDER: Minimally distended. Not well visualized due to the artifact. BONES/SOFT TISSUES: No acute abnormality. Surgical hardware in both hips. Degenerative changes lumbar spine and scoliosis OTHER: None. CT/CTA Chst, Abd, Pel W and/or WO IMPRESSION: No aortic aneurysm or dissection. No specific findings to suggest mesenteric ischemia. Choledocholithiasis with at least one, probably 2 stones within the CBD. Biliary dilatation. Cholecystectomy. Dilated pancreatic duct. Colonic diverticulosis without evidence of acute diverticulitis. Right renal lesion 4.5 cm complex cyst vs cystic neoplasm. Further imaging needed for characterization, consider MRI. Electronically Signed: Lyly Elizabeth MD at 20:43 EDT Reading Location ID and State: [facility] / [place] Tel , Service support , CC: Dr. Crow Morrison DO; Dr. Estella Jacome DO Electrical Continuity Inspector: Signed Normal [facility] Emergency Department Summary on 07-26-2024 Emergency Department Summary [facility] Medical Records Department [address] [place] [address] Emergency Department Summary 07/26/24 MR#: [id number] Acct: [id number] Name: FANTA LOBO Roby Rep #: [id number] : 1950 74 From: Crow Morrison DO PCP: Dr. Estella Jacome, DO Status:REG ER Location: ED HPI History of Present Illness Chief Complaint: Abd Pain Informant: patient and family Narrative Narrative: 74-year-old female presenting to the emergency room with abdominal pain and vomiting. Patient states that 2 to 3 hours after eating she develops severe upper abdominal pain nausea and dry heaves. She states symptoms have been present for little more than a month. She states she was diagnosed with ulcerative colitis in the past. She states as a result of a past ERCP she was hospitalized with pancreatitis and this occurred at the time of the diagnosis of ulcerative colitis. She underwent cholecystectomy a few years ago was recently found to have choledocholithiasis and underwent biliary stent placement with removal earlier this month ([facility]-Dr. Shafer). Since stent removal her symptoms have persisted. Family states that she is losing weight and that they saw their primary care doctor yesterday and they cannot wait for referral process to occur they need to get answers and treatment for this immediately. No reported fevers. She notes constipation. Last bowel movement earlier this afternoon. No rashes. Started stool softener yesterday. [facility] Medical History Wears glasses Wears dentures Ambulates with cane Gastric reflux Former smoker History of biliary stent insertion RLS (restless legs syndrome) History of chronic cholecystitis Absence seizure disorder Ulcerative colitis Allergic rhinitis Anxiety and depression Former tobacco use HLD (hyperlipidemia) HTN (hypertension) Home Medications ???Medication ???Instructions ???Recorded ???Last Taken ???Type loperamide 2 mg capsule 2 mg PO DAILY diarrhea 08/18/14 06/30/24 History multivitamin with folic acid 400 1 tab PO DAILY supplement 08/18/14 06/27/24 History mcg tablet (Thera) omeprazole 20 mg capsule,delayed 20 mg PO DAILY Gerd 08/18/14 07/01/24 History release pravastatin 40 mg tablet 40 mg PO DAILY cholesterol 08/18/14 06/30/24 History (Pravachol) alendronate 70 mg tablet 70 mg PO PAYNE OA 04/25/24 06/29/24 History cetirizine 10 mg tablet (Zyrtec) 10 mg PO DAILY PRN allergy symptoms 04/25/24 06/30/24 History escitalopram oxalate 20 mg tablet 20 mg PO DAILY depression 04/25/24 06/30/24 History ferrous sulfate 325 mg (65 mg 325 mg PO DAILY supplement 04/25/24 06/27/24 History iron) tablet (iron) levetiracetam 500 mg tablet 500 mg PO BID seizure 04/25/24 07/01/24 History losartan 100 1 tab PO DAILY blood pressure 04/25/24 07/01/24 History mg-hydrochlorothiazide 12.5 mg tablet magnesium 250 mg tablet 250 mg PO DAILY supplement 04/25/24 06/30/24 History melatonin 10 mg capsule 10 mg PO QHS sleep 04/25/24 06/30/24 History omega-3 360 pf-dpn-tmu-fish oil 1 cap PO DAILY supplement 04/25/24 06/27/24 History 1,200 mg capsule,delayed release ropinirole 0.5 mg tablet 0.5 mg PO DAILY restless legs 04/25/24 06/30/24 History vitamin B complex (B-Complex 1 tab PO DAILY supplement 04/25/24 06/27/24 History tablet) vibegron 75 mg tablet (Gemtesa) 75 mg PO DAILY 06/26/24 06/30/24 History Allergy/AdvReac Type Severity Reaction Status Date / Time codeine Allergy Intermediate Vomiting Verified 07/26/24 17:23 hydrocodone bitartrate (From AdvReac Nausea/Vom/ Verified 07/26/24 17:23 Vicodin) Diarrhea propoxyphene napsylate (From AdvReac Nausea/Vom/ Verified 07/26/24 17:23 Darvocet-N) Diarrhea Family History Mother Diabetes Bipolar disorder Father Liver cancer Prostate cancer Surgical History S/P cataract extraction History of knee replacement History of arthroscopic knee surgery History of section History of total hip replacement S/P cholecystectomy Social History household members: children Smoking Status: Former smoker how long ago did patient quit smoking: Smoked 40 yrs 1 ppd until quit age 50. alcohol intake: current alcohol intake frequency: holidays/special occasions only substance use type: does not use ROS ROS ED Constitutional Constitutional ED: Reports sweats and weight loss; Denies chills or fever(s) Eyes Eyes: Denies change in vision or diplopia ENT ENT ED: Denies ear pain, rhinorrhea or sore throat Cardiovascular Cardiovascular: Denies chest pain, orthopnea, palpitations or racing heartbeat Respi (more content not included)... Normal [facility] H AND P Exam - Hospitaliston 07-26-2024 H&P Exam - Hospitalist [facility] Medical Records Department [address] [place] [address] H P Exam - Hospitalist 07/26/24 2130 MR#: [id number] Acct: [id number] Name: FANTA LOBO Rep #: [id number] : 1950 74 From: Adrien Florentino DO PCP: Dr. Estelal Jacome, Status:ADM IN Location: [facility] RP306-2 HPI - General General Date of Admission: 07/26/24 Date of Service: 07/26/24 Chief Complaint: Abdominal Pain, Nausea, Vomiting and Constipation. HPI Narrative FANTA LOBO, is a 74 F with a past medical history of essential hypertension, hyperlipidemia, obesity; with BMI of 32.1 this admission, history of tobacco abuse (quit 2006), history of absence seizure disorder; on Keppra, RLS, depression with anxiety, GERD, history of ulcerative colitis, history of pancreatitis; s/p ERCP, history of cataract; s/p extraction, osteoporosis, OA; s/p bilateral THR's Right TKR, history of chronic cholecystitis with choledocholithiasis; s/p laparoscopic cholecystectomy ( 2021) with recent history of ERCP done by Dr. Shafer of gastroenterology on July 01, 2024 to treat recurrent choledocholithiasis with biliary stent placement followed by subsequent biliary stent removal earlier this month who re-presents to [facility] ER complaining of abdominal pain, nausea, vomiting and constipation. Ms. Lobo reports her symptoms began 2-3 hours after eating dinner with the abrupt-onset of severe abdominal pain focused in the upper abdomen with pain that was moderate to severe, nonradiating and was made better or worse by nothing. Her family also noticed she is losing weight involuntarily and they went to see her primary care physician yesterday resulting in them opting to come to the ER immediately because of anticipated delay and the referral process. She admits to constipation with her last bowel movement earlier this afternoon. She also admits to related back pain, involuntary weight loss with intermittent sweats and nausea with bilious emesis. She denies associated fever, chest pain or SOB and she also denies any history of knowing that she had any abnormal cyst or mass on her kidneys. In the ER she was noted to have CT evidence of choledocholithiasis with 2 stones suspected within the common bile duct with associated biliary dilatation, dilated pancreatic duct and evidence of previous cholecystectomy in addition to colonic diverticulosis and an incidentally noted Right renal lesion 4.5 cm consistent with complex cyst versus cystic neoplasm with further imaging needed for characterization and MRI recommended by radiologist. She was then noted to have an elevated serum lipase of 2,249 U/L consistent with Acute Pancreatitis with hyperbilirubinemia of 3.4 mg/dL with direct bilirubin of 2.73 mg/dL, AST 158 U/L, ALT of 200 U/L and an alkaline phosphatase of 501 U/L due to suspected Acute Pancreatitis with Recurrent Choledocholithiasis in spite of recent ERCP with biliary stent placement and removal earlier this month complicated by Obstructive Jaundice and she was then admitted to the general medical floor for ongoing care for a stay that is expected to extend beyond 2 midnights. [facility] Medical History Wears glasses Wears dentures Ambulates with cane Gastric reflux Former smoker History of biliary stent insertion RLS (restless legs syndrome) History of chronic cholecystitis Absence seizure disorder Ulcerative colitis Allergic rhinitis Anxiety and depression Former tobacco use HLD (hyperlipidemia) HTN (hypertension) Home Medications ???Medication ???Instructions ???Recorded ???Last Taken ???Type multivitamin with folic acid 400 1 tab PO DAILY supplement 08/18/14 06/27/24 History mcg tablet (Thera) omeprazole 20 mg capsule,delayed 20 mg PO DAILY Gerd 08/18/14 07/01/24 History release pravastatin 40 mg tablet 40 mg PO DAILY cholesterol 08/18/14 06/30/24 History (Pravachol) alendronate 70 mg tablet 70 mg PO PAYNE OA 04/25/24 06/29/24 History cetirizine 10 mg tablet (Zyrtec) 10 mg PO DAILY PRN allergy symptoms 04/25/24 06/30/24 History escitalopram oxalate 20 mg tablet 20 mg PO DAILY depression 04/25/24 06/30/24 History ferrous sulfate 325 mg (65 mg 325 mg PO DAILY supplement 04/25/24 06/27/24 History iron) tablet (iron) levetiracetam 500 mg tablet 500 mg PO BID seizure 04/25/24 07/01/24 History losartan 100 1 tab PO DAILY blood pressure 04/25/24 07/01/24 History mg-hydrochlorothiazide 12.5 mg tablet magnesium 250 mg tablet 250 mg PO DAILY supplement 04/25/24 06/30/24 History melatonin 10 mg capsule 10 mg PO QHS sleep 04/25/24 06/30/24 History omega-3 360 qu-xpb-css-fish oil 1 cap PO DAILY supplement 04/25/24 06/27/24 History 1,200 mg capsule,delayed release ropinirole 0.5 mg tablet 0.5 mg PO QHS restless legs 04/25/24 (more content not included)... Normal [facility] Lactic Acidon 07-26-2024 Lactate [Moles/Vol] 1.1 mmol/L Normal 0.4-1.9 [facility] Comment on above: Order Comment: Y Performed By: #### L 100.0500, L501.2300, L501.5200, L500.4050 #### [facility] Laboratory [address] [place], [address] Lipaseon 07-26-2024 Lipase [Catalytic activity/Vol] 2429 U/L High 13-75 [facility] Comment on above: Result Comment: Eric hendricks note: LIPASE revised reference range effective 23. New Lipase methodology. Expected to produce lower values than the previous assay method. NEW Reference Range: 13 - 75 U/L Performed By: #### L 500.3400, L100.0100, L500.2500, L501.2450 ####[facility] [address] [place], [address] Liver Profileon 07-26-2024 Albumin [Mass/Vol] 3.1 g/dL Low 3.2-5.0 [facility] Comment on above: Performed By: #### L 500.3400, L100.0100, L500.2500, L501.2450 ####[facility] [address] [place], [address] ALK P 501 U/L High 45-117 [facility] Comment on above: Performed By: #### L 500.3400, L100.0100, L500.2500, L501.2450 ####[facility] [address] [place], [address] ALT [Catalytic activity/Vol] 200 U/L High 13-56 [facility] Comment on above: Performed By: #### L 500.3400, L100.0100, L500.2500, L501.2450 ####[facility] [address] [place], [address] AST [Catalytic activity/Vol] 158 U/L High 15-37 [facility] Comment on above: Performed By: #### L 500.3400, L100.0100, L500.2500, L501.2450 ####[facility] [address] [place], [address] Bilirubin [Mass/Vol] 3.40 mg/dL High 0.20-1.00 [facility] Comment on above: Result Comment: For patients on eltrombopag therapy, use of Dimension [place] TBIL is not recommended. Performed By: #### L 500.3400, L100.0100, L500.2500, L501.2450 ####[facility] [address] [place], [address] Bilirubin.direct [Mass/Vol] 2.73 mg/dL High 0.00-0.30 [facility] Comment on above: Performed By: #### L 500.3400, L100.0100, L500.2500, L501.2450 ####[facility] [address] [place], [address] Globulin (S) [Mass/Vol] 4.9 g/dL High 2.2-4.2 [facility] Comment on above: Performed By: #### L 500.3400, L100.0100, L500.2500, L501.2450 ####[facility] [address] [place], [address] T PROT 8.0 g/dL Normal 6.4-8.2 [facility] Comment on above: Performed By: #### L 500.3400, L100.0100, L500.2500, L501.2450 ####[facility] [address] [place], [address] MRI BRAIN W/ + W/O CONTRASTo n 07-08-2024 MRI BRAIN W/ + W/O CONTRAST ORIGINAL EXAMINATION: MRI OF THE BRAIN WITHOUT AND WITH CONTRAST 07/07/2024 1:30 pm TECHNIQUE: Multiplanar multisequence MRI of the head/brain was performed without and with the administration of intravenous contrast. COMPARISON: Head CT 09/29/2023. HISTORY: ORDERING SYSTEM PROVIDED HISTORY: Reason for Exam: Hypersomnia, unspecified Dizziness and giddiness FINDINGS: INTRACRANIAL STRUCTURES/VENTRICLES: There is no acute infarct. The ventricles and sulci are prominent, commensurate with age. Enlarged perivascular spaces are noted throughout the basal ganglia. Scattered punctate foci of increased T2 signal are present in the periventricular white matter and subcortical white matter bilaterally. No mass effect or shift. No extra-axial fluid collection. No posterior fossa lesion. No area of abnormal contrast enhancement. ORBITS: The visualized portion of the orbits demonstrate no acute abnormality. SINUSES: The visualized paranasal sinuses and mastoid air cells demonstrate no acute abnormality. BONES/SOFT TISSUES: The bone marrow signal intensity appears normal. The soft tissues demonstrate no acute abnormality. IMPRESSION: Mild generalized volume loss with prominent perivascular spaces and mild chronic small vessel ischemic changes. No acute findings. Interpreted by: Ham Lyles Preliminary Report By: Ham Lyles Electronically signed By Ham Lyles Dictated Date: 07/08/2024 7:34:09 AM Prelim Date: 07/08/2024 7:37:08 AM Sign Date: 07/08/2024 7:37:08 AM Ordering Provider: KELIN Wilkerson [facility] ([place]) ERCP Biliary/Pancreason 08-0 ERCP Biliary/Pancreas [facility] Imaging Services [address] [place] [address] ERCP Biliary/Pancreas MR#: [id number] Acct: [id number] Name: FANTA LOBO R Rep #: [id number] : 1950 F 74 From: Law Hendrix MD PCP: Dr. Estella Jacome DO Status: [facility] Study: ERCP Biliary/Pancreas Date of Exam: 07/01/24 Exam# [id number] Ordering Dr: Linda Shafer DO [id number] HISTORY: PAIN COMPARISON: April 25, 2024 ERCP TECHNIQUE: A total of 10 fluoroscopic images were saved without a radiologist present. FINDINGS: Images demonstrate fluoroscopic support for ERCP Total fluoroscopy time: 203.1 seconds Cumulative air kerma: 85.39 mGy RAD/ERCP Biliary/Pancreas IMPRESSION: Fluoroscopic assistance for ERCP. Please see operative report for additional information. Electronically Signed: Law Hendrix MD at 8:25 EDT Reading Location ID and State: [facility] / [place] Tel , Service support , CC: Dr. Estella Jacome DO; Linda Shafer DO Electrical Continuity Inspector: Signed [facility] ERCP Reporton 07-01-2024 ERCP Report [facility] Medical Records Department [address] [place] [address] ERCP Report MR#: [id number] Acct: [id number] Name: FANTA LOBO R Rep #: [id number] : 1950 74 From: Linda Shafer DO PCP: Dr. Estella Jacome DO Status:[facility] Patient Name: Fanta Lobo Procedure Date: 07/01/2024 2:58 PM Date of : 1950 Age: 74 Procedure: ERCP Indications: Bile duct stone(s), Stent removal Providers: Linda Shafer DO Referring MD: Linda Shafer DO Medicines: Monitored Anesthesia Care Patient Profile: This is a 74 year old female. Refer to note in patient chart for documentation of history and physical. Patient has symptoms. She is status post laparoscopic cholecystectomy. Complications: No immediate complications. Procedure: Pre-Anesthesia Assessment: - Prior to the procedure, a History and Physical was performed, and patient medications and allergies were reviewed. The patient is competent. The risks and benefits of the procedure and the sedation options and risks were discussed with the patient. All questions were answered and informed consent was obtained. Patient identification and proposed procedure were verified by the physician in the pre-procedure area. Mental Status Examination: alert and oriented. Airway Examination: normal oropharyngeal airway and neck mobility. Respiratory Examination: clear to auscultation. CV Examination: normal. Prophylactic Antibiotics: The patient does not require prophylactic antibiotics. Prior Anticoagulants: The patient has taken no anticoagulant or antiplatelet agents except for NSAID medication. ASA Grade Assessment: II - A patient with mild systemic disease. After reviewing the risks and benefits, the patient was deemed in satisfactory condition to undergo the procedure. The anesthesia plan was to use monitored anesthesia care (MAC). Immediately prior to administration of medications, the patient was re-assessed for adequacy to receive sedatives. The heart rate, respiratory rate, oxygen saturations, blood pressure, adequacy of pulmonary ventilation, and response to care were monitored throughout the procedure. The physical status of the patient was re-assessed after the procedure. After obtaining informed consent, the scope was passed under direct vision. Throughout the procedure, the patient's blood pressure, pulse, and oxygen saturations were monitored continuously. The was introduced through the mouth, and advanced to the duodenum and used to inject contrast into the bile duct and ventral pancreatic duct. The ERCP was accomplished without difficulty. The patient tolerated the procedure well. Scope In: 3:30:55 PM Scope Out: 3:52:37 PM Total Procedure Duration Time 0 hours 21 minutes 42 seconds Findings: The incendiaries supervisor film was normal. The esophagus was successfully intubated under direct vision. The scope was advanced to a normal major papilla in the descending duodenum without detailed examination of the pharynx, larynx and associated structures, and upper GI tract. The upper GI tract was grossly normal. The ventral pancreatic duct was deeply cannulated with the short-nosed traction sphincterotome. Contrast was injected. I personally interpreted the bile duct and pancreatic duct images. There was brisk flow of contrast through the ducts. Image quality was adequate. Contrast extended to the entire biliary tree. Opacification of the pancreatic duct in the body of the pancreas was successful. The maximum diameter of the ducts was 2 mm. The entire opacified area was normal. A long 0.025 inch Jagwire was passed into the ventral pancreatic duct. A 5 mm ventral pancreatic sphincterotomy was made with a monofilament traction (standard) sphincterotome using ERBE electrocautery. There was no post-sphincterotomy bleeding. To find object(s) the ventral pancreatic duct was swept with a 6 mm balloon starting at the pancreatic duct in the body of the pancreas. Debris was swept from the duct. One stent was removed from the biliary tree using a snare and sent for cytology. The stent was found to be partially occluded via the water column test. The bile duct was deeply cannulated with the short-nosed traction sphincterotome. Contrast was injected. Opacification of the entire opacified area was successful. The maximum diameter of the ducts was 14 mm. The lower third of the main bile duct contained a single localized stenosis 6 mm in length. The entire biliary tree except for the cystic duct and gallbladder were diffusely dilated, with a stone causing an obstruction. The largest diameter was 13 mm. A cholecystectomy had been performed. A long 0.025 inch Jagwire was passed into the biliary tree. A 5 mm biliary sphincterotomy was made with a traction (standard) sphincterotome using ERBE electrocautery. There was (more content not included)... Normal [facility] MR/POSTOP.[facility] 07-01-2024 MR/POSTOP.[facility] Medical Records Department [address] [place] [address] Anesthesia Postop Eval I 07/01/24 1606 MR#: [id number] Acct: [id number] Name: BLANEJIMENEZWILBERTO Ca Rep #: [id number] : 1950 74 From: Jcarlos Jiang PCP: Dr. Estella Jacome, DO Status:REG [facility] Y Race: C Location: [place] [address] Anesthesia: Postop Eval I Current Vital Signs Temperature: 97.1 F Pulse Rate: 56 Blood Pressure: 138/78 Respiratory Rate: 16 Pulse Ox: 99 Oxygen Delivery Method: Room Air Assessment Airway patent: Yes Spontaneous unlabored respirations: Yes Mental status: Asleep nausea: No Vomiting: No Anesthesia Complication: No Fluid Hydration Crystalloid volume administer (ml): 600 Total IV fluid infused: 600 Progress Note Anesthesia document: Postop Eval 1 completed: Yes 07/01/24 1619 Date Jcarlos Lemon Signature: Date CC: Signed Normal [facility] MR/[id number] 07-01-2024 MR/POSTOPAN2 [facility] Medical Records Department [address] [place] [id number] Anesthesia Postop Eval II 07/01/24 1714 MR#: [id number] Acct: [id number] Name: FANTA LOBO Rep #: [id number] : 1950 74 From: García Alberto MD PCP: Dr. Estella Jacome, DO Status:[facility] Y Race: C Location: EN Anesthesia Postop Eval I Sum Postop Eval Completion status Anesthesia document: Postop Eval 1 completed: Yes Anesthesia Postop Eval I Summary Anesthesia Postop Eval I Summary: Anesthesia Postop Eval I: Assessment Summary Airway patent Yes 07/01/24 16:19 [email or web address] Spontaneous unlabored Yes 07/01/24 16:19 [email or web address] respirations Mental status Asleep 07/01/24 16:19 [email or web address] nausea No 07/01/24 16:19 [email or web address] Vomiting No 07/01/24 16:19 [email or web address] Anesthesia Postop Eval I: Fluid Summary Crystalloid volume administer 600 07/01/24 16:19 [email or web address] (ml) Colloids volume administered ( ml) Blood Product volume administered (ml) Total IV fluid infused 600 07/01/24 16:19 [email or web address] Anesthesia Postop Eval I: Summary Notes Anesthesia Complication No 07/01/24 16:19 [email or web address] Anesthesia Complication Comment: Post-operative progress note Anesthesia: Postop Eval II Evaluation Mental status: Awake and Calm Pain Level: 0 nausea: No Vomiting: No Complications Anesthesia Complication: No 07/01/24 1717 Date García Lemon Signature: Date CC: Signed Normal [facility] Special Stain Group IIon Special Stain Group II Patient Age/Sex Location Account Attending Physician FANTA LOBO 74/F TARI [id number] Linda Shafer DO Specimen: [id number] Received: 07/01/24-1612 Status: GALILEO Hardwick Num: [id number] Spec Type: Fluid Subm Dr: Linda Shaefr DO HEADER OPERATION: Stent removal PRE-OP DIAGNOSIS: Biliary stricture and stent removal TISSUE SUBMITTED: Biliary stent for cytology DIAGNOSIS CYTOLOGY Biliary stent fluid for cytology (cytospin and cellblock): Negative for malignant cells. / 07/03/2024 CYTOLOGY STUDY Slides are reviewed. CYTOLOGY GROSS Received is one black stent with 0.2 ml of yellow thick material labeled with the patient's name and and designated per the requisition as Biliary stent. Submitted for cytology preparation including cell block. 07/02/2024 TC:5 CPT: 46431,51623 Signed (signature on file) Dr. Ade Moore DO 07/03/24 1200 Normal [facility] Comment on above: Performed By: #### L 100.0500, L501.2300, L501.5200, L500.4050 #### [facility] Laboratory [facility] [place], [address] BD BONE DENSITY DEXA AXIAL S Isaiah 06-10-2024 BD BONE DENSITY DEXA AXIAL SKELETON ORIGINAL EXAMINATION: BONE DENSITOMETRY06/10/2024 2:22 pm TECHNIQUE: Dual energy bone densitometry lumbar spine and left forearm. COMPARISON: 05/24/2022 HISTORY: Reason for Exam: Osteoporosis Screening FINDINGS: L1-L4: T score= -0.4 BMD= 1.001 g/cm2 1/3 left radius: T score= -3.4 BMD= 0.487 g/cm2 L1-L4 BMD change: 0%. Left forearm BMD change: -11.7%. FRAX score: Not calculated. The BHOF f/k/a NOF recommends that FDA-approved medical therapies be considered in post-menopausal women and men age >/= 50 years with a: * Hip or vertebral fracture, or * T-score of /= 20% for major osteoporotic fractures or * >/= 3% for hip fractures All treatment decisions require clinical judgement and consideration of individual patient factors, including patient preferences, comorbidities, previous drug use, risk factors not captured in the FRAX registered model (e.g., frailty, falls, vitamin D deficiency, increased bone turnover, interval significant decline in bone density) and possible under- or over-estimation of fracture risk by FRAX. IMPRESSION: Osteoporosis. Interpreted by: Александр Chong MD Preliminary Report By: Александр Chong MD Electronically signed By Александр Chong MD Dictated Date: 06/10/2024 6:06:56 PM Prelim Date: 06/10/2024 6:11:20 PM Sign Date: 06/10/2024 6:11:20 PM Ordering Provider: ESTELLA JACOME [facility] ([place]) [place] MAMMOGRAM SCREENING BILAT ERAL W/TOMOon 06-10-2024 MA MAMMOGRAM SCREENING BILATERAL W/OSMAN ORIGINAL FROM: [address] [address] PROCEDURE FOR: FANTA LOBO [address] [place] [id number] Home: PID#: [id number] Exam#: [id number] : 1950 Age: 74 TO: ESTELLA JACOME DO [address] [address] Fax: NO FAX EXAMINATION: SCREENING DIGITAL BILATERAL MAMMOGRAM WITH TOMOSYNTHESIS, 06/10/2024 1:46 pm TECHNIQUE: Screening mammography of the bilateral breasts was performed with tomosynthesis. 2D standard and 3D tomosynthesis combination imaging performed through both breasts in the MLO and CC projection. Computer aided detection was utilized in the interpretation of this exam. COMPARISON: May 25, 2023, May 24, 2022, August 09, 2021 HISTORY: Breast cancer screening. FINDINGS: BREAST DENSITY: There are scattered areas of fibroglandular density. There is no suspicious mass, architectural distortion or microcalcification. Fibroglandular pattern is stable. IMPRESSION: No mammographic evidence of malignancy. Continued screening with annual mammograms is recommended. Rubens Ocasio risk calculations, generated with the history provided, report this patient's lifetime risk for developing breast cancer at 3.3%. Based on this assessment tool, if the patient's calculated lifetime risk is below 20%, then the patient is considered at average risk for developing breast cancer. If the patient's calculated lifetime risk is at or above 20%, then the patient is considered high risk for developing breast cancer and may be a candidate for supplemental breast MRI screening in addition to annual mammographic screening per the [employer]. BIRADS: MAMMOGRAM BI-RADS: 1: Negative RECALL: 1 year screening RECALL TYPE: mammo LETTER SENT: Normal BI-RADS 1 and 2 Interpreted by: Mayda Peck Preliminary Report By: Mayda Peck Electronically signed By Mayda Peck Dictated Date: 06/10/2024 4:00:48 PM Prelim Date: 06/10/2024 4:03:12 PM Sign Date: 06/10/2024 4:03:12 PM Ordering Provider: ESTELLA JACOME [employer] Equipment Repairer: YAA BENEDICT RT(R)(M)(CT) letter sent: Normal BI-RADS 1 and 2 Mammogram BI-RADS: 1 Negative Normal [facility] ([place]) .GFRon 05-12-2024 GFR Non- 90 ml/min/1.73sqm Normal [facility] ([place]) Comment on above: Result Comment: GFR Population mean for , Non- Americans Ages 20-29 = 116 mL/min/1.73 sq.m. Ages 30-39 = 107 mL/min/1.73 sq.m. Ages 40-49 = 99 mL/min/1.73 sq.m. Ages 50-59 = 93 mL/min/1.73 sq.m. Ages 60-69 = 85 mL/min/1.73 sq.m. Ages 70+ = 75 mL/min/1.73 sq.m. Chronic Kidney Disease: Less than 60 mL/min/1.73 square meters End Stage Renal Disease: Less than 15 mL/min/1.73 square meters Performed By: #### C MP, TSH, GFR, LIPID ####[address] [place], [place] [address] GFR 109 ml/min/1.73sqm Normal [facility] ([place]) Comment on above: Result Comment: GFR Population mean for , Non- Americans Ages 20-29 = 116 mL/min/1.73 sq.m. Ages 30-39 = 107 mL/min/1.73 sq.m. Ages 40-49 = 99 mL/min/1.73 sq.m. Ages 50-59 = 93 mL/min/1.73 sq.m. Ages 60-69 = 85 mL/min/1.73 sq.m. Ages 70+ = 75 mL/min/1.73 sq.m. Chronic Kidney Disease: Less than 60 mL/min/1.73 square meters End Stage Renal Disease: Less than 15 mL/min/1.73 square meters Performed By: #### C MP, TSH, GFR, LIPID ####[id number] [place], [place] [address] CMPon 05-12-2024 Albumin Level 3.3 G/dL Low 3.4-4.8 [facility] ([place]) Comment on above: Performed By: #### C MP, TSH, GFR, LIPID ####[address] [place], [place] [address] Albumin/Globulin [Mass ratio] 0.8 {ratio} Low 1.1-2.5 [facility] ([place]) Comment on above: Performed By: #### C MP, TSH, GFR, LIPID ####[address] [place], [place] [address] ALP [Catalytic activity/Vol] 55 U/L Normal 40-135 [facility] ([place]) Comment on above: Performed By: #### C MP, TSH, GFR, LIPID ####[address] [place], [place] [address] ALT [Catalytic activity/Vol] 30 U/L Normal 14-59 [facility] ([place]) Comment on above: Performed By: #### C MP, TSH, GFR, LIPID ####[address] [place], [place] [address] AST [Catalytic activity/Vol] 21 U/L Normal 10-40 [facility] ([place]) Comment on above: Performed By: #### C MP, TSH, GFR, LIPID ####[address] [place], [place] [address] Bili Total 0.6 mg/dL Normal 0.2-1.0 [facility] ([place]) Comment on above: Result Comment: Use of this assay is not recommended for patients undergoing treatment with eltrombopag due to the potential for falsely elevated results. Performed By: #### C MP, TSH, GFR, LIPID ####[address] [place], [place] [address] BUN/Creatinine Ratio 38 ratio High 7-27 [facility] ([place]) Comment on above: Performed By: #### C MP, TSH, GFR, LIPID ####[address] [place], [place] [address] Calcium [Mass/Vol] 8.9 mg/dL Normal 8.4-10.2 [facility] ([place]) Comment on above: Performed By: #### C MP, TSH, GFR, LIPID ####[address] [place], [place] [address] Chloride [Moles/Vol] 104 mmol/L Normal 98-107 [facility] ([place]) Comment on above: Performed By: #### C MP, TSH, GFR, LIPID ####[address] [place], [place] [address] CO2 [Moles/Vol] 28 mmol/L Normal 23-31 [facility] ([place]) Comment on above: Performed By: #### C MP, TSH, GFR, LIPID ####[address] [place], [place] [address] Creatinine [Mass/Vol] 0.64 mg/dL Normal 0.55-1.02 [facility] ([place]) Comment on above: Performed By: #### C MP, TSH, GFR, LIPID ####[address] [place], [place] [address] Electrolyte Balance 8.0 mEq/L Normal 4.0-15.0 [facility] ([place]) Comment on above: Performed By: #### C MP, TSH, GFR, LIPID ####[address] [place], [place] [address] Globulin 4.0 G/dL Normal [facility] ([place]) Comment on above: Performed By: #### C MP, TSH, GFR, LIPID ####[address] [place], [place] [address] Glucose [Mass/Vol] 93 mg/dL Normal 83-110 [facility] ([place]) Comment on above: Performed By: #### C MP, TSH, GFR, LIPID ####[address] [place], [place] [address] Potassium [Moles/Vol] 4.2 mmol/L Normal 3.5-5.1 [facility] ([place]) Comment on above: Performed By: #### C MP, TSH, GFR, LIPID ####[address] [place], [place] [address] Sodium [Moles/Vol] 140 mmol/L Normal 136-145 [facility] ([place]) Comment on above: Performed By: #### C MP, TSH, GFR, LIPID ####[address] [place], [place] [address] Total Protein 7.3 G/dL Normal 6.4-8.2 [facility] ([place]) Comment on above: Performed By: #### C MP, TSH, GFR, LIPID ####[address] [place], [place] [address] Urea nitrogen [Mass/Vol] 24 mg/dL High 7-18 [facility] ([place]) Comment on above: Performed By: #### C MP, TSH, GFR, LIPID ####[address] [place], [place] [address] LABORATORYOrdered By: Jesus Chong on 05-12-2024 Albumin DL <= 20 mg/L (U) [Mass/Vol] 1250 mcg/dL Invalid Interpretation Code AO ADM SS Albumin/Creatinine DL <= 20 mg/L (U) [Mass ratio] 13 mcg/mg Normal 0 - 30 mcg/mg AO ADM SS Creatinine (U) [Mass/Vol] 93.6 mg/dL Normal 28.0 - 117.0 mg/dL AO ADM SS Cholesterol [Mass/Vol] 164 mg/dL Normal 0 - 200 mg/dL AO ADM SS Comment on above: Interpretive Data: C holesterol Reference Interval: Less than 200 Desirable 200-239 Borderline high risk 240 and above High risk Cholesterol in HDL [Mass/Vol] 59 mg/dL Normal 40 - 60 mg/dL AO ADM SS Cholesterol in LDL [Mass/Vol] 93 mg/dL Normal 0 - 130 mg/dL AO ADM SS Triglyceride [Mass/Vol] 59 mg/dL Normal 0 - 150 mg/dL AO ADM SS Comment on above: Interpretive Data: T riglyceride Reference Interval: Less than 150 Normal 150-199 Borderline high risk 200-499 High risk 500 or higher Very high risk LABORATORYOrdered By: SYSTEM SYSTEM on 05-12-2024 Albumin BCP dye [Mass/Vol] 3.3 G/dL Low 3.4 - 4.8 G/dL AO ADM SS Albumin/Globulin [Mass ratio] 0.8 {ratio} Low 1.1 - 2.5 ratio AO ADM SS ALP [Catalytic activity/Vol] 55 U/L Normal 40 - 135 U/L AO ADM SS ALT With P-5'-P [Catalytic activity/Vol] 30 U/L Normal 14 - 59 U/L AO ADM SS AST With P-5'-P [Catalytic activity/Vol] 21 U/L Normal 10 - 40 U/L AO ADM SS Bilirubin [Mass/Vol] 0.6 mg/dL Normal 0.2 - 1 .0 mg/dL AO ADM SS Comment on above: Interpretive Data: U se of this assay is not recommended for patients undergoing treatment with eltrombopag due to the potential for falsely elevated results. Calcium [Mass/Vol] 8.9 mg/dL Normal 8.4 - 10. 2 mg/dL AO ADM SS Chloride [Moles/Vol] 104 mmol/L Normal 98 - 10 7 mmol/L AO ADM SS CO2 [Moles/Vol] 28 mmol/L Normal 23 - 31 mmol/L AO ADM SS Creatinine [Mass/Vol] 0.64 mg/dL Normal 0.55 - 1.02 mg/dL AO ADM SS Electrolyte Balance 8.0 mEq/L Normal 4.0 - 15 .0 mEq/L AO ADM SS GFR/1.73 sq M.predicted among blacks MDRD (S/P/Bld) [Vol rate/Area] 109 ml/min/1.73sqm Invalid Interpretation Code AO Chemistry S Comment on above: Interpretive Data: GFR Population mean for , Non- Americans Ages 20-29 = 116 mL/min/1.73 sq.m. Ages 30-39 = 107 mL/min/1.73 sq.m. Ages 40-49 = 99 mL/min/1.73 sq.m. Ages 50-59 = 93 mL/min/1.73 sq.m. Ages 60-69 = 85 mL/min/1.73 sq.m. Ages 70+ = 75 mL/min/1.73 sq.m. Chronic Kidney Disease: Less than 60 mL/min/1.73 square meters End Stage Renal Disease: Less than 15 mL/min/1.73 square meters GFR/1.73 sq M.predicted among non-blacks MDRD (S/P/Bld) [Vol rate/Area] 90 ml/min/1.73sqm Invalid Interpretation Code AO Chemistry S Comment on above: Interpretive Data: GFR Population mean for , Non- Americans Ages 20-29 = 116 mL/min/1.73 sq.m. Ages 30-39 = 107 mL/min/1.73 sq.m. Ages 40-49 = 99 mL/min/1.73 sq.m. Ages 50-59 = 93 mL/min/1.73 sq.m. Ages 60-69 = 85 mL/min/1.73 sq.m. Ages 70+ = 75 mL/min/1.73 sq.m. Chronic Kidney Disease: Less than 60 mL/min/1.73 square meters End Stage Renal Disease: Less than 15 mL/min/1.73 square meters Globulin 4.0 G/dL Invalid Interpretation Code AO ADM SS Glucose [Mass/Vol] 93 mg/dL Normal 83 - 110 mg/dL AO ADM SS Potassium [Moles/Vol] 4.2 mmol/L Normal 3.5 - 5.1 mmol/L AO ADM SS Protein [Mass/Vol] 7.3 G/dL Normal 6.4 - 8.2 G/dL AO ADM SS Sodium [Moles/Vol] 140 mmol/L Normal 136 - 145 mmol/L AO ADM SS TSH Qn 2.35 m[IU]/L Normal 0.36 - 3.74 mcIU/mL AO ADM SS Urea nitrogen [Mass/Vol] 24 mg/dL High 7 - 18 mg/dL AO ADM SS Urea nitrogen/Creatinine [Mass ratio] 38 ratio High 7 - 27 ratio AO ADM SS LIPIDon 05-12-2024 Cholesterol [Mass/Vol] 164 mg/dL Normal 0-200 [facility] ([place]) Comment on above: Result Comment: Chol esterol Reference Interval: Less than 200 Desirable 200-239 Borderline high risk 240 and above High risk Performed By: #### C MP, TSH, GFR, LIPID ####[address] [place], [place] [address] Cholesterol in HDL [Mass/Vol] 59 mg/dL Normal 40-60 [facility] ([place]) Comment on above: Performed By: #### C MP, TSH, GFR, LIPID ####[address] [place], [place] [address] Cholesterol in LDL [Mass/Vol] 93 mg/dL Normal 0-130 [facility] ([place]) Comment on above: Performed By: #### C MP, TSH, GFR, LIPID ####[address] [place], [place] [address] Triglyceride [Mass/Vol] 59 mg/dL Normal 0-150 [facility] ([place]) Comment on above: Result Comment: Trig lyceride Reference Interval: Less than 150 Normal 150-199 Borderline high risk 200-499 High risk 500 or higher Very high risk Performed By: #### C MP, TSH, GFR, LIPID ####[address] [place], [place] [address] MALBRon 05-12-2024 U Creatinine 93.6 mg/dL Normal 28.0-117.0 [facility] ([place]) Comment on above: Performed By: #### M ALBR #### [address] [address] U Microalb 1250 mcg/dL Normal [facility] ([place]) Comment on above: Performed By: #### M ALBR #### [address] [address] U Ratio Alb/Cre 13 mcg/mg Normal 0-30 [facility] ([place]) Comment on above: Performed By: #### M ALBR #### [address] [address] TSHon 05-12-2024 TSH Qn 2.35 m[IU]/L Normal 0.36-3.74 [facility] ([place]) Comment on above: Performed By: #### C MP, TSH, GFR, LIPID ####[address] [place], [place] [address] .Urinalysis Microscopic (AO) on 04-25-2024 UA Bacteria 3+ /hpf Abnormal [facility] ([place]) Comment on above: Performed By: #### U AMICAO, UA ####[address] [place], [place] [address] UA RBC 0-5 Abnormal None Seen [facility] ([place]) Comment on above: Performed By: #### U AMICAO, UA ####[address] [place], [place] [address] UA Squam Epithelial 0-5 Abnormal None Seen [facility] ([place]) Comment on above: Performed By: #### U AMICAO, UA ####[address] [place] [id number] UA WBC 5-10 Abnormal None Seen [facility] ([place]) Comment on above: Performed By: #### U GOSIA ####[address] [place], [place] [address] CT ABD/PELVIS W/ IV CONTRAST ONLYon 04-25-2024 CT ABD/PELVIS W/ IV CONTRAST ONLY ORIGINAL EXAMINATION: CTA OF THE CHEST; CT OF THE ABDOMEN AND PELVIS WITH CONTRAST 04/25/2024 12:37 am TECHNIQUE: CTA of the chest was performed after the administration of intravenous contrast. Multiplanar reformatted images are provided for review. MIP images are provided for review. Automated exposure control, iterative reconstruction, and/or weight based adjustment of the mA/kV was utilized to reduce the radiation dose to as low as reasonably achievable.; CT of the abdomen and pelvis was performed with the administration of intravenous contrast. Multiplanar reformatted images are provided for review. Automated exposure control, iterative reconstruction, and/or weight based adjustment of the mA/kV was utilized to reduce the radiation dose to as low as reasonably achievable. COMPARISON: CT abdomen and pelvis on 10/25/2021. HISTORY: ORDERING SYSTEM PROVIDED HISTORY: Reason for Exam: was at home at 6 pm abdominal pain started sharp pains and then started to radiate across her shoulder blades pleuritic chest pain, pain behind right scapula Vomiting. FINDINGS: Pulmonary Arteries: Pulmonary arteries are adequately opacified for evaluation. No evidence of intraluminal filling defect to suggest pulmonary embolism. Main pulmonary artery is normal in caliber. Mediastinum: No evidence of mediastinal lymphadenopathy. The heart and pericardium demonstrate no acute abnormality. There is atherosclerotic coronary artery calcification. There is no acute abnormality of the thoracic aorta. Lungs/pleura: The lungs are without acute process. No focal consolidation or pulmonary edema. No evidence of pleural effusion or pneumothorax. Abdomen: The liver is normal in size. There is moderate dilatation of intrahepatic and extrahepatic common bile ducts. The common bile duct is 1.4 cm in diameter. There is a 1 cm calcific density in distal common bile duct consistent with choledocholithiasis. Pancreatic duct is also dilated measuring 7 mm. There is no inflammation of the pancreas. The spleen and adrenal glands are unremarkable. 4.5 cm hyperdense cyst at the upper pole of the right kidney is increased in size from 3.7 cm on 10/25/2021 but appearance remains benign. There are small benign appearing left renal cysts. There is no intestinal obstruction or inflammation. The appendix is normal. No free intraperitoneal air or abnormal fluid collection is present. There is diverticulosis of the colon without signs of diverticulitis. Abdominal aorta is nonaneurysmal. There is no retroperitoneal lymph node enlargement. 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 Urinary bladder is normal in size. Uterus and adnexal structures are unremarkable. No abnormal fluid collection is present in the pelvis. Soft Tissues/Bones: No acute bone or soft tissue abnormality. IMPRESSION: 1. No evidence of pulmonary embolism or acute cardiopulmonary process. 2. Choledocholithiasis with moderate biliary and pancreatic ductal dilatation. 3. Colonic diverticulosis without signs of diverticulitis. 4. Slight enlargement of hemorrhagic or proteinaceous cyst at upper pole of the right kidney, now measuring 4.5 cm Interpreted by: Robert Gonzalez MD Preliminary Report By: Robert Gonzalez MD Electronically signed By Robert Gonzalez MD Dictated Date: 04/25/2024 12:44:10 AM Prelim Date: 04/25/2024 12:56:59 AM Sign Date: 04/25/2024 12:56:59 AM Ordering Provider: JORDAN RYDER [facility] ([place]) CT ANGIOGRAPHY CHEST W/CONTR Dev 04-25-2024 CT ANGIOGRAPHY CHEST W/CONTRAST ORIGINAL EXAMINATION: CTA OF THE CHEST; CT OF THE ABDOMEN AND PELVIS WITH CONTRAST 04/25/2024 12:37 am TECHNIQUE: CTA of the chest was performed after the administration of intravenous contrast. Multiplanar reformatted images are provided for review. MIP images are provided for review. Automated exposure control, iterative reconstruction, and/or weight based adjustment of the mA/kV was utilized to reduce the radiation dose to as low as reasonably achievable.; CT of the abdomen and pelvis was performed with the administration of intravenous contrast. Multiplanar reformatted images are provided for review. Automated exposure control, iterative reconstruction, and/or weight based adjustment of the mA/kV was utilized to reduce the radiation dose to as low as reasonably achievable. COMPARISON: CT abdomen and pelvis on 10/25/2021. HISTORY: ORDERING SYSTEM PROVIDED HISTORY: Reason for Exam: was at home at 6 pm abdominal pain started sharp pains and then started to radiate across her shoulder blades pleuritic chest pain, pain behind right scapula Vomiting. FINDINGS: Pulmonary Arteries: Pulmonary arteries are adequately opacified for evaluation. No evidence of intraluminal filling defect to suggest pulmonary embolism. Main pulmonary artery is normal in caliber. Mediastinum: No evidence of mediastinal lymphadenopathy. The heart and pericardium demonstrate no acute abnormality. There is atherosclerotic coronary artery calcification. There is no acute abnormality of the thoracic aorta. Lungs/pleura: The lungs are without acute process. No focal consolidation or pulmonary edema. No evidence of pleural effusion or pneumothorax. Abdomen: The liver is normal in size. There is moderate dilatation of intrahepatic and extrahepatic common bile ducts. The common bile duct is 1.4 cm in diameter. There is a 1 cm calcific density in distal common bile duct consistent with choledocholithiasis. Pancreatic duct is also dilated measuring 7 mm. There is no inflammation of the pancreas. The spleen and adrenal glands are unremarkable. 4.5 cm hyperdense cyst at the upper pole of the right kidney is increased in size from 3.7 cm on 10/25/2021 but appearance remains benign. There are small benign appearing left renal cysts. There is no intestinal obstruction or inflammation. The appendix is normal. No free intraperitoneal air or abnormal fluid collection is present. There is diverticulosis of the colon without signs of diverticulitis. Abdominal aorta is nonaneurysmal. There is no retroperitoneal lymph node enlargement. 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 Urinary bladder is normal in size. Uterus and adnexal structures are unremarkable. No abnormal fluid collection is present in the pelvis. Soft Tissues/Bones: No acute bone or soft tissue abnormality. IMPRESSION: 1. No evidence of pulmonary embolism or acute cardiopulmonary process. 2. Choledocholithiasis with moderate biliary and pancreatic ductal dilatation. 3. Colonic diverticulosis without signs of diverticulitis. 4. Slight enlargement of hemorrhagic or proteinaceous cyst at upper pole of the right kidney, now measuring 4.5 cm Interpreted by: Robert Gonzalez MD Preliminary Report By: Robert Gonzalez MD Electronically signed By Robert Gonzalez MD Dictated Date: 04/25/2024 12:44:10 AM Prelim Date: 04/25/2024 12:56:59 AM Sign Date: 04/25/2024 12:56:59 AM Ordering Provider: JORDAN RYDER [facility] ([place]) LABORATORYOrdered By: Izabel Manning on 04-25-2024 Appearance (U) Clear (04/25/24 12:59 AM) Normal Clear AO Auto Urine SS Bacteria LM.HPF (Urine sed) [#/Area] 3 /[HPF] Invalid Interpretation Code AO Auto Urine SS Bilirubin Ql (U) Negative (04/25/24 12:59 AM) Normal Negative AO Auto Urine SS Color (U) Yellow (04/25/24 12:59 AM) Normal AO Auto Urine SS Glucose Test strip (U) [Mass/Vol] Negative Normal Negative AO Auto Urine SS Hemoglobin Auto test strip (U) [Mass/Vol] Small *ABN* (04/25/24 12:59 AM) Invalid Interpretation Code Negative AO Auto Urine SS Ketones Ql (U) Negative Normal Negative AO Auto Urine SS UA Leuk Est Trace *ABN* (04/25/24 12:59 AM) Invalid Interpretation Code Negative AO Auto Urine SS UA Nitrite Positive *ABN* (04/25/24 12:59 AM) Invalid Interpretation Code Negative AO Auto Urine SS UA pH 6.5 (04/25/24 12:59 AM) Normal 5.0 - 8.0 AO Auto Urine SS UA Protein Negative Normal Negative AO Auto Urine SS UA RBC 0-5 /HPF Invalid Interpretation Code None Seen AO Auto Urine SS UA Spec Grav 1.020 (04/25/24 12:59 AM) Normal 1.015-1.025 AO Auto Urine SS UA Specimen Type Clean Catch (04/25/24 12:59 AM) Normal AO Auto Urine SS UA Squam Epithelial 0-5 /HPF Invalid Interpretation Code None Seen AO Auto Urine SS UA Urobilinogen 1.0 E.U./dL Normal 0.2-1.0 AO Auto Urine SS WBC LM.HPF (Urine sed) [#/Area] 5-10 /HPF Invalid Interpretation Code None Seen AO Auto Urine SS UAon 04-25-2024 Color (U) Yellow Normal [facility] ([place]) Comment on above: Performed By: #### U GOSIA UA ####[address] [place], [place] [address] Glucose (U) [Mass/Vol] Negative Normal Negative [facility] ([place]) Comment on above: Performed By: #### U GOSIA UA ####[address] [place], [place] [address] Ketones Ql (U) Negative Normal Negative [facility] ([place]) Comment on above: Performed By: #### U AMICAO, UA ####[address] [place], [place] [address] UA Appear Clear Normal Clear [facility] ([place]) Comment on above: Performed By: #### U AMICAO, UA ####[address] [place] [address] UA Blood Small Abnormal Negative [facility] ([place]) Comment on above: Performed By: #### U AMICAO, UA ####[address] [place] [address] UA Leuk Est Trace Abnormal Negative [facility] ([place]) Comment on above: Performed By: #### U AMICAO, UA ####[address] [place] [address] UA Nitrite Positive Abnormal Negative [facility] ([place]) Comment on above: Performed By: #### U AMICAO, UA ####[address] [place], [place] [address] UA pH 6.5 Normal 5.0 - 8.0 [facility] ([place]) Comment on above: Performed By: #### U AMICAO, UA ####[address] [place], [place] [address] UA Protein Negative Normal Negative [facility] ([place]) Comment on above: Performed By: #### U AMICAO, UA ####[address] [place] [address] UA Spec Grav 1.020 Normal 1.015-1.025 [facility] ([place]) Comment on above: Performed By: #### U AMICAO, UA ####[address] [place] [address] UA Specimen Type Clean Catch Normal [facility] ([place]) Comment on above: Performed By: #### U AMICAO, UA ####[address] [place] [address] UA Urobilinogen 1.0 E.U./dL Normal 0.2-1.0 [facility] ([place]) Comment on above: Performed By: #### U MAX ELISE ####[address] [place], [place] [address] Urobilinogen (U) [Mass/Vol] Negative Normal Negative [facility] ([place]) Comment on above: Performed By: #### U GOSIA UA ####[address] [place], [place] [address] .Auto Diffon 04-24-2024 Basophil, Absolute 0.1 10 3/mcL Normal 0.0-0.2 [facility] ([place]) Comment on above: Performed By: #### C BC, ANEU, ADIFF, CMP, LIP, TROPHS, MDW, GFR ####[address] [place], [place] [address] Basophils/100 WBC (Bld) 0.8 % Normal 0.0-2.5 [facility] ([place]) Comment on above: Performed By: #### C BC, ANEU, ADIFF, CMP, LIP, TROPHS, MDW, GFR ####[address] [place], [place] [address] Eosinophil, Absolute 0.0 10 3/mcL Normal 0.0-0.4 [facility] ([place]) Comment on above: Performed By: #### C BC, ANEU, ADIFF, CMP, LIP, TROPHS, MDW, GFR ####[address] [place], [place] [address] Eosinophils/100 WBC (Bld) 0.5 % Normal 0.0-7.0 [facility] ([place]) Comment on above: Performed By: #### C BC, ANEU, ADIFF, CMP, LIP, TROPHS, MDW, GFR ####[address] [place], [place] [address] Lymphocyte, Absolute 0.8 10 3/mcL Normal 0.8-3.9 [facility] ([place]) Comment on above: Performed By: #### C BC, ANEU, ADIFF, CMP, LIP, TROPHS, MDW, GFR ####[id number] [place], [place] [address] Lymphocytes/100 WBC (Bld) 10.2 % Normal 10.0-50.0 [facility] ([place]) Comment on above: Performed By: #### C BC, ANEU, ADIFF, CMP, LIP, RIGO, W, GFR ####[address] [place], [place] [address] Monocyte, Absolute 0.3 10 3/mcL Normal 0.2-1.0 [facility] ([place]) Comment on above: Performed By: #### C BC, ANEU, ADIFF, CMP, LIP, RIGO, W, GFR ####[address] [place], [place] [address] Monocytes/100 WBC (Bld) 3.9 % Normal 1.7-13.0 [facility] ([place]) Comment on above: Performed By: #### C BC, ANEU, ADIFF, CMP, LIP, RIGO, W, GFR ####[address] [place], [place] [address] Neutrophils/100 WBC (Bld) 84.6 % High 37.0-80.0 [facility] ([place]) Comment on above: Performed By: #### C BC, ANEU, ADIFF, CMP, LIP, RIGO, SULEMA, GFR ####[address] [place], [place] [address] .GFRon 04-24-2024 GFR 73 ml/min/1.73sqm Normal [facility] ([place]) Comment on above: Result Comment: GFR Population mean for , Non- Americans Ages 20-29 = 116 mL/min/1.73 sq.m. Ages 30-39 = 107 mL/min/1.73 sq.m. Ages 40-49 = 99 mL/min/1.73 sq.m. Ages 50-59 = 93 mL/min/1.73 sq.m. Ages 60-69 = 85 mL/min/1.73 sq.m. Ages 70+ = 75 mL/min/1.73 sq.m. Chronic Kidney Disease: Less than 60 mL/min/1.73 square meters End Stage Renal Disease: Less than 15 mL/min/1.73 square meters Performed By: #### C BC, ANEU, ADIFF, CMP, LIP, TROPHS, MDW, GFR ####[address] [place], [place] [address] GFR Non- 60 ml/min/1.73sqm Normal [facility] ([place]) Comment on above: Result Comment: GFR Population mean for , Non- Americans Ages 20-29 = 116 mL/min/1.73 sq.m. Ages 30-39 = 107 mL/min/1.73 sq.m. Ages 40-49 = 99 mL/min/1.73 sq.m. Ages 50-59 = 93 mL/min/1.73 sq.m. Ages 60-69 = 85 mL/min/1.73 sq.m. Ages 70+ = 75 mL/min/1.73 sq.m. Chronic Kidney Disease: Less than 60 mL/min/1.73 square meters End Stage Renal Disease: Less than 15 mL/min/1.73 square meters Performed By: #### C BC, ANEU, ADIFF, CMP, LIP, TROPHS, MDW, GFR ####[address] [place], [place] [address] .MDWon 04-24-2024 Monocyte Distribution Width 16.29 Normal 0.00-20.00 [facility] ([place]) Comment on above: Result Comment: For ED adult patients suspected of sepsis, MDW<=20.0 does not rule out sepsis or risk of sepsis Performed By: #### C BC, ANEU, ADIFF, CMP, LIP, TROPHS, MDW, GFR ####[address] [place], [place] [address] .NEUABSon 04-24-2024 Neutrophil, Absolute 7.0 10 3/mcL High 2.9-6.2 [facility] ([place]) Comment on above: Performed By: #### C BC, ANEU, ADIFF, CMP, LIP, TROPHS, MDW, GFR ####[id number] [place], [place] [address] CBCon 04-24-2024 Erythrocyte distribution width (RBC) [Ratio] 13.6 % Normal 11.5-14.5 [facility] ([place]) Comment on above: Performed By: #### C BC, ANEU, ADIFF, CMP, LIP, TROPHS, MDW, GFR ####[address] [place], [place] [address] Hematocrit (Bld) [Volume fraction] 37.7 % Normal 37.0-47.0 [facility] ([place]) Comment on above: Performed By: #### C BC, ANEU, ADIFF, CMP, LIP, TROPHS, MDW, GFR ####[address] [place], [place] [address] Hgb 13.0 G/dL Normal 12.0-16.0 [facility] ([place]) Comment on above: Performed By: #### C BC, ANEU, ADIFF, CMP, LIP, TROPHS, MDW, GFR ####[address] [place], [place] [address] MCH (RBC) [Entitic mass] 30.9 pg Normal 27.0-31.2 [facility] ([place]) Comment on above: Performed By: #### C BC, ANEU, ADIFF, CMP, LIP, TROPHS, MDW, GFR ####[address] [place], [place] [address] MCHC 34.5 G/dL Normal 33.0-37.0 [facility] ([place]) Comment on above: Performed By: #### C BC, ANEU, ADIFF, CMP, LIP, TROPHS, MDW, GFR ####[address] [place], [place] [address] MCV (RBC) [Entitic vol] 89.6 fL Normal 80.0-94.0 [facility] ([place]) Comment on above: Performed By: #### C BC, ANEU, ADIFF, CMP, LIP, TROPHS, MDW, GFR ####[address] [place], [place] [address] Platelet 189 10 3/mcL Normal 130-400 [facility] ([place]) Comment on above: Performed By: #### C BC, ANEU, ADIFF, CMP, LIP, TROPHS, MDW, GFR ####[address] [place], [place] [address] Platelet mean volume (Bld) [Entitic vol] 8.0 fL Normal 7.4-10.4 [facility] ([place]) Comment on above: Performed By: #### C BC, ANEU, ADIFF, CMP, LIP, TROPHS, MDW, GFR ####[address] [place], [place] [address] RBC 4.21 10 6/mcL Normal 4.20-5.40 [facility] ([place]) Comment on above: Performed By: #### C BC, ANEU, ADIFF, CMP, LIP, TROPHS, MDW, GFR ####[address] [place], [place] [address] WBC 8.3 10 3/mcL Normal 4.6-10.8 [facility] ([place]) Comment on above: Performed By: #### C BC, ANEU, ADIFF, CMP, LIP, TROPHS, MDW, GFR ####[address] [place], [place] [address] CMPon 04-24-2024 Albumin Level 3.5 G/dL Normal 3.4-4.8 [facility] ([place]) Comment on above: Performed By: #### C BC, ANEU, ADIFF, CMP, LIP, TROPHS, MDW, GFR ####[address] [place], [place] [address] Albumin/Globulin [Mass ratio] 0.9 {ratio} Low 1.1-2.5 [facility] ([place]) Comment on above: Performed By: #### C BC, ANEU, ADIFF, CMP, LIP, TROPHS, MDW, GFR ####[address] [place], [place] [address] ALP [Catalytic activity/Vol] 95 U/L Normal 40-135 [facility] ([place]) Comment on above: Performed By: #### C BC, ANEU, ADIFF, CMP, LIP, TROPHS, MDW, GFR ####[address] [place], [place] [address] ALT [Catalytic activity/Vol] 189 U/L High 14-59 [facility] ([place]) Comment on above: Performed By: #### C BC, ANEU, ADIFF, CMP, LIP, RIGO, W, GFR ####[address] [place], [place] [address] AST [Catalytic activity/Vol] 308 U/L High 10-40 [facility] ([place]) Comment on above: Performed By: #### C BC, ANEU, ADIFF, CMP, LIP, SANTIAGOS, MDW, GFR ####[address] [place], [place] [address] Bili Total 1.4 mg/dL High 0.2-1.0 [facility] ([place]) Comment on above: Result Comment: Use of this assay is not recommended for patients undergoing treatment with eltrombopag due to the potential for falsely elevated results. Performed By: #### C BC, ANEU, ADIFF, CMP, LIP, RIGO, W, GFR ####[address] [place], [place] [address] BUN/Creatinine Ratio 18 ratio Normal 7-27 [facility] ([place]) Comment on above: Performed By: #### C BC, ANEU, ADIFF, CMP, LIP, RIGO, W, GFR ####[address] [place], [place] [address] Calcium [Mass/Vol] 9.0 mg/dL Normal 8.4-10.2 [facility] ([place]) Comment on above: Performed By: #### C BC, ANEU, ADIFF, CMP, LIP, RIGO, MDW, GFR ####[address] [place], [place] [address] Chloride [Moles/Vol] 101 mmol/L Normal 98-107 [facility] ([place]) Comment on above: Performed By: #### C BC, ANEU, ADIFF, CMP, LIP, TROPHS, MDW, GFR ####[address] [place], [place] [address] CO2 [Moles/Vol] 27 mmol/L Normal 23-31 [facility] ([place]) Comment on above: Performed By: #### C BC, ANEU, ADIFF, CMP, LIP, TROPHS, MDW, GFR ####[address] [place], [place] [address] Creatinine [Mass/Vol] 0.91 mg/dL Normal 0.55-1.02 [facility] ([place]) Comment on above: Performed By: #### C BC, ANEU, ADIFF, CMP, LIP, TROPHS, MDW, GFR ####[address] [place], [place] [address] Electrolyte Balance 9.0 mEq/L Normal 4.0-15.0 [facility] ([place]) Comment on above: Performed By: #### C BC, ANEU, ADIFF, CMP, LIP, TROPHS, MDW, GFR ####[address] [place], [place] [address] Globulin 4.1 G/dL Normal [facility] ([place]) Comment on above: Performed By: #### C BC, ANEU, ADIFF, CMP, LIP, TROPHS, MDW, GFR ####[address] [place], [place] [address] Glucose [Mass/Vol] 158 mg/dL High 83-110 [facility] ([place]) Comment on above: Performed By: #### C BC, ANEU, ADIFF, CMP, LIP, TROPHS, MDW, GFR ####[address] [place], [place] [address] Potassium [Moles/Vol] 3.8 mmol/L Normal 3.5-5.1 [facility] ([place]) Comment on above: Performed By: #### C BC, ANEU, ADIFF, CMP, LIP, TROPHS, MDW, GFR ####[address] [place], [place] [address] Sodium [Moles/Vol] 137 mmol/L Normal 136-145 [facility] ([place]) Comment on above: Performed By: #### C BC, ANEU, ADIFF, CMP, LIP, TROPHS, MDW, GFR ####[address] [place], [place] [address] Total Protein 7.6 G/dL Normal 6.4-8.2 [facility] ([place]) Comment on above: Performed By: #### C DEE DEE, BALTAZAR, EMILY, CMP, LIP, RIGO, W, GFR ####[address] [place], [place] [address] Urea nitrogen [Mass/Vol] 16 mg/dL Normal 7-18 [facility] ([place]) Comment on above: Performed By: #### C DEE DEE, BALTAZAR, EMILY, CMP, TANMAY, RIGO, W, GFR ####[address] [place], [place] [address] LABORATORYOrdered By: SYSTEM SYSTEM on 04-24-2024 Albumin BCP dye [Mass/Vol] 3.5 G/dL Normal 3.4 - 4.8 G/dL AO ADM SS Albumin/Globulin [Mass ratio] 0.9 {ratio} Low 1.1 - 2.5 ratio AO ADM SS ALP [Catalytic activity/Vol] 95 U/L Normal 40 - 135 U/L AO ADM SS ALT With P-5'-P [Catalytic activity/Vol] 189 U/L High 14 - 59 U/L AO ADM SS AST With P-5'-P [Catalytic activity/Vol] 308 U/L High 10 - 40 U/L AO ADM SS Basophil, Absolute 0.1 103/mcL Normal 0.0 - 0.2 10^3/mcL AO Workflow SS Basophils/100 WBC (Bld) 0.8 % Normal 0.0 - 2.5 % AO Workflow SS Bilirubin [Mass/Vol] 1.4 mg/dL High 0.2 - 1 .0 mg/dL AO ADM SS Comment on above: Interpretive Data: U se of this assay is not recommended for patients undergoing treatment with eltrombopag due to the potential for falsely elevated results. Calcium [Mass/Vol] 9.0 mg/dL Normal 8.4 - 10. 2 mg/dL AO ADM SS Chloride [Moles/Vol] 101 mmol/L Normal 98 - 10 7 mmol/L AO ADM SS CO2 [Moles/Vol] 27 mmol/L Normal 23 - 31 mmol/L AO ADM SS Creatinine [Mass/Vol] 0.91 mg/dL Normal 0.55 - 1.02 mg/dL AO ADM SS Electrolyte Balance 9.0 mEq/L Normal 4.0 - 15 .0 mEq/L AO ADM SS Eosinophil, Absolute 0.0 103/mcL Normal 0.0 - 0 .4 10^3/mcL AO Workflow SS Eosinophils/100 WBC (Bld) 0.5 % Normal 0.0 - 7.0 % AO Workflow SS Erythrocyte distribution width (RBC) [Ratio] 13.6 % Normal 11.5 - 14.5 % AO Workflow SS GFR/1.73 sq M.predicted among blacks MDRD (S/P/Bld) [Vol rate/Area] 73 ml/min/1.73sqm Invalid Interpretation Code AO Chemistry S Comment on above: Interpretive Data: GFR Population mean for , Non- Americans Ages 20-29 = 116 mL/min/1.73 sq.m. Ages 30-39 = 107 mL/min/1.73 sq.m. Ages 40-49 = 99 mL/min/1.73 sq.m. Ages 50-59 = 93 mL/min/1.73 sq.m. Ages 60-69 = 85 mL/min/1.73 sq.m. Ages 70+ = 75 mL/min/1.73 sq.m. Chronic Kidney Disease: Less than 60 mL/min/1.73 square meters End Stage Renal Disease: Less than 15 mL/min/1.73 square meters GFR/1.73 sq M.predicted among non-blacks MDRD (S/P/Bld) [Vol rate/Area] 60 ml/min/1.73sqm Invalid Interpretation Code AO Chemistry S Comment on above: Interpretive Data: GFR Population mean for , Non- Americans Ages 20-29 = 116 mL/min/1.73 sq.m. Ages 30-39 = 107 mL/min/1.73 sq.m. Ages 40-49 = 99 mL/min/1.73 sq.m. Ages 50-59 = 93 mL/min/1.73 sq.m. Ages 60-69 = 85 mL/min/1.73 sq.m. Ages 70+ = 75 mL/min/1.73 sq.m. Chronic Kidney Disease: Less than 60 mL/min/1.73 square meters End Stage Renal Disease: Less than 15 mL/min/1.73 square meters Globulin 4.1 G/dL Invalid Interpretation Code AO ADM SS Glucose [Mass/Vol] 158 mg/dL High 83 - 110 mg/dL AO ADM SS Hematocrit (Bld) [Volume fraction] 37.7 % Normal 37.0 - 47.0 % AO Workflow SS Hemoglobin (Bld) [Mass/Vol] 13.0 G/dL Normal 12.0 - 16.0 G/dL AO Workflow SS Lipase [Catalytic activity/Vol] 67 U/L Normal 16 - 77 U/L AO ADM SS Lymphocyte, Absolute 0.8 103/mcL Normal 0.8 - 3 .9 10^3/mcL AO Workflow SS Lymphocytes/100 WBC (Bld) 10.2 % Normal 10.0 - 50.0 % AO Workflow SS MCH (RBC) [Entitic mass] 30.9 pg Normal 27.0 - 31.2 pg AO Workflow SS MCHC 34.5 G/dL Normal 33.0 - 37.0 G/dL AO Workflow SS MCV (RBC) [Entitic vol] 89.6 fL Normal 80.0 - 94.0 fL AO Workflow SS Monocyte distribution width Auto (Bld) [Entitic vol] 16.29 1 Normal 0.00 - 20.00 AO Workflow SS Comment on above: Result Comment: For ED adult patients suspected of sepsis, MDW<=20.0 does not rule out sepsis or risk of sepsis Monocyte, Absolute 0.3 103/mcL Normal 0.2 - 1.0 10^3/mcL AO Workflow SS Monocytes/100 WBC (Bld) 3.9 % Normal 1.7 - 13.0 % AO Workflow SS Neutrophil, Absolute 7.0 103/mcL High 2.9 - 6 .2 10^3/mcL AO Workflow SS Neutrophils/100 WBC (Bld) 84.6 % High 37.0 - 80.0 % AO Workflow SS Platelet mean volume (Bld) [Entitic vol] 8.0 fL Normal 7.4 - 10.4 fL AO Workflow SS Platelets (Bld) [#/Vol] 189 103/mcL Normal 130 - 400 10^3/mcL AO Workflow SS Potassium [Moles/Vol] 3.8 mmol/L Normal 3.5 - 5.1 mmol/L AO ADM SS Protein [Mass/Vol] 7.6 G/dL Normal 6.4 - 8.2 G/dL AO ADM SS RBC (Bld) [#/Vol] 4.21 106/mcL Normal 4.20 - 5.4 0 10^6/mcL AO Workflow SS Sodium [Moles/Vol] 137 mmol/L Normal 136 - 145 mmol/L AO ADM SS Troponin I.cardiac DL <= 0.01 ng/mL [Mass/Vol] 8 ng/L Normal 0 - 51 ng/L AO ADM SS Comment on above: Interpretive Data: H igh Sensitive Troponin I Reference Ranges: Female: 0-51 ng/L Male: 0-76 ng/L Testing performed on Dimension EXL using a homogeneous sandwich chemiluminescent immunoassay based on [employer] technology. Urea nitrogen [Mass/Vol] 16 mg/dL Normal 7 - 18 mg/dL AO ADM SS Urea nitrogen/Creatinine [Mass ratio] 18 ratio Normal 7 - 27 ratio AO ADM SS WBC (Bld) [#/Vol] 8.3 103/mcL Normal 4.6 - 10.8 10^3/mcL AO Workflow SS LIPon 04-24-2024 Lipase Level 67 U/L Normal 16-77 [facility] ([place]) Comment on above: Performed By: #### C BALTAZAR FUNEZ ADIFF, JOSE, TANMAY, SULEMA SIERRA, GFR ####[id number] [place], [place] [address] [facility] 04-24-2024 High Sensitivity Troponin I 8 ng/L Normal 0-51 [facility] ([place]) Comment on above: Result Comment: High Sensitive Troponin I Reference Ranges: Female: 0-51 ng/L Male: 0-76 ng/L Testing performed on [employer] using a homogeneous sandwich chemiluminescent immunoassay based on [employer] technology. Performed By: #### C BALTAZAR FUNEZ ADIFF, JOSE, LIP, SULEMA SIERRA, GFR ####[address] [place], [place] [address] CNPAna 01-01-2024 CNPN Telephone (FAMPWS) -- FANTA LOBO ([id number]) 1950 F Date Time Provider Department 01/01/24 NO PCP FAMPWS During your visit today, we recorded the following information about you: Siobhan Valdes LPN 01/01/2024 2:56 PM Signed Pt is calling to see if Neuro (Dr. Blessing Wood) has received pt's records from Dr. Parsons with [facility]. Pt reports she is waiting for Dr. Wood's office to receive records so she can schedule an appt with Dr. Wood. ODESSA Enamorado Krista, LPN 01/29/2024 2:34 PM Signed Pt has a future appt with Dr. Hairston-neurology. Siobhan Valdes LPN Allergies As of Date: 01/01/2024 Noted Allergy Reaction DARVOCET A500 (PROPOXYPHENE N-KWAME*02/27/2008 vicodan [Other] 02/27/2008 Date Reviewed: 10/28/2009 Reviewed by: Di Sanchez (Rn), RN - Reviewed Reason for Visit: medical records [Other] Prescriptions as of 01/29/2024 - MORPHINE 15 MG TAB 30 mg ER tabs can be taken twice daily. - olmesartan medoxomil(BENICAR 40 MG TAB) Take one(1) tablet daily. - escitalopram oxalate(LEXAPRO 10 MG TAB) Take one(1) tablet daily. - budesonide(ENTOCORT EC 3 MG 24 HR CAP) Take two(2) capsule twice daily. - esomeprazole mag trihydrate(NEXIUM 40 MG CAP) Take one(1) capsule daily. - acetaminophen(TYLENOL 325 MG TAB) Take two(2) tablets every four(4) to six(6) hours as needed for pain. Problem List As Of Date 01/01/2024 Noted Resolved CHRONIC PANCREATITIS [K86.1] 03/03/2008 PANCREAT CYST/PSEUDOCYST [K86.2, K86.3] 03/03/2008 Encounter Status:Closed by SIOBHAN VALDES on 01/29/24 Normal [facility] .Auto Diffon 10-02-2023 Basophil, Absolute 0.0 10 3/mcL Normal 0.0-0.2 [facility] ([place]) Comment on above: Performed By: #### M G, TSH, ANEU, GFR, CBC, ADIFF, CMP #### [address] [address] Basophils/100 WBC (Bld) 1.0 % Normal 0.0-2.5 [facility] ([place]) Comment on above: Performed By: #### M G, TSH, ANEU, GFR, CBC, ADIFF, CMP #### [address] [address] Eosinophil, Absolute 0.1 10 3/mcL Normal 0.0-0.4 [facility] ([place]) Comment on above: Performed By: #### M G, TSH, ANEU, GFR, CBC, ADIFF, CMP #### [address] [address] Eosinophils/100 WBC (Bld) 2.8 % Normal 0.0-7.0 [facility] ([place]) Comment on above: Performed By: #### M G, TSH, ANEU, GFR, CBC, ADIFF, CMP #### [address] [address] Lymphocyte, Absolute 1.6 10 3/mcL Normal 0.8-3.9 [facility] ([place]) Comment on above: Performed By: #### M G, TSH, ANEU, GFR, CBC, ADIFF, CMP #### [address] [address] Lymphocytes/100 WBC (Bld) 35.7 % Normal 10.0-50.0 [facility] ([place]) Comment on above: Performed By: #### M G, TSH, ANEU, GFR, CBC, ADIFF, CMP #### [address] [address] Monocyte, Absolute 0.5 10 3/mcL Normal 0.2-1.0 [facility] ([place]) Comment on above: Performed By: #### M G, TSH, ANEU, GFR, CBC, ADIFF, CMP #### [address] [address] Monocytes/100 WBC (Bld) 10.6 % Normal 1.7-13.0 [facility] ([place]) Comment on above: Performed By: #### M G, TSH, ANEU, GFR, CBC, ADIFF, CMP #### [address] [place], [place] [address] Neutrophils/100 WBC (Bld) 49.9 % Normal 37.0-80.0 [facility] ([place]) Comment on above: Performed By: #### M G, TSH, ANEU, GFR, CBC, ADIFF, CMP #### [address] [place], [place] [address] .GFRon 10-02-2023 GFR 85 ml/min/1.73sqm Normal [facility] ([place]) Comment on above: Result Comment: GFR Population mean for , Non- Americans Ages 20-29 = 116 mL/min/1.73 sq.m. Ages 30-39 = 107 mL/min/1.73 sq.m. Ages 40-49 = 99 mL/min/1.73 sq.m. Ages 50-59 = 93 mL/min/1.73 sq.m. Ages 60-69 = 85 mL/min/1.73 sq.m. Ages 70+ = 75 mL/min/1.73 sq.m. Chronic Kidney Disease: Less than 60 mL/min/1.73 square meters End Stage Renal Disease: Less than 15 mL/min/1.73 square meters Performed By: #### M G, TSH, ANEU, GFR, CBC, ADIFF, CMP ####Yaz[address] [address] GFR Non- 70 ml/min/1.73sqm Normal [facility] ([place]) Comment on above: Result Comment: GFR Population mean for , Non- Americans Ages 20-29 = 116 mL/min/1.73 sq.m. Ages 30-39 = 107 mL/min/1.73 sq.m. Ages 40-49 = 99 mL/min/1.73 sq.m. Ages 50-59 = 93 mL/min/1.73 sq.m. Ages 60-69 = 85 mL/min/1.73 sq.m. Ages 70+ = 75 mL/min/1.73 sq.m. Chronic Kidney Disease: Less than 60 mL/min/1.73 square meters End Stage Renal Disease: Less than 15 mL/min/1.73 square meters Performed By: #### M G, TSH, ANEU, GFR, CBC, ADIFF, CMP ####[address] [address] .NEUABSon 10-02-2023 Neutrophil, Absolute 2.3 10 3/mcL Low 2.9-6.2 [facility] ([place]) Comment on above: Performed By: #### M G, TSH, ANEU, GFR, CBC, ADIFF, CMP #### [place] [id number] CBCon 10-02-2023 Erythrocyte distribution width (RBC) [Ratio] 13.3 % Normal 11.5-14.5 [facility] ([place]) Comment on above: Performed By: #### M G, TSH, ANEU, GFR, CBC, ADIFF, CMP #### [place] [address] Hematocrit (Bld) [Volume fraction] 35.1 % Low 37.0-47.0 [facility] ([place]) Comment on above: Performed By: #### M G, TSH, ANEU, GFR, CBC, ADIFF, CMP #### [place] [id number] Hgb 12.1 G/dL Normal 12.0-16.0 [facility] ([place]) Comment on above: Performed By: #### M G, TSH, ANEU, GFR, CBC, ADIFF, CMP #### [place] [address] MCH (RBC) [Entitic mass] 30.8 pg Normal 27.0-31.2 [facility] ([place]) Comment on above: Performed By: #### M G, TSH, ANEU, GFR, CBC, ADIFF, CMP #### [place] [address] MCHC 34.4 G/dL Normal 33.0-37.0 [facility] ([place]) Comment on above: Performed By: #### M G, TSH, ANEU, GFR, CBC, ADIFF, CMP #### [address] [address] MCV (RBC) [Entitic vol] 89.3 fL Normal 80.0-94.0 [facility] ([place]) Comment on above: Performed By: #### M G, TSH, ANEU, GFR, CBC, ADIFF, CMP #### [address] [address] Platelet 181 10 3/mcL Normal 130-400 [facility] ([place]) Comment on above: Performed By: #### M G, TSH, ANEU, GFR, CBC, ADIFF, CMP #### [address] [address] Platelet mean volume (Bld) [Entitic vol] 8.5 fL Normal 7.4-10.4 [facility] ([place]) Comment on above: Performed By: #### M G, TSH, ANEU, GFR, CBC, ADIFF, CMP #### [address] [address] RBC 3.93 10 6/mcL Low 4.20-5.40 [facility] ([place]) Comment on above: Performed By: #### M G, TSH, ANEU, GFR, CBC, ADIFF, CMP #### [address] [address] WBC 4.6 10 3/mcL Normal 4.6-10.8 [facility] ([place]) Comment on above: Performed By: #### M G, TSH, ANEU, GFR, CBC, ADIFF, CMP #### [address] [address] CMPon 10-02-2023 Albumin Level 3.5 G/dL Normal 3.4-4.8 [facility] ([place]) Comment on above: Performed By: #### M G, TSH, ANEU, GFR, CBC, ADIFF, CMP ####[address] [address] Albumin/Globulin [Mass ratio] 0.9 {ratio} Low 1.1-2.5 [facility] ([place]) Comment on above: Performed By: #### M G, TSH, ANEU, GFR, CBC, ADIFF, CMP ####[address] [place], [place] [address] ALP [Catalytic activity/Vol] 59 U/L Normal 40-135 [facility] ([place]) Comment on above: Performed By: #### M G, TSH, ANEU, GFR, CBC, ADIFF, CMP ####[address] [place], [place] [address] ALT [Catalytic activity/Vol] 33 U/L Normal 14-59 [facility] ([place]) Comment on above: Performed By: #### M G, TSH, ANEU, GFR, CBC, ADIFF, CMP ####[address] [place], [place] [address] AST [Catalytic activity/Vol] 18 U/L Normal 10-40 [facility] ([place]) Comment on above: Performed By: #### M G, TSH, ANEU, GFR, CBC, ADIFF, CMP ####[address] [place], [place] [address] Bili Total 0.5 mg/dL Normal 0.2-1.0 [facility] ([place]) Comment on above: Result Comment: Use of this assay is not recommended for patients undergoing treatment with eltrombopag due to the potential for falsely elevated results. Performed By: #### M G, TSH, ANEU, GFR, CBC, ADIFF, CMP ####[address] [place], [place] [address] BUN/Creatinine Ratio 20 ratio Normal 7-27 [facility] ([place]) Comment on above: Performed By: #### M G, TSH, ANEU, GFR, CBC, ADIFF, CMP ####[address] [place], [place] [address] Calcium [Mass/Vol] 8.9 mg/dL Normal 8.4-10.2 [facility] ([place]) Comment on above: Performed By: #### M G, TSH, ANEU, GFR, CBC, ADIFF, CMP ####[id number] [place], [place] [address] Chloride [Moles/Vol] 103 mmol/L Normal 98-107 [facility] ([place]) Comment on above: Performed By: #### M G, TSH, ANEU, GFR, CBC, ADIFF, CMP ####[address] [place], [place] [address] CO2 [Moles/Vol] 27 mmol/L Normal 23-31 [facility] ([place]) Comment on above: Performed By: #### M G, TSH, ANEU, GFR, CBC, ADIFF, CMP ####[address] [place], [place] [address] Creatinine [Mass/Vol] 0.80 mg/dL Normal 0.55-1.02 [facility] ([place]) Comment on above: Performed By: #### M G, TSH, ANEU, GFR, CBC, ADIFF, CMP ####[address] [place], [place] [address] Electrolyte Balance 12.0 mEq/L Normal 4.0-15.0 [facility] ([place]) Comment on above: Performed By: #### M G, TSH, ANEU, GFR, CBC, ADIFF, CMP ####[address] [place], [place] [address] Globulin 4.0 G/dL Normal [facility] ([place]) Comment on above: Performed By: #### M G, TSH, ANEU, GFR, CBC, ADIFF, CMP ####[address] [place], [place] [address] Glucose [Mass/Vol] 81 mg/dL Low 83-110 [facility] ([place]) Comment on above: Performed By: #### M G, TSH, ANEU, GFR, CBC, ADIFF, CMP ####[address] [place], [place] [address] Potassium [Moles/Vol] 4.6 mmol/L Normal 3.5-5.1 [facility] ([place]) Comment on above: Performed By: #### M G, TSH, ANEU, GFR, CBC, ADIFF, CMP ####[address] [place], [place] [address] Sodium [Moles/Vol] 142 mmol/L Normal 136-145 [facility] ([place]) Comment on above: Performed By: #### M G, TSH, ANEU, GFR, CBC, ADIFF, CMP ####[address] [place], [place] [address] Total Protein 7.5 G/dL Normal 6.4-8.2 [facility] ([place]) Comment on above: Performed By: #### M G, TSH, ANEU, GFR, CBC, ADIFF, CMP ####[address] [place], [place] [address] Urea nitrogen [Mass/Vol] 16 mg/dL Normal 7-18 [facility] ([place]) Comment on above: Performed By: #### M G, TSH, ANEU, GFR, CBC, ADIFF, CMP ####[address] [place], [place] [address] MGon 10-02-2023 Magnesium [Mass/Vol] 2.0 mg/dL Normal 1.8-2.4 [facility] ([place]) Comment on above: Performed By: #### M G, TSH, ANEU, GFR, CBC, ADIFF, CMP ####[address] [place], [place] [address] TSHon 10-02-2023 TSH Qn 1.74 m[IU]/L Normal 0.36-3.74 [facility] ([place]) Comment on above: Performed By: #### M G, TSH, ANEU, GFR, CBC, ADIFF, CMP ####[address] [place], [place] [address] CT HEAD OR BRAIN W/O CONTRAS Ton 09-29-2023 CT HEAD OR BRAIN W/O CONTRAST ORIGINAL EXAMINATION: CT OF THE HEAD WITHOUT CONTRAST 09/29/2023 7:18 pm TECHNIQUE: CT of the head was performed without the administration of intravenous contrast. Automated exposure control, iterative reconstruction, and/or weight based adjustment of the mA/kV was utilized to reduce the radiation dose to as low as reasonably achievable. COMPARISON: None. HISTORY: ORDERING SYSTEM PROVIDED HISTORY: Reason for Exam: Fall, head trauma FINDINGS: There is no acute intracranial hemorrhage, mass, mass effect or abnormal extra-axial fluid collection. There is no CT evidence of acute infarct. The density in the larger dural venous sinuses is grossly normal. Scattered parenchymal hypodensities in the cerebral white matter are nonspecific but statistically most consistent with mild chronic microvascular angiopathy. Atherosclerotic calcifications are present in the cavernous carotid arteries bilaterally. There is proportionate enlargement of the ventricular system and cortical sulci compatible with parenchymal volume loss. The skull base and calvarium demonstrate no abnormality. The paranasal sinuses are clear. Included mastoid air cells are clear. IMPRESSION: No intracranial hemorrhage. No mass effect Interpreted by: Geraldo Montero MD Preliminary Report By: Geraldo Montero MD Electronically signed By Geraldo Montero MD Dictated Date: 09/29/2023 7:26:38 PM Prelim Date: 09/29/2023 7:29:09 PM Sign Date: 09/29/2023 7:29:09 PM Ordering Provider: STEPHANY LO Normal [facility] Creatinine 131.9 mg/dL High 28.0-117.0 [facility] ([place]) Comment on above: Performed By: #### M ALBR ####[address] [place], [place] [address] U Microalb 2328 mcg/dL Normal [facility] ([place]) Comment on above: Performed By: #### M ALBR ####[address] [place], [place] [address] U Ratio Alb/Cre 18 mcg/mg Normal 0-30 [facility]) Comment on above: Performed By: #### M ALBR ####[address] [place], [place] [address] LABORATORYOrdered By: SYSTEM SYSTEM on 06-01-2023 25-hydroxyvitamin D3 [Mass/Vol] 49.7 ng/mL Invalid Interpretation Code AO ADM SS Albumin BCP dye [Mass/Vol] 3.3 G/dL Invalid Interpretation Code 3.4 - 4.8 G/dL AO ADM SS Albumin/Globulin [Mass ratio] 1.0 {ratio} Invalid Interpretation Code 1.1 - 2.5 ratio AO ADM SS ALP [Catalytic activity/Vol] 39 U/L Invalid Interpretation Code 40 - 135 U/L AO ADM SS ALT With P-5'-P [Catalytic activity/Vol] 20 U/L Invalid Interpretation Code 14 - 59 U/L AO ADM SS AST With P-5'-P [Catalytic activity/Vol] 15 U/L Invalid Interpretation Code 10 - 40 U/L AO ADM SS Basophil, Absolute 0.1 103/mcL Invalid Interpretation Code 0.0 - 0.2 10^3/mcL AO Workflow SS Basophils/100 WBC (Bld) 1.3 % Invalid Interpretation Code 0.0 - 2.5 % AO Workflow SS Bilirubin [Mass/Vol] 0.4 mg/dL Invalid Interpretation Code 0.2 - 1.0 mg/dL AO ADM SS Calcium [Mass/Vol] 9.0 mg/dL Invalid Interpretation Code 8.4 - 10.2 mg/dL AO ADM SS Chloride [Moles/Vol] 101 mmol/L Invalid Interpretation Code 98 - 107 mmol/L AO ADM SS CO2 [Moles/Vol] 32 mmol/L Invalid Interpretation Code 23 - 31 mmol/L AO ADM SS Creatinine [Mass/Vol] 0.88 mg/dL Invalid Interpretation Code 0.55 - 1.02 mg/dL AO ADM SS Electrolyte Balance 6.0 mEq/L Invalid Interpretation Code 4.0 - 15.0 mEq/L AO ADM SS Eosinophil, Absolute 0.2 103/mcL Invalid Interpretation Code 0.0 - 0.4 10^3/mcL AO Workflow SS Eosinophils/100 WBC (Bld) 4.1 % Invalid Interpretation Code 0.0 - 7.0 % AO Workflow SS Erythrocyte distribution width (RBC) [Ratio] 16.2 % Invalid Interpretation Code 11.5 - 14.5 % AO Workflow SS GFR/1.73 sq M.predicted among blacks MDRD (S/P/Bld) [Vol rate/Area] 76 ml/min/1.73sqm Invalid Interpretation Code AO Chemistry S GFR/1.73 sq M.predicted among non-blacks MDRD (S/P/Bld) [Vol rate/Area] 63 ml/min/1.73sqm Invalid Interpretation Code AO Chemistry S Globulin 3.4 G/dL Invalid Interpretation Code AO ADM SS Glucose [Mass/Vol] 90 mg/dL Invalid Interpretation Code 83 - 110 mg/dL AO ADM SS Hematocrit (Bld) [Volume fraction] 34.9 % Invalid Interpretation Code 37.0 - 47.0 % AO Workflow SS Hemoglobin (Bld) [Mass/Vol] 12.0 G/dL Invalid Interpretation Code 12.0 - 16.0 G/dL AO Workflow SS Lymphocyte, Absolute 1.6 103/mcL Invalid Interpretation Code 0.8 - 3.9 10^3/mcL AO Workflow SS Lymphocytes/100 WBC (Bld) 36.2 % Invalid Interpretation Code 10.0 - 50.0 % AO Workflow SS MCH (RBC) [Entitic mass] 29.8 pg Invalid Interpretation Code 27.0 - 31.2 pg AO Workflow SS MCHC 34.3 G/dL Invalid Interpretation Code 33.0 - 37.0 G/dL AO Workflow SS MCV (RBC) [Entitic vol] 87.0 fL Invalid Interpretation Code 80.0 - 94.0 fL AO Workflow SS Monocyte, Absolute 0.3 103/mcL Invalid Interpretation Code 0.2 - 1.0 10^3/mcL AO Workflow SS Monocytes/100 WBC (Bld) 7.7 % Invalid Interpretation Code 1.7 - 13.0 % AO Workflow SS Neutrophil, Absolute 2.2 103/mcL Invalid Interpretation Code 2.9 - 6.2 10^3/mcL AO Workflow SS Neutrophils/100 WBC (Bld) 50.7 % Invalid Interpretation Code 37.0 - 80.0 % AO Workflow SS Platelet mean volume (Bld) [Entitic vol] 7.5 fL Invalid Interpretation Code 7.4 - 10.4 fL AO Workflow SS Platelets (Bld) [#/Vol] 192 103/mcL Invalid Interpretation Code 130 - 400 10^3/mcL AO Workflow SS Potassium [Moles/Vol] 4.1 mmol/L Invalid Interpretation Code 3.5 - 5.1 mmol/L AO ADM SS Protein [Mass/Vol] 6.7 G/dL Invalid Interpretation Code 6.4 - 8.2 G/dL AO ADM SS RBC (Bld) [#/Vol] 4.01 106/mcL Invalid Interpretation Code 4.20 - 5.40 10^6/mcL AO Workflow SS Sodium [Moles/Vol] 139 mmol/L Invalid Interpretation Code 136 - 145 mmol/L AO ADM SS TSH Qn 2.12 m[IU]/L Invalid Interpretation Code 0.36 - 3.74 mcIU/mL AO ADM SS Urea nitrogen [Mass/Vol] 17 mg/dL Invalid Interpretation Code 7 - 18 mg/dL AO ADM SS Urea nitrogen/Creatinine [Mass ratio] 19 ratio Invalid Interpretation Code 7 - 27 ratio AO ADM SS WBC (Bld) [#/Vol] 4.3 103/mcL Invalid Interpretation Code 4.6 - 10.8 10^3/mcL AO Workflow SS LABORATORYOrdered By: Jesus Chong on 06-01-2023 Cholesterol [Mass/Vol] 175 mg/dL Invalid Interpretation Code 0 - 200 mg/dL AO ADM SS Cholesterol in HDL [Mass/Vol] 64 mg/dL Invalid Interpretation Code 40 - 60 mg/dL AO ADM SS Cholesterol in LDL [Mass/Vol] 103 mg/dL Invalid Interpretation Code 0 - 130 mg/dL AO ADM SS Triglyceride [Mass/Vol] 38 mg/dL Invalid Interpretation Code 0 - 150 mg/dL AO ADM SS LABORATORYOrdered By: Merly Connor on 03-22-2022 Basophil, Absolute 0.00 103/mcL Invalid Interpretation Code 0.00 - 0.19 10^3/mcL AO Auto Heme SS Basophils/100 WBC (Bld) 0.3 % Invalid Interpretation Code 0.0 - 2.5 % AO Auto Heme SS Calcium [Mass/Vol] 8.5 mg/dL Invalid Interpretation Code 8.4 - 10.2 mg/dL AO ADM SS Chloride [Moles/Vol] 102 mmol/L Invalid Interpretation Code 98 - 107 mmol/L AO ADM SS CO2 [Moles/Vol] 27 mmol/L Invalid Interpretation Code 23 - 31 mmol/L AO ADM SS Creatinine [Mass/Vol] 0.92 mg/dL Invalid Interpretation Code 0.55 - 1.02 mg/dL AO ADM SS Electrolyte Balance 8.0 mEq/L Invalid Interpretation Code 4.0 - 15.0 mEq/L AO ADM SS Eosinophil, Absolute 0.00 103/mcL Invalid Interpretation Code 0.00 - 0.40 10^3/mcL AO Auto Heme SS Eosinophils/100 WBC (Bld) 0.0 % Invalid Interpretation Code 0.0 - 7.0 % AO Auto Heme SS Erythrocyte distribution width (RBC) [Ratio] 13.5 % Invalid Interpretation Code 11.5 - 14.5 % AO Auto Heme SS Glucose [Mass/Vol] 133 mg/dL Invalid Interpretation Code 83 - 110 mg/dL AO ADM SS Hematocrit (Bld) [Volume fraction] 28.9 % Invalid Interpretation Code 37.0 - 47.0 % AO Auto Heme SS Hemoglobin (Bld) [Mass/Vol] 10.0 G/dL Invalid Interpretation Code 12.0 - 16.0 G/dL AO Auto Heme SS Lymphocyte, Absolute 1.10 103/mcL Invalid Interpretation Code 0.77 - 3.85 10^3/mcL AO Auto Heme SS Lymphocytes/100 WBC (Bld) 11.7 % Invalid Interpretation Code 10.0 - 50.0 % AO Auto Heme SS MCH (RBC) [Entitic mass] 31.0 pg Invalid Interpretation Code 27.0 - 31.2 pg AO Auto Heme SS MCHC (RBC) [Mass/Vol] 34.8 G/dL Invalid Interpretation Code 33.0 - 37.0 G/dL AO Auto Heme SS MCV (RBC) [Entitic vol] 89.0 fL Invalid Interpretation Code 80.0 - 94.0 fL AO Auto Heme SS Monocyte, Absolute 0.70 103/mcL Invalid Interpretation Code 0.15 - 1.00 10^3/mcL AO Auto Heme SS Monocytes/100 WBC (Bld) 7.8 % Invalid Interpretation Code 1.7 - 13.0 % AO Auto Heme SS Neutrophil, Absolute 7.50 103/mcL Invalid Interpretation Code 2.85 - 6.16 10^3/mcL AO Auto Heme SS Neutrophils/100 WBC (Bld) 80.2 % Invalid Interpretation Code 37.0 - 80.0 % AO Auto Heme SS Platelet mean volume (Bld) [Entitic vol] 8.4 fL Invalid Interpretation Code 7.4 - 10.4 fL AO Auto Heme SS Platelets (Bld) [#/Vol] 175 103/mcL Invalid Interpretation Code 130 - 400 10^3/mcL AO Auto Heme SS Potassium [Moles/Vol] 4.0 mmol/L Invalid Interpretation Code 3.5 - 5.1 mmol/L AO ADM SS RBC (Bld) [#/Vol] 3.24 106/mcL Invalid Interpretation Code 4.20 - 5.40 10^6/mcL AO Auto Heme SS Sodium [Moles/Vol] 137 mmol/L Invalid Interpretation Code 136 - 145 mmol/L AO ADM SS Urea nitrogen [Mass/Vol] 27 mg/dL Invalid Interpretation Code 7 - 18 mg/dL AO ADM SS Urea nitrogen/Creatinine [Mass ratio] 29 ratio Invalid Interpretation Code 7 - 27 ratio AO ADM SS WBC (Bld) [#/Vol] 9.30 103/mcL Invalid Interpretation Code 4.60 - 10.80 10^3/mcL AO Auto Heme SS LABORATORYOrdered By: SYSTEM SYSTEM on 03-22-2022 GFR 72 ml/min/1.73sqm Invalid Interpretation Code AO Chemistry S GFR Non- 60 ml/min/1.73sqm Invalid Interpretation Code AO Chemistry S LABORATORYOrdered By: Kendra Caceres on 03-21-2022 ABO/Rh Interp Positive Invalid Interpretation Code AO BB SS Antibody Screen Gel Negative ABSC (03/21/22 6:28 AM) Invalid Interpretation Code AO BB SS LABORATORYOrdered By: Trevor Lowry on 03-10-2022 ABO/Rh Interp Positive Invalid Interpretation Code AO BB SS Antibody Screen Gel Negative ABSC (03/10/22 11:13 AM) Invalid Interpretation Code AO BB SS Basophil, Absolute 0.10 103/mcL Invalid Interpretation Code 0.00 - 0.19 10^3/mcL AO Auto Heme SS Basophils/100 WBC (Bld) 1.3 % Invalid Interpretation Code 0.0 - 2.5 % AO Auto Heme SS Eosinophil, Absolute 0.10 103/mcL Invalid Interpretation Code 0.00 - 0.40 10^3/mcL AO Auto Heme SS Eosinophils/100 WBC (Bld) 2.7 % Invalid Interpretation Code 0.0 - 7.0 % AO Auto Heme SS Erythrocyte distribution width (RBC) [Ratio] 14.0 % Invalid Interpretation Code 11.5 - 14.5 % AO Auto Heme SS Hematocrit (Bld) [Volume fraction] 36.0 % Invalid Interpretation Code 37.0 - 47.0 % AO Auto Heme SS Hemoglobin (Bld) [Mass/Vol] 12.3 G/dL Invalid Interpretation Code 12.0 - 16.0 G/dL AO Auto Heme SS Lymphocyte, Absolute 0.90 103/mcL Invalid Interpretation Code 0.77 - 3.85 10^3/mcL AO Auto Heme SS Lymphocytes/100 WBC (Bld) 21.4 % Invalid Interpretation Code 10.0 - 50.0 % AO Auto Heme SS MCH (RBC) [Entitic mass] 30.7 pg Invalid Interpretation Code 27.0 - 31.2 pg AO Auto Heme SS MCHC (RBC) [Mass/Vol] 34.1 G/dL Invalid Interpretation Code 33.0 - 37.0 G/dL AO Auto Heme SS MCV (RBC) [Entitic vol] 90.1 fL Invalid Interpretation Code 80.0 - 94.0 fL AO Auto Heme SS Monocyte, Absolute 0.30 103/mcL Invalid Interpretation Code 0.15 - 1.00 10^3/mcL AO Auto Heme SS Monocytes/100 WBC (Bld) 7.6 % Invalid Interpretation Code 1.7 - 13.0 % AO Auto Heme SS Neutrophil, Absolute 2.70 103/mcL Invalid Interpretation Code 2.85 - 6.16 10^3/mcL AO Auto Heme SS Neutrophils/100 WBC (Bld) 67.0 % Invalid Interpretation Code 37.0 - 80.0 % AO Auto Heme SS Platelet mean volume (Bld) [Entitic vol] 8.1 fL Invalid Interpretation Code 7.4 - 10.4 fL AO Auto Heme SS Platelets (Bld) [#/Vol] 190 103/mcL Invalid Interpretation Code 130 - 400 10^3/mcL AO Auto Heme SS RBC (Bld) [#/Vol] 4.00 106/mcL Invalid Interpretation Code 4.20 - 5.40 10^6/mcL AO Auto Heme SS WBC (Bld) [#/Vol] 4.10 103/mcL Invalid Interpretation Code 4.60 - 10.80 10^3/mcL AO Auto Heme SS LABORATORYOrdered By: Izabel Manning on 03-10-2022 Albumin BCP dye [Mass/Vol] 3.7 G/dL Invalid Interpretation Code 3.4 - 4.8 G/dL AO ADM SS Calcium [Mass/Vol] 9.1 mg/dL Invalid Interpretation Code 8.4 - 10.2 mg/dL AO ADM SS Chloride [Moles/Vol] 103 mmol/L Invalid Interpretation Code 98 - 107 mmol/L AO ADM SS CO2 [Moles/Vol] 27 mmol/L Invalid Interpretation Code 23 - 31 mmol/L AO ADM SS Creatinine [Mass/Vol] 0.80 mg/dL Invalid Interpretation Code 0.55 - 1.02 mg/dL AO ADM SS Electrolyte Balance 10.0 mEq/L Invalid Interpretation Code 4.0 - 15.0 mEq/L AO ADM SS Glucose [Mass/Vol] 88 mg/dL Invalid Interpretation Code 83 - 110 mg/dL AO ADM SS Potassium [Moles/Vol] 4.5 mmol/L Invalid Interpretation Code 3.5 - 5.1 mmol/L AO ADM SS Sodium [Moles/Vol] 140 mmol/L Invalid Interpretation Code 136 - 145 mmol/L AO ADM SS Urea nitrogen [Mass/Vol] 19 mg/dL Invalid Interpretation Code 7 - 18 mg/dL AO ADM SS Urea nitrogen/Creatinine [Mass ratio] 24 ratio Invalid Interpretation Code 7 - 27 ratio AO ADM SS LABORATORYOrdered By: SYSTEM SYSTEM on 03-10-2022 GFR 85 ml/min/1.73sqm Invalid Interpretation Code AO Chemistry S GFR Non- 70 ml/min/1.73sqm Invalid Interpretation Code AO Chemistry S LABORATORYOrdered By: SYSTEM SYSTEM on 12-28-2021 Albumin BCP dye [Mass/Vol] 3.6 G/dL Invalid Interpretation Code 3.2 - 4.8 G/dL AH ADM SS Albumin/Globulin [Mass ratio] 1.1 {ratio} Invalid Interpretation Code 0.9 - 1.6 ratio AH ADM SS ALP [Catalytic activity/Vol] 58 U/L Invalid Interpretation Code 38 - 126 U/L AH ADM SS ALT No additional P-5'-P [Catalytic activity/Vol] 14 U/L Invalid Interpretation Code 10 - 49 U/L AH ADM SS AST [Catalytic activity/Vol] 16 U/L Invalid Interpretation Code 8 - 34 U/L AH ADM SS Basophils (Bld) [#/Vol] 0.00 103/mcL Invalid Interpretation Code 0.00 - 0.27 10^3/mcL AH Remisol SS Basophils/100 WBC (Bld) 0.9 % Invalid Interpretation Code 0.0 - 2.5 % AH Remisol SS Bilirubin [Mass/Vol] 0.60 mg/dL Invalid Interpretation Code 0.20 - 1.20 mg/dL AH ADM SS Calcium [Mass/Vol] 9.9 mg/dL Invalid Interpretation Code 8.7 - 10.4 mg/dL AH ADM SS Chloride [Moles/Vol] 105 mmol/L Invalid Interpretation Code 98 - 110 mEq/L AH ADM SS CO2 [Moles/Vol] 28 mmol/L Invalid Interpretation Code 22 - 32 mEq/L AH ADM SS Cobalamin (Vitamin B12) [Mass/Vol] 547 pg/mL Invalid Interpretation Code 211 - 911 pg/mL AH ADM SS Creatinine [Mass/Vol] 0.68 mg/dL Invalid Interpretation Code 0.50 - 1.20 mg/dL AH ADM SS Electrolyte Balance 6.0 mEq/L Invalid Interpretation Code 4.0 - 15.0 mEq/L AH ADM SS Eosinophils (Bld) [#/Vol] 0.10 103/mcL Invalid Interpretation Code 0.00 - 0.65 10^3/mcL AH Remisol SS Eosinophils/100 WBC (Bld) 1.4 % Invalid Interpretation Code 0.0 - 6.0 % AH Remisol SS Erythrocyte distribution width (RBC) [Ratio] 13.4 % Invalid Interpretation Code 11.5 - 15.5 % Remisol SS Ferritin [Mass/Vol] 29.7 ng/mL Invalid Interpretation Code 8.0 - 252.0 ng/mL ADM SS Folate [Mass/Vol] 34.82 ng/mL Invalid Interpretation Code 5.38 - 24.00 ng/mL AH ADM SS GFR/1.73 sq M.predicted among blacks MDRD (S/P/Bld) [Vol rate/Area] ml/min/1.73sqm Invalid Interpretation Code Chemistry S GFR/1.73 sq M.predicted among non-blacks MDRD (S/P/Bld) [Vol rate/Area] ml/min/1.73sqm Invalid Interpretation Code Chemistry S Globulin 3.3 G/dL Invalid Interpretation Code 1.5 - 3.8 G/dL ADM SS Glucose [Mass/Vol] 92 mg/dL Invalid Interpretation Code 82 - 115 mg/dL ADM SS Hematocrit (Bld) [Volume fraction] 36.8 % Invalid Interpretation Code 34.0 - 46.0 % Remisol SS Hemoglobin (Bld) [Mass/Vol] 13.0 G/dL Invalid Interpretation Code 12.0 - 16.0 G/dL Remisol SS Iron [Mass/Vol] 120 ug/dL Invalid Interpretation Code 50 - 170 mcg/dL AH ADM SS Iron binding capacity [Mass/Vol] 327 mcg/dL Invalid Interpretation Code 250 - 500 mcg/dL AH ADM SS Iron saturation [Mass fraction] 37 1 Invalid Interpretation Code ADM SS Lymphocytes (Bld) [#/Vol] 1.20 103/mcL Invalid Interpretation Code 0.90 - 4.32 10^3/mcL AH Remisol SS Lymphocytes/100 WBC (Bld) 23.3 % Invalid Interpretation Code 20.0 - 40.0 % Remisol SS MCH (RBC) [Entitic mass] 31.1 pg Invalid Interpretation Code 27.0 - 33.0 pg AH Remisol SS MCHC (RBC) [Mass/Vol] 35.2 G/dL Invalid Interpretation Code 32.0 - 36.0 G/dL AH Remisol SS MCV (RBC) [Entitic vol] 88.5 fL Invalid Interpretation Code 80.0 - 99.0 fL AH Remisol SS Monocytes (Bld) [#/Vol] 0.40 103/mcL Invalid Interpretation Code 0.09 - 1.40 10^3/mcL AH Remisol SS Monocytes/100 WBC (Bld) 7.9 % Invalid Interpretation Code 2.0 - 13.0 % AH Remisol SS Neutrophils (Bld) [#/Vol] 3.40 103/mcL Invalid Interpretation Code 2.25 - 8.10 10^3/mcL AH Remisol SS Neutrophils/100 WBC (Bld) 66.5 % Invalid Interpretation Code 50.0 - 75.0 % AH Remisol SS Platelet mean volume (Bld) [Entitic vol] 8.1 fL Invalid Interpretation Code 6.6 - 10.5 fL AH Remisol SS Platelets (Bld) [#/Vol] 239 103/mcL Invalid Interpretation Code 150 - 450 10^3/mcL AH Remisol SS Potassium [Moles/Vol] 4.2 mmol/L Invalid Interpretation Code 3.5 - 5.0 mEq/L AH ADM SS Protein [Mass/Vol] 6.9 G/dL Invalid Interpretation Code 5.7 - 8.2 G/dL AH ADM SS RBC (Bld) [#/Vol] 4.16 106/mcL Invalid Interpretation Code 4.10 - 5.30 10^6/mcL AH Remisol SS Sodium [Moles/Vol] 139 mmol/L Invalid Interpretation Code 136 - 145 mEq/L AH ADM SS Urea nitrogen [Mass/Vol] 16.0 mg/dL Invalid Interpretation Code 8.0 - 22.0 mg/dL AH ADM SS Urea nitrogen/Creatinine [Mass ratio] 23.5 ratio Invalid Interpretation Code 10.0 - 22.0 ratio AH ADM SS WBC (Bld) [#/Vol] 5.10 103/mcL Invalid Interpretation Code 4.50 - 10.80 10^3/mcL AH Remisol SS LABORATORYOrdered By: Odalis Wu on 12-28-2021 Nuclear Ab IF Ql (S) Neg 40 (2/2/22 10:46 AM) Invalid Interpretation Code Neg 40 AH Man Viro/Sero SS LABORATORYOrdered By: Jesus Chong on 12-23-2021 Albumin BCP dye [Mass/Vol] 3.7 G/dL Invalid Interpretation Code 3.4 - 4.8 G/dL AO ADM SS Albumin/Globulin [Mass ratio] 1.0 {ratio} Invalid Interpretation Code 1.1 - 2.5 ratio AO ADM SS ALP [Catalytic activity/Vol] 56 U/L Invalid Interpretation Code 40 - 135 U/L AO ADM SS ALT With P-5'-P [Catalytic activity/Vol] 26 U/L Invalid Interpretation Code 14 - 59 U/L AO ADM SS AST With P-5'-P [Catalytic activity/Vol] 18 U/L Invalid Interpretation Code 10 - 40 U/L AO ADM SS Bili Indirect 0.3 mg/dL Invalid Interpretation Code AO Chemistry S Bilirubin [Mass/Vol] 0.5 mg/dL Invalid Interpretation Code 0.2 - 1.0 mg/dL AO ADM SS Bilirubin.direct [Mass/Vol] 0.2 mg/dL Invalid Interpretation Code 0.0 - 0.2 mg/dL AO ADM SS Globulin 3.6 G/dL Invalid Interpretation Code AO ADM SS Protein [Mass/Vol] 7.3 G/dL Invalid Interpretation Code 6.4 - 8.2 G/dL AO ADM SS LABORATORYOrdered By: Kendra Caceres on 12-20-2021 Basophil, Absolute 0.00 103/mcL Invalid Interpretation Code 0.00 - 0.19 10^3/mcL AO Auto Heme SS Basophils/100 WBC (Bld) 0.9 % Invalid Interpretation Code 0.0 - 2.5 % AO Auto Heme SS Eosinophil, Absolute 0.10 103/mcL Invalid Interpretation Code 0.00 - 0.40 10^3/mcL AO Auto Heme SS Eosinophils/100 WBC (Bld) 3.1 % Invalid Interpretation Code 0.0 - 7.0 % AO Auto Heme SS Erythrocyte distribution width (RBC) [Ratio] 13.2 % Invalid Interpretation Code 11.5 - 14.5 % AO Auto Heme SS Hematocrit (Bld) [Volume fraction] 36.3 % Invalid Interpretation Code 37.0 - 47.0 % AO Auto Heme SS Hemoglobin (Bld) [Mass/Vol] 12.7 G/dL Invalid Interpretation Code 12.0 - 16.0 G/dL AO Auto Heme SS Lymphocyte, Absolute 1.20 103/mcL Invalid Interpretation Code 0.77 - 3.85 10^3/mcL AO Auto Heme SS Lymphocytes/100 WBC (Bld) 35.0 % Invalid Interpretation Code 10.0 - 50.0 % AO Auto Heme SS MCH (RBC) [Entitic mass] 30.6 pg Invalid Interpretation Code 27.0 - 31.2 pg AO Auto Heme SS MCHC (RBC) [Mass/Vol] 34.8 G/dL Invalid Interpretation Code 33.0 - 37.0 G/dL AO Auto Heme SS MCV (RBC) [Entitic vol] 87.9 fL Invalid Interpretation Code 80.0 - 94.0 fL AO Auto Heme SS Monocyte, Absolute 0.20 103/mcL Invalid Interpretation Code 0.15 - 1.00 10^3/mcL AO Auto Heme SS Monocytes/100 WBC (Bld) 7.4 % Invalid Interpretation Code 1.7 - 13.0 % AO Auto Heme SS Neutrophil, Absolute 1.80 103/mcL Invalid Interpretation Code 2.85 - 6.16 10^3/mcL AO Auto Heme SS Neutrophils/100 WBC (Bld) 53.6 % Invalid Interpretation Code 37.0 - 80.0 % AO Auto Heme SS Platelet mean volume (Bld) [Entitic vol] 7.6 fL Invalid Interpretation Code 7.4 - 10.4 fL AO Auto Heme SS Platelets (Bld) [#/Vol] 195 103/mcL Invalid Interpretation Code 130 - 400 10^3/mcL AO Auto Heme SS RBC (Bld) [#/Vol] 4.13 106/mcL Invalid Interpretation Code 4.20 - 5.40 10^6/mcL AO Auto Heme SS WBC (Bld) [#/Vol] 3.30 103/mcL Invalid Interpretation Code 4.60 - 10.80 10^3/mcL AO Auto Heme SS LABORATORYOrdered By: Lavinia Ortiz on 12-16-2021 Basophil, Absolute 0.00 103/mcL Invalid Interpretation Code 0.00 - 0.19 10^3/mcL AO Auto Heme SS Basophils/100 WBC (Bld) 0.9 % Invalid Interpretation Code 0.0 - 2.5 % AO Auto Heme SS Eosinophil, Absolute 0.10 103/mcL Invalid Interpretation Code 0.00 - 0.40 10^3/mcL AO Auto Heme SS Eosinophils/100 WBC (Bld) 3.2 % Invalid Interpretation Code 0.0 - 7.0 % AO Auto Heme SS Erythrocyte distribution width (RBC) [Ratio] 13.4 % Invalid Interpretation Code 11.5 - 14.5 % AO Auto Heme SS Hematocrit (Bld) [Volume fraction] 33.7 % Invalid Interpretation Code 37.0 - 47.0 % AO Auto Heme SS Hemoglobin (Bld) [Mass/Vol] 12.2 G/dL Invalid Interpretation Code 12.0 - 16.0 G/dL AO Auto Heme SS Lymphocyte, Absolute 1.10 103/mcL Invalid Interpretation Code 0.77 - 3.85 10^3/mcL AO Auto Heme SS Lymphocytes/100 WBC (Bld) 39.7 % Invalid Interpretation Code 10.0 - 50.0 % AO Auto Heme SS MCH (RBC) [Entitic mass] 31.4 pg Invalid Interpretation Code 27.0 - 31.2 pg AO Auto Heme SS MCHC (RBC) [Mass/Vol] 36.3 G/dL Invalid Interpretation Code 33.0 - 37.0 G/dL AO Auto Heme SS MCV (RBC) [Entitic vol] 86.5 fL Invalid Interpretation Code 80.0 - 94.0 fL AO Auto Heme SS Monocyte, Absolute 0.20 103/mcL Invalid Interpretation Code 0.15 - 1.00 10^3/mcL AO Auto Heme SS Monocytes/100 WBC (Bld) 7.9 % Invalid Interpretation Code 1.7 - 13.0 % AO Auto Heme SS Neutrophil, Absolute 1.30 103/mcL Invalid Interpretation Code 2.85 - 6.16 10^3/mcL AO Auto Heme SS Neutrophils/100 WBC (Bld) 48.3 % Invalid Interpretation Code 37.0 - 80.0 % AO Auto Heme SS Platelet mean volume (Bld) [Entitic vol] 8.2 fL Invalid Interpretation Code 7.4 - 10.4 fL AO Auto Heme SS Platelets (Bld) [#/Vol] 160 103/mcL Invalid Interpretation Code 130 - 400 10^3/mcL AO Auto Heme SS RBC (Bld) [#/Vol] 3.90 106/mcL Invalid Interpretation Code 4.20 - 5.40 10^6/mcL AO Auto Heme SS WBC (Bld) [#/Vol] 2.70 103/mcL Invalid Interpretation Code 4.60 - 10.80 10^3/mcL AO Auto Heme SS LABORATORYOrdered By: Merly Connor on 12-16-2021 Calcium [Mass/Vol] 9.0 mg/dL Invalid Interpretation Code 8.4 - 10.2 mg/dL AO ADM SS Chloride [Moles/Vol] 104 mmol/L Invalid Interpretation Code 98 - 107 mmol/L AO ADM SS CO2 [Moles/Vol] 29 mmol/L Invalid Interpretation Code 23 - 31 mmol/L AO ADM SS Creatinine [Mass/Vol] 0.73 mg/dL Invalid Interpretation Code 0.55 - 1.02 mg/dL AO ADM SS Electrolyte Balance 9.0 mEq/L Invalid Interpretation Code 4.0 - 15.0 mEq/L AO ADM SS Glucose [Mass/Vol] 85 mg/dL Invalid Interpretation Code 83 - 110 mg/dL AO ADM SS Potassium [Moles/Vol] 4.3 mmol/L Invalid Interpretation Code 3.5 - 5.1 mmol/L AO ADM SS Sodium [Moles/Vol] 142 mmol/L Invalid Interpretation Code 136 - 145 mmol/L AO ADM SS Urea nitrogen [Mass/Vol] 13 mg/dL Invalid Interpretation Code 7 - 18 mg/dL AO ADM SS Urea nitrogen/Creatinine [Mass ratio] 18 ratio Invalid Interpretation Code 7 - 27 ratio AO ADM SS LABORATORYOrdered By: SYSTEM SYSTEM on 12-16-2021 GFR 95 ml/min/1.73sqm Invalid Interpretation Code AO Chemistry S GFR Non- 78 ml/min/1.73sqm Invalid Interpretation Code AO Chemistry S LABORATORYOrdered By: Izabel Manning on 12-16-2021 Platelet Estimate Normal (12/16/21 10:54 AM) Invalid Interpretation Code AO Auto Heme SS LABORATORYOrdered By: Lavinia Ortiz on 10-25-2021 Creatinine [Mass/Vol] 0.75 mg/dL Invalid Interpretation Code 0.55 - 1.02 mg/dL AO ADM SS LABORATORYOrdered By: SYSTEM SYSTEM on 10-25-2021 GFR 92 ml/min/1.73sqm Invalid Interpretation Code AO Chemistry S GFR Non- 76 ml/min/1.73sqm Invalid Interpretation Code AO Chemistry S BD BONE DENSITY DEXA AXIAL S Isaiah 06-01-2017 BD BONE DENSITY DEXA AXIAL SKELETON ORIGINALBONE DENSITOMETRY CLINICAL STATEMENT: SCREENING FOR OSTEOPOROSIS, history of arthritis, left knee surgery, left hip replacement, history of fractured left elbow 8 years ago, daily caffeine intake, calcium supplements COMPARISON: None T-Score Lumbar Spine L1-L4: 0.4 BMD (g/cm2) Lumbar Spine L1-L4: 1.087T-Score Right Femoral Neck: -2.1 BMD (g/cm2) Right Femoral Neck: 0.616T-Score Right Hip: -2.0 BMD (g/cm2) Right Hip: 0.701 CONCLUSION: The patient is considered osteopenic based on the right femoral neck which has a T score of -2.1. *By the World Health Organization standards: Osteopenia is present when the bone mineral density is greater than 1 standard deviation (SD) but less than 2.5 SDs below a young normal sex matched population. Osteoporosis is present when the bone mineral density is equal to or greater than 2.5 SDs below a young normal sex matched population. I have personally reviewed the images of this examination and agree with the resident's findings and interpretation. Interpreted By: Arvin Zepeda MDPreliminary Report By: Maryellen German DOElectronically Signed By: Arvin Zepeda MD Dictated Date: 06/01/2017 10:38:26 AM Prelim Date: 06/01/2017 10:41:36 AM Sign Date: 06/01/2017 6:53:30 PM Normal [facility] Hep B Surf Abon 05-28-2017 Hep B Surf Ab 37.7 mIU/mL Normal [facility] Comment on above: Result Comment: Anti -HBs Interpretation: 0 to <5.0 mIU/mL Negative Patient is considered to be not immune to infection with HBV. >/= 5.0 and <12.0 mIU/mL Equivocal Unable to determine if anti-HBs is present at levels consistent with immunity. Patient's immune status should be further assessed by considering other clinical information or retesting another sample drawn at a later time. >/= 12.0 mIU/mL Positive Patient is considered to be immune to infection with HBV. It has not been determined what the clinical significance is for values greater than or equal to 12.0 mIU/mL, other than the individual is considered to be immune to HBV infection. Performed By: #### H BSAB ####[address] [address] Hepatitis C Abon 05-28-2017 Hepatitis C Ab Negative Normal Negative [facility] Comment on above: Result Comment: No s erological evidence of Hepatitis C infection, althoughlevels of anti-HCV may be undetectable in early infection. Performed By: #### H CV ####[place] [id number] Comp. Metabolic Panelon 04-28 Albumin/Globulin Ratio 1.4 {ratio} Normal 1.1-2.5 [facility] Comment on above: Performed By: #### C MP ####[place] [id number] Aspartate aminotransferase (AST) 19 U/L Normal 10-40 [facility] Comment on above: Performed By: #### C MP ####[address] [address] Bilirubin (direct) 0.5 mg/dL Normal 0.2-1.0 [facility] Comment on above: Performed By: #### C MP ####[address] [address] Globulin 2.9 G/dL Normal [facility] Comment on above: Performed By: #### C MP ####[address] [address] T. Protein 7.0 G/dL Normal 6.0-8.3 [facility] Comment on above: Performed By: #### C MP ####[address] [address] Alanine aminotransferase (ALT) 15 U/L Normal 10-35 [facility] Comment on above: Performed By: #### C MP ####[address] [address] Alk. Phosphatase 45 IU/L Normal 40-135 [facility] Comment on above: Performed By: #### C MP ####[address] [address] Glucose mass conc 89 mg/dL Normal 80-115 [facility] Comment on above: Performed By: #### C MP ####[address] [address] BUN/Creatinine Ratio 24 mg/mg Normal 7-27 [facility] Comment on above: Performed By: #### C MP ####[address] [address] Creatinine 0.8 mg/dL Normal 0.6-1.2 [facility] Comment on above: Performed By: #### C MP ####[place] [id number] Albumin 4.1 G/dL Normal 3.4-4.8 [facility] Comment on above: Performed By: #### C MP ####[address] [address] Calcium 9.2 mg/dL Normal 8.4-10.2 [facility] Comment on above: Performed By: #### C MP ####[address] [address] CO2 28 mmol/L Normal 23-31 [facility] Comment on above: Performed By: #### C MP ####[address] [address] Electrolyte Balance 9.0 mEq/L Normal [facility] Comment on above: Performed By: #### C MP ####[address] [address] Urea nitrogen 19 mg/dL High 7-18 [facility] Comment on above: Performed By: #### C MP ####[place] [id number] Chloride 100 mmol/L Normal 98-107 [facility] Comment on above: Performed By: #### C MP ####[address] [address] Potassium molar conc 4.2 mmol/L Normal 3.5-5.1 [facility] Comment on above: Performed By: #### C MP ####[place] [address] [address] Sodium 137 mmol/L Normal 136-146 [facility] Comment on above: Performed By: #### C MP ####[place] [address] [address] Glomerular Filtration Rate E stimateon 05-25-2017 eGFR (non-black) mL/min/{1.73_m2} Normal [facility] Comment on above: Performed By: #### G FR ####[address] [address] Result Comment: Coral shelton mean GFR = 85 mL/min/1.73 sq.m. for ages 60-69 years. Chronic Kidney Disease: Less than 60 mL/min/1.73 square metersEnd Stage Renal Disease: Less than 15 mL/min/1.73 square meters HDL Cholesterol Profileon Cholesterol 165 mg/dL Normal 131-200 [facility] Comment on above: Result Comment: Chol esterol Reference Interval: Less than 200 Desirable 200-239 Borderline high risk 240 and above High risk --- Performed By: #### L IPID ####[address] [address] HDL Cholesterol 83 mg/dL Normal 35-90 [facility] Comment on above: Result Comment: HDL Reference Interval: Less than 40 Low - high risk 60 or above Optimal/lowers risk --- Performed By: #### L IPID ####[address] [address] LDL Cholesterol 74 mg/dL Normal 0-130 [facility] Comment on above: Result Comment: LDL is a calculated result and requires a 12- hr fast. LDL Reference Interval: Less than 100 Optimal 100-129 Near or above optimal 130-159 Borderline high risk 160-189 High risk 190 and above Very high risk ---- Performed By: #### L IPID ####[address] [address] Triglyceride 39 mg/dL Low 40-150 [facility] Comment on above: Result Comment: Trig lyceride Reference Interval: Less than 150 Normal 150-199 Borderline high risk 200-499 High risk 500 or higher Very high risk --- Performed By: #### L IPID ####[address] [address] TSHon 05-25-2017 Thyroid stimulating hormone (TSH) 2.08 mcIU/mL Normal 0.27-4.20 [facility] Comment on above: Performed By: #### T SH ####[address] [address] Vital Signs Date Time Vital Sign Value Performing Clinician Sophie harman 07-08-2024 23:51-0400 Diastolic Blood Pressure Non-Invasive 74 mm[Hg] KELIN PARSONS MD [facility] 07-08-2024 23:51-0400 Systolic Blood Pressure Non-Invasive 114 mm[Hg] KELIN PARSONS MD [facility] 04-25-2024 02:39-0400 Diastolic Blood Pressure Non-Invasive 60 mm[Hg] JORDAN DURESKA DO [facility] 04-25-2024 02:39-0400 Heart rate 73 /min JORDAN DURESKA DO [facility] 04-25-2024 02:39-0400 Mean blood pressure 81 mm[Hg] JORDAN DURESKA DO [facility] 04-25-2024 02:39-0400 Reason For Taking VItal Signs JORDAN DURESKA DO [facility] 04-25-2024 02:39-0400 Respiratory rate 15 /min JORDAN DURESKA DO [facility] 04-25-2024 02:39-0400 Systolic Blood Pressure Non-Invasive 133 mm[Hg] JORDAN DURESKA DO [facility] 04-25-2024 01:59-0400 Diastolic Blood Pressure Non-Invasive 69 mm[Hg] JORDAN DURESKA DO [facility] 04-25-2024 01:59-0400 Heart rate 68 /min JORDAN DURESKA DO [facility] 04-25-2024 01:59-0400 Reason For Taking VItal Signs JORDAN DURESKA DO [facility] 04-25-2024 01:59-0400 Respiratory rate 20 /min JORDAN DURESKA DO [facility] 04-25-2024 01:59-0400 Systolic Blood Pressure Non-Invasive 140 mm[Hg] JORDAN DURESKA DO [facility] 04-25-2024 01:23-0400 Diastolic Blood Pressure Non-Invasive 69 mm[Hg] JORDAN AMEZCUAESKA DO [facility] 04-25-2024 01:23-0400 Heart rate 68 /min JORDAN AMEZCUAESKA DO [facility] 04-25-2024 01:23-0400 Reason For Taking VItal Signs JORDAN GASPARKA DO [facility] 04-25-2024 01:23-0400 Respiratory rate 13 /min JORDAN GASPARKA DO [facility] 04-25-2024 01:23-0400 Systolic Blood Pressure Non-Invasive 132 mm[Hg] JORDAN AMEZCUAESKA DO [facility] 04-24-2024 23:22-0400 Body temperature 98.42 [degF] JORDAN GASPARKA DO [facility] 04-24-2024 23:22-0400 Body weight 81.81 kg JORDAN RYDER DO [facility] 04-24-2024 23:22-0400 Heart rate 67 /min JORDAN GASPARKA DO [facility] 09-29-2023 18:34-0400 Blood Pressure Location TRELL REICHFIELD DO [facility] 09-29-2023 18:34-0400 Body temperature 97.88 [degF] TRELL REICHFIELD DO [facility] 09-29-2023 18:34-0400 Diastolic Blood Pressure Non-Invasive 77 1 TRELL REICHFIELD DO [facility] 09-29-2023 18:34-0400 Heart rate 61 /min TRELL REICHFIELD DO [facility] 09-29-2023 18:34-0400 Respiratory rate 16 /min TRELL VERDIN DO [facility] 09-29-2023 18:34-0400 Systolic Blood Pressure Non-Invasive 165 1 [facility] 03-22-2022 06:26-0400 Body temperature 97.16 [degF] DR JAY ANGELES MD [facility] 03-22-2022 06:26-0400 Diastolic Blood Pressure NBP [address] JAY ANGELES MD [facility] 03-22-2022 06:26-0400 Heart rate 70 /min DR JAY ANGELES MD [facility] 03-22-2022 06:26-0400 Respiratory rate 16 /min DR JAY ANGELES MD [facility] 03-22-2022 06:26-0400 Systolic Blood Pressure NBP [address] JAY ANGELES MD [facility] 03-21-2022 23:23-0400 Body temperature 97.7 [degF] DR JAY ANGELES MD [facility] 03-21-2022 23:23-0400 Diastolic Blood Pressure NBP [address] JAY ANGELES MD [facility] 03-21-2022 23:23-0400 Heart rate 65 /min DR JAY ANGELES MD [facility] 03-21-2022 23:23-0400 Respiratory rate 16 /min DR JAY ANGELES MD [facility] 03-21-2022 23:23-0400 Systolic Blood Pressure NBP [address] JAY ANGELES MD [facility] 03-21-2022 21:27-0400 Respiratory rate 16 /min DR JAY ANGELES MD [facility] 03-21-2022 19:35-0400 Body temperature 97.7 [degF] DR JAY ANGELES MD [facility] 03-21-2022 19:35-0400 Diastolic Blood Pressure NBP [address] JAY ANGELES MD [facility] 03-21-2022 19:35-0400 Heart rate 69 /min DR JAY ANGELES MD [facility] 03-21-2022 19:35-0400 Systolic Blood Pressure NBP [address] JAY ANGELES MD [facility] 03-21-2022 17:55-0400 Heart rate 65 /min DR JAY ANGELES MD [facility] 03-21-2022 10:20-0400 Body height 162.[address] JAY ANGELES MD [facility] 03-21-2022 10:20-0400 Body weight 89.[address] JAY ANGELES MD [facility] 03-21-2022 10:20-0400 Body weight 33.85 kg/m2 DR JAY ANGELES MD [facility] 03-21-2022 10:08-0400 Heart rate 71 /min DR JAY ANGELES MD [facility] 03-21-2022 09:37-0400 Heart rate 73 /min DR JAY ANGELES MD [facility] 03-21-2022 08:50-0400 Body temperature 96.98 [degF] DR JAY ANGELES MD [facility] 03-21-2022 06:06-0400 Body height 162.[address] JAY ANGELES MD [facility] 03-21-2022 06:06-0400 Body temperature 97.7 [degF] DR JAY ANGELES MD [facility] 03-21-2022 06:06-0400 Body weight 89.[address] JAY ANGELES MD [facility] 04-26-2022 06:06-0400 Heart rate 65 /min DR JAY ANGELES MD [facility] 03-10-2022 10:47-0400 Body height 162.[address] JAY ANGELES MD [facility] 03-10-2022 10:47-0400 Body weight 89.[address] JAY ANGELES MD [facility] 03-10-2022 10:47-0400 Body weight 33.85 kg/m2 DR JAY ANGELES MD [facility] 03-10-2022 10:47-0400 diastolic 62 mm[Hg] DR JAY ANGELES MD [facility] 03-10-2022 10:47-0400 Heart rate 54 /min DR JAY ANGELES MD [facility] 03-10-2022 10:47-0400 Respiratory rate 20 /min DR JAY ANGELES MD [facility] 03-10-2022 10:47-0400 systolic 138 mm[Hg] DR JAY ANGELES MD [facility] 12-16-2021 10:23-0500 Body height 162.6 cm MERY CABAN MD [facility] 12-16-2021 10:23-0500 Body weight 87.6 kg MERY CABAN MD [facility] 12-16-2021 10:23-0500 Body weight 33.13 kg/m2 MERY CABAN MD [facility] 12-16-2021 10:23-0500 diastolic 70 mm[Hg] MERY CABAN MD [facility] 12-16-2021 10:23-0500 Heart rate 63 /min MERY CABAN MD [facility] 12-16-2021 10:23-0500 systolic 134 mm[Hg] MERY CABAN MD [facility] Encounters Encounter Date Encounter Type Care Provider Facility Start: 05-16-2025 ambulatory Estella Jacome Facility :[facility] Start: 12-10-2024 End: 12-10-2024 ambulatory ESTELLA JACOME DO Facility:[facility] Start: 12-10-2024 End: 12-10-2024 Patient encounter procedure LINDA SHAFER DO [facility] Start: 12-08-2024 ambulatory Estella Jacome Facility :[facility] Start: 12-08-2024 End: 12-08-2024 ambulatory Estella Jacome Facility:[facility] Start: 09-04-2024 End: 09-04-2024 ambulatory Estella Jacome Facility:[facility] Start: 08-22-2024 End: 08-22-2024 ambulatory Linda Friend Facility:[facility] Start: 08-19-2024 End: 08-19-2024 ambulatory Vijaya Salas Facility:[facility] Start: 08-11-2024 End: 10-13-2024 ambulatory KELIN PARSONS MD Facility:[facility] Start: 08-11-2024 End: 10-13-2024 Physical therapy management KELIN PARSONS MD [facility] Start: 08-11-2024 End: 08-11-2024 ambulatory Carolinajuanita Villanueva Facility:[facility] Start: 07-27-2024 End: 07-27-2024 ambulatory Mario Alberto Juanita Facility:[facility] Start: 07-26-2024 ambulatory Adrien Florentino Facili ty:[facility] Start: 07-26-2024 End: 07-29-2024 Evaluation and management of inpatient Adrien Florentino Facility:[facility] Start: 07-08-2024 End: 07-08-2024 ambulatory KELIN PARSONS MD Facility:[facility] Start: 07-08-2024 End: 07-08-2024 Patient encounter procedure KELIN PARSONS MD [facility] Start: 07-07-2024 End: 07-07-2024 ambulatory KELIN PARSONS MD Facility:[facility] Start: 07-07-2024 End: 07-07-2024 Patient encounter procedure KELIN PARSONS MD [facility] Start: 07-01-2024 ambulatory Linda Shafer Facility :[facility] Start: 07-01-2024 End: 07-01-2024 ambulatory Linda Shafer Facility:[facility] Start: 06-10-2024 End: 06-10-2024 ambulatory ESTELLA JACOME DO Facility:[facility] Start: 06-10-2024 End: 06-10-2024 Patient encounter procedure ESTELLA JACOME DO [facility] Start: 05-12-2024 End: 05-12-2024 ambulatory ESTELLA JACOME DO Facility:[facility] Start: 05-12-2024 End: 05-12-2024 Patient encounter procedure ESTELLA JACOME DO [facility] Start: 04-24-2024 End: 04-25-2024 Emergency department patient visit JORDAN RYDER DO [facility] Start: 10-11-2023 End: 11-29-2023 ambulatory ESTELLA KEITHJuanita CHRISTIANSON Facility:[facility] Start: 10-11-2023 End: 11-29-2023 Coordination of care plan ESTELLA JACOME DO [facility] Start: 10-02-2023 End: 10-02-2023 ambulatory ESTELLA JACOME Facility:[facility] Start: 09-29-2023 End: 09-29-2023 Emergency department patient visit TRELL VERDIN DO [facility] Start: 09-04-2023 End: 09-08-2023 ambulatory ESTELLA JACOME Facility:[facility] Start: 06-01-2023 End: 06-01-2023 Patient encounter procedure ESTELLA JACOME [facility] Start: 06-01-2023 End: 06-01-2023 Well adult monitoring check done ESTELLA JACOME DO [facility] Start: 05-25-2023 End: 05-25-2023 Patient encounter procedure ESTELLA JACOME DO [facility] Start: 02-08-2023 End: 05-01-[address] JAY ANGELES MD [facility] Start: 01-10-2023 End: 02-16-2023 Physical therapy management ESTELLA JACOME DO [facility] Start: 05-24-2022 End: 05-24-2022 Patient encounter procedure ESTELLA JACOME DO [facility] Start: 04-04-2022 End: 04-04-2022 Patient encounter procedure KATIE Pinto ANTHONY PA-C [facility] Start: 03-24-2022 End: 05-18-2022 Physical therapy management KATIE Millie CRUZ PA-C [facility] Start: 03-21-2022 End: 03-22-[address] JAY ANGELES MD [facility] Start: 03-10-2022 End: 03-10-[address] JAY ANGELES MD [facility] Start: 12-28-2021 End: 12-28-2021 Patient encounter procedure BABAK PASTRANA MD [facility] Start: 12-23-2021 End: 12-23-2021 Patient encounter procedure TOO RON BASIC ACOUSTIC ANALYST-COLOR DIPPER [facility] Start: 12-20-2021 End: 12-20-2021 Patient encounter procedure ESTELLA JACOME DO [facility] Start: 12-16-2021 End: 12-16-2021 Admission to establishment MERY CABAN MD [facility] Start: 10-25-2021 End: 10-25-2021 Patient encounter procedure ZULLY ESQUIVELCOLOR DIPPER [facility] Start: 10-21-2021 End: 10-21-2021 Patient encounter procedure ZULLY BARTON APRN-COLOR DIPPER [facility] Start: 06-01-2017 End: 06-02-2017 Ambulatory MELIA VENTURA Facility:[facility] Start: 05-25-2017 End: 05-26-2017 Ambulatory SHAI PETER Facility:[facility] Start: 05-23-2017 Ambulatory SHAI PETER Facili ty:[facility] Procedures Date Procedure Procedure Detail Performing Clinician Start: 02-24-2022 Insertion of hip prosthesis RAY ANTHONY PA-C Comment on above: right Start: 01-05-[address] JAY ANGELES MD Start: 11-26-1974 section ZULLY BARTON BASIC ACOUSTIC ANALYST-COLOR DIPPER Arthroplasty of knee ZULLY BARTON BASIC ACOUSTIC ANALYST-COLOR DIPPER Comment on above: RIGHT Arthroscopy of knee DR ERIC ANGELES MD Comment on above: Right Extraction of cataract RAY Neda GARBERR PA-C Comment on above: both eyes Prosthetic arthropla sty of the hip ZULLY BARTON BASIC ACOUSTIC ANALYST-COLOR DIPPER Comment on above: LEFT Immunizations Immunization Date Immunization Notes Care Provider Fa [facility] 08-20-2024 influenza, high dose seasonal, preservative-free; Translations: [Fluad PF Prefilled Syringe ] KELIN PARSONS MD [facility] 09-09-2023 RSV vaccine preF3, recombinant ESTELLA JACOME DO [facility] 09-09-2023 SARS-CoV-2 (COVID-19 ) mRNA-[id number] ESTELLA JACOME DO [facility] 09-04-2023 influenza, high dose seasonal, preservative-free; Translations: [Fluad Quadrivalent PF ] TRELL VERDIN DO [facility] 10-23-2022 tetanus toxoid, redu ji diphtheria toxoid, and acellular pertussis vaccine, adsorbed ESTELLA JACOME DO [facility] 10-23-2022 zoster vaccine recombinant ESTELLA JACOME DO [facility] 08-29-2022 influenza, high dose seasonal, preservative-free ESTELLA JACOME DO [facility] 08-11-2022 zoster vaccine recombinant ESTELLA JACOME DO [facility] 03-09-2022 COVID-19, mRNA, LNP- S, PF, 30 mcg/0.3 mL dose; Translations: [[employer] COVID-19 Vaccine (Do Not Dilute)] DR JAY ANGELES MD [facility] 08-22-2021 SARS-CoV-2 mRNA (tozinameran) vaccine [facility] [employer] [facility] Comment on above: Result Comment: 2020: [id number] 08-19-2021 influenza virus vaccine, unspecified formulation [facility] [employer] [facility] 02-17-2021 SARS-CoV-2 mRNA (tozinameran) vaccine LERICA ROCK BASIC ACOUSTIC ANALYST-COLOR DIPPER [facility] 01-27-2021 SARS-CoV-2 mRNA (tozinameran) vaccine LERICA ROCK BASIC ACOUSTIC ANALYST-COLOR DIPPER [facility] Comment on above: Result Comment: 2020: [id number] 08-29-2020 influenza virus vaccine, unspecified formulation LERICA ROCK BASIC ACOUSTIC ANALYST-COLOR DIPPER [facility] 12-18-2019 zoster vaccine recombinant ESTELLA JACOME DO [facility] 12-18-2019 zoster vaccine, live LERICA ROCK BASIC ACOUSTIC ANALYST-COLOR DIPPER [facility] 08-25-2019 influenza virus vaccine, unspecified formulation LERICA ROCK BASIC ACOUSTIC ANALYST-COLOR DIPPER [facility] 08-14-2018 influenza virus vaccine, H1N1, inactivated LERICA ROCK BASIC ACOUSTIC ANALYST-COLOR DIPPER [facility] 08-14-2018 influenza virus vaccine, unspecified formulation LERICA ROCK BASIC ACOUSTIC ANALYST-COLOR DIPPER [facility] 11-13-2017 pneumococcal polysaccharide vaccine, 23 valent LERICA ROCK BASIC ACOUSTIC ANALYST-COLOR DIPPER [facility] 08-26-2017 influenza virus vaccine, unspecified formulation LERICA ROCK BASIC ACOUSTIC ANALYST-COLOR DIPPER [facility] 08-26-2017 pneumococcal conjuga te vaccine, 13 valent LERICA ROCK BASIC ACOUSTIC ANALYST-COLOR DIPPER [facility] 08-25-2017 pneumococcal conjuga te vaccine, 13 valent LERICA ROCK BASIC ACOUSTIC ANALYST-COLOR DIPPER [facility] 09-09-2016 influenza virus vaccine, unspecified formulation LERICA ROCK BASIC ACOUSTIC ANALYST-COLOR DIPPER [facility] 02-16-2016 pneumococcal conjuga te vaccine, 13 valent LERICA ROCK BASIC ACOUSTIC ANALYST-COLOR DIPPER [facility] 08-24-2015 influenza virus vaccine, unspecified formulation LERICA ROCK BASIC ACOUSTIC ANALYST-COLOR DIPPER [facility] 08-11-2014 influenza virus vaccine, unspecified formulation LERICA ROCK BASIC ACOUSTIC ANALYST-COLOR DIPPER [facility] 11-26-2012 pneumococcal polysaccharide vaccine, 23 valent [employer] ANALYST-COLOR DIPPER [facility] 11-26-2012 zoster vaccine, live [place] [employer] ANALYST-[employer] [facility] 10-25-2012 zoster vaccine, live [place] [employer] ANALYST-COLOR [employer] [facility] 08-03-2011 zoster vaccine, live [place] [employer] ANALYST-[employer] [facility] Payers Date Payer Category Payer Self-pay [id number] 2023 Medicare [id number] 2023 Private Health Insurance [id number] 2021 Private Health Insurance [id number] 2019 Medicare [id number] 2012 Private Health Insurance [id number] 1948 Unknown [id number] 2.16.8 40.1.633273.3.579.2.627 1948 Unknown [id number] 2.16.8 40.1.972553.3.579.2.627 1948 Unknown [id number] 2.16.8 40.1.609634.3.579.2.627 1948 Unknown [id number] 2.16.8 40.1.995743.3.579.2.627 1948 Unknown [id number] 2.16.8 40.1.472324.3.579.2.627 1948 Unknown [id number] 2.16.8 40.1.676311.3.579.2.627 1948 Unknown [id number] 2.16.8 40.1.268706.3.579.2.627 1948 Unknown [id number] 2.16.8 40.1.425137.3.579.2.627 1948 Unknown [id number] 2.16.8 40.1.162173.3.579.2.627 1948 Unknown [id number] 2.16.8 40.1.234938.3.579.2.627 1948 Unknown [id number] 2.16.8 40.1.092549.3.579.2.627 1948 Unknown [id number] 2.16.8 40.1.589757.3.579.2.627 Unknown [id number] 2.16.8 40.1.998167.3.579.2.462 Unknown [id number] 2.16.8 40.1.713040.3.579.2.462 Unknown [id number] 2.16.8 40.1.552130.3.579.2.462 Unknown [id number] 2.16.8 40.1.556239.3.579.2.462 Unknown [id number] 2.16.8 40.1.964891.3.579.2.462 Unknown [id number] 2.16.8 40.1.459613.3.579.2.462 Unknown [id number] 2.16.8 40.1.456680.3.579.2.462 Unknown [id number] 2.16.8 40.1.260774.3.579.2.462 Unknown [id number] 2.16.8 40.1.670495.3.579.2.462 Unknown [id number] 2.16.8 40.1.567311.3.579.2.462 Unknown [id number] 2.16.8 40.1.024894.3.579.2.462 Unknown [id number] 2.16.8 40.1.258862.3.579.2.462 Unknown [id number] 2.16.8 40.1.313886.3.579.2.462 Unknown [id number] 2.16.8 40.1.854561.3.579.2.462 Unknown [id number] 2.16.8 40.1.122814.3.579.2.462 Unknown [id number] 2.16.8 40.1.652822.3.579.2.462 Unknown [id number] 2.16.8 40.1.564234.3.579.2.462 Unknown [id number] 2.16.8 40.1.703259.3.579.2.462 Social History Date Type Detail Facility Start: 01-01-2020 End: 03-10-2022 Ex-smoker (finding) [facility] yajaira [facility] Sex Assigned At Female [facility] Sexual Orientation [place] Donnie bob [facility] Start: 05-21-2019 Sex Female (finding) [facility] Functional Status Date Assessment Result Facility 08-11-2024 Functional Status Objective: Posture: Mild flexed posture Visual acuity ; R: 20/20 L: 20/40 bilat: 20/20 Ocular tracking Cranial nerves are intact and symmetrical Cardiovascular screen: BP: 112/60 HR: 65 BPM 116/78 O2 saturation: 98% Upper and Lower extremity sensation: grossly intact and symmetrical light touch ] Gait: Ambulates without AD appears to have some mild lateral sway at times, ambulates with slightly wide base of support. Oculomotor tests: Spontaneous nystagmus: -, Gaze hold nystagmus-, smooth pursuit:+, Saccades:-, VOR to slow head movements+ unable to maintain appropriate tempo ,Convergence: 10cm(norm 6 cm from nose): Balance: see BBS, MCTSIB: 1.99 or 8% Vestibular: Warba hallpike: - bilat(modified position due to limited cervical ROM) [facility] 07-08-2024 Functional Status Sensory Deficits None A [facility] 04-25-2024 Functional Status Independent [facility] 04-24-2024 Functional Status Standard Safet y ID band on, Call device within reach, Bed in low position, Wheels locked, Upper/Half-Length side-rails up [facility] 10-11-2023 Functional Status Objective: Observation: Mod flexed posture. Cardiovascular screen: BP: 140/80, O2 sat: 98% HR: 66 bpm Gait: does not arrive with AD. does have decreased stride length and mild lateral sway tends to hold on to navarrete for stability Balance: see BBS most limited in turning and step tap Biodex balance: MCTSIB 4% overall limited 23% limited with EO foam. [facility] 09-29-2023 Functional Status ID band on [facility] 02-08-2023 Functional Status Objective: Cardiovascular screen: BP: 122/80 HR: 86 BPM O2 sat: 96% Gait: Antalgic initially first fiew steps with some mild compensated trendelenburg on the R Weight bearing status: WBAT Effusion: min to no effusion lateral thigh. Functional Strength: sit to stand: Some genu valgus during transition noted suggesting some potential hip abductor weakness Palpation: Tender to Palpation lateral hip and thigh mild Neurological Screen: Sensation: Grossly intact to light touch on bilat LE's Reflexes: Achilles R: 1+ L: 1+ Special tests: Single leg standing: limited on the R with some lateral hip pain [facility] 01-10-2023 Functional Status Objective: Observation: mild flexed posture 5m walk test: 6.6 sec 0.75 m/sec Sensation: Grossly legs intact bilat LE's to light touch Cardiovascular screen: O2 sat: 97% HR: 78 BP: 130/80 Reflexes: Quads R: 1+L: 1+ Achilles R: 1+ L: 1+ [facility] 03-24-2022 Functional Status Objective: Cardiovascular screen: BP: 130/80 HR: 73 BPM O2 sat: 96% Calf girth: L: 46 cm, R: 46 cm denies any calf pain or tenderness. Gait: Antalgic with limited step through pattern initially but improves with continued walking. Ambulates with FWW Weight bearing status: WBAT Effusion: Min to no effusion present. Functional Strength: Sit to stand: NASRA relies heavily on UE's Palpation: Denies calf pain or tenderness with palpation Neurological Screen: Sensation: Grossly intact and symmetrijcal to light touch on bilat Special tests: Jose's sign: - [facility] 03-22-2022 Functional Status [facility] 03-22-2022 Functional Status [facility] 03-22-2022 Functional Status [facility] 03-22-2022 Functional Status [facility] Status Yazan Ho jessie Hand [facility] 03-21-2022 Functional Status [facility] Functional Status Yazan Ho jessie Hand [facility] 03-21-2022 Functional Status [facility]2022 [facility]20[facility]2022 [facility]2022 [facility] Mental Status Date Assessment Result Facility 04-25-2024 Mental Status Orientation Oriented x 4 [facility] 04-24-2024 [facility] Mental Status Orientation Oriented x 4 [facility] 03-22-2022 [facility] Mental Status [facility] 03-21-2022 Mental Status [facility] 03-21-2022 Mental Status [facility] Clinical Notes 03-22-2022 to 12-12-2024 Note Date & Type Note Facility 12-12-2024 Note . MICRO - Microbiology PROCEDURE: Urine Culture [O1 *1] SOURCE: Urine BODY SITE: COLLECTED DATE/TIME: 12/10/2024 12:09 EST RECEIVED DATE/TIME: 12/10/2024 19:06 EST START DATE/TIME: 12/10/2024 19:07 EST FREE TEXT SOURCE: FINAL REPORTS Final Report [] Verified Date/Time/Personnel: 12/12/2024 07:39 EST No growth at 48 hours. PRELIMINARY REPORTS Preliminary Report [] Verified Date/Time/Personnel: 12/11/2024 09:15 EST No growth to date Order Comments O1: Urine Culture Added by Discern Performing Locations *1: This test was performed at: [address], [address] [place] [address] 12-10-2024 Note Exam Date Time Procedure Performing Provider Status 12/10/24 10:07 AM XR Chest 2 Views OBINNA GOEL MD; Auth (Verified) [id number] ORIGINAL EXAMINATION: TWO XRAY VIEWS OF THE CHEST TECHNIQUE: Two views COMPARISON: CTA chest 04/25/2024, chest 07/10/2019 HISTORY: ORDERING SYSTEM PROVIDED HISTORY: Reason for Exam: Choledocholithiasis FINDINGS: Support devices: None Cardiomediastinal: The heart is normal in size per Lungs: No pulmonary edema, consolidation or a pleural effusion. Pneumothorax: None Osseous: No acute osseous pathology. The bones are diffusely demineralized. Widespread thoracic spondylotic changes are seen. IMPRESSION: No acute pulmonary disease. Interpreted by: Obinna Goel MD Preliminary Report By: Obinna Goel MD Electronically signed By Obinna Goel MD Dictated Date: 12/10/2024 10:10:07 AM Prelim Date: 12/10/2024 10:12:43 AM Sign Date: 12/10/2024 10:12:43 AM Ordering Provider: LINDA SHAFER [facility]01-13-2025 [facility] Records Department [address] [place] [address] History Physical Exam 12/08/24 1032 MR#: [id number] Acct: [id number] Name: FANTA LOBO Rep #: [id number] : 1950 74 From: Linda Friend DO PCP: Dr. Estella Jacome, DO Status:[facility] Location: [place] [address] HPI - General General Date of Admission: 12/08/24 Date of Service: 12/08/24 Chief Complaint: Stent removal HPI Narrative FANTA LOBO, is a 74 F who presents today for ERCP with stent removal or exchange. ERCP 07.01.24 A single localized biliary stricture was found in the lower third of the main bile duct. The stricture was benign appearing. The biliary system were dilated, with a stone causing an obstruction. The patient has had a cholecystectomy. Choledocholithiasis was found. Complete removal was accomplished by biliary sphincterotomy and balloon extraction. A pancreatic sphincterotomy was performed. The ventral pancreatic duct was swept and debris was found. One stent was removed from the biliary tree. A biliary sphincterotomy was performed. The biliary tree was swept. ERCP 07.27.24 Choledocholithiasis was found. Partial removal was accomplished with biliary sphincterotomy; a stent was inserted. A biliary sphincterotomy was performed. The biliary tree was swept. The lower third of the main bile duct and the left main hepatic duct were successfully dilated. A pancreatic sphincterotomy was performed. The ventral pancreatic duct was swept and debris was found. One temporary stent was placed into the common bile duct. *[facility] established 08.19.24 Patient has been in and out of the hospital since March 2024 with CBD stones causing obstruction. She is s/p cholecystectomy about 1 year ago and has hx of UC and pancreatitis. In March 2024 she underwent ERCP with stone removal and stent placement. She had stent removed in June 2024 and then a week later had another CBD stone. She underwent another ERCP for stone removal and stent placement. During her hospitalism in June she had pancreatitis with elevated lipase in the . 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 She is scheduled for Spyglass on 08.22.24 and is here today for discussion about the recurrent stones. Today she denies abdominal pain, n/v, heartburn, constipation or diarrhea. Biochemical work up; 9.3.24; Hgb 10.2, bilirubin 1.10, AST 49, ALT 113, ALP 349, CA 19-9 70, CEA wnl Biopsy with fluid from stent; 8.6.24; no malignant cells PFSH Medical History Balance problem Wears glasses Wears dentures Ambulates with cane Gastric reflux Former smoker History of biliary stent insertion RLS (restless legs syndrome) History of chronic cholecystitis Absence seizure disorder Ulcerative colitis Allergic rhinitis Anxiety and depression Former tobacco use HLD (hyperlipidemia) HTN (hypertension) Home Medications ???Medication ???Instructions ???Recorded ???Last Taken ???Type multivitamin with folic acid 400 1 tab PO DAILY supplement 08/18/14 06/27/24 History mcg tablet (Thera) omeprazole 20 mg capsule,delayed 20 mg PO DAILY Gerd 08/18/14 12/08/24 History release pravastatin 40 mg tablet 40 mg PO DAILY cholesterol 08/18/14 06/30/24 History (Pravachol) alendronate 70 mg tablet 70 mg PO PAYNE OA 04/25/24 06/29/24 History cetirizine 10 mg tablet (Zyrtec) 10 mg PO DAILY PRN allergy symptoms 04/25/24 06/30/24 History escitalopram oxalate 20 mg tablet 20 mg PO DAILY depression 04/25/24 06/30/24 History ferrous sulfate 325 mg (65 mg 325 mg PO DAILY supplement 04/25/24 06/27/24 History iron) tablet (iron) omega-3 360 zt-qhl-mub-fish oil 1 cap PO DAILY supplement 04/25/24 06/27/24 History 1,200 mg capsule,delayed release ropinirole 0.5 mg tablet 0.5 mg PO QHS restless legs 04/25/24 06/30/24 History vitamin B complex (B-Complex 1 tab PO DAILY supplement 04/25/24 06/27/24 History tablet) cholecalciferol (vitamin D3) 25 25 mcg PO DAILY supplement 07/26/24 Unknown History mcg (1,000 unit) capsule tramadol 50 mg tablet 50 mg PO Q8H PRN pain #10 tabs 07/29/24 Unknown Rx losartan 50 mg-hydrochlorothiazide 1 tab PO DAILY 08/21/24 Unknown History 12.5 mg tablet zonisamide 100 mg capsule 100 mg PO QHS 08/21/24 Unknown History fesoterodine 4 mg tablet,extended 4 mg PO DAILY 12/05/24 Unknown History release 24 hr memantine 5 mg tablet 5 mg PO BID 12/05/24 Unknown History Allergy/AdvReac Type Severity Reaction Status Date / Time codeine Allergy Intermediate Vomiting Verified 12/08/24 09:57 hydrocodone bitartrate (From AdvReac Nausea/Vom/ Verified 12/08/24 09:57 Vicodin) Diarrhea propoxyphene napsylate (From AdvReac Nausea/Vom/ Verified 12/08/24 09:57 Darvocet-N) Diarrhea Famil (more content not included)...[facility]09-27-2024 Note [facility] Medical Records Department [address] [place] [address] History Physical Exam 08/22/24 1327 MR#: [id number] Acct: [id number] Name: FANTA LOBO Rep #: [id number] : 1950 74 From: Linda Shafer DO PCP: Dr. Estella Jacome, DO Status:[facility] Location: [place] [address] History and Physical Date of Admission: 08/22/24 FANTA LOBO, is a 74 F who presents to the office today for hospital f/u. Patient has been in and out of the hospital since March 2024 with CBD stones causing obstruction. She is s/p cholecystectomy about 1 year ago and has hx of UC and pancreatitis. In March 2024 she underwent ERCP with stone removal and stent placement. She had stent removed in June 2024 and then a week later had another CBD stone. She underwent another ERCP for stone removal and stent placement. During her hospitalism in June she had pancreatitis with elevated lipase in the . Dr. 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 She is scheduled for Spyglass on 08.22.24 and is here today for discussion about the recurrent stones. Today she denies abdominal pain, n/v, heartburn, constipation or diarrhea. Biochemical work up; 9.3.24; Hgb 10.2, bilirubin 1.10, AST 49, ALT 113, ALP 349, CA 19-9 70, CEA wnl Biopsy with fluid from stent; 8.6.24; no malignant cells ROS Const Constitutional: Positive for frequent falls; No fatigue, fever(s) or weight change ENT ENT: No difficulty swallowing Gastro GI: No abdominal pain, belching, bloating, change in bowel habits, change in stool character, coffee ground emesis, constipation, cramping, diarrhea, heartburn, difficulty swallowing, feeling full early, excessive flatus, incontinent of stools, Vomiting blood/hematemesis, Blood in stool, loose stools, Black,tarry stools, nausea/dyspepsia, pain with swallowing, vomiting or other Musc Musculoskeletal: Positive for joint swelling and restless legs; No joint pain Skin Skin: No yellowing of the eye or itchy eyes Neuro Neurology: Positive for frequent falls, restless legs and seizures Psych Psychiatric: No anxiety, Positive for depression and Positive for inattentiveness Endo Endocrine: No fatigue or weight change Aller/Imm Allergy/Immunologic: No itchy eyes Huseyin/Lymp Hematologic/Lymphatic: No easy bleeding or easy bruising Exam Const General: cooperative and comfortable Nutritional Appearance: average body habitus and well nourished [facility] Head: normal to inspection Ears: hearing grossly normal bilaterally Nose: external nose normal Face and sinus: normal facial exam Mouth: oral mucosae normal Throat: posterior oropharynx normal Eyes General: appearance normal, both eyes and all related structures Neck Neck: normal visual inspection Chest Chest palpation inspection: normal inspection of the chest Resp Effort Inspection: normal respiratory effort and able to speak in complete sentences GI Inspection: normal to inspection Skin General: no rashes or lesions noted Neuro General: patient alert Extrem General: normal to inspection Psych Affect: normal affect Assessment and Plan Assessment and Plan (1) Choledocholithiasis: Status: Resolved Plan: Pt is a 74 yo female with PMHx of renal mass, UC, s/p cholecystectomy, pancreatitis and choledocholithiasis. Since March 2024 she has been having recurrent CBD stones requiring ERCP with removal and stent placement. Dr. Shafer has some concern for malignancy as she continues to have recurrences. He also believes she has lithogenic bile. I discussed this with patient as her and her daughter are confused why she is making so many stones. We will have more information once Dr. Shafer does spyglass. CEA was wnl, CA19-9 70, liver enzymes and bilirubin is down trending. Pt is not having any issues currently she is just looking for answers as she does not want continue having these procedures so often. -Sabi scheduled for 08.22.24 -F/u after procedure I have examined the patient and the H P has been reviewed. There are no clinical changes since date of exam. 08/22/24 1327 Cosigner Signature (if applicable): CC: Dr. Estella Jacome DO; Linda Shafer DO [facility] Medical Records Department [address] [place] [address] Discharge Summary 07/29/24 1111 MR#: [id number] Acct: [id number] Name: FANTA LOBO Rep #: [id number] : 1950 74 From: Leena Cunningham DO PCP: Dr. Estella Jacome DO Status:ADM IN Location: [place] [address]1 Providers Date of Admission: 07/26/24 Primary Care Physician: Dr. Estella Jacome DO Consultations 07/26/24 23:08 Consult: Gastroenterology Routine Consulting Provider: [facility] Reason for Consult: Acute pancreatitis with recurrent choledocholithiasis hyperbilirubinemia. EMERGENT Consult: No MD Notified: Yes Date Notified: 07/26/24 Time Notified: 23:28 Method of Notification: ED Physician Initiated Reason For Visit: ACUTE PANCREATITIS RECURRENT CHOLEDOCHOLITHIASIS Diagnosis Discharge Diagnosis (1) Weight loss: Status: Acute Code(s): R63.4 - Abnormal weight loss (2) Right renal mass: Status: Acute Code(s): N28.89 - Other specified disorders of kidney and ureter (3) Acute pancreatitis: Status: Acute Code(s): K85.90 - Acute pancreatitis without necrosis or infection, unspecified Qualifiers: Pancreatitis type: biliary Acute pancreatitis complication: no infection or necrosis Q ualified Code(s): K85.10 - Biliary acute pancreatitis without necrosis or infection (4) Choledocholithiasis: Status: Acute Code(s): K80.50 - Calculus of bile duct without cholangitis or cholecystitis without obstruction Medications at Discharge Home Medications multivitamin with folic acid 400 mcg tablet (Thera) 1 tab PO DAILY supplement 08/18/14 omeprazole 20 mg capsule,delayed release 20 mg PO DAILY Gerd 08/18/14 pravastatin 40 mg tablet (Pravachol) 40 mg PO DAILY cholesterol 08/18/14 alendronate 70 mg tablet 70 mg PO PAYNE OA 04/25/24 cetirizine 10 mg tablet (Zyrtec) 10 mg PO DAILY PRN allergy symptoms 04/25/24 escitalopram oxalate 20 mg tablet 20 mg PO DAILY depression 04/25/24 ferrous sulfate 325 mg (65 mg iron) tablet (iron) 325 mg PO DAILY supplement 04/25/24 levetiracetam 500 mg tablet 500 mg PO BID seizure 04/25/24 losartan 100 mg-hydrochlorothiazide 12.5 mg tablet 1 tab PO DAILY blood pressure 04/25/24 magnesium 250 mg tablet 250 mg PO DAILY supplement 04/25/24 melatonin 10 mg capsule 10 mg PO QHS sleep 04/25/24 omega-3 360 dt-xfm-acg-fish oil 1,200 mg capsule,delayed release 1 cap PO DAILY supplement 04/25/24 ropinirole 0.5 mg tablet 0.5 mg PO QHS restless legs 04/25/24 vitamin B complex (B-Complex tablet) 1 tab PO DAILY supplement 04/25/24 vibegron 75 mg tablet (Gemtesa) 75 mg PO DAILY 06/26/24 cholecalciferol (vitamin D3) 25 mcg (1,000 unit) capsule 25 mcg PO DAILY supplement 07/26/24 dicyclomine 10 mg capsule 10 mg PO TIDAC #90 caps 07/29/24 ondansetron 4 mg disintegrating tablet 4 mg PO Q8H PRN nausea and vomiting #30 tabs 07/29/24 tramadol 50 mg tablet 50 mg PO Q8H PRN pain #10 tabs 07/29/24 Hospital Course Operations ERCP (Biliary stent placement) Procedures - (CT chest/abdomen and pelvis) Summary of Care Provided Minutes Spent on Discharge: 38 Hospital Course: Mrs. Lobo is a 74-year-old white female who presented to the emergency department at [facility] on 07/26/2024 with a chief complaint of abdominal pain, nausea, and vomiting. Patient has a history of gallstone induced pancreatitis status post ERCP on 04/25/2024. At that time ERCP revealed dilation of the entire main bile duct with a stone causing obstruction and previous cholecystectomy with removal of choledocholithiasis via biliary sphincterotomy and balloon extraction. Nothing was found in the ventral pancreatic duct and 1 temporary stent was placed in the common bile duct. She was able to be discharged home on 04/26/2024. 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 Stone with obstruction was noted and complete removal via biliary sphincterotomy and balloon extraction was performed with previous stent placement being removed. Subsequently, she developed epigastric pain, nausea and vomiting about 2 to 3 hours after eating dinner with the abrupt onset of severe abdominal pain in the right to mid upper abdomen that had no more leading or relieving factors. Her family also noted that she had been losing weight involuntarily. Vital signs on presentation showed temperature of 97.5, heart rate 70, respiratory rate 16, blood pressure 145/73 and pulse ox 99% on room air. Her CBC was overtly unremarkable. Chemistry panel showed mild hyponatremia that has since resolved. Renal function was normal. Total bilirubin however was found to be elevated to 3.4 with a direct bilirubin of 2.73, AST of 158, ALT of 200 and an alk phos of 500. Lipase was elevated (more content not included)...[facility]08-06-2024 [facility] Medical Records Department [address] [place] [address] History Physical Exam 07/01/24 1505 MR#: [id number] Acct: [id number] Name: FANTA LOBO Rep #: [id number] : 1950 74 From: Linda Friend DO PCP: Dr. Estella Jacome, DO Status:[facility] Location: [place] [address] HPI - General General Date of Admission: 07/01/24 Date of Service: 07/01/24 Chief Complaint: Biliary stricture and stent removal HPI Narrative FANTA LOBO, is a 74 F who presented to the ED worsening abdominal pain. She has a PMHx: RLS, HTN, HLD, Anxiety and Depression, Allergic Rhinitis, Absences seizures, Hx Cholelithiasis with chron ic cholecystitis status post previous cholecystectomy 2021, Former tobacco use, Ulcerative colitis who presents to the [facility] on 04/25/2024 as a direct admit from outside facility [facility] ED with history of presentation to their facility on 04/24/2024 with history of normal day of activity with no complaints until following dinner at 5 PM when she had sudden onset of epigastric and right upper quadrant pain which was noted to be severe and sharp 10 out of 10 in severity with nausea and bouts of emesis prompting EMS call and transition to the outside facility ED for evaluation. Following interventions in ED including pain medication she did note significant improvement. Upon [facility] arrival she notes pain is resolved at this time and reports that 0 out of 10. She does reports over the years she has had intermittent similar epigastric and right upper quadrant pain but is resolved. In the ED VS included HR 68, BP 132/69, HR 67, RR 13, T 36.9, 96% on RA, CBC with WBC 8.3, hemoglobin 13, platelet 189 with left shift, troponin 8, lipase 67, CMP with sodium 137, potassium 3.8, chloride 101, CO2 27, BUN/creatinine 16/0.91, total bilirubin 1.4, AST/ALT 308/189, alk phos 95, glucose 158, GFR 60, CT chest, abdomen, pelvis with IV contrast with choledocholithiasis with moderate biliary and pancreatic ductal dilatation. She underwent ERCP by myself and was discovered to have choledocholithiasis and a biliary stricture of the distal common bile duct. She had a temporary stent placed that she comes back in today for stent removal. [facility]LY [facility] Medical History Wears glasses Wears dentures Ambulates with cane Gastric reflux Former smoker History of biliary stent insertion RLS (restless legs syndrome) History of chronic cholecystitis Absence seizure disorder Ulcerative colitis Allergic rhinitis Anxiety and depression Former tobacco use HLD (hyperlipidemia) HTN (hypertension) Home Medications ???Medication ???Instructions ???Recorded ???Last Taken ???Type loperamide 2 mg capsule 2 mg PO DAILY diarrhea 08/18/14 06/30/24 History multivitamin with folic acid 400 1 tab PO DAILY supplement 08/18/14 06/27/24 History mcg tablet (Thera) omeprazole 20 mg capsule,delayed 20 mg PO DAILY Gerd 08/18/14 07/01/24 History release pravastatin 40 mg tablet 40 mg PO DAILY cholesterol 08/18/14 06/30/24 History (Pravachol) alendronate 70 mg tablet 70 mg PO PAYNE OA 04/25/24 06/29/24 History cetirizine 10 mg tablet (Zyrtec) 10 mg PO DAILY PRN allergy symptoms 04/25/24 06/30/24 History escitalopram oxalate 20 mg tablet 20 mg PO DAILY depression 04/25/24 06/30/24 History ferrous sulfate 325 mg (65 mg 325 mg PO DAILY supplement 04/25/24 06/27/24 History iron) tablet (iron) levetiracetam 500 mg tablet 500 mg PO BID seizure 04/25/24 07/01/24 History losartan 100 1 tab PO DAILY blood pressure 04/25/24 07/01/24 History mg-hydrochlorothiazide 12.5 mg tablet magnesium 250 mg tablet 250 mg PO DAILY supplement 04/25/24 06/30/24 History melatonin 10 mg capsule 10 mg PO QHS sleep 04/25/24 06/30/24 History omega-3 360 hi-bcv-lvz-fish oil 1 cap PO DAILY supplement 04/25/24 06/27/24 History 1,200 mg capsule,delayed release ropinirole 0.5 mg tablet 0.5 mg PO DAILY restless legs 04/25/24 06/30/24 History vitamin B complex (B-Complex 1 tab PO DAILY supplement 04/25/24 06/27/24 History tablet) vibegron 75 mg tablet (Gemtesa) 75 mg PO DAILY 06/26/24 06/30/24 History Allergy/AdvReac Type Severity Reaction Status Date / Time codeine Allergy Intermediate Vomiting Verified 07/01/24 14:05 hydrocodone bitartrate (From AdvReac Nausea/Vom/ Verified 07/01/24 14:05 Vicodin) Diarrhea propoxyphene napsylate (From AdvReac Nausea/Vom/ Verified 07/01/24 14:05 Darvocet-N) Diarrhea Family History Mother Diabetes Bipolar disorder Father Liver cancer Prostate cancer Surgical History S/P cataract extraction History of knee replacement History of arthroscopic knee surgery History of se (more content not included)...[facility] 06-10-2024 Note ORIGINAL EXAMINATION: BONE DENSITOMETRY06/10/2024 2:22 pm TECHNIQUE: Dual energy bone densitometry lumbar spine and left forearm. COMPARISON: 05/24/2022 HISTORY: Reason for Exam: Osteoporosis Screening FINDINGS: L1-L4: T score= -0.4 BMD= 1.001 g/cm2 1/3 left radius: T score= -3.4 BMD= 0.487 g/cm2 L1-L4 BMD change: 0%. Left forearm BMD change: -11.7%. FRAX score: Not calculated. The OF f/k/a NOF recommends that FDA-approved medical therapies be considered in post-menopausal women and men age >/= 50 years with a: * Hip or vertebral fracture, or * T-score of /= 20% for major osteoporotic fractures or * >/= 3% for hip fractures All treatment decisions require clinical judgement and consideration of individual patient factors, including patient preferences, comorbidities, previous drug use, risk factors not captured in the FRAX registered model (e.g., frailty, falls, vitamin D deficiency, increased bone turnover, interval significant decline in bone density) and possible under- or over-estimation of fracture risk by FRAX. IMPRESSION: Osteoporosis. Interpreted by: Александр Chong MD Preliminary Report By: Александр Chong MD Electronically signed By Александр Chong MD Dictated Date: 06/10/2024 6:06:56 PM Prelim Date: 06/10/2024 6:11:20 PM Sign Date: 06/10/2024 6:11:20 PM Ordering Provider: [facility]05-31-2024 Note ORIGINAL EXAMINATION: CTA OF THE CHEST; CT OF THE ABDOMEN AND PELVIS WITH CONTRAST 04/25/2024 12:37 am TECHNIQUE: CTA of the chest was performed after the administration of intravenous contrast. Multiplanar reformatted images are provided for review. MIP images are provided for review. Automated exposure control, iterative reconstruction, and/or weight based adjustment of the mA/kV was utilized to reduce the radiation dose to as low as reasonably achievable.; CT of the abdomen and pelvis was performed with the administration of intravenous contrast. Multiplanar reformatted images are provided for review. Automated exposure control, iterative reconstruction, and/or weight based adjustment of the mA/kV was utilized to reduce the radiation dose to as low as reasonably achievable. COMPARISON: CT abdomen and pelvis on 10/25/2021. HISTORY: ORDERING SYSTEM PROVIDED HISTORY: Reason for Exam: was at home at 6 pm abdominal pain started sharp pains and then started to radiate across her shoulder blades pleuritic chest pain, pain behind right scapula Vomiting. FINDINGS: Pulmonary Arteries: Pulmonary arteries are adequately opacified for evaluation. No evidence of intraluminal filling defect to suggest pulmonary embolism. Main pulmonary artery is normal in caliber. Mediastinum: No evidence of mediastinal lymphadenopathy. The heart and pericardium demonstrate no acute abnormality. There is atherosclerotic coronary artery calcification. There is no acute abnormality of the thoracic aorta. Lungs/pleura: The lungs are without acute process. No focal consolidation or pulmonary edema. No evidence of pleural effusion or pneumothorax. Abdomen: The liver is normal in size. There is moderate dilatation of intrahepatic and extrahepatic common bile ducts. The common bile duct is 1.4 cm in diameter. There is a 1 cm calcific density in distal common bile duct consistent with choledocholithiasis. Pancreatic duct is also dilated measuring 7 mm. There is no inflammation of the pancreas. The spleen and adrenal glands are unremarkable. 4.5 cm hyperdense cyst at the upper pole of the right kidney is increased in size from 3.7 cm on 10/25/2021 but appearance remains benign. There are small benign appearing left renal cysts. There is no intestinal obstruction or inflammation. The appendix is normal. No free intraperitoneal air or abnormal fluid collection is present. There is diverticulosis of the colon without signs of diverticulitis. Abdominal aorta is nonaneurysmal. There is no retroperitoneal lymph node enlargement. 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 Urinary bladder is normal in size. Uterus and adnexal structures are unremarkable. No abnormal fluid collection is present in the pelvis. Soft Tissues/Bones: No acute bone or soft tissue abnormality. IMPRESSION: 1. No evidence of pulmonary embolism or acute cardiopulmonary process. 2. Choledocholithiasis with moderate biliary and pancreatic ductal dilatation. 3. Colonic diverticulosis without signs of diverticulitis. 4. Slight enlargement of hemorrhagic or proteinaceous cyst at upper pole of the right kidney, now measuring 4.5 cm Interpreted by: Robert Gonzalez MD Preliminary Report By: Robert Gonzalez MD Electronically signed By Robert Gonzalez MD Dictated Date: 04/25/2024 12:44:10 AM Prelim Date: 04/25/2024 12:56:59 AM Sign Date: 04/25/2024 12:56:59 AM Ordering Provider: [facility]05-31-2024 Note ORIGINAL EXAMINATION: CTA OF THE CHEST; CT OF THE ABDOMEN AND PELVIS WITH CONTRAST 04/25/2024 12:37 am TECHNIQUE: CTA of the chest was performed after the administration of intravenous contrast. Multiplanar reformatted images are provided for review. MIP images are provided for review. Automated exposure control, iterative reconstruction, and/or weight based adjustment of the mA/kV was utilized to reduce the radiation dose to as low as reasonably achievable.; CT of the abdomen and pelvis was performed with the administration of intravenous contrast. Multiplanar reformatted images are provided for review. Automated exposure control, iterative reconstruction, and/or weight based adjustment of the mA/kV was utilized to reduce the radiation dose to as low as reasonably achievable. COMPARISON: CT abdomen and pelvis on 10/25/2021. HISTORY: ORDERING SYSTEM PROVIDED HISTORY: Reason for Exam: was at home at 6 pm abdominal pain started sharp pains and then started to radiate across her shoulder blades pleuritic chest pain, pain behind right scapula Vomiting. FINDINGS: Pulmonary Arteries: Pulmonary arteries are adequately opacified for evaluation. No evidence of intraluminal filling defect to suggest pulmonary embolism. Main pulmonary artery is normal in caliber. Mediastinum: No evidence of mediastinal lymphadenopathy. The heart and pericardium demonstrate no acute abnormality. There is atherosclerotic coronary artery calcification. There is no acute abnormality of the thoracic aorta. Lungs/pleura: The lungs are without acute process. No focal consolidation or pulmonary edema. No evidence of pleural effusion or pneumothorax. Abdomen: The liver is normal in size. There is moderate dilatation of intrahepatic and extrahepatic common bile ducts. The common bile duct is 1.4 cm in diameter. There is a 1 cm calcific density in distal common bile duct consistent with choledocholithiasis. Pancreatic duct is also dilated measuring 7 mm. There is no inflammation of the pancreas. The spleen and adrenal glands are unremarkable. 4.5 cm hyperdense cyst at the upper pole of the right kidney is increased in size from 3.7 cm on 10/25/2021 but appearance remains benign. There are small benign appearing left renal cysts. There is no intestinal obstruction or inflammation. The appendix is normal. No free intraperitoneal air or abnormal fluid collection is present. There is diverticulosis of the colon without signs of diverticulitis. Abdominal aorta is nonaneurysmal. There is no retroperitoneal lymph node enlargement. 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 Urinary bladder is normal in size. Uterus and adnexal structures are unremarkable. No abnormal fluid collection is present in the pelvis. Soft Tissues/Bones: No acute bone or soft tissue abnormality. IMPRESSION: 1. No evidence of pulmonary embolism or acute cardiopulmonary process. 2. Choledocholithiasis with moderate biliary and pancreatic ductal dilatation. 3. Colonic diverticulosis without signs of diverticulitis. 4. Slight enlargement of hemorrhagic or proteinaceous cyst at upper pole of the right kidney, now measuring 4.5 cm Interpreted by: Robert Gonzalez MD Preliminary Report By: Robert Gonzalez MD Electronically signed By Robert Gonzalez MD Dictated Date: 04/25/2024 12:44:10 AM Prelim Date: 04/25/2024 12:56:59 AM Sign Date: 04/25/2024 12:56:59 AM [facility] Sinus rhythm Ventricular trigeminy IVCD, consider atypical LBBB Compared to ECG at 12/16/2021 10:42:42 Electronic Signature: JORDAN RYDER DO 04/24/2024 23:38:12[facility] 11-04-2023 Hospital Discharge instructions Patient Education 09/29/2023 19:37:14 Preventing Falls: Make Your Health a Priority Preventing Falls: Make Your Health a Priority Having a health problem can make you more likely to fall. Taking certain kinds of medicines may also increase your risk of falls. So, improving your health can help you avoid a fall. Work with your healthcare provider to manage health problems and to review your medicines. How chronic conditions increase your fall risk Health problems like diabetes, high or low blood pressure, and arthritis are called chronic health conditions. They can be managed, but they don't go away. They may cause problems with movement, balance, or vision. And certain medicines you take for them may have side effects, such as dizziness or drowsiness. These side effects also increase your risk. Work with your healthcare provider Your healthcare provider can work with you to help prevent a fall. See your healthcare provider fora medical exam each year. Go more often if you have symptoms, such as leg numbness or dizziness, that could raise your risk of falling. If you have a history of falls, let your provider know. Bring alist of your medicines to review with your healthcare provider. Discuss your nutrition and exerciseroutine. And ask whether you need any tests to assess your risk of falling. Review your medicines Medicines (even ones you buy over the counter) can cause side effects that lead to a fall. Common medicines that cause these kinds of side effects are blood pressure, heart, or pain medicines, medicines for sleep, and antidepressants. Store pain medicine in a secure area, such as an upper cabinet in your kitchen or bathroom. Don't mix different pills in the same bottle. Always store and travel with medicines in their original containers with clear labels. This will reduce the chance of taking the wrong medicine or too much of a medicine. Taking too much of a medicine or taking the wrong medicine may cause side effects that can increase your risk of falling. Also, the way your body reacts to medicines can change as you age. So, certain medicines that were fine in the past may cause side effects now. Your healthcare provider (such as your doctor or pharmacist) can help review your medicines and make changes if needed. Get your eyes and ears checked Problems with vision or hearing can lead to falls: Get your eyes checked at least once a year. Take time to adjust to new glasses. Get your hearing checked at least every other year. Have your doctor check your inner ear for problems that may affect your balance. Get the right nutrition If you don't get enough to eat or drink, you can become dizzy and fall: Your sense of thirst decreases with age. Drink water throughout the day. Eat breakfast. Plan regular meals. Ask your healthcare provider whether you need supplements. These can help strengthen your bones andmuscles to help prevent falls. They can also help prevent fractures if you do fall. Stay as active as you can Staying active is one of the best things you can do to prevent falls. Keep in mind that doing too little can be as risky as doing too much. That's because not being active can make you weaker and more likely to fall. Balance, flexibility, strength, and endurance all come from exercise. They all play a role in preventing falls. Ask your healthcare provider which types of activity are right for you. When to call your healthcare provider Be sure to call your healthcare provider if you fall. Also call if you have any of these signs or symptoms (someone else may need to point them out to you): Feeling lightheaded or dizzy more than once a day Losing your balance often or feeling unsteady on your feet Feeling numbness in your legs or feet, or noticing a change in the way you walk Having a steady decline in your memory or mental sharpness [id number] [employer] [place], [place] [id number]. All rights reserved. This information is not intended as a substitute for professional medical care. Always follow yourhealthcare professional's instructions. 09/29/2023 19:37:10 Fall, Mechanical Mechanical Fall You have had a fall today. It appears that the cause is what is called mechanical. That means that you slipped, tripped, or lost your balance. If your fall had been because of fainting or a seizure, you might need other tests. It is normal to feel sore and tight in your muscles and back the next day, and not just the musclesyou injured at first. Remember, all the parts of your body are connected, so while initially one area hurts, the next day another may hurt. Also, when you injure yourself, it causes inflammation, which then causes the muscles to tighten up and hurt more. After the initial worsening, it should gradually improve over the next few days. Do report more severe pain. Even without a definite head injury, you can still get a concussion from your head suddenly jerkingforward, backward, or sideways when falling. Concussions and even bleeding can still happen, especially if you have had a recent injury or take blood thinner medicine. It is not unusual to have a mild headache and feel tired and even nauseous or dizzy. Home care Rest today and go back to your normal activities when you are feeling back to normal. If you were injured during the fall, follow the advice from your healthcare provider regarding careof your injury. At first, do not try to stretch out the sore spots. If there is a strain, stretching may make it worse. Massage may help relax the muscles without stretching them. You can use an ice pack or cold compress on and off to the sore spots 10 to 20 minutes at a time, as often as you feel comfortable. This may help reduce the inflammation, swelling and pain. If you have any scrapes or abrasions, they usually heal within 10 days. It is important to keep theabrasions clean while they initially start to heal. However, an infection may happen even with proper care, so watch for early signs of infection (such as warmth, redness, or swelling). Medicines Talk to your healthcare provider before taking new medicines, especially if you have other medical problems or are taking other medicines. If you need anything for pain, you can take acetaminophen or ibuprofen, unless you were given a different pain medicine to use. Talk with your healthcare provider before using these medicines if you have chronic liver or kidney disease, or ever had a stomach ulcer or gastrointestinal bleeding, or are taking blood thinner medicines. Be careful if you are given prescription pain medicines, narcotics, or medicine for muscle spasm. They can make you sleepy and dizzy, and can affect your coordination, reflexes, and judgment. Do not drive or do work where you can injure yourself when taking them. Fall prevention Fix, remove, or replace anything that caused your fall. Make your home safe by keeping walkways clear of objects you may trip over. Use nonslip pads under rugs. Don't use small area rugs or throw rugs. Don't walk in poorly lit areas. Don't stand on chairs or wobbly ladders. Use caution when reaching overhead or looking upward. This position can cause a loss of balance. Be sure your shoes fit properly, have nonslip bottoms and are in good condition. Be cautious when going up and down curbs, and walking on uneven sidewalks. If your balance is poor, consider using a cane or walker. Stay as active as you can. Balance, flexibility, strength, and endurance all come from exercise. They all play a role in preventing falls. If you have pets, know where they are before you stand up or walk so you don't trip over them. Limit alcohol intake. Alcohol can cause balance problems and increase the risk of falls. Use night lights. Have your eyes tested to be sure you are seeing well, even if you already wear glasses. Follow-up Follow up with your healthcare provider, or as advised. If X-rays or CT scans were done, you will be notified if there is a change in the reading, especially if it affects treatment. Call 911 Call 911 if any of these happen: Trouble breathing Confused or difficulty arousing Fainting or loss of consciousness Rapid or very slow heart rate Seizure Difficulty with speech or vision, weakness of an arm or leg Difficulty walking or talking, loss of balance, numbness or weakness in one side of your body, or facial droop When to seek medical advice Call your healthcare provider right away if any of these happen: Repeated mechanical falls, or unexplained falls Dizziness Severe headache Blood in vomit, stools (black or red color) [id number] [employer]. [address] [place] [address]. All rights reserved. This information is not intended as a substitute for professional medical care. Always follow yourhealthcare professional's instructions. Follow Up Care 09/29/2023 18:22:34 With:ESTELLA JACOME DO Address: [address] [place] [phone] When:2-[address] [facility] 11-04-2023 Note Discharge Instructions Thank you for allowing [facility] to assist you with your healthcare needs. The following is importantdischarge information regarding your hospital visit. Diagnosis from Today's Visit Abrasion of face Fall Fall What to Do Next Instructions from Your Care Team Please return to the ER if you experience any nausea, vomiting, headaches, changes in vision, changes in strength or sensation in your extremities, or if you have any other concerns. No qualifying data available. Post Acute Orders No qualifying data available. You Need to Schedule the Following Appointments Follow Up with ESTELLA JACOME DO When Within 2-4 days Where: [address] [place] [id number] [phone] Allergies Vicodin (Nausea and vomiting) codeine (Nausea & vomiting 24-May-2016 02:37:05<$>) Medications Please ask your primary doctor or pharmacist before taking any other medication not listed, including over the counter drugs, herbal medications, vitamins and or supplements as they may interact withyour home medications. What How Much When Why Instructions Last Dose Unchanged acetaminophen (Tylenol) 1,000 Milligram by mouth Three (3) times a day not to exceed 3000 mg/ day Unchanged albuterol (ProAir HFA MDI (90 mcg/ inh) inhalation aerosol) 2 puff(s) by inhalation Every 6 hours as needed for as needed for wheezing Seasonal allergies Duration: 90 Days Okay to change to formulary preferred if needed Unchanged alendronate (Fosamax 70 mg oral tablet) 1 tab(s) by mouth Every week Osteoporosis Unchanged calcium carbonate (calcium (as carbonate) 500 mg oral tablet) Unchanged cetirizine (Zyrtec 10 mg oral tablet (NF)) 1 tab(s) by mouth Every day Unchanged cholecalciferol (Prevagen 50 mcg (2000 intl units) oral capsule) 1 cap by mouth Once a day Unchanged cholecalciferol (Vitamin D3 1000 intl units (25 mcg) oral capsule) 1 cap by mouth Every day Unchanged escitalopram (escitalopram 20 mg oral tablet) 1 tab(s) by mouth Once a day Depression Anxiety Unchanged fluticasone nasal (Flonase 50 mcg/ inh nasal spray) 1 spray(s) each nostril Once a day (in the morning) Hearing loss on left Seasonal allergies Duration: 90 Days Unchanged gabapentin (gabapentin 100 mg oral capsule) See instructions 1-2 caps 30-60 min. before bedtime Unchanged hydrochlorothiazide-losartan (hydrochlorothiazide-losartan 12.5-100 mg oral tablet) 1 tab(s) by mouth Once a day HTN (hypertension) Unchanged levETIRAcetam (levETIRAcetam 500 mg oral tablet) TAKE 1 TABLET BY MOUTH TWICE A DAY Unchanged multivitamin (M.V.I. Adult) 1 tablet by mouth Every day Unchanged multivitamin (Vitamin B Complex oral capsule) 1 cap by mouth Every day Unchanged multivitamin (Vitamin B Complex oral tablet) 1 tab(s) by mouth Every day Unchanged omega-3 polyunsaturated fatty acids (Fish Oil) 1,000 Milligram by mouth Every day Unchanged omeprazole (omeprazole 20 mg oral delayed release capsule) 1 cap by mouth Once a day GERD (gastroesophageal reflux disease) Unchanged oxybutynin (oxybutynin 15 mg/ 24 hr oral tablet, extended release) 1 tab(s) by mouth Once a day Urge incontinence Urinary incontinence in female Unchanged pravastatin (pravastatin 40 mg oral tablet) 1 tab(s) by mouth Once a day Hypercholesterolemia Please take this list to your next doctor s visit. Bring all medications you take, including over the counter medications, herbals and other supplements with you to your doctor s visit. Patients and families are reminded to discard old lists and to update any records with all medication providers or retail pharmacies. Education Materials Preventing Falls: Make Your Health a Priority Having a health problem can make you more likely to fall. Taking certain kinds of medicines may also increase your risk of falls. So, improving your health can help you avoid a fall. Work with your healthcare provider to manage health problems and to review your medicines. How chronic conditions increase your fall risk Health problems like diabetes, high or low blood pressure, and arthritis are called chronic health conditions. They can be managed, but they don't go away. They may cause problems with movement, balance, or vision. And certain medicines you take for them may have side effects, such as dizziness or drowsiness. These side effects also increase your risk. Work with your healthcare provider Your healthcare provider can work with you to help prevent a fall. See your healthcare provider fora medical exam each year. Go more often if you have symptoms, such as leg numbness or dizziness, that could raise your risk of falling. If you have a history of falls, let your provider know. Bring alist of your medicines to review with your healthcare provider. Discuss your nutrition and exerciseroutine. And ask whether you need any tests to assess your risk of falling. Review your medicines Medicines (even ones you buy over the counter) can cause side effects that lead to a fall. Common medicines that cause these kinds of side effects are blood pressure, heart, or pain medicines, medicines for sleep, and antidepressants. Store pain medicine in a secure area, such as an upper cabinet in your kitchen or bathroom. Don't mix different pills in the same bottle. Always store and travel with medicines in their original containers with clear labels. This will reduce the chance of taking the wrong medicine or too much of a medicine. Taking too much of a medicine or taking the wrong medicine may cause side effects that can increase your risk of falling. Also, the way your body reacts to medicines can change as you age. So, certain medicines that were fine in the past may cause side effects now. Your healthcare provider (such as your doctor or pharmacist) can help review your medicines and make changes if needed. Get your eyes and ears checked Problems with vision or hearing can lead to falls: Get your eyes checked at least once a year. Take time to adjust to new glasses. Get your hearing checked at least every other year. Have your doctor check your inner ear for problems that may affect your balance. Get the right nutrition If you don't get enough to eat or drink, you can become dizzy and fall: Your sense of thirst decreases with age. Drink water throughout the day. Eat breakfast. Plan regular meals. Ask your healthcare provider whether you need supplements. These can help strengthen your bones andmuscles to help prevent falls. They can also help prevent fractures if you do fall. Stay as active as you can Staying active is one of the best things you can do to prevent falls. Keep in mind that doing too little can be as risky as doing too much. That's because not being active can make you weaker and more likely to fall. Balance, flexibility, strength, and endurance all come from exercise. They all play a role in preventing falls. Ask your healthcare provider which types of activity are right for you. When to call your healthcare provider Be sure to call your healthcare provider if you fall. Also call if you have any of these signs or symptoms (someone else may need to point them out to you): Feeling lightheaded or dizzy more than once a day Losing your balance often or feeling unsteady on your feet Feeling numbness in your legs or feet, or noticing a change in the way you walk Having a steady decline in your memory or mental sharpness [id number] [employer]. [address] [place] [address], [place] [address]. All rights reserved. This information is not intended as a substitute for professional medical care. Always follow yourhealthcare professional's instructions. Mechanical Fall You have had a fall today. It appears that the cause is what is called mechanical. That means that you slipped, tripped, or lost your balance. If your fall had been because of fainting or a seizure, you might need other tests. It is normal to feel sore and tight in your muscles and back the next day, and not just the musclesyou injured at first. Remember, all the parts of your body are connected, so while initially one area hurts, the next day another may hurt. Also, when you injure yourself, it causes inflammation, which then causes the muscles to tighten up and hurt more. After the initial worsening, it should gradually improve over the next few days. Do report more severe pain. Even without a definite head injury, you can still get a concussion from your head suddenly jerkingforward, backward, or sideways when falling. Concussions and even bleeding can still happen, especially if you have had a recent injury or take blood thinner medicine. It is not unusual to have a mild headache and feel tired and even nauseous or dizzy. Home care Rest today and go back to your normal activities when you are feeling back to normal. If you were injured during the fall, follow the advice from your healthcare provider regarding careof your injury. At first, do not try to stretch out the sore spots. If there is a strain, stretching may make it worse. Massage may help relax the muscles without stretching them. You can use an ice pack or cold compress on and off to the sore spots 10 to 20 minutes at a time, as often as you feel comfortable. This may help reduce the inflammation, swelling and pain. If you have any scrapes or abrasions, they usually heal within 10 days. It is important to keep theabrasions clean while they initially start to heal. However, an infection may happen even with proper care, so watch for early signs of infection (such as warmth, redness, or swelling). Medicines Talk to your healthcare provider before taking new medicines, especially if you have other medical problems or are taking other medicines. If you need anything for pain, you can take acetaminophen or ibuprofen, unless you were given a different pain medicine to use. Talk with your healthcare provider before using these medicines if you have chronic liver or kidney disease, or ever had a stomach ulcer or gastrointestinal bleeding, or are taking blood thinner medicines. Be careful if you are given prescription pain medicines, narcotics, or medicine for muscle spasm. They can make you sleepy and dizzy, and can affect your coordination, reflexes, and judgment. Do not drive or do work where you can injure yourself when taking them. Fall prevention Fix, remove, or replace anything that caused your fall. Make your home safe by keeping walkways clear of objects you may trip over. Use nonslip pads under rugs. Don't use small area rugs or throw rugs. Don't walk in poorly lit areas. Don't stand on chairs or wobbly ladders. Use caution when reaching overhead or looking upward. This position can cause a loss of balance. Be sure your shoes fit properly, have nonslip bottoms and are in good condition. Be cautious when going up and down curbs, and walking on uneven sidewalks. If your balance is poor, consider using a cane or walker. Stay as active as you can. Balance, flexibility, strength, and endurance all come from exercise. They all play a role in preventing falls. If you have pets, know where they are before you stand up or walk so you don't trip over them. Limit alcohol intake. Alcohol can cause balance problems and increase the risk of falls. Use night lights. Have your eyes tested to be sure you are seeing well, even if you already wear glasses. Follow-up Follow up with your healthcare provider, or as advised. If X-rays or CT scans were done, you will be notified if there is a change in the reading, especially if it affects treatment. Call 911 Call 911 if any of these happen: Trouble breathing Confused or difficulty arousing Fainting or loss of consciousness Rapid or very slow heart rate Seizure Difficulty with speech or vision, weakness of an arm or leg Difficulty walking or talking, loss of balance, numbness or weakness in one side of your body, or facial droop When to seek medical advice Call your healthcare provider right away if any of these happen: Repeated mechanical falls, or unexplained falls Dizziness Severe headache Blood in vomit, stools (black or red color) [id number] [employer]. [address] [place] [address], [place] [address]. All rights reserved. This information is not intended as a substitute for professional medical care. Always follow yourhealthcare professional's instructions. Additional Information VACCINATE! IT SAVES LIVES! Members of the community who have not yet received the COVID-19 vaccine and would like to receive it can visit one of [facility] vaccine clinics. There are many vaccine clinic locations within the State. For locations and available times, please visit www.gettheshot.coronavirus.[place].gov/. It is important to note that some COVID mobile vaccine clinics are held outdoors and may be canceled in rainy or stormy conditions. To learn more about pediatric vaccinations (ages 5-11), we invite you to visit the [facility] webpage. https://www.[facility].org/pages/3390-Cuupq-Vscwdkywbpj-Rpsjagtcxn-Xogiw-Bfb stions.htmlTo learn more about the COVID-19 vaccine, we invite you to visit the CDC website for a list of frequently asked questions. https://www.cdc.gov/coronavirus/2019-ncov/vaccines/faq.html [facility] Patient Portal Access Instructions: Stay connected with your healthcare team and access your personal medical information anytime with the [facility] Patient Portal. If you would like a full copy of your medical records please contact the [facility] Medical Records Department Sunday through Sunday between 8a.m. and 4:30p.m. Please follow the directions below to access the portal: 1.Access the email account you provided upon registration to the hospital.2.Look for an invitation email from [facility].3.Open the email and access the invitation link: Accept Invitation to [facility]4.Fill in the required monroe to create your account. Sign into [email or web address] with your username and password that you created in the above steps to stay up to date. You can then view a summary of results, a summary of your visits, and the ability to download your summaries to your computer or send the information securely to a physician. Remember that your healthcare information is confidential, so carefully consider who you will allow to register on the [facility] Patient Portal for access to your information. You can also access the [facility] Patient Portal on the [employer] maggie. Simply click on Health Records under LearnSomething and then click on the [employer] logo. HOW TO SAFELY DISPOSE OF PRESCRIPTION MEDICATIONS Please use one of the following methods to safely dispose of your unused medications. 1.Use a drug disposal kit: the drug disposal pouch allows you to safely discard your old and unuseddrugs. Ask your nurse to give you one when you are discharged.2.Visit a local take-back location: Many local pharmacies and police departments have programs that collect old and unwanted prescriptiondrugs. Call your local pharmacy or go to http://TopVisible.Lexim/9P2Me1b to find one close to you.3.Make use of household items: Use cat litter or old coffee grounds to dispose medications if other options arenot available. Mix your drugs with these household products, seal them in an airtight container andthrow it into the garbage. Call [facility]: [phone] to be sure your drugs can be disposed of in this way. Some medicines may require a different approach.4.Never flush your medications down the toilet. IF YOU HAVE BEEN PRESCRIBED AN OPIOIDS FOR PAIN If you have been prescribed an opioid (such as hydrocodone, oxycodone or morphine), it is critical to understand the possible side effects and risks of opioid pain medications. Even when taken as directed, opioids can have several side effects including: Tolerance, meaning you might need to take more of a medication for the same pain relief. Nausea, vomiting and/or constipation. Sleepiness, dizziness, dry mouth, confusion, depression or itching. Physical dependence, meaning you have withdrawal symptoms when a medication is stopped ? this can develop within a few days. KNOW YOUR RESPONSIBILITIES It is important to know exactly how much and how often to take the opioid pain medications you are prescribed. Never take opioids in higher amounts or more often than prescribed. Do not combine opioids with alcohol or other drugs that cause drowsiness, such as benzodiazepines, also known as benzos,including diazepam and alprazolam, muscle relaxants or sleep aids. Never sell or share prescriptionopioids. This is illegal. Store opioids in a secure place and out of reach of others (including children, family, friends and visitors). The last page(s) of this document has been signed and retained as a CHART COPY Signatures Patient Education Materials Preventing Falls: Make Your Health a Priority Fall, Mechanical Medication Leaflets My discharge plan and instructions have been reviewed and explained to me and IBLANE SHERRENE R understand my current condition and have read and understand these discharge instructions. I have received a written copy of the plan/instructions. If I have questions, I am aware that I should contactmy doctor. 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 Automated exposure control, iterative reconstruction, and/or weight based adjustment of the mA/kV was utilized to reduce the radiation dose to as low as reasonably achievable. COMPARISON: None. HISTORY: ORDERING SYSTEM PROVIDED HISTORY: Reason for Exam: Fall, head trauma FINDINGS: There is no acute intracranial hemorrhage, mass, mass effect or abnormal extra-axial fluid collection. There is no CT evidence of acute infarct. The density in the larger dural venous sinuses is grossly normal. Scattered parenchymal hypodensities in the cerebral white matter are nonspecific but statistically most consistent with mild chronic microvascular angiopathy. Atherosclerotic calcifications are present in the cavernous carotid arteries bilaterally. There is proportionate enlargement of the ventricular system and cortical sulci compatible with parenchymal volume loss. The skull base and calvarium demonstrate no abnormality. The paranasal sinuses are clear. Included mastoid air cells are clear. IMPRESSION: No intracranial hemorrhage. No mass effect Interpreted by: Geraldo Montero MD Preliminary Report By: Geraldo Montero MD Electronically signed By Geraldo Montero MD Dictated Date: 09/29/2023 7:26:38 PM Prelim Date: 09/29/2023 7:29:09 PM Sign Date: 09/29/2023 7:29:09 PM Ordering Provider: [facility]06-[facility]22 Note ORIGINAL EXAMINATION: BONE DENSITOMETRY05/24/2022 10:50 am TECHNIQUE: Dual energy bone densitometry lumbar spine and left forearm. COMPARISON: 01/05/2020 HISTORY: Reason for Exam: Osteoporosis Screening FINDINGS: T Score Left Forearm: -3.0 Left Forearm: 0.413 (g/cm2) T Score Lumbar Spine: -0.4 Lumbar Spine: 1.000 (g/cmd2) COMMENTS: bilat hip replacements BMD Change from previous Lumbar Spine: -1.0% IMPRESSION: Osteoporosis. Interpreted by: Александр Chong MD Preliminary Report By: Александр Chong MD Electronically signed By Александр Chong MD Dictated Date: 05/24/2022 11:02:11 AM Prelim Date: 05/24/2022 11:03:33 AM Sign Date: 05/24/2022 11:03:33 AM Ordering Provider: [facility]06-29-2022 Note ORIGINAL EXAMINATION: BONE DENSITOMETRY05/24/2022 10:50 am TECHNIQUE: Dual energy bone densitometry lumbar spine and left forearm. COMPARISON: 01/05/2020 HISTORY: Reason for Exam: Osteoporosis Screening FINDINGS: T Score Left Forearm: -3.0 Left Forearm: 0.413 (g/cm2) T Score Lumbar Spine: -0.4 Lumbar Spine: 1.000 (g/cmd2) COMMENTS: bilat hip replacements BMD Change from previous Lumbar Spine: -1.0% IMPRESSION: Osteoporosis. Interpreted by: Александр Chong MD Preliminary Report By: Александр Chong MD Electronically signed By Александр Chong MD Dictated Date: 05/24/2022 11:02:11 AM Prelim Date: 05/24/2022 11:03:33 AM Sign Date: 05/24/2022 11:03:33 AM Ordering Provider: [facility]04-27-2022 Hospital Discharge instructions Patient Education 03/22/2022 07:20:11 5 - [facility] Post-op Instruction 06/2017 ([id number]) [facility] Post-operative Instructions PLEASE FOLLOW [facility] POST-OP INSTRUCTIONS GIVEN WATCH FOR SIGNS OF INFECTION: call the office ([phone]) if experencing any of the following: (Usually appears 36-48 hours after surgery) Increased temperature (101 degrees Fahrenheit or higher) Redness or swelling Increased uncontrolled pain Foul odor or drainage Calf discomfort Significant swelling Or if having any chest pain, shortness of breath, or difficulty breathing or swallowing call the office or go the nearest Emergency Room. If you have any questions, please call your doctor at the number listed on your follow up instructions. Form: 338A ([id number]) R: 04/01 Follow Up Care 02/28/2022 08:33:09 With:[facility] Address: [address] [place] [address]- When:03/24/2022 10:15:00 Comments:This is your first Physical Therapy appointment. Follow-up as scheduled With:KATIE CRUZ PA-C, Orthopedic Address: [facility] [address] [place] [id number] When:04/03/2022 09:00:00 Comments:This is your post op appointment. Follow-up as scheduled [facility] Evaluation + Plan note Future Appointments Appointment Date:10/24/2021 02:00:00 PM Scheduled Provider:ZULLY BARTON Location:[facility] Appointment Type:PC Acute Appointment Date:12/22/2021 03:00:00 PM Scheduled Provider:ESTELLA JACOME DO Location:[facility] Appointment Type:PC OV [facility] Evaluation + Plan note Future Appointments Appointment Date:11/10/2021 11:00:00 AM Scheduled Provider:ESTELLA JACOME DO Location:[facility] Appointment Type:PC OV Appointment Date:12/22/2021 03:00:00 PM Scheduled Provider:ESTELLA JACOME DO Location:[facility] Appointment Type:PC OV Future Scheduled Tests Laboratory* Basic Metabolic Panel 10/24/[address] [facility] Evaluation + Plan note Future Appointments Appointment Date:2022 09:30:00 AM Scheduled Provider:ESTELLA JACOME DO Location:[facility] Appointment Type:PC OV Future Scheduled Tests Laboratory* Basic Metabolic Panel 10/24/[address] [facility] Evaluation + Plan note Future Appointments Appointment Date:12/28/2021 10:00:00 AM Scheduled Provider:BABAK PASTRANA MD Location:[facility] Appointment Type:[facility] New Patient Appointment Date:2022 09:30:00 AM Scheduled Provider:ESTELLA JACOME DO Location:[facility] Appointment Type:PC OV Future Scheduled Tests Laboratory* Basic Metabolic Panel 10/24/[address] [facility] evaluation + Plan note Future Appointments Appointment Date:2022 09:30:00 AM Scheduled Provider:ESTELLA JACOME DO Location:[facility] Appointment Type:PC OV Appointment Date:06/30/2022 11:00:00 AM Scheduled Provider:BABAK PASTRANA MD Location:[facility] Appointment Type:[facility] OV Follow Up Diagnostic Tests Pending * Rheumatoid Factor 12/28/21 Future Scheduled Tests Laboratory* Basic Metabolic Panel 10/24/21 [facility] Evaluation + Plan note Future Appointments Appointment Date:03/24/2022 10:30:00 AM Scheduled Provider: Location:[facility] Appointment Type:PT Outpatient Evaluation Appointment Date:06/30/2022 11:00:00 AM Scheduled Provider:BABAK PASTRANA MD Location:[facility] Appointment Type:[facility] OV Follow Up Future Scheduled Tests Laboratory* Basic Metabolic Panel 10/24/[address] [facility] Bellhopsaluation + Plan note Future Appointments Appointment Date:03/24/2022 10:30:00 AM Scheduled Provider: Location:[facility] Appointment Type:PT Outpatient Evaluation Appointment Date:05/03/2022 03:30:00 PM Scheduled Provider:ESTELLA JACOME DO Location:[facility] Appointment Type:PC Wellness Medicare Appointment Date:06/30/2022 11:00:00 AM Scheduled Provider:BABAK PASTRANA MD Location:[facility] Appointment Type:[facility] OV Follow Up Future Scheduled Tests Laboratory* Basic Metabolic Panel 10/24/[address] [facility] Evaluation + Plan note Future Appointments Appointment Date:04/06/2022 09:30:00 AM Scheduled Provider: Location:[facility] Appointment Type:PT Treatment - [place] Appointment Date:04/11/2022 09:30:00 AM Scheduled Provider: Location:[facility] Appointment Type:PT Treatment - [place] Appointment Date:04/13/2022 09:30:00 AM Scheduled Provider: Location:[facility] Appointment Type:PT Treatment - [place] Appointment Date:04/18/2022 09:30:00 AM Scheduled Provider: Location:[facility] Appointment Type:PT Treatment - [place] Appointment Date:04/20/2022 09:30:00 AM Scheduled Provider: Location:[facility] Appointment Type:PT Treatment - [place] Appointment Date:04/26/2022 09:30:00 AM Scheduled Provider: Location:[facility] Appointment Type:PT Treatment - [place] Appointment Date:05/03/2022 03:30:00 PM Scheduled Provider:ESTELLA JACOME DO Location:[facility] Appointment Type:PC Wellness Medicare Appointment Date:06/30/2022 11:00:00 AM Scheduled Provider:BABAK PASTRANA MD Location:[facility] Appointment Type:[facility] ONC OV Follow Up Future Scheduled Tests Laboratory* Basic Metabolic Panel 10/24/[address] [facility] Evaluation + Plan note Future Appointments Appointment Date:05/24/2022 10:30:00 AM Scheduled Provider: Location:[facility] Appointment Type:[facility] Mammogram Screening Bilateral w/ [place]man Appointment Date:05/24/2022 11:00:00 AM Scheduled Provider: Location:[facility] Appointment Type:BD Bone Density DEXA Axial Skeleton Appointment Date:06/30/2022 11:00:00 AM Scheduled Provider:BABAK PASTRANA MD Location:[facility] Appointment Type:[facility] OV Follow Up Appointment Date:08/29/2022 11:00:00 AM Scheduled Provider:ESTELLA JACOME DO Location:[facility] Appointment Type:PC OV Future Scheduled Tests Laboratory* Basic Metabolic Panel 10/24/21 Radiology* [facility] Mammo Screening Bilateral w/ Osman 05/24/22 * BD Bone Density DEXA Axial Skeleton 05/24/[address] [facility] Evaluation + Plan note Future Appointments Appointment Date:06/30/2022 11:00:00 AM Scheduled Provider:BABAK PASTRANA MD Location:[facility] Appointment Type:[facility] OV Follow Up Appointment Date:08/29/2022 11:00:00 AM Scheduled Provider:ESTELLA JACOME DO [facility] Appointment Type:PC OV Future Scheduled Tests Laboratory* Basic Metabolic Panel 10/24/[address] [facility] Evaluation + Plan note Future Appointments Appointment Date:02/22/2023 01:00:00 PM Scheduled Provider: Munir:[facility] Appointment Type:[facility] Appointment Date:05/09/2023 10:00:00 AM Scheduled Provider:ESTELLA JACOME DO Location:[facility] Appointment Type: Wellness Medicare [facility] Evaluation + Plan note Future Appointments Appointment Date:05/09/2023 10:00:00 AM Scheduled Provider:ESTELLA JACOME DO Location:[facility] Appointment Type:PC Wellness Medicare [facility] Evaluation + Plan note Future Appointments Appointment Date:09/04/2023 11:00:00 AM Scheduled Provider:ESTELLA JACOME DO Location:[facility] Appointment Type:PC OV Future Scheduled Tests Laboratory* Thyroid Stimulating Hormone 05/09/23 * Complete Blood Count 05/09/23 * Lipid Profile 05/09/23 * Vitamin D Level 05/09/23 * Complete Metabolic Panel 05/09/[address] [facility] Evaluation + Plan note Future Appointments Appointment Date:09/04/2023 11:00:00 AM Scheduled Provider:ESTELLA JACOME DO Location:[facility] Appointment Type:PC OV [facility] Evaluation + Plan note Future Appointments Appointment Date:12/05/2023 10:30:00 AM Scheduled Provider:ESTELLA JACOME DO Location:[facility] Appointment Type:[facility] + Plan note Future Appointments Appointment Date:12/05/2023 10:30:00 AM Scheduled Provider:ESTELLA JACOME DO Location:[facility] Appointment Type: OV [facility] Bellhops[facility]uation + Plan note Future Appointments Appointment Date:05/14/2024 10:00:00 AM Scheduled Provider:ESTELLA JACOME DO Location:[facility] Appointment Type:PC Wellness Medicare Future Scheduled Tests Laboratory* Thyroid Stimulating Hormone 05/05/24 * Lipid Profile 05/05/24 * Albumin/Creatinine Ratio, Random Urine 03/05/24 * Complete Metabolic Panel 05/05/[address] [facility] Bell[facility]uation + Plan note Future Appointments Appointment Date:05/14/2024 10:00:00 AM Scheduled Provider:ESTELLA JACOME DO Location:[facility] Appointment Type:PC Wellness Medicare [facility] + Plan note Future Appointments Appointment Date:06/25/2024 10:00:00 AM Scheduled Provider:ESTELLA JACOME DO Location:[facility] Appointment Type: OV Appointment Date:07/07/2024 01:15:00 PM Scheduled Provider: Location:[facility] Appointment Type:MRI Brain w/ + w/o Contrast Appointment Date:07/08/2024 08:00:00 PM Scheduled Provider: Location:[facility] Appointment Type:SL PSG (Polysomnograph) Future Scheduled Tests Radiology* MRI Brain w/ + w/o Contrast 07/07/[address] [facility] evaluation + Plan note Future Appointments Appointment Date:07/08/2024 08:00:00 PM Scheduled Provider: Location:[facility] Appointment Type:SL PSG (Polysomnograph) Appointment Date:08/20/2024 11:00:00 AM Scheduled Provider:ESTELLA JACOME DO Location:[facility] Appointment Type:PC OV [facility] Evaluation + Plan note Future Appointments Appointment Date:08/20/2024 11:00:00 AM Scheduled Provider:ESTELLA JACOME DO Location[facility] Appointment Type:PC OV [facility] Evaluation + Plan note Future Appointments Appointment Date:10/30/2024 11:30:00 AM Scheduled Provider:ESTELLA JACOME DO Location:[facility] Appointment Type:PC OV [facility] Evaluation + Plan note Future Appointments Appointment Date:02/11/2025 01:00:00 PM Scheduled Provider:ESTELLA JACOME DO Location:[facility] Appointment Type:PC OV Diagnostic Tests Pending * Urine Culture 12/10/[address] [facility] Hospital course Narrative No data available for this section [facility] Hospital Discharge instructions No data available for this section [facility] Progress note No data available for this section [facility] Summary note* SHIRA Gallardo: PERFORM, MODIFY Event Display: Patient Summary Documents Authored Date: [id number] * SHIRA Gallardo: PERFORM Event Display: Patient Summary Documents Authored Date: [id number] CORRECTED DATE OF DISCHARGE [facility] Summary Purpose Family History No Family History Records Found No data available for this section No data available for this section No Family History Records Found No data available for this section No data available for this section No data available for this section No data available for this section No data available for this section No Family History Records Found No data available for this section No data available for this section No Family History Records FoundNo Family History Records Found Advance Directives No Advanced Directives Records FoundNo Advanced Directives Records FoundNo Advanced Directives Records FoundNo Advanced Directives Records FoundNo Advanced Directives Records Found Additional Source Comments INFORMATION SOURCE (unrecogn ized section and content) DATE CREATED AUTHOR 05/22/2018 [facility] DATE CREATED AUTHOR AUTHOR'S ORGANIZ ATION 01/30/2024 [facility] DATE CREATED AUTHOR AUTHOR'S ORGANIZ ATION 07/23/2024 [facility] ([place]) DATE CREATED AUTHOR AUTHOR'S ORGANIZ ATION 12/13/2024 [facility] DATE CREATED AUTHOR AUTHOR'S ORGANIZ ATION 05/13/2025 [facility] Care Team (unrecognized sect ion and content) Personnel Name: ESTELLA JACOME DO Address: [address] [place] [id number] [place] [address] Name: Bethel Linton Clerk Gena PT Personnel Name: ESTELLA JACOME DO Address: [address] [place] [address] Name: Bethel Linton Gena PT Care Team Personnel Name: Bethel Linton Clerk Gena PT Position: P3 Scheduling - Book Or Script Editor Advanced Member Role: Other Name: MERY CABAN MD Position: P4 Physician - General Surgery Member Role: Surgeon Address: Address: [address] [facility] [address] [place] [address]- [place] Name: MD ADE KEITH MD Member Role: Corporate Logistics Manager Address: Address: [address] [place] [address]- [place] Name: ESTELLA JACOME DO Position: P4 Physician - Primary Care Member Role: Primary Care Physician Address: Address: [address] [place] [address]- Name: JAY ANGELES MD Position: P3 Physician - Orthopedics Member Role: Orthopaedist Address: Address: [address] [place] [address] [address] [facility] [place] [address]- [place] Name: SARAI ESCOBAR MA, [facility] Member Role: Garment Cutter Address: Address: [address] [place] [address]- Care Team Related Persons Name: TRESA LOBO Name: TRESA LOBO Name: TRESA LOBO Name: TRESA LOBO Name: SOFIA LOBO Care Team Personnel Name: Bethel Lintonrpierre Avery PT Position: P3 Scheduling - Book Or Script Editor Advanced Member Role: Other Name: MERY CABAN MD Position: P4 Physician - General Surgery Member Role: Surgeon Address: Address: [address] [facility] [place] [address]- Name: MD ADE KEITH MD Member Role: Corporate Logistics Manager Address: Address: [address] [place] [address]- Name: ESTELLA JACOME DO Position: P4 Physician - Primary Care Member Role: Primary Care Physician Address: Address: [address] [place] [address]- Name: JAY ANGELES MD Position: P3 Physician - Orthopedics Member Role: Orthopaedist Address: Address: [address] [place] [address] [place] [address]- Name: SARAI ESCOBAR MA, [facility] Member Role: Garment Cutter Address: Address: [address] [place] [address]- Care Team Related Persons Name: TRESA LOBO Name: TRESA LOBO Name: TRESA LOBO Name: TRESA LOBO Name: SOFIA LOBO Care Team Personnel Name: ROMEO HAQUE Member Role: Chiropractor Address: Address: [address] [place] [phone] [place] Name: Bethel Lintonrpierre Avery PT Position: P3 Scheduling - Book Or Script Editor Advanced Member Role: Other Name: MERY CABAN MD Position: P4 Physician - General Surgery Member Role: Surgeon Address: Address: [address] [facility] [place] [address]- [place] Name: MD ADE KEITH MD Member Role: Corporate Logistics Manager Address: Address: [address] [place] [address]- [place] Name: ESTELLA JACOME DO Position: P4 Physician - Primary Care Member Role: Primary Care Physician Address: Address: [address] [place] [address]- Name: JAY ANGELES MD Position: P3 Physician - Orthopedics Member Role: Orthopaedist Address: Address: [address] [place] [address] [address] [facility] [place] [address]- [place] Name: SARAI ESCOBAR MA, [facility]-A Member Role: Garment Cutter Address: Address: [address] [place] [address], [place] [address]- Care Team Related Persons Name: TRESA LOBO Name: TRESA LOBO Name: TRESA LOBO Name: TRESA LOBO Name: SOFIA LOBO Care Team Personnel Name: ROMEO HAQUE Member Role: Chiropractor Address: Address: [address] [place] [phone] [place] Name: Bethel Linton Clerpierre Avery PT Position: P3 Scheduling - Book Or Script Editor Advanced Member Role: Other Name: MERY CABAN MD Position: P4 Physician - General Surgery Member Role: Surgeon Address: Address: [address] [facility] [place] [address]- Name: MD ADE KEITH MD Member Role: Corporate Logistics Manager Address: Address: [address] [place] [address]- Name: ESTELLA JACOME DO Position: P4 Physician - Primary Care Member Role: Primary Care Physician Address: Address: [address] [place] [address]- Name: JAY ANGELES MD Position: P3 Physician - Orthopedics Member Role: Orthopaedist Address: Address: [address] [place] [address] [facility] [place] [address]- [place] Name: SARAI ESCOBAR MA, [facility]-A Member Role: Garment Cutter Address: Address: [address] [place] [address], [place] [address]- Care Team Related Persons Name: TRESA LOBO Name: TRESA LOBO Name: TRESA LOBO Name: TRESA LOBO Name: SOFIA LOBO Care Team Personnel Name: ROMEO HAQUE Member Role: Chiropractor Address: Address: [address] [place] [phone] [place] Name: Bethel Linton PT Position: P3 Scheduling - Book Or Script Editor Advanced Member Role: Other Name: MERY CABAN MD Position: P4 Physician - General Surgery Member Role: Surgeon Address: Address: [address] [facility] [place] [address]- [place] Name: MD ADE KEITH MD Member Role: Corporate Logistics Manager Address: Address: [address] [place] [address]- [place] Name: ESTELLA JACOME DO Position: P4 Physician - Primary Care Member Role: Primary Care Physician Address: Address: [address] [place] [address]- Name: JAY ANGELES MD Position: P3 Physician - Orthopedics Member Role: Orthopaedist Address: Address: [address] [place] [address] [facility] [place] [address]- [place] Name: SARAI ESCOBAR MA, [facility] Member Role: Garment Cutter Address: Address: [address] [place] [address]- Care Team Related Persons Name: TRESA LOBO Name: TRESA LOBO Name: TRESA LOBO Name: TRESA LOBO Name: SOFIA LOBO Care Team Personnel Name: ROMEO HAQUE Member Role: Chiropractor Address: Address: [address] [place], [place] [phone] [place] Name: Bethel Linton PT Position: P3 Scheduling - Book Or Script Editor Advanced Member Role: Other Name: MERY CABAN MD Position: P4 Physician - General Surgery Member Role: Surgeon Address: Address: [address] [facility] [place] [address]- [place] Name: MD ADE KEITH MD Member Role: Corporate Logistics Manager Address: Address: [facility] [place] [address]- [place] Name: ESTELLA JACOME DO Position: P4 Physician - Primary Care Member Role: Primary Care Physician Address: Address: [address] [place] [address]- Name: JAY ANGELES MD Position: P3 Physician - Orthopedics Member Role: Orthopaedist Address: Address: [address] [place] [address] [facility] [place] [address]- Name: SARAI ESCOBAR MA, CCC-A Member Role: Garment Cutter Address: Address: [address] [place] [address], [place] [address]- Care Team Related Persons Name: TRESA LOBO Name: TRESA LOBO Name: TRESA LOBO Name: TRESA LOBO Name: SOFIA LOBO Care Team Personnel Name: ROMEO HAQUE Member Role: Chiropractor Address: Address: [address] [place] [phone] [place] Name: Bethel Linton PT Position: P3 Scheduling - Book Or Script Editor Advanced Member Role: Other Name: MERY CABAN MD Position: P4 Physician - General Surgery Member Role: Surgeon Address: Address: [address] [facility] General Surgery [place], [place] [address] Name: MD ADE KEITH MD Member Role: Corporate Logistics Manager Address: Address: [address] [place] [address]- Name: ESTELLA JACOME DO Position: P4 Physician - Primary Care Member Role: Primary Care Physician Address: Address: [address] [place] [phone] [place] [address] Name: JAY ANGELES MD Position: P3 Physician - Orthopedics Member Role: Orthopaedist Address: Address: [address] [place] [address] [place] [address]- Name: SARAI ESCOBAR MA, [facility]-A Member Role: Garment Cutter Address: Address: [address] [place] [place] [address], [place] [address]- Care Team Related Persons Name: TRESA LOBO Name: TRESA LOBO Name: TRESA LOBO Name: TRESA LOBO Name: SOFIA LOBO Care Team Personnel Name: ROMEO HAQUE Member Role: Chiropractor Address: Address: [address] [place] [phone] [place] Name: Bethel Lintonrpierre Avery PT Position: P3 Scheduling - Book Or Script Editor Advanced Member Role: Other Name: MERY CABAN MD Position: P4 Physician - General Surgery Member Role: Surgeon Address: Address: [address] [facility] [place] [address]- Name: MD ADE KEITH MD Member Role: Corporate Logistics Manager Address: Address: [address] [place] [address]- Name: ESTELLA JACOME DO Position: P4 Physician - Primary Care Member Role: Primary Care Physician Address: Address: [address] [place] [address]- Name: JAY ANGELES MD Position: P3 Physician - Orthopedics Member Role: Orthopaedist Address: Address: [address] [place] [address] [address] [facility] [place] [place] [address]- Name: SARAI ESCOBAR MA, CCC-A Member Role: Garment Cutter Address: Address: [address] [place] [address] Care Team Related Persons Name: TRESA LOBO Name: TRESA LOBO Name: TRESA LOBO Name: TRESA LOBO Name: SOFIA LOBO Care Team Personnel Name: ROMEO HAQUE Member Role: Chiropractor Address: Address: [address] [place] [phone] [place] Name: Bethel Linton PT Position: P3 Scheduling - Book Or Script Editor Advanced Member Role: Other Name: MERY CABAN MD Position: P4 Physician - General Surgery Member Role: Surgeon Address: Address: [address] [facility] [place] [address]- Name: MD ADE KEITH MD Member Role: Corporate Logistics Manager Address: Address: [address] [place] [address]- Name: ESTELLA JACOME DO Position: P4 Physician - Primary Care Member Role: Primary Care Physician Address: Address: [address] [place] [phone] [place] [address] Name: JAY ANGELES MD Position: P3 Physician - Orthopedics Member Role: Orthopaedist Address: Address: [address] [place] [address] [address] [facility] [place] [address]- Name: SARAI ESCOBAR MA, CCC-A Member Role: Garment Cutter Address: Address: [address] [place] [address] Care Team Related Persons Name: TRESA LOBO Name: TRESA LOBO Name: TRESA LOBO Name: TRESA LOBO Name: SOFIA LOBO Care Team Personnel Name: ROMEO HAQUE Member Role: Chiropractor Address: Address: [address] [place] [phone] [place] Name: Bethel Linton Clerpierre Avery PT Position: P3 Scheduling - Book Or Script Editor Advanced Member Role: Other Name: MERY CABAN MD Position: P4 Physician - General Surgery Member Role: Surgeon Address: Address: [address] [facility] General Surgery [place], [place] [phone] [place] [address] Name: MD ADE KEITH MD Member Role: Corporate Logistics Manager Address: Address: [address] [place] [address] Name: ESTELLA JACOME DO Position: P4 Physician - Primary Care Member Role: Primary Care Physician Address: Address: [address] [place] [address] Name: JAY ANGELES MD Position: P3 Physician - Orthopedics Member Role: Orthopaedist Address: Address: [address] [place] [address] [facility] [place], [place] [address] Name: SARAI ESCOBAR MA, [facility] Member Role: Garment Cutter Address: Address: [address] [place] [address] Care Team Related Persons Name: TRESA LOBO Name: TRESA LOBO Name: TRESA LOBO Name: TRESA LOBO Name: SOFIA LOBO Care Team Personnel Name: ROMEO HAQUE Member Role: Chiropractor Address: Address: [address] [place] [phone] [place] Name: Bethel Linton Clerpierre Avery PT Position: P3 Scheduling - Book Or Script Editor Advanced Member Role: Other Name: MERY CABAN MD Position: P4 Physician - General Surgery Member Role: Surgeon Address: Address: [address] [facility] [place] [address]- [place] Name: MD ADE KEITH MD Member Role: Corporate Logistics Manager Address: Address: [address] [place] [address]- [place] Name: ESTELLA JACOME DO Position: P4 Physician - Primary Care Member Role: Primary Care Physician Address: Address: [address] [place] [address]- [place] Name: JAY ANGELES MD Position: P3 Physician - Orthopedics Member Role: Orthopaedist Address: Address: [address] [place] [address] [address] [facility] [place] [address]- [place] Name: SARAI ESCOBAR MA CCC-A Member Role: Garment Cutter Address: Address: [address] [place] [address]- Care Team Related Persons Name: TRESA LOBO Name: TRESA LOBO Name: TRESA LOBO Name: TRESA LOBO Name: SOFIA LOBO Care Team Personnel Name: ROMEO HAQUE Member Role: Chiropractor Address: Address: [address] [place] [phone] [place] Name: Bethel Lintonrpierre Avery PT Position: P3 Scheduling - Book Or Script Editor Advanced Member Role: Other Name: MERY CABAN MD Position: P4 Physician - General Surgery Member Role: Surgeon Address: Address: [address] [facility] [place] [address]- [place] Name: MD ADE KEITH MD Member Role: Corporate Logistics Manager Address: Address: [address] [place] [address]- [place] Name: ESTELLA JACOME DO Position: P4 Physician - Primary Care Member Role: Primary Care Physician Address: Address: [address] [place] [address]- [place] Name: JAY ANGELES MD Position: P3 Physician - Orthopedics Member Role: Orthopaedist Address: Address: [address] [place] [address] [address] [facility] [place] [address]- [place] Name: SARAI ESCOBAR MA CCC-A Member Role: Garment Cutter Address: Address: [address] [place] [address], [place] [address] Care Team Related Persons Name: TRESA LOBO Name: TRESA LOBO Name: TRESA LOBO Name: TRESA LOBO Name: SOFIA LOBO Care Team Personnel Name: ROMEO HAQUE Member Role: Chiropractor Address: [address] [place] [phone] Telecom: Name: Bethel Lintno Clerpierre Avery PT Position: P3 Scheduling - Book Or Script Editor Advanced Member Role: Other Name: MERY CABAN MD Position: P4 Physician - General Surgery Member Role: Surgeon Address: [address] [facility] [place] [address]- Telecom: Name: MD ADE KEITH MD Member Role: Corporate Logistics Manager Address: [address] [place] [address]- Telecom: Name: ESTELLA JACOME DO Position: P4 Physician - Primary Care Member Role: Primary Care Physician Address: [address] [place] [phone] [place] [address] Telecom: Name: JAY ANGELES MD Position: P3 Physician - Orthopedics Member Role: Orthopaedist Address: [address] [place] [address] [place] [address]- Telecom: Name: SARAI ESCOBAR MA, [facility] Member Role: Garment Cutter Address: [address] [address]- Telecom: Care Team Related Persons Name: TRESA LOBO Name: TRESA LOBO Name: TRESA LOBO Name: TRESA LOBO Name: SOFIA LOBO Care Team (unrecognized sect ion and content) Personnel Name: ESTELLA JACOME DO Address: Address: [address] [place] [address]- [place] Name: Bethel Linton Clerpierre Avery PT Care Team Personnel Name: Bethel Linton PT Position: P3 Scheduling - Book Or Script Editor Advanced Member Role: Other Name: MERY CABAN MD Position: P4 Physician - General Surgery Med Service: Meli Mcgovern M.D. Member Role: Surgeon Address: Address: [address] [facility] [address] AM [place] [address]- Name: ESTELLA JACOME DO Position: P4 Physician - Primary Care Med Service: Active Provider Member Role: Primary Care Physician Address: Address: [address] [facility] [place], [place] [address] Name: JAY ANGELES MD Position: P3 Physician - Orthopedics Med Service: Admitting Member Role: Orthopaedist Address: Address: [address] [place] [address] [address] [facility] [place] [address]- Name: SARAI ESCOBAR MA, [facility] Member Role: Garment Cutter Address: Address: [address] [place] [address] [address] [place], [place] [address] Care Team Related Persons Name: TRESA LOBO Name: TRESA LOBO Name: TRESA LOBO Name: TRESA LOBO Name: SOFIA LOBO FOR RECORDS PERTAINING TO PATIENTS WHO ARE OR HAVE BEEN ENROLLED IN A CHEMICAL DEPENDENCY/SUBSTANCEABUSE PROGRAM, SOME INFORMATION MAY BE OMITTED. This clinical summary was aggregated from multiple sources. Caution should be exercised in using it in the provision of clinical care. This summary normalizes information from multiple sources, and as a consequence, information in this document may materially change the coding, format and clinical context of patient data. In addition, data may be omitted in some cases. CLINICAL DECISIONS SHOULD BE BASED ON THE PRIMARY CLINICAL RECORDS. [employer] provides no warranty or guarantee of the accuracy or completeness of information in this document.
--- NOTE | 2025-05-16 08:00 | MRI_ITS ---
PROCEDURE: BRAIN WITHOUT CONTRAST 05/16/2025 REASON FOR EXAM: ALZHEIMERS TECHNIQUE: BRAIN WITHOUT CONTRAST Multiplanar and multisequence images were obtained. COMPARISON: none FINDINGS: No acute or hyperacute infarcts. No intracerebral or extra-axial hematomas. Bilateral cerebral periventricular and subcortical as well as basal ganglia, thalamic and pontine foci and patches of high T2/FLAIR WI signal. Normal MRI signal of the cerebellar hemispheres and rest of the brain stem. Dilated ventricular system, cortical sulci and extra-axial CSF spaces. No shift of midline structures. Normal MRI appearance of the petrous temporal bones cerebellopontine angles with no definite masses. Normal MRI appearance of orbital structures, both globes, optic nerves, optic chiasm, optic tracts and optic radiations. Scanned paranasal sinuses are unremarkable. MRI/Brain without Contrast IMPRESSION: No acute infarcts. No intracerebral or extra-axial hematomas. Bilateral cerebral and pontine microvascular ischemic changes. Age appropriate brain involutional changes. Reading Location: [facility]
== END | disposition home or self-care (01) ==
LOC: MRI 07:38
PROVIDERS: PCP Nurse Practitioner Family; Referring Provider Nurse Practitioner Family; Visit Provider Nurse Practitioner Family
DX: G30.9 Alzheimer's disease, unspecified (principal); F02.80 Dementia in other diseases classified elsewhere, unspecified severity, without behavioral disturbance, psychotic disturbance, mood disturbance, and anxiety; R26.89 Other abnormalities of gait and mobility; R68.89 Other general symptoms and signs; R47.9 Unspecified speech disturbances; F33.9 Major depressive disorder, recurrent, unspecified
CPT/HCPCS: 70551